=== PATIENT | female | born 1940 | race Caucasian/White ===

== ENCOUNTER 2021-11-27 16:33 | Inpatient (IN) | payer MEDICAID, MEDICARE, OTHER ==
[~2021-11-27] VITALS: Ht 154.9 cm; Wt 84.1 kg
[2021-11-27 16:54] LABS: BASOPHILS # (AUTO) 0.1 10^3/uL (0.0-0.1); BASOPHILS % (AUTO) 1 % (0-10); EOSINOPHILS # (AUTO) 0.1 10^3/uL (0.0-0.3); EOSINOPHILS % (AUTO) 1 % (0-10); HEMATOCRIT 41 % (35-52); HEMOGLOBIN 14.2 g/dL (11.5-16.0); LYMPHOCYTES # (AUTO) 1.5 10^3/uL (1.0-4.0); LYMPHOCYTES % (AUTO) 12 % (12-44); MEAN CORPUSCULAR HEMOGLOBIN 30 pg (25-34); MEAN CORPUSCULAR HGB CONC 34 g/dL (32-36); MEAN CORPUSCULAR VOLUME 88 fL (80-99); MEAN PLATELET VOLUME 9.8 fL (9.0-12.2); MONOCYTES # (AUTO) 0.8 10^3/uL (0.0-1.0); MONOCYTES % (AUTO) 7 % (0-12); NEUTROPHILS % (AUTO) 80 % (42-75); PLATELET COUNT 316 10^3/uL (130-400); WHITE BLOOD COUNT 12.5 10^3/uL (4.3-11.0)
[2021-11-27 17:16] LABS: POTASSIUM 3.6 MMOL/L (3.6-5.0)
[2021-11-27 17:17] LABS: ALBUMIN 4.4 GM/DL (3.2-4.5); BILIRUBIN,TOTAL 0.7 MG/DL (0.1-1.0); CALCIUM 9.4 MG/DL (8.5-10.1); CREATININE SERUM 0.58 MG/DL (0.60-1.30); MAGNESIUM 1.8 MG/DL (1.6-2.4); TOTAL PROTEIN 7.3 GM/DL (6.4-8.2)
[2021-11-27] MEDS ORDERED: IOHEXOL 350 MG/ML 100 ML (OMNIPAQUE 350) VIAL IV ONE (19:00)
[2021-11-27] MEDS ORDERED: NS 100 ML (IVPB) BAG IV ONE (19:00)
[2021-11-27] MEDS ORDERED: HOLD METFORMIN - RECEIVED CONTRAST 20 ML VIAL IV SCH (19:00)
--- NOTE | 2021-11-27 19:23 | ED Neurological Problem ---
General Chief Complaint: General Problems/Pain Stated Complaint: FALL Nursing Triage Note: Patient has been brought to ER by the family after having a fall today. Patient was found the bedroom floor by family and she was unable to get up. She arrived to ER by wheel chair and patient denies complaint. Patient reports 2 falls the last 2 days. She reports that her left arm has been more weak the last 10 to 14 days. She denies any pain in her left arm. Source: patient, family Exam Limitations: no limitations History of Present Illness Date Seen by Provider: November 27, 2021 Time Seen by Provider: 16:49 Initial Comments This 82-year-old woman presents to the emergency room accompanied by her family with concerns about weakness in her left upper extremity and left lower extremity for at least 4 days and possibly several more. She has also had 2 falls in the past 2 days. She denies any significant injury with those falls. She has a mild bruise on her left jawline. She states she feels like her left leg gives out on her causing the falls. She is countering this by using a walker and/or cane. She has not noted any cognitive deficits, dysarthria, dysphagia, or other acute neurologic syndromes. She was found on the floor by her family today and states she had been there for maybe an hour. No significant injury to the head or neck was described. She is treated for hypertension and hyperlipidemia but otherwise has no significant health history. Allergies and Home Medications Allergies Coded Allergies: No Known Drug Allergies (Unverified , 11/27/21) Patient Home Medication List Home Medication List Reviewed: Yes Lisinopril (Lisinopril) 10 Mg Tablet, 10 MG PO DAILY, (Reported) Entered as Reported by: Maddy Perales on 11/27/212314 Last Action: New Order Metoprolol Succinate (Metoprolol Succinate) 100 Mg Tab.er.24h, 100 MG PO DAILY, (Reported) Entered as Reported by: Maddy Perales on 11/27/212314 Last Action: New Order Simvastatin (Simvastatin) 40 Mg Tablet, 40 MG PO DAILY, (Reported) Entered as Reported by: Maddy Perales on 11/27/212314 Last Action: New Order Review of Systems Review of Systems Constitutional: no symptoms reported Eyes: No Symptoms Reported Ears, Nose, Mouth, Throat: no symptoms reported Respiratory: no symptoms reported Cardiovascular: no symptoms reported Gastrointestinal: no symptoms reported Genitourinary: no symptoms reported : No Musculoskeletal: no symptoms reported Skin: no symptoms reported Psychiatric/Neurological: See HPI Endocrine: No Symptoms Reported Hematologic/Lymphatic: No Symptoms Reported Past Pxvpleo-Oefssx-Yzrrnz Hx Patient Social History Tobacco Use?: No Use of E-Cig and/or Vaping dev: No Substance use?: No Alcohol Use?: No Past Medical History Surgeries: No Respiratory: No Cardiac: Yes High Cholesterol, Hypertension Neurological: No Reproductive Disorders: No Genitourinary: No Gastrointestinal: No Musculoskeletal: No Endocrine: No HEENT: No Cancer: No Psychosocial: No Integumentary: No Physical Exam Vital Signs Vital Signs - First Documented 11/27/21 16:55 Temp 36.9 Pulse 95 Resp 16 B/P (MAP) 154/ Pulse Ox 97 O2 Delivery Room Air Capillary Refill : Height, Weight, BMI Height: '" Weight: lbs. oz. kg; 32.00 BMI Method: General Appearance: WD/WN, no apparent distress HEENT: PERRL/EOMI, normal ENT inspection, other (minor bruising at the left jaw line) Neck: normal inspection, other (No JVD) Respiratory: lungs clear, normal breath sounds, no respiratory distress, no accessory muscle use Cardiovascular: regular rate, rhythm, no edema, no murmur Gastrointestinal: non tender, soft Extremities: normal inspection, no pedal edema Neurologic/Psychiatric: button bradder II-XII nml as tested, alert, normal mood/affect, oriented x 3, motor weakness (Mild to moderate weakness of the left upper extremity and left lower extremity. Ataxia with [id number]-ym-[id number] on the left), other Crainal Nerves: normal hearing, normal speech, PERRL Coordination/Gait: ABN nose to finger (L) Motor/Sensory: no sensory deficit Skin: normal color, warm/dry Stroke NIH Stroke Scale Assessment Select: Initial Level of Consciousness: 0=Alert (0), Level of Consciousness- Questions: 0=Answers both month/age (0), LOC Commands: 0=Performs both tasks (0), Gaze: Normal (0), Visual Stephens: 0=No visual loss (0), Facial Movement (Facial Paresis): 0=Normal symmetrical mnt (0), Motor Function-Arms Right: 0=No drift (0), Motor Function-Arms Left: 1=Drift (1), Motor Function-Legs Right: 0=No drift (0), Motor Function-Legs Left: 1=Drift (1), Limb Ataxia: 1=Present in one limb (1), Sensory: 0=Normal:no loss (0), Best Language: 0=No aphasia (0), Dysarthria: 0=Normal (0), Extinction & Inattention: 0=No a bnormality (0), Total: 3 Progress/Results/Core Measures Results/Orders Lab Results Laboratory Tests Test 11/27/21 16:50 Range/Units White Blood Count 12.5 H 4.3-11.0 10^3/uL Red Blood Count 4.73 3.80-5.11 10^6/uL Hemoglobin 14.2 11.5-16.0 g/dL Hematocrit 41 35-52 % Mean Corpuscular Volume 88 80-99 fL Mean Corpuscular Hemoglobin 30 25-34 pg Mean Corpuscular Hemoglobin Concent 34 32-36 g/dL Red Cell Distribution Width 14.1 10.0-14.5 % Platelet Count 316 130-400 10^3/uL Mean Platelet Volume 9.8 9.0-12.2 fL Immature Granulocyte % (Auto) 0 % Neutrophils (%) (Auto) 80 H 42-75 % Lymphocytes (%) (Auto) 12 12-44 % Monocytes (%) (Auto) 7 0-12 % Eosinophils (%) (Auto) 1 0-10 % Basophils (%) (Auto) 1 0-10 % Neutrophils # (Auto) 10.0 H 1.8-7.8 10^3/uL Lymphocytes # (Auto) 1.5 1.0-4.0 10^3/uL Monocytes # (Auto) 0.8 0.0-1.0 10^3/uL Eosinophils # (Auto) 0.1 0.0-0.3 10^3/uL Basophils # (Auto) 0.1 0.0-0.1 10^3/uL Immature Granulocyte # (Auto) 0.0 0.0-0.1 10^3/uL Prothrombin Time 13.5 12.2-14.7 SEC INR Comment 1.0 0.8-1.4 Activated Partial Thromboplast Time 37 H 24-35 SEC Sodium Level 134 L 135-145 MMOL/L Potassium Level 3.6 3.6-5.0 MMOL/L Chloride Level 96 L 98-107 MMOL/L Carbon Dioxide Level 21 21-32 MMOL/L Anion Gap 17 H 5-14 MMOL/L Blood Urea Nitrogen 9 7-18 MG/DL Creatinine 0.58 L 0.60-1.30 MG/DL Estimat Glomerular Filtration Rate 90 BUN/Creatinine Ratio 16 Glucose Level 161 H 70-105 MG/DL Calcium Level 9.4 8.5-10.1 MG/DL Corrected Calcium 9.1 8.5-10.1 MG/DL Magnesium Level 1.8 1.6-2.4 MG/DL Total Bilirubin 0.7 0.1-1.0 MG/DL Aspartate Amino Transf (AST/SGOT) 20 5-34 U/L Alanine Aminotransferase (ALT/SGPT) 14 0-55 U/L Alkaline Phosphatase 85 40-136 U/L C-Reactive Protein 1.48 H <0.50 MG/DL Total Protein 7.3 6.4-8.2 GM/DL Albumin 4.4 3.2-4.5 GM/DL My Orders Orders - GIOVANY CHAIREZ MD Cbc With Automated Diff (11/27/21 16:49) Comprehensive Metabolic Panel (11/27/21 16:49) Magnesium (11/27/21 16:49) Thyroid Analyzer (11/27/21 16:49) Ua Culture If Indicated (11/27/21 16:49) Crp Fs (11/27/21 16:49) Ed Iv/Invasive Line Start (11/27/21 16:49) Ct Angio Head/Neck (11/27/21 18:47) Ct Head Wo-R/O Stroke (11/27/21 18:47) Iohexol Injection (Omnipaque 350 Mg/Ml 1 (11/27/21 19:00) Received Contrast (Hold Metformin- Contr (11/27/21 19:00) Ns (Ivpb) (Sodium Chloride 0.9% Ivpb Bag (11/27/21 19:00) Lactated Ringers (Lr 1000 Ml Iv Solution (11/27/21 19:30) Ekg Tracing (11/27/21 19:41) Monitor-Rhythm Ecg Trace Only (11/27/21 19:41) Protime With Inr (11/27/21 20:12) Partial Thromboplastin Time (11/27/21 20:12) Heparin Drip 87458 Unit/500ml (Heparin (11/27/21 20:15) Medications Given in ED Current Medications Medications Dose Ordered Sig/Sangita Route Start Time Stop Time Status Last Admin Dose Admin Heparin Sodium/ Dextrose 500 ml @ 0 mls/hr Q0M ONCE IV 11/27/21 20:15 11/27/21 20:16 DC 11/27/21 20:35 24 MLS/HR Lactated Ringer's 1,000 ml @ 0 mls/hr Q0M ONCE IV 11/27/21 19:30 11/27/21 19:31 DC 11/27/21 19:33 999 MLS/HR Vital Signs/I&O 11/27/21 11/27/21 11/27/21 11/27/21 16:55 19:15 19:30 19:45 Temp 36.9 Pulse 95 86 86 90 Resp 16 24 20 22 B/P (MAP) 154/ 175/102 187/74 189/86 Pulse Ox 97 97 97 97 O2 Delivery Room Air Room Air Room Air Room Air 11/27/21 11/27/21 11/27/21 11/27/21 20:00 20:30 21:10 22:00 Pulse 89 87 93 Resp 20 24 23 B/P (MAP) 187/78 172/78 188/79 Pulse Ox 96 96 97 O2 Delivery Room Air Room Air Room Air Progress Progress Note : Time: 20:39 Progress Note Patient was seen and evaluated. CT scan was obtained due to evidence of possible CVA symptoms. NIH was obtained and she scored 3 points, one point for left arm drift, one point for left leg drift, and one point for left upper extremity ataxia. Noncontrast CT demonstrated some lucency bilaterally, right greater than left that could represent subacute CVA. This was followed by CT angiogram demonstrated an 80 to 90% stenosis of the right ICA thought to be caused by thrombus. This was discussed with Dr. De Paz, stroke neurologist at [facility], at 1948. No immediate interventions were recommended. She was not a good candidate for IR therapy. She was well past the window for thrombolytics. Dr. De Paz recommended admission with 24 hours on heparin drip (no bolus) and transition to oral anticoagulants if she tolerates the heparin drip well. I discussed risks and benefits of heparin drip with the patient including risk of potentially life-threatening bleeding versus risk of potential progression of thrombus without the heparin drip. Patient was agreeable to treatment with the heparin drip. MRI in the morning was also recommended and will be obtained in the morning. Patient is unfamiliar with medical environments as she has had very little health care requirements in the past. 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 Family did express concern that this may cause problems with compliance. We did have a fairly long conversation about CODE STATUS including risks and benefits of CPR and intubation. Patient did state twice that she would like to remain a full code. Heparin drip was initiated in the ER. Liter of IV fluid was administered after IV contrast administration was delivered during CT angiogram. Admission location was discussed with the patient and family. They prefer [place] [address] in [place]. Initial ECG Impression Date: November 27, 2021 Initial ECG Impression Time: 19:51 Initial ECG Rate: 103 Initial ECG Rhythm: S.Tach Comment Sinus tachycardia with no ST elevation or depression. No abnormal intervals or axis deviation. Diagnostic Imaging Diagonstic Imaging: CT Plain Films/CT/US/NM/MRI: head Comments CT head viewed by me and report reviewed. Discussed with the radiologist. See report below: NAME: PAWEL HASKINS [facility] REC#: [id number] PT STATUS: REG ER : 1940 PHYSICIAN: GIOVANY CHAIREZ MD ADMIT DATE: 11/27/21/ER FS Signed Date of Exam:11/27/21 CT HEAD WO-R/O STROKE EXAMINATION: CT head without contrast. TECHNIQUE: Multiple contiguous axial images were obtained through the brain without the use of intravenous contrast. All CT scans use one or more of the following dose optimizing techniques: automated exposure control, MA and/or KvP adjustment based on patient size and exam type or iterative reconstruction. HISTORY: Left-sided weakness. COMPARISON: None available. FINDINGS: The ventricles and sulci are normal. Mild hypodensities throughout the supratentorial white matter of both cerebral hemispheres. These are slightly right asymmetric. No acute intracranial hemorrhage or abnormal extra-axial fluid collections are present. Calcification of the intracranial ICAs. No hyperdense vessel. The calvarium is intact. The mastoid air cells are clear. The visualized paranasal sinuses are clear. The orbits are normal. IMPRESSION: 1. No acute intracranial abnormality. 2. Mild chronic microangiopathy and volume loss. These are slightly right asymmetric and may be secondary to underlying acute or subacute lacunar infarcts in the right frontal lobe white matter given the findings on CTA. Critical finding. Results communicated about this exam and the subsequent CTA to Dr. Artis by Dr. Flavio Huffman at 7:30 PM on 11/27/2021. Dictated by: Dictated on workstation # [id number] Dict: 11/27/211921 Trans: 11/27/211939 [facility] [id number] Interpreted by: PENG HUFFMAN DO Electronically signed by: PENG HUFFMAN DO 11/27/211939 Diagonstic Imaging: CT Plain Films/CT/US/NM/MRI: other (Angiogram head and neck) Comments CT angiogram head and neck viewed by me and report reviewed. Discussed with the radiologist. See report below: NAME: PAWEL HASKINS [facility] REC#: [id number] PT STATUS: REG ER : 1940 PHYSICIAN: GIOVANY CHAIREZ MD ADMIT DATE: 11/27/21/ER FS Signed Date of Exam:11/27/21 CT ANGIO HEAD/NECK PROCEDURE: CT angiography of the head and CT angiography of the neck with and without contrast. TECHNIQUE: Contiguous noncontrast images were obtained from the skull base through the vertex. After intravenous contrast administration, helical CT angiography of the neck was performed. Source data was reformatted into 3D MIP projections. Delayed post contrast acquisition was also obtained. Auto Exposure Controls were utilized during the CT exam to meet ALARA standards for radiation dose reduction. INDICATION: Left-sided weakness. Evaluate for acute ischemia. COMPARISON: CT head performed earlier the same date. FINDINGS: CTA neck: The visualized portions of the aortic arch demonstrate no evidence of aneurysm or dissection. There is conventional branching pattern of the great vessels of the aorta. The brachiocephalic artery is normal in course and caliber. The right and left common carotid origins are unremarkable. The origin of the left subclavian artery is patent. The common carotid arteries and internal carotid arteries demonstrate a tortuous course. There is calcified atherosclerotic plaque in the bilateral carotid bulbs and proximal internal carotid arteries without flow-limiting stenosis. No evidence of dissection in the carotid systems. The external carotid arteries are patent and unremarkable. The vertebral arteries are codominant. The origin of the right vertebral artery is seen and is unremarkable. The origin of the left vertebral artery is seen and is unremarkable. There is no focal stenosis seen within the neck. There is no dissection. The vertebral arteries are well visualized to up to the level of the basilar artery. The osseous structures of the cervical spine are unremarkable. Included views through the lung apices demonstrate no focal consolidation. CTA brain: Atherosclerotic plaque is seen in the intracranial portion of bilateral ICAs. Acute appearing thrombus is visualized within the cavernous segment of the right ICA resulting in high-grade stenosis of 80-90%. No stenosis is seen in the bilateral anterior, middle and posterior cerebral arteries. No evidence of aneurysm the [place]. In the posterior circulation, both of the vertebral arteries demonstrate normal opacification. Both the right and left PICA arteries are identified. The basilar artery is normal in course and caliber. The terminal branch vessels including the superior cerebellar arteries unremarkable. IMPRESSION: 1. 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 2. No evidence of large vessel occlusion in the [place]. No aneurysm. 3. No stenosis or dissection in the cervical portions of the bilateral carotid and vertebral arteries. Findings were called to the emergency department at 7:25 PM on 11/27/2021. Dictated by: Dictated on workstation # [id number] Dict: 11/27/211921 Trans: 11/27/211945 [facility] [id number] Interpreted by: SILVA GUTIERREZ DO Electronically signed by: SILVA GUTIERREZ DO 11/27/211945 Departure Communication (Admissions) Time/Spoke to Admitting Phy: 20:15 Dr. Barboza Impression Primary Impression: CVA (cerebral vascular accident) Qualified Codes: I63.9 - Cerebral infarction, unspecified Additional Impression: Left-sided weakness Disposition: 30 STILL A PATIENT Condition: Stable Admissions Decision to Admit Reason: Admit from ER (General) Decision to Admit/Date: November 27, 2021 Time/Decision to Admit Time: 20:15 Transfer Transfer Reason: Exceeds level of care Time Spoke to Accepting Phy: 20:15 Transfer Time: 21:10 Transfer Facility: [facility] Method of Transfer: EMS Departure-Patient Inst. Referrals: MIRYAM DAWSON MD (PCP/Family) Primary Care Physician Copy Copies To 1: MIRYAM DAWSON MD, JOSHUA T MD November 27, 2021 19:23
[2021-11-27] MEDS ORDERED: LACTATED RINGERS 1,000 ML IV ONE (19:30)
--- NOTE | 2021-11-27 19:32 | Diagnostic Imaging Report ---
PROCEDURE: CT angiography of the head and CT angiography of the neck with and without contrast. TECHNIQUE: Contiguous noncontrast images were obtained from the skull base through the vertex. After intravenous contrast administration, helical CT angiography of the neck was performed. Source data was reformatted into 3D MIP projections. Delayed post contrast acquisition was also obtained. Auto Exposure Controls were utilized during the CT exam to meet ALARA standards for radiation dose reduction. INDICATION: Left-sided weakness. Evaluate for acute ischemia. COMPARISON: CT head performed earlier the same date. FINDINGS: CTA neck: The visualized portions of the aortic arch demonstrate no evidence of aneurysm or dissection. There is conventional branching pattern of the great vessels of the aorta. The brachiocephalic artery is normal in course and caliber. The right and left common carotid origins are unremarkable. The origin of the left subclavian artery is patent. The common carotid arteries and internal carotid arteries demonstrate a tortuous course. There is calcified atherosclerotic plaque in the bilateral carotid bulbs and proximal internal carotid arteries without flow-limiting stenosis. No evidence of dissection in the carotid systems. The external carotid arteries are patent and unremarkable. The vertebral arteries are codominant. The origin of the right vertebral artery is seen and is unremarkable. The origin of the left vertebral artery is seen and is unremarkable. There is no focal stenosis seen within the neck. There is no dissection. The vertebral arteries are well visualized to up to the level of the basilar artery. The osseous structures of the cervical spine are unremarkable. Included views through the lung apices demonstrate no focal consolidation. CTA brain: Atherosclerotic plaque is seen in the intracranial portion of bilateral ICAs. Acute appearing thrombus is visualized within the cavernous segment of the right ICA resulting in high-grade stenosis of 80-90%. No stenosis is seen in the bilateral anterior, middle and posterior cerebral arteries. No evidence of aneurysm the [place]. In the posterior circulation, both of the vertebral arteries demonstrate normal opacification. Both the right and left PICA arteries are identified. The basilar artery is normal in course and caliber. The terminal branch vessels including the superior cerebellar arteries unremarkable. IMPRESSION: 1. 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 2. No evidence of large vessel occlusion in the [place]. No aneurysm. 3. No stenosis or dissection in the cervical portions of the bilateral carotid and vertebral arteries. Findings were called to the emergency department at 7:25 PM on 11/27/2021. Dictated by: Dictated on workstation # [id number]
--- NOTE | 2021-11-27 19:33 | Diagnostic Imaging Report ---
EXAMINATION: CT head without contrast. TECHNIQUE: Multiple contiguous axial images were obtained through the brain without the use of intravenous contrast. All CT scans use one or more of the following dose optimizing techniques: automated exposure control, MA and/or KvP adjustment based on patient size and exam type or iterative reconstruction. HISTORY: Left-sided weakness. COMPARISON: None available. FINDINGS: The ventricles and sulci are normal. Mild hypodensities throughout the supratentorial white matter of both cerebral hemispheres. These are slightly right asymmetric. No acute intracranial hemorrhage or abnormal extra-axial fluid collections are present. Calcification of the intracranial ICAs. No hyperdense vessel. The calvarium is intact. The mastoid air cells are clear. The visualized paranasal sinuses are clear. The orbits are normal. IMPRESSION: 1. No acute intracranial abnormality. 2. Mild chronic microangiopathy and volume loss. These are slightly right asymmetric and may be secondary to underlying acute or subacute lacunar infarcts in the right frontal lobe white matter given the findings on CTA. Critical finding. Results communicated about this exam and the subsequent CTA to Dr. Artis by Dr. Flavio Álvarez at 7:30 PM on 11/27/2021. Dictated by: Dictated on workstation # [id number]
[2021-11-27] MEDS ORDERED: HEParin DRIP 25000 UNIT/500ML 500 ML IV ONE (20:15)
[2021-11-27 20:35] LABS: PROTHROMBIN TIME PATIENT 13.5 SEC (12.2-14.7)
[2021-11-27 22:56] VITALS: BP 116/76
[2021-11-27] MEDS ORDERED: MTP100TCR PO (23:15)
[2021-11-27] MEDS ORDERED: LISI10TA25 PO (23:15)
[2021-11-27] MEDS ORDERED: SIMV40TA25 PO (23:15)
[2021-11-27] MEDS ORDERED: HEParin DRIP 25000 UNIT/500ML 500 ML IV SCH (23:30)
[2021-11-27] MEDS ORDERED: ONDANSETRON 4 MG/2 ML (SDV) Z0FRAN IV PRN (23:30)
[2021-11-27] MEDS ORDERED: HEParin 1000 UNIT/ML (10ML VIAL) FOR BOLUS IV SCH (23:30)
[2021-11-27 23:48] LABS: BACTERIA,URINE TRACE /HPF; BILIRUBIN,URINE NEGATIVE (NEGATIVE); CLARITY,URINE CLEAR; COLOR,URINE YELLOW; GLUCOSE, URINE (UA) NEGATIVE (NEGATIVE); KETONES,URINE 3+ (NEGATIVE); LEUKOCYTE ESTERASE ,URINE TRACE (NEGATIVE); NITRITE,URINE NEGATIVE (NEGATIVE); PROTEIN,URINE NEGATIVE (NEGATIVE); RBC,URINE RARE /HPF
[2021-11-28] VITALS (8 sets, daily range): BP systolic 121–154; BP diastolic 55–92
[2021-11-28 05:39] LABS: BASOPHILS # (AUTO) 0.1 10^3/uL (0.0-0.1); BASOPHILS % (AUTO) 1 % (0-10); EOSINOPHILS # (AUTO) 0.1 10^3/uL (0.0-0.3); EOSINOPHILS % (AUTO) 0 % (0-10); HEMATOCRIT 39 % (35-52); LYMPHOCYTES % (AUTO) 17 % (12-44); MEAN CORPUSCULAR HEMOGLOBIN 30 pg (25-34); MEAN CORPUSCULAR HGB CONC 33 g/dL (32-36); MEAN CORPUSCULAR VOLUME 89 fL (80-99); MEAN PLATELET VOLUME 10.2 fL (9.0-12.2); MONOCYTES # (AUTO) 0.9 10^3/uL (0.0-1.0); MONOCYTES % (AUTO) 8 % (0-12); NEUTROPHILS # (AUTO) 8.6 10^3/uL (1.8-7.8); NEUTROPHILS % (AUTO) 74 % (42-75); PLATELET COUNT 312 10^3/uL (130-400); WHITE BLOOD COUNT 11.7 10^3/uL (4.3-11.0)
[2021-11-28 06:02] LABS: CALCIUM 9.1 MG/DL (8.5-10.1)
[2021-11-28 06:06] LABS: CREATININE SERUM 0.64 MG/DL (0.60-1.30)
[2021-11-28] MEDS: CATHETER FLUSH 10 ML SYR IVP SCH ×3 (06:41→23:11)
[2021-11-28 07:53] LABS: PHOSPHORUS 2.9 MG/DL (2.3-4.7)
[2021-11-28 07:56] LABS: MAGNESIUM 1.8 MG/DL (1.6-2.4)
--- NOTE | 2021-11-28 08:39 | History & Physical-Hospitalist ---
History of Present Illness HPI/Chief Complaint Patient is an 81-year-old female with a past medical history of HTN,HLD who presented to the ER after being found down. She reports left sided weakness starting a few days ago. Yesterday apparently she suffered a fall and was found by her family which prompted evaluation in the emergency department. Due to left-sided weakness CT head was done to evaluate for stroke which revealed evidence of a possible subacute stroke. CTA showed 80 to 90% stenosis of the right ICA with possible acute thrombus. Dr. Carter discussed the case with [facility] stroke neurology who recommended admission for heparin drip and MRI in the morning. She reports feeling well today and has no complaints. Date Seen 11/28/21 Time Seen by a Provider: 07:45 Attending Physician Nahid Marshall MD PCP Admitting Physician: Garrett Barboza MD Attending Physician: Garrett Barboza MD Referring Physician Date of Admission November 27, 2021 at 22:00 Home Medications & Allergies Home Medications Reviewed patient Home Medication Reconciliation performed by pharmacy medication reconciliations library cataloging technician and/or nursing. Patients Allergies have been reviewed. Allergies Allergies Coded Allergies No Known Drug Allergies (Unverified11/27/21) Past Uyoicrq-Qptifu-Yrcxml Hx Patient Social History Employed/Student: retired Tobacco Use?: Yes Smoking Status: Former Smoker Use of E-Cig and/or Vaping dev: No Substance use?: No Alcohol Use?: No Pt feels they are or have been: No Current Status status: No status: No Advance Directives: No Communicates: Verbally Primary Language: Macanese Preferred Spoken Language: Macanese Is interpretation needed?: No Implanted or Applied Medical D: None Past Medical History High Cholesterol, Hypertension Family Medical History Reviewed Nursing Family Hx No Pertinent Family Hx Review of Systems Constitutional: No chills, No fever EENTM: no symptoms reported Respiratory: No cough, No hemoptysis, No short of breath Cardiovascular: No chest pain, No edema, No palpitations Gastrointestinal: No abdominal pain, No constipation, No nausea, No vomiting Genitourinary: No dysuria; frequency (just overnight); No incontinence Musculoskeletal: no symptoms reported Skin: no symptoms reported Psychiatric/Neurological: No Symptoms Reported Physical Exam Physical Exam Vital Signs Vital Signs - First Documented 11/27/21 16:55 Temp 36.9 Pulse 95 Resp 16 B/P (MAP) 154/ Pulse Ox 97 O2 Delivery Room Air Capillary Refill : Less Than 3 Seconds Height, Weight, BMI Height: '" Weight: lbs. oz. kg; 35.05 BMI Method: General Appearance: No Apparent Distress, WD/WN HEENT: PERRL/EOMI, Moist Mucous Membranes; No Scleral Icterus (L), No Scleral Icterus (R) Neck: Normal Inspection, Supple Respiratory: Lungs Clear, No Accessory Muscle Use, No Respiratory Distress Cardiovascular: Regular Rate, Rhythm, No JVD, No Murmur Gastrointestinal: Normal Bowel Sounds, Non Tender, Soft Extremity: No Calf Tenderness, No Pedal Edema, Other Neurologic/Psychiatric: Alert, Oriented x3, Normal Mood/Affect, Other (LEFT UE with significant weaknes 2/5, RUE 5/5, LLE 4-/5 and RLE 5/5) Skin: Normal Color, Warm/Dry Results Results/Procedures Labs Laboratory Tests 11/27/21 16:50 11/28/21 05:13 Patient resulted labs reviewed. Assessment/Plan Admission Diagnosis CVA Admission Status: Inpatient Order (span 2 midnights) Reason for Inpatient Admission: see below Assessment and Plan CVA Subacute CVA seen on CT head CTA with right ICA thrombus- continue on anticoagulation with Heparin PT/OT IRF eval MRI this AM Echo ordered Dr Wesley consulted, appreciate recs Called [facility] and spoke with triage nurse to clarify anticoagulation recs from Stroke Neurologist at then spoke with Dr Estes at 1026 and reviewed CTA results with her. She recommends short course of anticoagulation (2-4 weeks on Eliquis) and 81mg Aspirin HTN HLD BP well controlled, trend Resume home meds when med rec done DVT ppx: Currently on heparin gtt Diagnosis/Problems Diagnosis/Problems (1) HTN (hypertension) Status: Chronic Qualifiers: Hypertension type: primary hypertension Qualified Codes: I10 - Essential (primary) hypertension (2) HLD (hyperlipidemia) Status: Chronic Qualifiers: Hyperlipidemia type: mixed hyperlipidemia Qualified Codes: E78.2 - Mixed hyperlipidemia (3) CVA (cerebral vascular accident) Status: Acute Qualifiers: CVA mechanism: nonpyogenic cerebral venous thrombosis Qualified Codes: I63.6 - Cerebral infarction due to cerebral venous thrombosis, nonpyogenic (4) Left-sided weakness Status: Acute EDDIE JOYCE MD November 28, 2021 08:39
[2021-11-28] MEDS: ASPIRIN E.C. 81 MG (ECOTRIN) TAB PO SCH (09:12)
[2021-11-28] MEDS: KCL 20 MEQ TAB (K-DUR) PO SCH ×3 (09:13→14:11)
[2021-11-28] MEDS: DOCUSATE SODIUM 100 MG (COLACE) CAP PO SCH (09:13)
--- NOTE | 2021-11-28 10:51 | Occupational Therapy Eval ---
OT Evaluation-General/PLF Medical Diagnosis Admission Date November 27, 2021 at 22:00 Medical Diagnosis: CVA Onset Date: November 27, 2021 Therapy Diagnosis Therapy Diagnosis: reduced adl status Precautions Precautions/Isolations: Fall Prevention, Standard Precautions Referral Physician: Tamra Referral Reason: Evaluation/Treatment Medical History Pertinent Medical History: HTN Current History Pt arrived to ER with L sided weakness and post fall. CT head was done to evaluate for stroke which revealed evidence of a possible subacute stroke. Per patient, she lives alone in senior housing. She owns a 4WW, but uses a cane. She reports being indep in adls and iadls except her daughter assists with grocery shopping. Reviewed History: Yes Social History Home: Apartment Current Living Status: Alone Entry Into Home: Level Entry ADL-Prior Level of Function SCALE: Activities may be completed with or without assistive devices. 6-Cekjhypneg-niilaam completes the activity by him/herself with no assistance from a helper. 5-Set-up or Clean-up Assistance-helper sets up or cleans up; patient completes activity. [place] assists only prior to or following the activity. 4-Supervision or Touching Assistance-helper provides verbal cues and/or touching/steadying and/or contact guard assistance as patient completes activity. Assistance may be provided throughout the activity or intermittently. 3-Partial/Moderate Assistance-helper does LESS THAN HALF the effort. [place] lifts, holds or supports trunk or limbs, but provides less than half the effort. 2-Substantial/Maximal Assistance-helper does MORE THAN HALF the effort. [place] lifts or holds trunk or limbs and provides more than half the effort. 8-Tfmqsmvor-jlfrye does ALL the effort. Patient does none of the effort to complete the activity. Or, the assistance of 2 or more helpers is required for the patient to complete the activity. If activity was not attempted, code reason: 7-Patient Refused. 9-Not Applicable-not attempted and the patient did not perform the activity before the current illness, exacerbation or injury. 10-Not Attempted due to Environmental Limitations-(lack of equipment, weather restraints, etc.). 88-Not Attempted due to Medical Conditions or Safety Concerns. Self Care: Independent Functional Cognition: Independent DME/Equipment: Bath Bench, Grab Bars, Shower Drive Self: No OT Current Status Subjective Pt denies pain, agreeable to evaluation. Appearance Pt returned to supine in bed, all needs within reach. Mental Status/Objective Patient Orientation: Person, Place, Time Attachments: IV, Telemetry Current Glasses/Contacts: Yes Hand Dominance: Right Upper Extremity ROM RUE WNL LUE: Hypertonia; flexor synergy Upper Extremity Strength 3+/5 RUE ADL-Treatment Eating (QC): 5 (able to feed self with R hand) Lower Body Dressing (QC): 1 On/Off Footwear (QC): 1 Toileting Hygiene (QC): 2 Supine<>sit: min-mod a. Initially pt lists left, improves post cues for torso and once feet are supported on floor. Pt able to sit EOB ~4 minutes with close supervision. Throughout session pt exhibits some impulsive behavior, cues for safety needed. Sit<>stand: min a, cues for R hand placement and assist to position L foot. Stand pivot to/from commode with Min-mod a, cues for safety. Continent of bowels and urine in commode. Pt able to reach posteriorly for atul care with use of RUE. Mod a needed for thoroughness. Clothing management not pe rformed as pt only wearing a hospital gown. Anticipate assist would be needed for balance and management over L hip. Dependent to don bilateral socks after effortful attempt. Pt often states that her weakness is related to her fall, does not appear to comprehend that she had a stroke. Education OT Patient Education: Correct positioning, Disease process, Modified ADL techniques, Purpose of tx/functional activities, Reviewed precautions, Rehab process, Safety issues, Transfer techniques Teaching Recipient: Patient, Family Teaching Methods: Demonstration, Discussion Response to Teaching: Verbalize Understanding, Return Demonstration, Reinforcement Needed OT Retail Sales Representative Goals Retail Sales Representative Goals Time Frame: Dec 13, 2021 Eating (QC): 5 Oral Hygiene (QC): 5 Toileting Hygiene (QC): 4 Shower/Bathe Self (QC): 3 Upper Body Dressing (QC): 4 Lower Body Dressing (QC): 4 On/Off Footwear (QC): 3 1=Demonstrate adherence to instructed precautions during ADL tasks. 2=Patient will verbalize/demonstrate understanding of assistive devices/modifications for ADL. 3=Patient will improve strength/tolerance for activity to enable patient to perform ADL's. OT Education/Plan Problem List/Assessment Assessment: Decreased Activ Tolerance, Decreased Safety Aware, Decreased UE Strength, Impaired Bed Mobility, Impaired Cognition, Impaired Coordination, Impaired Funct Balance, Impaired I ADL's, Impaired Self-Care Skills, Restricted Funct UE ROM Discharge Recommendations Plan/Recommendations: Continue POC Therapy Discharge Recommendati: Post Acute OT Treatment Plan/Plan of Care Treatment,Training & Education: Yes Patient would benefit from OT for education, treatment and training to promote independence in ADL's, mobility, safety and/or upper extremity function for ADL's. Plan of Care: ADL Retraining, Cognitive Retraining, Functional Mobility, Group Exercise/Act as Ind, UE Funct Exercise/Act, UE Neuromus Re-Ed/Coord Treatment Duration: Dec 13, 2021 Frequency: 3 times per week (3-5x/week) Estimated Hrs Per Day: .25 hour per day Agreement: Yes Rehab Potential: Fair Time/GCodes Start Time: 09:54 Stop Time: 10:20 Total Time Billed (hr/min): 26 Billed Treatment Time 1 visit EVM (10 min) ADL (16 min) Kim Shannon OT November 28, 2021 10:50
--- NOTE | 2021-11-28 11:48 | Diagnostic Imaging Report ---
PROCEDURE: MR imaging of the brain without contrast. TECHNIQUE: Multiplanar, multisequence MR imaging of the brain was performed without contrast. INDICATION: Left-sided weakness. COMPARISON: CTA head and neck from 11/27/2021. FINDINGS: Patchy regions of restricted water diffusion in the right parietal and posterior right frontal lobe, involving both cortex and deep white matter. There are a couple of punctate regions of restricted water diffusion in the deep white matter of the occipital lobe on the right. No evidence of intracranial hemorrhage. No significant mass effect. Moderate additional nonspecific T2 hyperintensities in the supratentorial white matter. Normal morphology of the major midline structures, sella, posterior fossa and cerebellopontine angle. Normal intracranial flow voids. No hydrocephalus or extra-axial fluid collections. Postoperative changes in the globes. Paranasal sinuses and mastoids are unremarkable. Normal bone marrow signal. IMPRESSION: Patchy regions of aglyv-xl-ydsaanop infarction in the right parietal lobe extending into the posterior right frontal and occipital lobe. 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 No evidence of intracranial hemorrhage or mass effect. Dictated by: Dictated on workstation # [id number]
--- NOTE | 2021-11-28 11:57 | Physical Therapy Evaluation ---
PT Evaluation-General Medical Diagnosis Admission Date November 27, 2021 at 22:00 Medical Diagnosis: CVA Onset Date: November 27, 2021 Therapy Diagnosis Therapy Diagnosis: impaired mobility/weakness Precautions Precautions/Isolations: Fall Prevention, Standard Precautions Referral Physician: Glenn Reason for Referral: Evaluation/Treatment Medical History Pertinent Medical History: HTN Current History ER secondary found on floor with progressive weakness x 4 days Reviewed History: Yes Social History Home: Apartment Current Living Status: Alone Entry Into Home: Level Entry Prior Prior Level of Function SCALE: Activities may be completed with or without assistive devices. 7-Lydpmrvxis-dayftbk completes the activity by him/herself with no assistance from a helper. 5-Set-up or Clean-up Assistance-helper sets up or cleans up; patient completes activity. [place] assists only prior to or following the activity. 4-Supervision or Touching Assistance-helper provides verbal cues and/or touc bita/steadying and/or contact guard assistance as patient completes activity. Assistance may be provided throughout the activity or intermittently. 3-Partial/Moderate Assistance-helper does LESS THAN HALF the effort. [place] lifts, holds or supports trunk or limbs, but provides less than half the effort. 2-Substantial/Maximal Assistance-helper does MORE THAN HALF the effort. [place] lifts or holds trunk or limbs and provides more than half the effort. 8-Whtevqybq-wktvli does ALL the effort. Patient does none of the effort to complete the activity. Or, the assistance of 2 or more helpers is required for the patient to complete the activity. If activity was not attempted, code reason: 7-Patient Refused. 9-Not Applicable-not attempted and the patient did not perform the activity before the current illness, exacerbation or injury. 10-Not Attempted due to Environmental Limitations-(lack of equipment, weather restraints, etc.). 88-Not Attempted due to Medical Conditions or Safety Concerns. Bed Mobility: 6 Transfers (B,C,W/C): 6 Gait: 6 Indoor Mobility (Ambulation): Independent Prior Devices Use: Walker, Other-see list below (cane) PT Evaluation-Current Subjective Patient agrees to PT. Family present. Objective Patient Orientation: Person, Time, Situation Attachments: IV ROM/Strength ROM Lower Extremities bilateral LE WFL Strength Lower Extremities right knee flexion/extension 3+/5;hip flexion 3/5; DF/PF 3/5 left knee flexion/extension 3-/5; hip flexion 3-/5; DF/PF 3-/5 Integumentary/Posture Posture trunk flexed posture Neuromuscular (Tone, Coordination, Reflexes) noted increased tone left LE Sensory Hand Dominance: Right Transfers Sit to Lying (QC): 1 Lying to Sitting/Side of Bed(Q: 1 Sit to Stand (QC): 1 Gait Does the Patient Walk?: No and Walking Goal IS indicated Gait Assistive Device: Cane Small Base Quad Comments/Gait Description unable to take a step during assessment Balance Sitting Static: Fair Sitting Dynamic: Fair Standing Static: Poor Standing Dynamic: Poor Picking up an Object (QC): 88 Assessment/Needs Patient will benefit from skilled PT to address functional strength and mobility to improve current LOF. Patient is currently dependent with all mobility. Rehab Potential: Guarded PT Short Term Goals Short Term Goals Time Frame: Dec 14, 2021 Roll Left & Right: 3 Sit to lyin Lying to sitting on side of be: 3 Sit to stand: 3 Chair/zwr-fv-hspgu transfer: 3 Toilet transfer: 3 Walk 10 feet: 3 PT Detention Goals Sister Superior Goals PT Detention Goals Time Frame: Jan 04, 2022 Roll Left & Right (QC): 4 Sit to Lying (QC): 4 Lying-Sitting on Side/Bed(QC): 4 Sit to Stand (QC): 4 Chair/Gqn-hy-Nnvso Xfer(QC): 4 Toilet Transfer (QC): 4 Car Transfer (QC): 4 Walk 10 feet (QC): 4 Walk 50ft with 2 Turns (QC): 4 Walk 150 ft (QC): 4 PT Plan Problem List Problem List: Activity Tolerance, Functional Strength, Safety, Balance, Gait, Transfer, Bed Mobility Treatment/Plan Treatment Plan: Continue Plan of Care Treatment Plan: Bed Mobility, Education, Functional Activity Seema, Functional Strength, Gait, Safety, Therapeutic Exercise, Transfers Treatment Duration: Jan 04, 2022 Frequency: 6 times per week Estimated Hrs Per Day: .5 hour per day Patient and/or Family Agrees t: Yes Time/GCodes Time In: 1135 Time Out: 1147 Total Billed Treatment Time: 12 Total Billed Treatment 1 visit EVMod 12 min CHELSEA MORGAN PT November 28, 2021 11:57
--- NOTE | 2021-11-28 12:28 | Consultation-Cardiology ---
HPI-Cardiology Cardiology Consultation Date of Consultation 11/28/21 Date of Admission Time Seen by Provider: 07:45 Indication: Acute CVA HPI 81-year-old lady with history of hypertension, hyperlipidemia. Started to have left upper extremity weakness for the past few days. Became significantly worse and she suffered a fall followed by her family on the floor. She was brought to the emergency room and noted to have subacute CVA. CT of the head and neck showed 80 to 90% stenosis in the right ICA with possible acute thrombus, lab work was discussed with the [facility] stroke neurology, recommendation is conservative management with aspirin and possible Eliquis. No source of embolization was identified yet. She denied any palpitation, no chest pain. No previous cardiac history. Home Medications & Allergies Allergies: Coded Allergies: No Known Drug Allergies (Unverified , 11/27/21) Home Medication List Reviewed: Yes LFW-Nujxeb-Vragoc Hx Patient Social History Marital Status: Employed/Student: retired Smoking Status: Former Smoker Have you traveled recently?: No Alcohol Use?: No Past Medical History Discussed below Family Medical History Significant Family History: No Pertinent Family Hx Family Medical Hx Son has a history of atrial fibrillation Review of Systems-General Review of Systems Constitutional: No chills, No fever EENTM: no symptoms reported Respiratory: No cough, No hemoptysis, No short of breath Cardiovascular: No chest pain, No edema, No palpitations Gastrointestinal: No abdominal pain, No constipation, No nausea, No vomiting Genitourinary: No dysuria; frequency (just overnight); No incontinence : No Musculoskeletal: no symptoms reported Skin: no symptoms reported Psychiatric/Neurological: No Symptoms Reported Reviewed Test Results Reviewed Test Results Lab Laboratory Tests Test 11/27/21 16:50 11/27/21 23:15 11/27/21 23:24 11/28/21 05:13 Range/Units White Blood Count 12.5 H 11.7 H 4.3-11.0 10^3/uL Red Blood Count 4.73 4.38 3.80-5.11 10^6/uL Hemoglobin 14.2 13.0 11.5-16.0 g/dL Hematocrit 41 39 35-52 % Mean Corpuscular Volume 88 89 80-99 fL Mean Corpuscular Hemoglobin 30 30 25-34 pg Mean Corpuscular Hemoglobin Concent 34 33 32-36 g/dL Red Cell Distribution Width 14.1 14.0 10.0-14.5 % Platelet Count 316 312 130-400 10^3/uL Mean Platelet Volume 9.8 10.2 9.0-12.2 fL Immature Granulocyte % (Auto) 0 0 % Neutrophils (%) (Auto) 80 H 74 42-75 % Lymphocytes (%) (Auto) 12 17 12-44 % Monocytes (%) (Auto) 7 8 0-12 % Eosinophils (%) (Auto) 1 0 0-10 % Basophils (%) (Auto) 1 1 0-10 % Neutrophils # (Auto) 10.0 H 8.6 H 1.8-7.8 10^3/uL Lymphocytes # (Auto) 1.5 2.0 1.0-4.0 10^3/uL Monocytes # (Auto) 0.8 0.9 0.0-1.0 10^3/uL Eosinophils # (Auto) 0.1 0.1 0.0-0.3 10^3/uL Basophils # (Auto) 0.1 0.1 0.0-0.1 10^3/uL Immature Granulocyte # (Auto) 0.0 0.0 0.0-0.1 10^3/uL Prothrombin Time 13.5 12.2-14.7 SEC INR Comment 1.0 0.8-1.4 Activated Partial Thromboplast Time 37 H 70 H 84 H 24-35 SEC Sodium Level 134 L 139 135-145 MMOL/L Potassium Level 3.6 3.0 L 3.6-5.0 MMOL/L Chloride Level 96 L 103 98-107 MMOL/L Carbon Dioxide Level 21 22 21-32 MMOL/L Anion Gap 17 H 14 5-14 MMOL/L Blood Urea Nitrogen 9 6 L 7-18 MG/DL Creatinine 0.58 L 0.64 0.60-1.30 MG/DL Estimat Glomerular Filtration Rate 90 88 BUN/Creatinine Ratio 16 9 Glucose Level 161 H 177 H 70-105 MG/DL Calcium Level 9.4 9.1 8.5-10.1 MG/DL Corrected Calcium 9.1 8.5-10.1 MG/DL Magnesium Level 1.8 1.8 1.6-2.4 MG/DL Total Bilirubin 0.7 0.1-1.0 MG/DL Aspartate Amino Transf (AST/SGOT) 20 5-34 U/L Alanine Aminotransferase (ALT/SGPT) 14 0-55 U/L Alkaline Phosphatase 85 40-136 U/L C-Reactive Protein 1.48 H <0.50 MG/DL Total Protein 7.3 6.4-8.2 GM/DL Albumin 4.4 3.2-4.5 GM/DL Urine Color YELLOW Urine Clarity CLEAR Urine pH 5.0 5-9 Urine Specific [place] <=1.005 1.016-1.022 Urine Protein NEGATIVE NEGATIVE Urine Glucose (UA) NEGATIVE NEGATIVE Urine Ketones 3+ H NEGATIVE Urine Nitrite NEGATIVE NEGATIVE Urine Bilirubin NEGATIVE NEGATIVE Urine Urobilinogen 0.2 < = 1.0 MG/DL Urine Leukocyte Esterase TRACE H NEGATIVE Urine RBC (Auto) TRACE-I H NEGATIVE Urine RBC RARE /HPF Urine WBC 2-5 /HPF Urine Squamous Epithelial Cells 2-5 /HPF Urine Crystals NONE /LPF Urine Bacteria TRACE /HPF Urine Casts NONE /LPF Urine Mucus NEGATIVE /LPF Urine Culture Indicated NO Phosphorus Level 2.9 2.3-4.7 MG/DL Triglycerides Level 129 <150 MG/DL Cholesterol Level 125 < 200 MG/DL LDL Cholesterol Direct 59 1-129 MG/DL VLDL Cholesterol 26 5-40 MG/DL HDL Cholesterol 41 40-60 MG/DL Physical Exam Physical Exam Vital Signs Vital Signs - First Documented 11/27/21 16:55 Temp 36.9 Pulse 95 Resp 16 B/P (MAP) 154/ Pulse Ox 97 O2 Delivery Room Air Capillary Refill : Less Than 3 Seconds Height, Weight, BMI Height: '" Weight: lbs. oz. kg; 35.05 BMI Method: General Appearance: No Apparent Distress, WD/WN HEENT: PERRL/EOMI, Moist Mucous Membranes; No Scleral Icterus (L), No Scleral Icterus (R) Neck: Normal Inspection, Supple Respiratory: Lungs Clear, No Accessory Muscle Use, No Respiratory Distress Cardiovascular: Regular Rate, Rhythm, No JVD, No Murmur Gastrointestinal: Normal Bowel Sounds, Non Tender, Soft Extremity: No Calf Tenderness, No Pedal Edema, Other Neurologic/Psychiatric: Alert, Oriented x3, Normal Mood/Affect, Other (LEFT UE with significant weaknes 2/5, RUE 5/5, LLE 4-/5 and RLE 5/5) Skin: Normal Color, Warm/Dry A/P-Cardiology Admission Diagnosis She subacute CVA Right carotid artery stenosis Hypertension Hyperlipidemia Assessment/Plan Subacute CVA, hemorrhoids source of embolization CTA of the head showed 80 to 90% right ICA stenosis with possible thrombus with no identifiable source of thrombus. Recommendation was by [facility] stroke neurology to treat with aspirin and heparin and then progressed to aspirin and Eliquis. I will evaluate SUKHI to rule out any cardiac source of embolization, continue to monitor telemetry Hypertension, monitor blood pressure. Hyperlipidemia, monitor lipids NICOLE DEJESUS MD November 28, 2021 12:28
[2021-11-28] MEDS ORDERED: KCL 20 MEQ TAB (K-DUR) PO SCH (14:00)
[2021-11-28] MEDS ORDERED: TURM500C4 PO (14:19)
[2021-11-28] MEDS ORDERED: PYRI50TA PO (14:19)
[2021-11-28] MEDS ORDERED: CYAN-41 PO (14:19)
[2021-11-28] MEDS ORDERED: MULT-1112 PO (14:19)
[2021-11-28 15:29] LABS: TSH (THYROID ANALYZER) 1.54 UIU/ML (0.35-4.94)
[2021-11-28] MEDS: APIXABAN 5 MG (ELIQUIS) TABLET PO SCH (18:45)
[2021-11-28] MEDS ORDERED: APIXABAN 5 MG (ELIQUIS) TABLET PO SCH (21:00)
[2021-11-29] VITALS (11 sets, daily range): BP systolic 104–184; BP diastolic 61–99
[2021-11-29 05:09] LABS: POTASSIUM 3.7 MMOL/L (3.6-5.0)
[2021-11-29 05:11] LABS: CALCIUM 8.8 MG/DL (8.5-10.1)
[2021-11-29 05:15] LABS: CREATININE SERUM 0.63 MG/DL (0.60-1.30); PHOSPHORUS 3.3 MG/DL (2.3-4.7)
[2021-11-29 05:17] LABS: MAGNESIUM 1.8 MG/DL (1.6-2.4)
[2021-11-29] MEDS ORDERED: KCL 20 MEQ TAB (K-DUR) PO SCH (06:00)
[2021-11-29] MEDS ORDERED: MAGNESIUM 1 GM/100 ML IVPB 100 ML IV SCH (06:00)
[2021-11-29] MEDS ORDERED: POTASSIUM CL 10MEQ/50ML IVPB 50 ML IV SCH (06:00)
[2021-11-29] MEDS ORDERED: NORMAL SALINE 500 ML IV SCH (08:30)
[2021-11-29] MEDS ORDERED: LIDOCAINE 2% VISCOUS 15 ML UDC PO ONE ×2 (08:30→08:45)
[2021-11-29] MEDS: CATHETER FLUSH 10 ML SYR IVP SCH (08:35)
--- NOTE | 2021-11-29 08:48 | Conscious Sedation/ASA ---
Conscious Sedation Pre-Proced Time 08:48 ASA Score 3 For ASA 3 and 4: Consider anesthesia and medical clearance. Also, for patients with a history of failed moderate sedation consider anesthesia. Airway Lungs Heart ASA score ASA 1: a normal healthy patient ASA 2: a patient with a mild systemic disease (mid diabetes, controlled hypertension, obesity x ASA 3: a patient with a severe systemic disease that limits activity (angina, COPD, prior Myocardial infarction) ASA 4: a patient with an incapacitating disease that is a constant threat to life (CHF, renal failure) ASA 5: a moribund patient not expected to survive 24 hrs. (ruptured aneurysm) ASA 6: a declared brain- patient whose organs are being harvested. For emergent operations, add the letter E after the classification Mallampati Classification Grade 3 Sedation Plan Analgesia, Amnesia, Plan communicated to team members, Discussed options with patient/fam, Discussed risks with patient/fam The patient is an appropriate candidate to undergo the planned procedure, sedation, and anesthesia. The patient immediately re-assessed prior to indication. NICOLE DEJESUS MD November 29, 2021 08:48
--- NOTE | 2021-11-29 08:48 | Cardiology Progress Note ---
Subjective Date Seen by Provider: November 29, 2021 Time Seen by Provider: 08:46 Subjective/Events-last exam Patient was seen at bedside, feeling better, laying down. Still having weakness on the left upper extremity Review of Systems General: No Chills, No Night Sweats, No Fatigue, No Malaise, No Appetite, No Other HEENT: No Head Aches, No Visual Changes, No Eye Pain, No Ear Pain, No Dysphasia, No Sinus Congestion, No Post Nasal Drip, No Sore Throat, No Other Pulmonary: No Dyspnea, No Cough, No Pleuritic Chest Pain, No Other Cardiovascular: No: Chest Pain, Palpitations, Orthopnea, Paroxysmal Noc. Dyspnea, Edema, Lt Headedness, Other Objective-Cardiology Exam Last Set of Vital Signs Vital Signs 11/29/21 11/29/21 07:37 08:00 Temp 36.6 Pulse 65 Resp 11 B/P (MAP) 139/68 (91) Pulse Ox 92 O2 Delivery Room Air I&O Intake and Output 11/29/21 00:00 Intake Total 1210 ml Output Total 350 ml Balance 860 ml Intake Oral 1210 ml Output Urine Total 350 ml # Voids 11 # Bowel Movements 1 General: Alert, Oriented X3, Cooperative HEENT: Atraumatic, PERRLA Neck: Supple, No JVD, No Thyromegaly Lungs: Clear to Auscultation, Normal Air Movement Heart: Regular Rate, Normal S1, Normal S2, No Murmurs Abdomen: Normal Bowel Sounds, Soft, No Tenderness, No Hepatosplenomegaly, No Masses Extremities: No Clubbing, No Cyanosis, No Edema, Normal Pulses, No Tenderness/Swelling Skin: No Rashes, No Breakdown, No Significant Lesion Neuro: Normal Speech, Normal Tone, Sensation Intact, Other (Left upper extremity weakness) Psych/Mental Status: Mental Status NL, Mood NL Results Lab Laboratory Tests 11/29/21 04:37 A/P-Cardiology Admission Diagnosis She subacute CVA Right carotid artery stenosis Hypertension Hyperlipidemia Assessment/Plan Subacute CVA, hemorrhoids source of embolization CTA of the head showed 80 to 90% right ICA stenosis with possible thrombus with no identifiable source of thrombus. MRI of the head showed patchy region of acute to subacute infarction of the right parietal lobe extending to the posterior right frontal and occipital lobe. 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 No signs of mass- effect or hemorrhage. Recommendation was by [facility] stroke neurology to treat with aspirin and heparin and then progressed to aspirin and Eliquis. I will evaluate SUKHI to rule out any cardiac source of embolization, continue to monitor telemetry Hypertension, monitor blood pressure. Hyperlipidemia, monitor lipids NICOLE DEJESUS MD November 29, 2021 08:48
--- NOTE | 2021-11-29 09:55 | Physical Therapy Daily Note ---
PT Daily Note-Current Subjective Patient agrees to PT. Family present. Mental Status Patient Orientation: Normal For Age Transfers SCALE: Activities may be completed with or without assistive devices. 3-Iisxjccpxx-jtiavia completes the activity by him/herself with no assistance from a helper. 5-Set-up or Clean-up Assistance-helper sets up or cleans up; patient completes activity. [place] assists only prior to or following the activity. 4-Supervision or Touching Assistance-helper provides verbal cues and/or touching/steadying and/or contact guard assistance as patient completes activity. Assistance may be provided throughout the activity or intermittently. 3-Partial/Moderate Assistance-helper does LESS THAN HALF the effort. [place] lifts, holds or supports trunk or limbs, but provides less than half the effort. 2-Substantial/Maximal Assistance-helper does MORE THAN HALF the effort. [place] lifts or holds trunk or limbs and provides more than half the effort. 7-Qwoilhifg-dwqjkw does ALL the effort. Patient does none of the effort to complete the activity. Or, the assistance of 2 or more helpers is required for the patient to complete the activity. If activity was not attempted, code reason: 7-Patient Refused. 9-Not Applicable-not attempted and the patient did not perform the activity before the current illness, exacerbation or injury. 10-Not Attempted due to Environmental Limitations-(lack of equipment, weather restraints, etc.). 88-Not Attempted due to Medical Conditions or Safety Concerns. Lying to Sitting/Side of Bed(Q: 2 Sit to Stand (QC): 2 Toilet Transfer (QC): 2 Gait Training Distance: 30' Walk 10 feet (QC): 2 Gait Assistive Device: FWW very slow, step to gait sequence with VC's for left hand placement on FWW and advancing left LE Exercises Supine Ex: Ankle pumps, Quad Set, Heel Slides, Straight leg raise Supine Reps: 10 Seated Therapy Exercises: Long arc quads Seated Reps: 12 Assessment Patient improved on this date. Family and patient very encouraged with progress. Continue to address functional strength and mobility. PT Short Term Goals Short Term Goals Time Frame: Dec 14, 2021 Roll Left & Right: 3 Sit to lyin Lying to sitting on side of be: 3 Sit to stand: 3 Chair/maz-dy-bhsor transfer: 3 Toilet transfer: 3 Walk 10 feet: 3 PT Mcfp Goals Structural Engineer Goals PT Mcfp Goals Time Frame: Jan 04, 2022 Roll Left & Right (QC): 4 Sit to Lying (QC): 4 Lying-Sitting on Side/Bed(QC): 4 Sit to Stand (QC): 4 Chair/Oxl-vj-Bbrig Xfer(QC): 4 Toilet Transfer (QC): 4 Car Transfer (QC): 4 Walk 10 feet (QC): 4 Walk 50ft with 2 Turns (QC): 4 Walk 150 ft (QC): 4 PT Plan Treatment/Plan Treatment Plan: Continue Plan of Care Treatment Plan: Bed Mobility, Education, Functional Activity Seema, Functional Strength, Gait, Safety, Therapeutic Exercise, Transfers Treatment Duration: Jan 04, 2022 Frequency: 6 times per week Estimated Hrs Per Day: .5 hour per day Patient and/or Family Agrees t: Yes Time/GCodes Time In: 815 Time Out: 839 Total Billed Treatment Time: 24 Total Billed Treatment 1 visit EX 8 min FA 16 min CHELSEA MORGAN PT November 29, 2021 09:55
--- NOTE | 2021-11-29 10:28 | Occupational Ther Daily Note ---
OT Current Status-Daily Note Subjective Pt in bed, agreeable to OT tx. 4 visitors/family members present. ADL-Treatment Therapy Code Descriptions/Definitions Functional Daniels Measure: 0=Not Assessed/NA 4=Minimal Assistance 1=Total Assistance 5=Supervision or Setup 2=Maximal Assistance 6=Modified Daniels 3=Moderate Assistance 7=Complete IndependenceSCALE: Activities may be completed with or without assistive devices. 6-Bmqzkjjdtp-rnbubcr completes the activity by him/herself with no assistance from a helper. 5-Set-up or Clean-up Assistance-helper sets up or cleans up; patient completes activity. [place] assists only prior to or following the activity. 4-Supervision or Touching Assistance-helper provides verbal cues and/or timi nicole/steadying and/or contact guard assistance as patient completes activity. Assistance may be provided throughout the activity or intermittently. 3-Partial/Moderate Assistance-helper does LESS THAN HALF the effort. [place] lifts, holds or supports trunk or limbs, but provides less than half the effort. 2-Substantial/Maximal Assistance-helper does MORE THAN HALF the effort. [place] lifts or holds trunk or limbs and provides more than half the effort. 6-Ljxdyjaly-fuulka does ALL the effort. Patient does none of the effort to complete the activity. Or, the assistance of 2 or more helpers is required for the patient to complete the activity. If activity was not attempted, code reason: 7-Patient Refused. 9-Not Applicable-not attempted and the patient did not perform the activity before the current illness, exacerbation or injury. 10-Not Attempted due to Environmental Limitations-(lack of equipment, weather restraints, etc.). 88-Not Attempted due to Medical Conditions or Safety Concerns. Oral Hygiene (QC): 7 Shower/Bathe Self (QC): 7 Toileting Hygiene (QC): 7 Other Treatment Pt in bed, agreeable to OT tx. She declines ADLs at this time. OT tx with focus on increasing LUE ROM and functional use of LUE. Pt completed x10 reps LUE AAROM shoulder flexion and elbow flexion/extension. Increased tone noted during elbow extension. Pt unable to make fist with hand, PROM performed at wrist and fingers. Post tx, pt in bed, call light in reach and all needs met. Education OT Patient Education: Correct positioning, Energy conservation, Exercise program, Modified ADL techniques, Progress toward Goal/Update tx plan, Purpose of tx/functional activities, Rehab process Teaching Recipient: Patient Teaching Methods: Discussion Response to Teaching: Verbalize Understanding OT Shelter Goals Shelter Goals Time Frame: Dec 13, 2021 Eating (QC): 5 Oral Hygiene (QC): 5 Toileting Hygiene (QC): 4 Shower/Bathe Self (QC): 3 Upper Body Dressing (QC): 4 Lower Body Dressing (QC): 4 On/Off Footwear (QC): 3 1=Demonstrate adherence to instructed precautions during ADL tasks. 2=Patient will verbalize/demonstrate understanding of assistive devices/modifications for ADL. 3=Patient will improve strength/tolerance for activity to enable patient to perform ADL's. OT Education/Plan Problem List/Assessment Assessment: Decreased Activ Tolerance, Decreased UE Strength, Impaired Funct Balance, Impaired I ADL's, Impaired Self-Care Skills, Restricted Funct UE ROM Discharge Recommendations Plan/Recommendations: Continue POC Treatment Plan/Plan of Care Patient would benefit from OT for education, treatment and training to promote independence in ADL's, mobility, safety and/or upper extremity function for ADL's. Plan of Care: ADL Retraining, Cognitive Retraining, Functional Mobility, Group Exercise/Act as Ind, UE Funct Exercise/Act, UE Neuromus Re-Ed/Coord Treatment Duration: Dec 13, 2021 Frequency: 3 times per week (3-5x/week) Estimated Hrs Per Day: .25 hour per day Agreement: Yes Rehab Potential: Guarded Time/GCodes Start Time: 08:50 Stop Time: 09:00 Total Time Billed (hr/min): 10 Billed Treatment Time 1, EX DENI LOVE OT November 29, 2021 10:28
--- NOTE | 2021-11-29 10:51 | Discharge Summary ---
Diagnosis/Chief Complaint Date of Admission November 27, 2021 at 22:00 Date of Discharge Discharge Date: November 29, 2021 Admission Diagnosis CVA Primary Care Nahid Marshall MD Discharge Diagnosis (1) HTN (hypertension) Status: Chronic (2) HLD (hyperlipidemia) Status: Chronic (3) CVA (cerebral vascular accident) Status: Acute (4) Left-sided weakness Status: Acute Discharge Summary Discharge Physical Exam Allergies: Coded Allergies: No Known Drug Allergies (Unverified , 11/27/21) Vitals & I&Os Vital Signs Date Time Temp Pulse Resp B/P (MAP) Pulse Ox O2 Delivery O2 Flow Rate FiO2 11/29/21 11:45 76 27 119/61 (80) 93 Room Air 11/29/21 11:35 6.00 11/29/21 07:37 36.6 General Appearance: No Apparent Distress, WD/WN Cardiovascular: Regular Rate, Rhythm, No Murmur Neurologic/Psychiatric: Alert, Oriented x3, Motor Weakness (LUE) Hospital Course Pt was admitted due acute to subacute CVA. MRI confirmed stroke and CTA revealed and acute thrombus. Discussed were has twice with [facility] regarding possible intervention. They states no intervention was warranted but that they would treat with a heparin gtt for the first 24 hours and then transition to oral anticoagulation with 81mg aspirin. This was done and she underwent SUKHI to evaluate with Dr Wesley and did well. She was discharged to ARU in stable and improved condition to continue with intensive physical therapy. Labs (last 24 hrs) Laboratory Tests 11/29/21 04:37: Sodium Level 140, Potassium Level 3.7, Chloride Level 108H, Carbon Dioxide Level 20L, Anion Gap 12, Blood Urea Nitrogen 6L, Creatinine 0.63, Estimat Glomerular Filtration Rate 88, BUN/Creatinine Ratio 10, Glucose Level 166H, Calcium Level 8.8, Phosphorus Level 3.3, Magnesium Level 1.8 Patient resulted labs reviewed. Pending Labs Laboratory Tests 11/29/21 04:37: Sodium Level 140, Potassium Level 3.7, Chloride Level 108, Carbon Dioxide Level 20, Anion Gap 12, Blood Urea Nitrogen 6, Creatinine 0.63, Estimat Glomerular Filtration Rate 88, BUN/Creatinine Ratio 10, Glucose Level 166, Calcium Level 8.8, Phosphorus Level 3.3, Magnesium Level 1.8 Discussion & Recommendations Discharge Planning: >30 minutes discharge planning Discharge Home Medications: Active Scripts Active Reported Turmeric 500 mg Capsule (Turmeric/Turmeric Root Extract) 450 Mg-50 Mg Capsule 1 Each PO DAILY Centrum Chewables Adults Tab (Multivit-Min/Iron/Folic/Vit K1) 8 Mg Iron-400 Mcg- 10 Mcg Tab.chew 1 Each PO DAILY Vitamin B-12 (Cyanocobalamin (Vitamin B-12)) 1,000 Mcg Tablet 1,000 Mcg PO DAILY Vitamin B-6 (Pyridoxine HCl) 50 Mg Tablet 50 Mg PO DAILY Lisinopril 10 Mg Tablet 10 Mg PO HS Metoprolol Succinate 100 Mg Tab.er.24h 100 Mg PO HS Simvastatin 40 Mg Tablet 40 Mg PO HS Instructions to patient/family Please see electronic discharge instructions given to patient. 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
[2021-11-29] MEDS ORDERED: fentaNYL INJ 100 MCG/2 ML AMP ONE (10:53)
[2021-11-29] MEDS ORDERED: LIDOCAINE 2% VISCOUS 15 ML UDC ONE (10:53)
[2021-11-29] MEDS ORDERED: MIDAZOLAM 5 MG/5 ML (VERSED) VIAL ONE (10:54)
[2021-11-29] MEDS ORDERED: LIDOCAINE 2% VISCOUS 15 ML UDC PO NR (11:00)
[2021-11-29] MEDS ORDERED: fentaNYL INJ 100 MCG/2 ML AMP IV ONE (11:45)
[2021-11-29] MEDS ORDERED: MIDAZOLAM 5 MG/5 ML (VERSED) VIAL IV ONE (11:45)
[2021-11-29] MEDS: DOCUSATE SODIUM 100 MG (COLACE) CAP PO SCH (12:30)
[2021-11-29] MEDS: APIXABAN 5 MG (ELIQUIS) TABLET PO SCH (13:07)
[2021-11-29] MEDS: ASPIRIN E.C. 81 MG (ECOTRIN) TAB PO SCH (13:08)
--- NOTE | 2021-11-29 15:32 | Physician Query Clarification ---
Physician Query-General Query to Physician: The medical record reflects the following clinical scenario: The patient, in the setting of History/Risk factors, Subacute CVA Clinical Findings "left sided weakness:" started a few days ago per physician "Severe weakness of left hand and Mild weakness of left Leg" per nursing, Per MRI this admission: "Patchy regions of fhluf-ht-vfzbbxjx infarction in the right parietal lobe extending into the posterior right frontal and occipital lobe." Treatment Heparin gtt, Cardiology consult with SUKHI, PT/OT Question: Can you further specify Left sided weakness in the setting of subacute CVA per the clinical indicators above? Please document your response in the Progress Notes or Discharge Summary. 1. Left sided hemiparesis in the setting of/due to subacute CVA, present on admission 2. Other, with explanation of clinical findings 3. Clinically undetermined, no explanation for clinical findings Please clarify and document your clinical opinion in the Progress Notes and Discharge Summary including the definitive and/or presumptive diagnosis, (suspected or probable), related to the above clinical findings. Please include clinical findings supporting your diagnosis. In responding to this query, please exercise your independent professional judgment. The purpose of this communication is to more accurately reflect the complexity of your patients condition. The fact that a question is asked does not imply that any particular answer is desired or expected. Thank you for timely response to this clarification. Guillermina Arnold MSN, RN [employer] Insurance Claim Adjuster [phone] [email or web address] PHYSICIAN RESPONSE: Based on the clinical findings in the record, please respond to the query above on this document as an addendum. Physician Response: Physician Response 1 If you have questions please contact: Engine Manager: Ext: Thank you for your time and cooperation. [employer] Insurance Claim Adjuster/Engine Manager This is a permanent part of the medical record GUILLERMINA ARNOLD November 29, 2021 15:32 EDDIE JOYCE MD November 30, 2021 09:48
== END 2021-11-29 13:15 | DRG 65 ==
LOC: ER FS 16:34 → CSD 22:00
PROVIDERS: ADMIT Internal Medicine; ATTEND Internal Medicine
PROC: 4A03X5D Measurement of Arterial Flow, Intracranial, External Approach (ICD-10-PCS; principal; 2021-11-27)
DX: I63.231 Cerebral infarction due to unspecified occlusion or stenosis of right carotid arteries (principal); G81.94 Hemiplegia, unspecified affecting left nondominant side; R29.703 NIHSS score 3; E78.00 Pure hypercholesterolemia, unspecified; I10 Essential (primary) hypertension; E78.5 Hyperlipidemia, unspecified; Z87.891 Personal history of nicotine dependence
CPT/HCPCS: 36415; 70450; 70496; 70498; 70551; 80048; 80053; 80061; 81000; 83735; 84100; 84443; 85025; 85610; 85730; 86141; 93005; 93041; 93306; Q9967

== ENCOUNTER 2021-11-29 10:39 | Inpatient (IN) | payer MEDICARE ==
[~2021-11-29] VITALS: Ht 154.9 cm; Wt 79.6 kg
[~2021-11-29 10:39] MED LIST: CYAN-41 PO; LISI10TA25 PO; MTP100TCR PO; MULT-1112 PO; PYRI50TA PO; SIMV40TA25 PO; TURM500C4 PO
--- NOTE | 2021-11-29 10:51 | PM&R Post Admission Assessment ---
PM&R HP Date of Visit: November 29, 2021 Time of Visit: 13:30 History of Present Illness CC: CVA HPI: This is an 81yoWF clinic patient of Dr Marshall who presented to the ER 3-4 days after left sided weakness was noted. She fell on Thursday and another fall on Thursday then family brought her in and was found to have a thrombus in the ICA with subacute CVA. Family at bedside. NO pain reported. SUKHI completed. CC: Left sided weakness and debility secondary to CVA HPI: The patient is a 81 YO female, who will be admitted to inpatient rehab due to L sided weakness, and debility secondary to a CVA. She has a PMH of hypertension and hyperlipidemia. The patient reports experiencing L sided weakness 3-4 days ago. She has never had similar symptoms before. She had a fall around Thursday or Thursday, with no LOC and no head trauma. She had another fall on Thursday11/27/21 without LOC, but she did hit her jaw she reports. She reports that the fall on Thursday resulted from her L leg giving out. She was subsequently brought to the ER on 11/27/21 and then admitted to the 5th floor. The patient denies episodes of passing out, chest pain, muscle cramps, heart palpitations or shortness of breath. She was laying in bed this afternoon status post SUKHI and was not in acute distress. ROS: Constitutional: no fevers, no chills. EENTM: no vision changes Respiratory: no SOB, no cough Cardiovascular: no chest pains, no palpitations Gastrointestinal: no constipation, no vomiting Musculoskeletal: no calf cramping, L sided weakness Skin: no change in color, no concerning lesions Psychiatric/Neurological: no anxiety, no depression PMH: Hypertension Hyperlipidemia No surgeries No prior hospitalizations Social history: Employed/Student: retired Tobacco Use?: Yes Smoking Status: Former Smoker Use of E-Cig and/or Vaping dev: No Substance use?: No Alcohol Use?: No Family history: Unspecified heart disease on maternal and paternal sides Objective: Vitals: HR: 87, RR: 27, BP 145/85, 96% room air PE: General Appearance: No Apparent Distress Eyes: Bilateral Eye Normal Inspection, Bilateral Eye PERRL, HEENT: PERRL/EOMI, mocuous membranes moist, Mandibular Strength Intact Neck: normal inspection, normal ROM Respiratory: Chest Non Tender, Lungs Clear, Normal Breath Sounds, No Accessory Muscle Use, No Respiratory Distress Cardiovascular: Regular Rate, Rhythm, No Edema, No Gallop, No JVD, Normal Peripheral Pulses Gastrointestinal: Normal Bowel Sounds, No Organomegaly, No Pulsatile Mass, Non Tender, Soft Extremity: Normal Capillary Refill, Normal Inspection, Non Tender, No Calf Tenderness, No Pedal Edema Neurologic/Psychiatric: Alert, Oriented x3, Normal Mood/Affect, LUE strength 2/5, RUE strength 5/5, LLE strength 4/5, RLE strength 5/5, CN II-X and XII intact, CN XI palsy presenting as 2/5 strength on L shoulder shrug Skin: Normal Color, Warm/Dry Assessment: 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 Debility Fall risk Hypertension Hyperlipidemia Plan: 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 Debility Fall risk CTA on 11/27/21 showed high-grade stenosis involving the cavernous segment of the right ICA of 80-90% secondary to acute appearing thrombus. Brain MRI on 11/28/21 showed Patchy regions of tjeox-ut-xikcehpg infarction in the right parietal lobe extending into the posterior right frontal and occipital lobe. She will continue on anticoagulation therapy. She will be admitted to inpatient rehab today (11/29/21) to help improve her L sided strength, stamina, ambulation ability and endurance. The patient was comfortable with this plan. Hypertension Hyperlipidemia Continue home meds. Cardiology following, we appreciate their recommendations. ROLO PALMA November 29, 2021 12:37 Past Vvbanka-Eloslh-Miyulq Hx Past Med/Social Hx: Reviewed Nursing Past Med/Soc Hx, Reviewed and Corrections made Patient Social History Marrital Status: single Employed/Student: retired Alcohol Use: Denies Use Smoking Status: Never a Smoker Past Medical History Cardiac: High Cholesterol, Hypertension Neurological: Stroke Reproductive: No Family History No Pertinent Family Hx PM&R Allergy/Meds/Data Review Allergies Coded Allergies: No Known Drug Allergies (Unverified , 11/27/21) Home Medications Scheduled Cyanocobalamin (Vitamin B-12) (Vitamin B-12), 1,000 MCG PO DAILY, (Reported) Lisinopril (Lisinopril), 10 MG PO HS, (Reported) Metoprolol Succinate (Metoprolol Succinate), 100 MG PO HS, (Reported) Multivit-Min/Iron/Folic/Vit K1 (Centrum Chewables Adults Tab), 1 EACH PO DAILY, (Reported) Pyridoxine HCl (Vitamin B-6), 50 MG PO DAILY, (Reported) Simvastatin (Simvastatin), 40 MG PO HS, (Reported) Turmeric/Turmeric Root Extract (Turmeric 500 mg Capsule), 1 EACH PO DAILY, ( Reported) Current Medications Current Medications Reviewed Review of Systems Constitutional: see HPI, malaise, weakness EENTM: no symptoms reported Respiratory: no symptoms reported Cardiovascular: no symptoms reported Gastrointestinal: no symptoms reported Genitourinary: no symptoms reported Musculoskeletal: back pain, joint pain Skin: no symptoms reported Psychiatric/Neurological: Weakness All Other Systems Reviewed Negative Unless Noted: Yes Physical Exam Physical Exam Vital Signs Capillary Refill : Height, Weight, BMI Height: '" Weight: lbs. oz. kg; 35.05 BMI Method: General Appearance: No Apparent Distress, WD/WN, Chronically ill Eyes: Bilateral Eye Normal Inspection, Bilateral Eye PERRL HEENT: PERRL/EOMI, Normal ENT Inspection, Pharynx Normal Neck: Full Range of Motion, Normal Inspection, Non Tender, Supple, Carotid Bruit Respiratory: Chest Non Tender, Lungs Clear, Normal Breath Sounds, No Accessory Muscle Use, No Respiratory Distress Cardiovascular: Regular Rate, Rhythm, No Edema, No Gallop, No JVD, No Murmur, Normal Peripheral Pulses Gastrointestinal: Normal Bowel Sounds, No Organomegaly, No Pulsatile Mass, Non Tender, Soft Back: Normal Inspection, No CVA Tenderness, No Vertebral Tenderness Extremity: Normal Capillary Refill, Normal Inspection, Normal Range of Motion (except left side), Non Tender, No Calf Tenderness, No Pedal Edema Neurologic/Psychiatric: Alert, Oriented x3, Normal Mood/Affect, assistant 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 locomotive 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 II-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 Norm as Tested, Motor Weakness (left sided 2/5) Skin: Normal Color, Warm/Dry Lymphatic: No Adenopathy PM&R Medical Assessment & Plan REHAB/MEDICAL ASSESSMENT AND PLAN: REHAB IMPAIRMENT GROUP: CVA ETIOLOGIC DIAGNOSIS: CVA The comorbidities that impact the patients function and/or functional outcome by: advanced age, left sided weakness, acute thrombus REHAB PLAN: The patient is being admitted to our comprehensive inpatient rehabilitation facility and can tolerate the intensity of service consisting of at least: 180 minutes of therapy a day, 5 out of 7 days a week Rehab treatment will consist of: PT OT will focus on regaining function and use assistive devices in order to regain enough function to return to independent living The patient/family has a good understanding of our discharge process and will benefit from an interdisciplinary inpatient rehabilitation program. The patient has potential to make improvement and is in need of at least two of the following multidisciplinary therapies including but not limited to physical, occupational, speech, and prosthetics and orthotics. Additionally the patient will need services from respiratory, nutritional services, wound care, psychology, etc. (Customize this to each patient). Given the patients complex condition and risk of further medical complications, rehabilitation services cannot be safely or effectively provided at a lower level of care such as a senior care facility. BARRIERS TO DISCHARGE: Left sided weakness ESTIMATED LOS: 14 days DISPOSITION: Home RELEVANT CHANGES SINCE PREADMISSION SCREENING: I have compared the patients medical and functional status at the time of the preadmission screening and there are: no changes PROGNOSIS: Fair REHABILITATION GOALS: 1. PT OT will focus on regaining function and use assistive devices in order to regain enough function to return to independent living All the above goals were reviewed with the patient and he/she is in agreement. By signing this document, I acknowledge that I have personally performed a full physical examination on this patient within 24 hours of admission to this inpatient rehabilitation facility and have determined the patient to be able to tolerate the above course of treatment at an intensive level for a reasonable period of time. I will be completing a detailed individualized Plan of Care for this patient by day #4 of the patients stay based upon the Preadmission Screen, the Post-Admission Evaluation, and the therapy evaluations. Admission Dx/Comorbidities: (1) CVA, LEFT SIDED WEAKENSS (2) HLD (hyperlipidemia) Status: Chronic ICD Codes: E78.5 - Hyperlipidemia, unspecified (3) HTN (hypertension) Status: Chronic ICD Codes: I10 - Essential (primary) hypertension Assessment/Plan Assessment and Plan Assess & Plan/Chief Complaint Assessment: 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 Debility Fall risk Hypertension Hyperlipidemia Advanced age Plan: Monitor closely Fall risk Monitor BP OAC ZURDO MARINO DO November 29, 2021 10:51
[2021-11-29] MEDS ORDERED: ONDANSETRON 4 MG (ZOFRAN) ORAL DISSOLVE TAB PO PRN (11:00)
[2021-11-29] MEDS ORDERED: FLEET ENEMA ADULT 1 EA BTL PR PRN (11:00)
[2021-11-29] MEDS ORDERED: ALPRAZolam 0.25 MG (XANAX) TAB PO PRN (11:00)
[2021-11-29] MEDS ORDERED: diphenhydrAMINE 25 MG TAB (BENADRYL) PO PRN (11:00)
[2021-11-29] MEDS ORDERED: CALCIUM CARBONATE 500 MG (TUMS) TAB.CHEW PO PRN (11:00)
[2021-11-29] MEDS ORDERED: guaiFENesin/CODEINE (ROBITUSSIN AC) 10ML UDC PO PRN (11:00)
[2021-11-29] MEDS ORDERED: DOCUSATE SODIUM 100 MG (COLACE) CAP PO PRN (11:00)
[2021-11-29] MEDS ORDERED: BISACODYL 10 MG SUPP (DULCOLAX) PR PRN (11:00)
[2021-11-29] MEDS ORDERED: LACTULOSE SYRUP 10GM/15ML (ENULOSE) 30ML UDC PO PRN (11:00)
[2021-11-29] MEDS ORDERED: LOPERAMIDE 2 MG (IMODIUM) TABLET PO PRN (11:00)
--- NOTE | 2021-11-29 12:37 | Progress Note ---
ROLO PALMA 11/29/21 1237: Progress Note Subjective CC: Left sided weakness and debility secondary to CVA HPI: The patient is a 81 YO female, who will be admitted to inpatient rehab due to L sided weakness, and debility secondary to a CVA. She has a PMH of hypertension and hyperlipidemia. The patient reports experiencing L sided weakness 3-4 days ago. She has never had similar symptoms before. She had a fall around Thursday or Thursday, with no LOC and no head trauma. She had another fall on Thursday11/27/21 without LOC, but she did hit her jaw she reports. She reports that the fall on Thursday resulted from her L leg giving out. She was subsequently brought to the ER on 11/27/21 and then admitted to the 5th floor. The patient denies episodes of passing out, chest pain, muscle cramps, heart palpitations or shortness of breath. She was laying in bed this afternoon status post SUKHI and was not in acute distress. ROS: Constitutional: no fevers, no chills. EENTM: no vision changes Respiratory: no SOB, no cough Cardiovascular: no chest pains, no palpitations Gastrointestinal: no constipation, no vomiting Musculoskeletal: no calf cramping, L sided weakness Skin: no change in color, no concerning lesions Psychiatric/Neurological: no anxiety, no depression PMH: Hypertension Hyperlipidemia No surgeries No prior hospitalizations Social history: Employed/Student: retired Tobacco Use?: Yes Smoking Status: Former Smoker Use of E-Cig and/or Vaping dev: No Substance use?: No Alcohol Use?: No Family history: Unspecified heart disease on maternal and paternal sides Objective: Vitals: HR: 87, RR: 27, BP 145/85, 96% room air PE: General Appearance: No Apparent Distress Eyes: Bilateral Eye Normal Inspection, Bilateral Eye PERRL, HEENT: PERRL/EOMI, mocuous membranes moist, Mandibular Strength Intact Neck: normal inspection, normal ROM Respiratory: Chest Non Tender, Lungs Clear, Normal Breath Sounds, No Accessory Muscle Use, No Respiratory Distress Cardiovascular: Regular Rate, Rhythm, No Edema, No Gallop, No JVD, Normal Perip heral Pulses Gastrointestinal: Normal Bowel Sounds, No Organomegaly, No Pulsatile Mass, Non Tender, Soft Extremity: Normal Capillary Refill, Normal Inspection, Non Tender, No Calf Tenderness, No Pedal Edema Neurologic/Psychiatric: Alert, Oriented x3, Normal Mood/Affect, LUE strength 2/5, RUE strength 5/5, LLE strength 4/5, RLE strength 5/5, CN II-X and XII intact, CN XI palsy presenting as 2/5 strength on L shoulder shrug Skin: Normal Color, Warm/Dry Assessment: 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 Debility Fall risk Hypertension Hyperlipidemia Plan: 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 Debility Fall risk CTA on 11/27/21 showed high-grade stenosis involving the cavernous segment of the right ICA of 80-90% secondary to acute appearing thrombus. Brain MRI on 11/28/21 showed Patchy regions of mkenq-to-qvgbozcg infarction in the right parietal lobe extending into the posterior right frontal and occipital lobe. She will continue on anticoagulation therapy. She will be admitted to inpatient rehab today (11/29/21) to help improve her L sided strength, stamina, ambulation ability and endurance. The patient was comfortable with this plan. Hypertension Hyperlipidemia Continue home meds. Cardiology following, we appreciate their recommendations. DORYS MARINO DO 11/29/212106: Supervisory-Addendum Brief Verification & Attestation Participated in pt care: history, MDM, physical Personally performed: exam, history, MDM, supervision of care Care discussed with: Medical Student Procedures: n/a Results interpretation: Verified all documentation Verification and Attestation of Medical Student E/M Service A medical student performed and documented this service in my presence. I reviewed and verified all information documented by the medical student and made modifications to such information, when appropriate. I personally performed the physical exam and medical decision making. Dorys Marino, November 29, 2021,21:07 ROLO PALMA November 29, 2021 12:37 DORYS MARINO DO November 29, 2021 21:07
[2021-11-29 13:52] VITALS: BP 133/70
--- NOTE | 2021-11-29 14:16 | Occupational Therapy Eval ---
OT Evaluation-General/PLF Medical Diagnosis Admission Date November 29, 2021 at 13:15 Medical Diagnosis: CVA Onset Date: November 27, 2021 Therapy Diagnosis Therapy Diagnosis: reduced adl status Precautions Precautions/Isolations: Fall Prevention, Standard Precautions Referral Physician: Romulo Dos Santos Reason: Evaluation/Treatment Medical History Pertinent Medical History: HTN Current History Pt arrived to ER with L sided weakness and post fall. CT head was done to evaluate for stroke which revealed evidence of a possible subacute stroke. Per patient, she lives alone in senior housing. She owns a 4WW, but uses a cane. She reports being indep in adls and iadls except her daughter assists with grocery shopping. Reviewed History: Yes Social History Home: Single Level Current Living Status: Alone Entry Into Home: Level Entry ADL-Prior Level of Function SCALE: Activities may be completed with or without assistive devices. 2-Bvsnrkmwmd-czqwbvj completes the activity by him/herself with no assistance from a helper. 5-Set-up or Clean-up Assistance-helper sets up or cleans up; patient completes activity. [place] assists only prior to or following the activity. 4-Supervision or Touching Assistance-helper provides verbal cues and/or touching/steadying and/or contact guard assistance as patient completes activity. Assistance may be provided throughout the activity or intermittently. 3-Partial/Moderate Assistance-helper does LESS THAN HALF the effort. [place] lifts, holds or supports trunk or limbs, but provides less than half the effort. 2-Substantial/Maximal Assistance-helper does MORE THAN HALF the effort. [place] lifts or holds trunk or limbs and provides more than half the effort. 1-Akpzrnwfq-zzzxth does ALL the effort. Patient does none of the effort to complete the activity. Or, the assistance of 2 or more helpers is required for the patient to complete the activity. If activity was not attempted, code reason: 7-Patient Refused. 9-Not Applicable-not attempted and the patient did not perform the activity before the current illness, exacerbation or injury. 10-Not Attempted due to Environmental Limitations-(lack of equipment, weather restraints, etc.). 88-Not Attempted due to Medical Conditions or Safety Concerns. Self Care: Independent Functional Cognition: Independent DME/Equipment: Bath Chair, Grab Bars, Shower Drive Self: No OT Current Status Subjective Pt denies pain, slower processing speed identified. Co-treat with PT for part of treatment secondary to impaired balance, high fall risk, poor endurance, L sided neglect, impaired cognition/safety and need of 2 skilled clinicians to progress indep and safety with adls and mobility. Mental Status/Objective Patient Orientation: Person, Confused, Time Attachments: IV Current Hand Dominance: Right Upper Extremity ROM RUE WNL LUE: increased flexor tone with elbow extension, minimal voluntary movement, PROM shoulder: ~160 degrees, PROM wrist to full range, weak/poor grasp. Upper Extremity Strength RUE: 3+/5 throughout LUE not formally tested secondary to high tone ADL-Treatment Eating (QC): 4 Oral Hygiene (QC): 4 Shower/Bathe Self (QC): 1 Upper Body Dressing (QC): 10 Lower Body Dressing (QC): 1 On/Off Footwear (QC): 1 Toileting Hygiene (QC): 1 Sponge bath performed seated at sink. Cues/assist for problem solving through one handed techniques. Assist required to abduct LUE in order to wash axilla and to wash R axilla after good attempt given. Flaky brown skin notable under bilateral breast. RN notified. Pt able to bend at waist to wash down to mid calf with intermittent min a for balance. Dependent to wash below calf. Mod a to stand and maintain balance as second person assisted with atul care and washing buttocks. Dependent to don brief over bilateral feet due to impaired FM coordination, flexibility, sitting balance, and L sided neglect. Again, mod a to stand as second person pulled brief over hips. Pt able to assist minimally with pulling up on R side. No appropriate size UB clothing available at time of eval, thus [facility] gown donned. Step by step sequencing cues needed for all transfers. Pt has tendency to sit prior to reaching surface. Poor awareness/proprioception to L side during gait/transfers. Pt can be impulsive at times, needs several cues for safety. Other Treatments Pt propelled w/c throughout unit, obstacles strategically placed on left side. Several cues for attention to L sided during gait and w/c mobility. Min A to correct/maneuver w/c. Pt fatigues quickly, needs several seated rest breaks. Dependent x2 to transfer in/out of car. With unsupported sitting, pt listing left, able to self correct with cues but unable to sustain for long periods of time. Education OT Patient Education: Correct positioning, Energy conservation, Modified ADL techniques, Purpose of tx/functional activities, Reviewed precautions, Rehab process, Safety issues, Transfer techniques Teaching Recipient: Patient, Family Teaching Methods: Demonstration, Discussion Response to Teaching: Verbalize Understanding, Reinforcement Needed OT Short Term Goals Short Term Goals Time Frame: Dec 13, 2021 Eatin Oral hygiene: 5 Toileting hygiene: 2 Shower/bathe self: 3 Upper body dressin Lower body dressin Putting on/taking off footwear: 2 OT Nursing Home Goals Nursing Home Goals Time Frame: Dec 27, 2021 Eating (QC): 5 Oral Hygiene (QC): 6 Toileting Hygiene (QC): 6 Shower/Bathe Self (QC): 4 Upper Body Dressing (QC): 5 Lower Body Dressing (QC): 4 On/Off Footwear (QC): 4 1=Demonstrate adherence to instructed precautions during ADL tasks. 2=Patient will verbalize/demonstrate understanding of assistive devices/modifications for ADL. 3=Patient will improve strength/tolerance for activity to enable patient to perform ADL's. OT Education/Plan Problem List/Assessment Assessment: Decreased Activ Tolerance, Decreased Safety Aware, Decreased UE Strength, Dependent Transfers, Impaired Bed Mobility, Impaired Cognition, Impaired Coordination, Impaired Funct Balance, Impaired I ADL's, Impaired Self- Care Skills, Restricted Funct UE ROM Discharge Recommendations Plan/Recommendations: Continue POC Therapy Discharge Recommendati: Intermittent Supervision, Homemaker Support, Post Acute OT Treatment Plan/Plan of Care Treatment,Training & Education: Yes Patient would benefit from OT for education, treatment and training to promote independence in ADL's, mobility, safety and/or upper extremity function for ADL's. Plan of Care: ADL Retraining, Cognitive Retraining, Functional Mobility, Group Exercise/Act as Ind, UE Funct Exercise/Act, UE Neuromus Re-Ed/Coord, Visual/Perceptual Retrain, W/C Management Training Treatment Duration: Dec 27, 2021 Frequency: At least 5 of 7 days/Wk (IRF) Estimated Hrs Per Day: .25 hour per day Agreement: Yes Rehab Potential: Fair Time/GCodes Start Time: 13:20 Stop Time: 14:50 Total Time Billed (hr/min): 90 Billed Treatment Time 1 visit EVM (10 min) ADL x3 (45 min) FA x2 (35 min) Rourk,Kim OT November 29, 2021 14:16
--- NOTE | 2021-11-29 14:19 | Physical Therapy Evaluation ---
PT Evaluation-General Medical Diagnosis Admission Date November 29, 2021 at 13:15 Medical Diagnosis: CVA Onset Date: November 27, 2021 Therapy Diagnosis Therapy Diagnosis: generalized weakness/debility Precautions Precautions/Isolations: Fall Prevention, Standard Precautions Referral Physician: Romulo Reason for Referral: Evaluation/Treatment Medical History Pertinent Medical History: HTN Current History Progressive weakness x 4 days and found on floor Reviewed History: Yes Social History Home: Apartment Current Living Status: Alone Entry Into Home: Level Entry Prior Prior Level of Function SCALE: Activities may be completed with or without assistive devices. 8-Gmuwpkxaqv-lvwxckf completes the activity by him/herself with no assistance from a helper. 5-Set-up or Clean-up Assistance-helper sets up or cleans up; patient completes activity. [place] assists only prior to or following the activity. 4-Supervision or Touching Assistance-helper provides verbal cues and/or touching/steadying and/or contact guard assistance as patient completes activity. Assistance may be provided throughout the activity or intermittently. 3-Partial/Moderate Assistance-helper does LESS THAN HALF the effort. [place] lifts, holds or supports trunk or limbs, but provides less than half the effort. 2-Substantial/Maximal Assistance-helper does MORE THAN HALF the effort. [place] lifts or holds trunk or limbs and provides more than half the effort. 2-Tiplcmtpi-fiykph does ALL the effort. Patient does none of the effort to complete the activity. Or, the assistance of 2 or more helpers is required for the patient to complete the activity. If activity was not attempted, code reason: 7-Patient Refused. 9-Not Applicable-not attempted and the patient did not perform the activity before the current illness, exacerbation or injury. 10-Not Attempted due to Environmental Limitations-(lack of equipment, weather restraints, etc.). 88-Not Attempted due to Medical Conditions or Safety Concerns. Bed Mobility: 6 Transfers (B,C,W/C): 6 Gait: 6 Stairs: 9 Indoor Mobility (Ambulation): Independent Stairs: Not Applicalbe Prior Devices Use: Walker, Other-see list below Prior Device Use: cane or FWW PT Evaluation-Current Subjective Patient agrees to PT. Objective Patient Orientation: Person, Time, Situation ROM/Strength ROM Lower Extremities bilateral LE WFL Strength Lower Extremities left knee flexion/extension 3-/5; hip flexion 3-/5; DF/PF 3-/5 (noted hip adductor and IR of foot tone) right knee flexion/extension 3+/5; hip flexion 3+/5; DF/PF 3+/5 Integumentary/Posture Bowel Incontinence: No Bladder Incontinence: No Posture trunk flexed posture in stand Neuromuscular (Tone, Coordination, Reflexes) diminished coordination left LE with increase hip adductor tone and IR foot tone Sensory Vision: Neglect Left Hearing: Functional Sensation Right Lower Extremit: Intact Sensation Left Lower Extremity: Impaired Transfers Roll Left & Right (QC): 3 Sit to Lying (QC): 3 Lying to Sitting/Side of Bed(Q: 3 Sit to Stand (QC): 3 Chair/Qrt-ge-Vltoe Xfer(QC): 3 Toilet Transfer (QC): 3 Car Transfer (QC): 1 Gait Does the Patient Walk?: Yes Mode of Locomotion: Both Anticipated Mode of Locomotion: Both Walk 10 feet (QC): 2 Walk 50 ft with 2 Turns(QC): 88 Walk 150 ft (QC): 88 Walking 10ft/uneven surface-QC: 1 Distance: 10' x 3 Comments/Gait Description left LE lag with noted diminished proprioception left LE (left lean with PT correct) Wheelchair Training Does the Pt Use a Wheelchair?: Yes Distance: 100' x 1/250' x 1 Wheel 50 ft with 2 turns (QC): 3 Wheel 150 ft (QC): 3 Type of Wheelchair: Manual Stairs #of Steps: 1 1 Step (curb) (QC): 1 (placed right foot up on step and attempted to follow with left with PT assist) 4 Steps (QC): 9 12 Steps (QC): 9 Balance Sitting Static: Normal Sitting Dynamic: Fair Standing Static: Poor Standing Dynamic: Poor Picking up an Object (QC): 88 Treatment PT and OT co-treated today due to balance deficits, weakness, risk of falling, and to coordinate UE activities with LE activities.Co-treat with PT for part of treatment secondary to impaired balance, high fall risk, poor endurance, L sided neglect, impaired cognition/safety and need of 2 skilled clinicians to progress indep and safety with adls and mobility. Assessment/Needs Patient demonstrates some weakness and decreased endurance with transfers and ambulation, and can only tolerate walking short distances. She needs mod with sit-stand transfers, and is min to mod assist with getting in and out of bed. Patients balance is Poor without formal balance assessment tool. She needs rest breaks frequently after standing for short periods of time. Patient was left in bed with tray, call light, and all needs met. Family present. Rehab Potential: Guarded PT Short Term Goals Short Term Goals Time Frame: Dec 14, 2021 Roll Left & Right: 4 Sit to lyin Lying to sitting on side of be: 4 Sit to stand: 3 Chair/war-fg-ttyii transfer: 3 Toilet transfer: 3 Car transfer: 3 Walk 10 feet: 3 Walk 50 feet with two turns: 3 Does pt use a wc or scooter: Yes Wheel 50ft w/2 turns: 4 Wheel 150 feet: 4 Type: Manual PT Roastmaster Goals Residential Goals PT Roastmaster Goals Time Frame: Dec 28, 2021 Roll Left & Right (QC): 6 Sit to Lying (QC): 6 Lying-Sitting on Side/Bed(QC): 6 Sit to Stand (QC): 4 Chair/Nho-ul-Yfsrs Xfer(QC): 4 Toilet Transfer (QC): 4 Car Transfer (QC): 4 Does the Patient Walk: Yes Walk 10 feet (QC): 4 Walk 50ft with 2 Turns (QC): 4 Walk 150 ft (QC): 4 Walking 10ft on Uneven Surface: 4 1 Step (curb) (QC): 3 4 Steps (QC): 9 12 Steps (QC): 9 Picking up an Object (QC): 3 Wheel 50 feet with 2 turns (QC: 5 Wheel 150 feet: 5 Type: Manual PT Plan Problem List Problem List: Activity Tolerance, Functional Strength, Safety, Balance, Gait, Transfer, Bed Mobility Treatment/Plan Treatment Plan: Continue Plan of Care Treatment Plan: Bed Mobility, Concurrent Therapy, Education, Functional Activity Seema, Functional Strength, Group Therapy, Gait, Safety, Therapeutic Exercise, Transfers Treatment Duration: Dec 28, 2021 Frequency: At least 5 of 7 days/Wk (IRF) Estimated Hrs Per Day: 1.5 hours per day Patient and/or Family Agrees t: Yes Safety Risks/Education Patient Education: Gait Training, Transfer Techniques, W/C Management, Safety Issues Teaching Recipient: Patient, Family Teaching Methods: Demonstration, Discussion Response to Teaching: Verbalize Understanding, Return Demonstration Time/GCodes Time In: 1310 Time Out: 1450 Total Billed Treatment Time: 90 Total Billed Treatment 1 visit EVModC 10 min (5508-4756) OT eval 10 min (2500-5373) [place] 80 min (1250-6489) [facility] 15 min GT 15 min FA x 3 50 min CHELSEA MORGAN PT November 29, 2021 14:19
[2021-11-29] MEDS ORDERED: ONDANSETRON 4 MG/2 ML (SDV) Z0FRAN IV PRN (14:45)
[2021-11-29] MEDS: MICONAZOLE NITRATE 2% CRM 30 GM TP SCH ×2 (15:14→20:39)
[2021-11-29] MEDS: polyethylene glycoL POWDER 17 GM (MIRALAX) PACK PO SCH (19:43)
[2021-11-29] MEDS: SENNA W/DOCUSATE (SENOKOT S) TABLET PO SCH (19:43)
[2021-11-29] MEDS: DOCUSATE SODIUM 100 MG (COLACE) CAP PO SCH (19:43)
[2021-11-29] MEDS ORDERED: meTOprolol 5 MG/5 ML (LOPRESSOR) VIAL IV ONE (19:45)
[2021-11-29 19:58] LABS: HEMOGLOBIN 12.9 g/dL (11.5-16.0)
[2021-11-29 20:07] VITALS: BP 145/75
[2021-11-29] MEDS ORDERED: meTOprolol 5 MG/5 ML (LOPRESSOR) VIAL ONE (20:22)
[2021-11-29] MEDS: SIMvastatin 40 MG (ZOCOR) TAB PO SCH (20:38)
[2021-11-29] MEDS: APIXABAN 5 MG (ELIQUIS) TABLET PO SCH (20:39)
[2021-11-29] MEDS ORDERED: MICONAZOLE 2% POWDER (DESENEX AF) 90 GM TOP SCH (21:00)
[2021-11-29] MEDS: meTOprolol SUCCINATE 100 MG (TOPROL XL) TAB PO SCH (21:50)
[2021-11-29] MEDS: lisINopril 10 MG (PRINIVIL) TABLET PO SCH (21:50)
[2021-11-30 05:48] LABS: BASOPHILS # (AUTO) 0.1 10^3/uL (0.0-0.1); BASOPHILS % (AUTO) 1 % (0-10); EOSINOPHILS # (AUTO) 0.2 10^3/uL (0.0-0.3); EOSINOPHILS % (AUTO) 3 % (0-10); HEMATOCRIT 44 % (35-52); HEMOGLOBIN 14.5 g/dL (11.5-16.0); LYMPHOCYTES # (AUTO) 1.6 10^3/uL (1.0-4.0); LYMPHOCYTES % (AUTO) 21 % (12-44); MEAN CORPUSCULAR HEMOGLOBIN 30 pg (25-34); MEAN CORPUSCULAR HGB CONC 33 g/dL (32-36); MEAN CORPUSCULAR VOLUME 91 fL (80-99); MEAN PLATELET VOLUME 10.3 fL (9.0-12.2); MONOCYTES # (AUTO) 0.6 10^3/uL (0.0-1.0); MONOCYTES % (AUTO) 8 % (0-12); NEUTROPHILS # (AUTO) 5.3 10^3/uL (1.8-7.8); NEUTROPHILS % (AUTO) 67 % (42-75); PLATELET COUNT 285 10^3/uL (130-400); WHITE BLOOD COUNT 7.8 10^3/uL (4.3-11.0)
[2021-11-30 06:02] LABS: ALBUMIN 3.8 GM/DL (3.2-4.5); POTASSIUM 3.7 MMOL/L (3.6-5.0)
[2021-11-30 06:03] LABS: CALCIUM 9.4 MG/DL (8.5-10.1)
[2021-11-30 06:05] LABS: TOTAL PROTEIN 6.7 GM/DL (6.4-8.2)
[2021-11-30 06:06] LABS: BILIRUBIN,TOTAL 0.7 MG/DL (0.1-1.0)
[2021-11-30 06:08] LABS: CREATININE SERUM 0.62 MG/DL (0.60-1.30)
[2021-11-30] MEDS: MULTIVIT W/MINERALS TAB (THERAGRAN M) PO SCH (06:20)
[2021-11-30 07:30] VITALS: BP 152/81
[2021-11-30] MEDS ORDERED: NON-FORMULARY MEDICATION 1 EA EA (Turmeric/Turmeric Root Extract (Turmeric 500 mg Capsule) PO SCH (09:00)
--- NOTE | 2021-11-30 09:05 | Physical Therapy Daily Note ---
PT Daily Note-Current Subjective Pt. agrees to Rx and states she slept well . "Is it ok if I lift my left hand and arm with my right hand and arm and massage the left one a little"? Pain Location: No Pain Reported Mental Status Patient Orientation: Normal For Age Transfers SCALE: Activities may be completed with or without assistive devices. 4-Snofdfphlr-hpomvwl completes the activity by him/herself with no assistance from a helper. 5-Set-up or Clean-up Assistance-helper sets up or cleans up; patient completes activity. [place] assists only prior to or following the activity. 4-Supervision or Touching Assistance-helper provides verbal cues and/or touching/steadying and/or contact guard assistance as patient completes activity. Assistance may be provided throughout the activity or intermittently. 3-Partial/Moderate Assistance-helper does LESS THAN HALF the effort. [place] lifts, holds or supports trunk or limbs, but provides less than half the effort. 2-Substantial/Maximal Assistance-helper does MORE THAN HALF the effort. [place] lifts or holds trunk or limbs and provides more than half the effort. 1-Ppzquuvqd-fgrwzi does ALL the effort. Patient does none of the effort to complete the activity. Or, the assistance of 2 or more helpers is required for the patient to complete the activity. If activity was not attempted, code reason: 7-Patient Refused. 9-Not Applicable-not attempted and the patient did not perform the activity before the current illness, exacerbation or injury. 10-Not Attempted due to Environmental Limitations-(lack of equipment, weather restraints, etc.). 88-Not Attempted due to Medical Conditions or Safety Concerns. Roll Left & Right (QC): 4 Sit to Lying (QC): 4 Lying to Sitting/Side of Bed(Q: 3 Sit to Stand (QC): 3 Chair/Adr-ra-Gsdly Xfer(QC): 3 Gait Training Does the Patient Walk?: Yes Walk 10 feet (QC): 3 Gait Persons Needed: 1 Gait Assistive Device: Walker Elan pt. required assist to stabilize right knee into extension for steps and wt bearing . side steps mod A left and right at side of bed 6 ft x 2, then ambulated mod assist 7 ft bed to recliner elan walker Exercises Supine Ex: Bridging, Ankle pumps, Quad Set, Rolling, Heel Slides, Scooting, Straight leg raise, Hip abd/add Supine Reps: 20 Treatments bed ex, bed mob training, rolling , scooting up in bed, side to sit left and right approach, pre gait activities, short gait bouts, up in recliner after Rx Assessment Current Status: Good Progress PT Short Term Goals Short Term Goals Time Frame: Dec 14, 2021 Roll Left & Right: 4 Sit to lyin Lying to sitting on side of be: 4 Sit to stand: 3 Chair/gpk-ic-exfgw transfer: 3 Toilet transfer: 3 Car transfer: 3 Walk 10 feet: 3 Walk 50 feet with two turns: 3 Does pt use a wc or scooter: Yes Wheel 50ft w/2 turns: 4 Wheel 150 feet: 4 Type: Manual PT [facility] [place] Goals [facility] Goals PT [place] Goals Time Frame: Dec 28, 2021 Roll Left & Right (QC): 6 Sit to Lying (QC): 6 Lying-Sitting on Side/Bed(QC): 6 Sit to Stand (QC): 4 Chair/Dtx-rp-Oirsc Xfer(QC): 4 Toilet Transfer (QC): 4 Car Transfer (QC): 4 Does the Patient Walk: Yes Walk 10 feet (QC): 4 Walk 50ft with 2 Turns (QC): 4 Walk 150 ft (QC): 4 Walking 10ft on Uneven Surface: 4 1 Step (curb) (QC): 3 4 Steps (QC): 9 12 Steps (QC): 9 Picking up an Object (QC): 3 Wheel 50 feet with 2 turns (QC: 5 Wheel 150 feet: 5 Type: Manual PT Plan Treatment/Plan Treatment Plan: Continue Plan of Care Treatment Plan: Bed Mobility, Concurrent Therapy, Education, Functional Activity Seema, Functional Strength, Group Therapy, Gait, Safety, Therapeutic Exercise, Transfers Treatment Duration: Dec 28, 2021 Frequency: At least 5 of 7 days/Wk (IRF) Estimated Hrs Per Day: 1.5 hours per day Patient and/or Family Agrees t: Yes Safety Risks/Education Patient Education: Gait Training, Transfer Techniques, Correct Positioning, Disease Process, Safety Issues Teaching Recipient: Patient Teaching Methods: Demonstration, Discussion Response to Teaching: Verbalize Understanding, Return Demonstration, Reinforcement Needed Time/GCodes Time In: 825 Time Out: 900 Total Billed Treatment Time: 35 Total Billed Treatment 1,EX15m,FA20m ADRIANNA GRANT ENGLISH PROFESSOR November 30, 2021 09:05
[2021-11-30] MEDS: CYANOCOBALAMIN 1,000 MCG (VITAMIN B-12) TABLET PO SCH (09:14)
[2021-11-30] MEDS: PYRIDOXINE (VITAMIN B-6) 50 MG TABLET PO SCH (09:14)
[2021-11-30] MEDS: ASPIRIN E.C. 81 MG (ECOTRIN) TAB PO SCH (09:14)
[2021-11-30] MEDS: MICONAZOLE NITRATE 2% CRM 30 GM TP SCH ×2 (09:15→20:26)
[2021-11-30] MEDS: APIXABAN 5 MG (ELIQUIS) TABLET PO SCH ×2 (09:15→20:21)
--- NOTE | 2021-11-30 09:33 | PM&R Progress Note ---
Subjective HPI/CC On Admission Date Seen by Provider: November 30, 2021 Time Seen by Provider: 09:45 Subjective/Events-last exam 11/30/2021: Patient doing well Confusion noted Left sided weakness but can move her arm now Working with PT OT Reviewed labs Reviewed meds Review of Systems General: Fatigue, Malaise Neurological: Weakness, Numbness Objective Exam Vital Signs Vital Signs Date Time Temp Pulse Resp B/P (MAP) Pulse Ox O2 Delivery O2 Flow Rate FiO2 11/30/21 09:54 Room Air 11/30/21 07:30 36.5 75 18 152/81 (104) 94 Capillary Refill : General Appearance: No Apparent Distress, WD/WN, Chronically ill HEENT: PERRL/EOMI, Normal ENT Inspection, Pharynx Normal Neck: Full Range of Motion, Normal Inspection, Non Tender, Supple, Carotid Bruit Respiratory: Chest Non Tender, Lungs Clear, Normal Breath Sounds, No Accessory Muscle Use, No Respiratory Distress Cardiovascular: Regular Rate, Rhythm, No Edema, No Gallop, No JVD, No Murmur, Normal Peripheral Pulses Gastrointestinal: Normal Bowel Sounds, No Organomegaly, No Pulsatile Mass, Non Tender, Soft Back: Normal Inspection, No CVA Tenderness, No Vertebral Tenderness Extremity: Normal Capillary Refill, Normal Inspection, Normal Range of Motion (except left side), Non Tender, No Calf Tenderness, No Pedal Edema Neurologic/Psychiatric: Alert, Oriented x3, Normal Mood/Affect, feather sawyer II-XII Norm as Tested, Motor Weakness (left sided 2/5) Skin: Normal Color, Warm/Dry Lymphatic: No Adenopathy Results/Procedures Lab Laboratory Tests 11/29/21 17:50 11/30/21 05:22 Patient resulted labs reviewed. FIM Transfers Therapy Code Descriptions/Definitions Functional [place] Measure: 0=Not Assessed/NA 4=Minimal Assistance 1=Total Assistance 5=Supervision or Setup 2=Maximal Assistance 6=Modified [place] 3=Moderate Assistance 7=Complete IndependenceSCALE: Activities may be completed with or without assistive devices. 6-Lqssupgwvk-pnwyuwt completes the activity by him/herself with no assistance from a helper. 5-Set-up or Clean-up Assistance-helper sets up or cleans up; patient completes activity. [place] assists only prior to or following the activity. 4-Supervision or Touching Assistance-helper provides verbal cues and/or touching/steadying and/or contact guard assistance as patient completes activity. Assistance may be provided throughout the activity or intermittently. 3-Partial/Moderate Assistance-helper does LESS THAN HALF the effort. [place] lifts, holds or supports trunk or limbs, but provides less than half the effort. 2-Substantial/Maximal Assistance-helper does MORE THAN HALF the effort. [place] lifts or holds trunk or limbs and provides more than half the effort. 3-Lctnydstb-xeaaso does ALL the effort. Patient does none of the effort to complete the activity. Or, the assistance of 2 or more helpers is required for the patient to complete the activity. If activity was not attempted, code reason: 7-Patient Refused. 9-Not Applicable-not attempted and the patient did not perform the activity before the current illness, exacerbation or injury. 10-Not Attempted due to Environmental Limitations-(lack of equipment, weather restraints, etc.). 88-Not Attempted due to Medical Conditions or Safety Concerns. Roll Left to Right (QC): 4 Sit to Lying (QC): 4 Sit to Stand (QC): 3 Chair/Zdm-gi-Keisk Xfer(QC): 3 Car Transfer (QC): 1 Gait Training Does the Patient Walk?: Yes Walk 10 feet (QC): 3 Walk 50 ft with 2 Turns(QC): 88 Walk 150 ft (QC): 88 Walking 10ft/uneven surface-QC: 1 Gait Persons Needed: 1 Gait Assistive Device: Walker Elan Wheelchair Training Does the Pt Use a Wheelchair?: Yes Distance: 100' x 1/250' x 1 Wheel 50 ft with 2 turns (QC): 3 Wheel 150 ft (QC): 3 Type of Wheelchair: Manual Stair Training #of Steps: 1 1 Step (curb) (QC): 1 (placed right foot up on step and attempted to follow with left with PT assist) 4 Steps (QC): 9 12 Steps (QC): 9 Balance Picking up an Object (QC): 88 ADL-Treatment Eating (QC): 4 Oral Hygiene (QC): 4 Shower/Bathe Self (QC): 1 Upper Body Dressing (QC): 10 Lower Body Dressing (QC): 1 On/Off Footwear (QC): 1 Toileting Hygiene (QC): 1 Assessment/Plan Assessment and Plan Assess & Plan/Chief Complaint Assessment: 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
--- NOTE | 2021-11-30 09:33 | Individualized Plan of Care ---
Individualized Plan of Care Rehab Nursing IPOC Order Admission Date November 29, 2021 at 13:15 Current Orders Orders Admission Order(Inpt,Obs,Sdc) (11/29/21 10:49) Tone Fuentes (11/29/21 10:49) Sequential Compression Device (11/29/21 10:49) Distance Learning Unit Leader-Inpt Rehab Con (11/29/21 10:49) Rehab Nursing Orders-Ipoc (11/29/21 10:49) Physical Therapy Rehab Orders (11/29/21 10:49) Occupational Therapy Rehab Ord (11/29/21 10:49) Speech Therapy Rehab Orders (11/29/21 10:49) Cbc With Automated Diff (11/30/21 06:00) Comprehensive Metabolic Panel (11/30/21 06:00) Precautions (Aru) (11/29/21 10:49) Weekly Weight WEEK (11/29/21 10:49) Rehab-Intensity Of Therapy (11/29/21 10:49) Alprazolam Tablet (Xanax Tablet) (11/29/21 11:00) Calcium Carbonate Chew Tablet (Antacid C (11/29/21 11:00) Diphenhydramine Tablet (Benadryl Tablet) (11/29/21 11:00) Docusate Sodium Capsule (Colace Capsule) (11/29/21 21:00) Docusate Sodium Capsule (Colace Capsule) (11/29/21 11:00) Bisacodyl Suppository (Dulcolax Supposit (11/29/21 11:00) Lactulose Oral Solution (Enulose Oral So (11/29/21 11:00) Na Phos/Na Biphos Enema (Fleet Enema Davide (11/29/21 11:00) Guaifenesin/Codeine Syrup (Robitussin Ac (11/29/21 11:00) Loperamide Tablet (Imodium Tablet) (11/29/21 11:00) Melatonin Tablet (Melatonin Tablet) (11/29/21 11:00) Polyethylene Glycol Powder Pkt (Miralax (11/29/21 21:00) Ondansetron Oral Dissolve Tab (Zofran (11/29/21 11:00) Senna S Tablet (Senokot S Tablet) (11/29/21 21:00) Acetaminophen Tablet/Caplet (Tylenol T (11/29/21 11:00) Code/Resuscitation (11/29/21 10:49) Initiate Admission Nursing Pro .admission (11/29/21 10:49) Admission Arrival Bed Request (11/29/21 13:15) Miconazole 2% Powder (Phytoplex Af 2% Po (11/29/21 21:00) Miconazole Nitrate 2% Crm (Micaderm 2% C (11/29/21 21:00) Code/Resuscitation (11/29/21 14:45) Heart Healthy (11/29/21 Lunch) Apixaban Tablet (Eliquis Tablet) (11/29/21 20:00) Aspirin Enteric Coated Tablet (Ecotrin T (11/30/21 09:00) Atorvastatin Tablet (Lipitor Tablet) (11/30/21 09:00) Docusate Sodium Capsule (Colace Capsule) (11/30/21 09:00) Ondansetron Injection (Zofran Injectio (11/29/21 14:45) Consult Cardiology (11/29/21 14:45) Incentive Spirometry Initial (11/29/21 14:45) Incentive Spirometry (Nursing) Q2H (11/29/21 14:45) Cyanocobalamin Tablet (Vitamin B-12 Tabl (11/30/21 09:00) Lisinopril Tablet (Zestril Tablet) (11/29/21 21:00) Metoprolol Succinate (Xl) Tab (Toprol Xl (11/29/21 21:00) Pyridoxine Tablet (Vitamin B-6 Tablet) (11/30/21 09:00) Simvastatin Tablet (Zocor Tablet) (11/29/21 21:00) Therapeutic Multivitamin Tab (Vitamins, (11/30/21 07:00) (Nf) Turmeric/Turmeric Root Extract (Tur (11/30/21 09:00) Apixaban Tablet (Eliquis Tablet) (12/07/21 08:00) Patient Visit (11/29/21 ) Pt Eval Moderate Complexity (11/29/21 ) Wheelchair Mgmt/Propulsn 15min (11/29/21 ) Gait Training, Ea 15 Min (11/29/21 ) Functional Activities, Ea 15 (11/29/21 ) Patient Visit (11/29/21 ) Functional Activities, Ea 15 (11/29/21 ) Rt Request For Service (11/29/21 15:20) Metoprolol Tartrate Injection (Lopressor (11/29/21 19:45) Hemoglobin And Hematocrit (11/29/21 19:43) Telemetry (11/29/21 19:58) Telemetry Nursing Assessment ( (11/29/21 19:58) Metoprolol Tartrate Injection (Lopressor (11/29/21 20:22) Patient Visit (11/30/21 ) Exercise Therap, Ea 15 Min (11/30/21 ) Functional Activities, Ea 15 (11/30/21 ) Rehab Nursing Orders: Ongoing Assess. of Cognitive Status, Ongoing Assess. of Function Status, Bladder Management, Bladder Scan, Bladder Training, Bowel Management, Bowel Training, Disease Management & Educaiton, DVT Prophylaxis, Fall Prevention, Fluid/Electrolyte/Nutrition Mgmt, Infection Prevention, Medication Management & Education, Management of Risks & Complications, Nutrition Management, Pain Management, Patient/Family Support, Safety Management, Swallow Precautions Intensity of Therapy to be met Patient to be seen: Min.3h per day/5 of 7d PT IPOC Problem List: Activity Tolerance, Functional Strength, Safety, Balance, Gait, Transfer, Bed Mobility Treatment Plan: Continue Plan of Care Bed Mobility, Concurrent Therapy, Education, Functional Activity Seema, Functional Strength, Group Therapy, Gait, Safety, Therapeutic Exercise, Transfers Treatment Duration: Dec 28, 2021 Frequency: At least 5 of 7 days/Wk (IRF) Estimated Hrs Per Day: 1.5 hours per day OT IPOC Problems: Decreased Activ Tolerance, Decreased Safety Aware, Decreased UE Strength, Dependent Transfers, Impaired Bed Mobility, Impaired Cognition, Impaired Coordination, Impaired Funct Balance, Impaired I ADL's, Impaired Self- Care Skills, Restricted Funct UE ROM OT Treatment, Training and Edu: Yes Plan of Care: ADL Retraining, Cognitive Retraining, Functional Mobility, Group Exercise/Act as Ind, UE Funct Exercise/Act, UE Neuromus Re-Ed/Coord, Visual/Perceptual Retrain, W/C Management Training Treatment Duration: Dec 27, 2021 Frequency: At least 5 of 7 days/Wk (IRF) Estimated Hrs Per Day: .[address] IPOC Speech Therapy Treatment Plan: Continue Plan of Care Treatment Duration: November 29, 2021 Frequency: Modified Program (IRF) Estimated Hrs Per Day: Other Distance Learning Unit Leader/Case Mgmt Distance Learning Unit Leader/Case Managemen: Discharge Planning Dietitian/Tree Topper Dietitian/Tree Topper to monitor nutritional status and make changes and/or recommendations as needed and work with speech pathology on dietary upgrades as the occur. Physician IPOC Medical Issues being managed closely and that require the 24 hour availability of a physician: Recent CVA with acute thrombosis on DOAC will require close monitoring from Cardiology and physicians supervision Medical Issues: Bowel/Bladder Function, DVT Prophylaxis, Falls Precautions, Fluid/Electrolyte/Nutrition Balance, Infection Protection, Pain Management, Swallowing Precautions Brief Synthesis of Preadmission Screen, Post-Admission Evaluation, and Therapy Evaluations: PT OT will focus on regaining left sided weakness with assistive devices in order to return back to independent living Medical Prognosis: Fair Anticipated Length of Stay: 14 days ZURDO MARINO DO November 30, 2021 09:33
[2021-11-30] MEDS: polyethylene glycoL POWDER 17 GM (MIRALAX) PACK PO SCH ×2 (09:38→19:40)
[2021-11-30] MEDS: DOCUSATE SODIUM 100 MG (COLACE) CAP PO SCH ×3 (09:38→19:40)
[2021-11-30] MEDS: SENNA W/DOCUSATE (SENOKOT S) TABLET PO SCH ×2 (09:38→19:40)
[2021-11-30] MEDS: lisINopril 10 MG (PRINIVIL) TABLET PO SCH (20:20)
[2021-11-30] MEDS: SIMvastatin 40 MG (ZOCOR) TAB PO SCH (20:20)
[2021-11-30] MEDS: meTOprolol SUCCINATE 100 MG (TOPROL XL) TAB PO SCH (20:20)
[2021-11-30 20:28] VITALS: BP 139/73
[2021-12-01] MEDS: MULTIVIT W/MINERALS TAB (THERAGRAN M) PO SCH (06:35)
[2021-12-01 07:30] VITALS: BP 133/82
[2021-12-01] MEDS: PYRIDOXINE (VITAMIN B-6) 50 MG TABLET PO SCH (07:49)
[2021-12-01] MEDS: ASPIRIN E.C. 81 MG (ECOTRIN) TAB PO SCH (07:49)
[2021-12-01] MEDS: APIXABAN 5 MG (ELIQUIS) TABLET PO SCH ×2 (07:49→21:08)
[2021-12-01] MEDS: CYANOCOBALAMIN 1,000 MCG (VITAMIN B-12) TABLET PO SCH (07:49)
[2021-12-01] MEDS: DOCUSATE SODIUM 100 MG (COLACE) CAP PO SCH ×3 (07:49→19:35)
--- NOTE | 2021-12-01 08:30 | PM&R Progress Note ---
Subjective HPI/CC On Admission Date Seen by Provider: December 01, 2021 Time Seen by Provider: 16:00 Subjective/Events-last exam 12/01/2021: Patient doing very well today Moving left arm and hand really well Family at bedside No pain 11/30/2021: Patient doing well Confusion noted Left sided weakness but can move her arm now Working with PT OT Reviewed labs Reviewed meds Review of Systems General: Fatigue, Malaise Neurological: Weakness Objective Exam Vital Signs Vital Signs Date Time Temp Pulse Resp B/P (MAP) Pulse Ox O2 Delivery O2 Flow Rate FiO2 12/02/21 01:00 84 12/01/21 20:00 Room Air 12/01/21 19:22 36.6 18 153/67 (95) 93 Capillary Refill : General Appearance: No Apparent Distress, WD/WN, Chronically ill HEENT: PERRL/EOMI, Normal ENT Inspection, Pharynx Normal Neck: Full Range of Motion, Normal Inspection, Non Tender, Supple, Carotid Bruit Respiratory: Chest Non Tender, Lungs Clear, Normal Breath Sounds, No Accessory Muscle Use, No Respiratory Distress Cardiovascular: Regular Rate, Rhythm, No Edema, No Gallop, No JVD, No Murmur, Normal Peripheral Pulses Gastrointestinal: Normal Bowel Sounds, No Organomegaly, No Pulsatile Mass, Non Tender, Soft Back: Normal Inspection, No CVA Tenderness, No Vertebral Tenderness Extremity: Normal Capillary Refill, Normal Inspection, Normal Range of Motion (except left side), Non Tender, No Calf Tenderness, No Pedal Edema Neurologic/Psychiatric: Alert, Oriented x3, Normal Mood/Affect, soa architect II-XII Norm as Tested, Motor Weakness (left sided 2/5) Skin: Normal Color, Warm/Dry Lymphatic: No Adenopathy Results/Procedures Lab Patient resulted labs reviewed. FIM Transfers Therapy Code Descriptions/Definitions Functional [place] Measure: 0=Not Assessed/NA 4=Minimal Assistance 1=Total Assistance 5=Supervision or Setup 2=Maximal Assistance 6=Modified [place] 3=Moderate Assistance 7=Complete IndependenceSCALE: Activities may be completed with or without assistive devices. 9-Kzfmxfzoeh-xlzcogw completes the activity by him/herself with no assistance from a helper. 5-Set-up or Clean-up Assistance-helper sets up or cleans up; patient completes activity. [place] assists only prior to or following the activity. 4-Supervision or Touching Assistance-helper provides verbal cues and/or touching/steadying and/or contact guard assistance as patient completes activity. Assistance may be provided throughout the activity or intermittently. 3-Partial/Moderate Assistance-helper does LESS THAN HALF the effort. [place] lifts, holds or supports trunk or limbs, but provides less than half the effort. 2-Substantial/Maximal Assistance-helper does MORE THAN HALF the effort. [place] lifts or holds trunk or limbs and provides more than half the effort. 8-Wjpttwiux-qzmjye does ALL the effort. Patient does none of the effort to complete the activity. Or, the assistance of 2 or more helpers is required for the patient to complete the activity. If activity was not attempted, code reason: 7-Patient Refused. 9-Not Applicable-not attempted and the patient did not perform the activity before the current illness, exacerbation or injury. 10-Not Attempted due to Environmental Limitations-(lack of equipment, weather restraints, etc.). 88-Not Attempted due to Medical Conditions or Safety Concerns. Roll Left to Right (QC): 4 Sit to Lying (QC): 4 Sit to Stand (QC): 3 Chair/Amj-dj-Bghlw Xfer(QC): 3 Car Transfer (QC): 1 Gait Training Does the Patient Walk?: Yes Walk 10 feet (QC): 3 Walk 50 ft with 2 Turns(QC): 88 Walk 150 ft (QC): 88 Walking 10ft/uneven surface-QC: 1 Gait Persons Needed: 1 Gait Assistive Device: Walker Elan Wheelchair Training Does the Pt Use a Wheelchair?: Yes Distance: 100' x 1/250' x 1 Wheel 50 ft with 2 turns (QC): 3 Wheel 150 ft (QC): 3 Type of Wheelchair: Manual Stair Training #of Steps: 1 1 Step (curb) (QC): 1 (placed right foot up on step and attempted to follow with left with PT assist) 4 Steps (QC): 9 12 Steps (QC): 9 Balance Picking up an Object (QC): 88 ADL-Treatment Eating (QC): 4 Oral Hygiene (QC): 4 Shower/Bathe Self (QC): 1 Upper Body Dressing (QC): 10 Lower Body Dressing (QC): 1 On/Off Footwear (QC): 1 Toileting Hygiene (QC): 1 Assessment/Plan Assessment and Plan Assess & Plan/Chief Complaint Assessment: 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
[2021-12-01] MEDS: polyethylene glycoL POWDER 17 GM (MIRALAX) PACK PO SCH ×2 (09:00→19:35)
[2021-12-01] MEDS: SENNA W/DOCUSATE (SENOKOT S) TABLET PO SCH ×2 (09:00→19:35)
[2021-12-01] MEDS: MICONAZOLE NITRATE 2% CRM 30 GM TP SCH ×2 (09:00→21:05)
[2021-12-01 19:22] VITALS: BP 153/67
[2021-12-01] MEDS: meTOprolol SUCCINATE 100 MG (TOPROL XL) TAB PO SCH (21:07)
[2021-12-01] MEDS: SIMvastatin 40 MG (ZOCOR) TAB PO SCH (21:07)
[2021-12-01] MEDS: lisINopril 10 MG (PRINIVIL) TABLET PO SCH (21:07)
--- NOTE | 2021-12-02 05:50 | PM&R Progress Note ---
Subjective HPI/CC On Admission Date Seen by Provider: December 02, 2021 Time Seen by Provider: 09:00 Subjective/Events-last exam 12/02/2021: Patient doing well Left hand and arm moving well No pain reported Upbeat attitude 12/01/2021: Patient doing very well today Moving left arm and hand really well Family at bedside No pain 11/30/2021: Patient doing well Confusion noted Left sided weakness but can move her arm now Working with PT OT Reviewed labs Reviewed meds Review of Systems General: Fatigue, Malaise Objective Exam Vital Signs Vital Signs Date Time Temp Pulse Resp B/P (MAP) Pulse Ox O2 Delivery O2 Flow Rate FiO2 12/02/21 07:11 36.4 74 16 143/69 (93) 94 Room Air Capillary Refill : General Appearance: No Apparent Distress, WD/WN, Chronically ill HEENT: PERRL/EOMI, Normal ENT Inspection, Pharynx Normal Neck: Full Range of Motion, Normal Inspection, Non Tender, Supple, Carotid Bruit Respiratory: Chest Non Tender, Lungs Clear, Normal Breath Sounds, No Accessory Muscle Use, No Respiratory Distress Cardiovascular: Regular Rate, Rhythm, No Edema, No Gallop, No JVD, No Murmur, Normal Peripheral Pulses Gastrointestinal: Normal Bowel Sounds, No Organomegaly, No Pulsatile Mass, Non Tender, Soft Back: Normal Inspection, No CVA Tenderness, No Vertebral Tenderness Extremity: Normal Capillary Refill, Normal Inspection, Normal Range of Motion (except left side), Non Tender, No Calf Tenderness, No Pedal Edema Neurologic/Psychiatric: Alert, Oriented x3, Normal 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 FIM Transfers Therapy Code Descriptions/Definitions Functional [place] Measure: 0=Not Assessed/NA 4=Minimal Assistance 1=Total Assistance 5=Supervision or Setup 2=Maximal Assistance 6=Modified [place] 3=Moderate Assistance 7=Complete IndependenceSCALE: Activities may be completed with or without assistive devices. 0-Mutdwmixiz-pefkska completes the activity by him/herself with no assistance from a helper. 5-Set-up or Clean-up Assistance-helper sets up or cleans up; patient completes activity. [place] assists only prior to or following the activity. 4-Supervision or Touching Assistance-helper provides verbal cues and/or touching/steadying and/or contact guard assistance as patient completes activity. Assistance may be provided throughout the activity or intermittently. 3-Partial/Moderate Assistance-helper does LESS THAN HALF the effort. [place] lifts, holds or supports trunk or limbs, but provides less than half the effort. 2-Substantial/Maximal Assistance-helper does MORE THAN HALF the effort. [place] lifts or holds trunk or limbs and provides more than half the effort. 5-Yyaxrxcab-ezdgur does ALL the effort. Patient does none of the effort to complete the activity. Or, the assistance of 2 or more helpers is required for the patient to complete the activity. If activity was not attempted, code reason: 7-Patient Refused. 9-Not Applicable-not attempted and the patient did not perform the activity before the current illness, exacerbation or injury. 10-Not Attempted due to Environmental Limitations-(lack of equipment, weather restraints, etc.). 88-Not Attempted due to Medical Conditions or Safety Concerns. Roll Left to Right (QC): 4 Sit to Lying (QC): 4 Sit to Stand (QC): 3 Chair/Swk-wg-Bkfjl Xfer(QC): 3 Car Transfer (QC): 1 Gait Training Does the Patient Walk?: Yes Walk 10 feet (QC): 3 Walk 50 ft with 2 Turns(QC): 88 Walk 150 ft (QC): 88 Walking 10ft/uneven surface-QC: 1 Gait Persons Needed: 1 Gait Assistive Device: Walker [place]an Wheelchair Training Does the Pt Use a Wheelchair?: Yes Distance: 100' x 1/250' x 1 Wheel 50 ft with 2 turns (QC): 3 Wheel 150 ft (QC): 3 Type of Wheelchair: Manual Stair Training #of Steps: 1 1 Step (curb) (QC): 1 (placed right foot up on step and attempted to follow with left with PT assist) 4 Steps (QC): 9 12 Steps (QC): 9 Balance Picking up an Object (QC): 88 ADL-Treatment Eating (QC): 4 Oral Hygiene (QC): 4 Shower/Bathe Self (QC): 1 Upper Body Dressing (QC): 10 Lower Body Dressing (QC): 1 On/Off Footwear (QC): 1 Toileting Hygiene (QC): 1 Assessment/Plan Assessment and Plan Assess & Plan/Chief Complaint Assessment: 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
[2021-12-02] MEDS: MULTIVIT W/MINERALS TAB (THERAGRAN M) PO SCH (06:14)
[2021-12-02 07:11] VITALS: BP 143/69
[2021-12-02] MEDS: CYANOCOBALAMIN 1,000 MCG (VITAMIN B-12) TABLET PO SCH (08:28)
[2021-12-02] MEDS: ASPIRIN E.C. 81 MG (ECOTRIN) TAB PO SCH (08:28)
[2021-12-02] MEDS: DOCUSATE SODIUM 100 MG (COLACE) CAP PO SCH ×3 (08:28→20:46)
[2021-12-02] MEDS: PYRIDOXINE (VITAMIN B-6) 50 MG TABLET PO SCH (08:28)
[2021-12-02] MEDS: SENNA W/DOCUSATE (SENOKOT S) TABLET PO SCH ×2 (08:28→20:13)
[2021-12-02] MEDS: APIXABAN 5 MG (ELIQUIS) TABLET PO SCH ×2 (08:29→20:13)
[2021-12-02] MEDS: polyethylene glycoL POWDER 17 GM (MIRALAX) PACK PO SCH ×2 (08:41→20:46)
[2021-12-02] MEDS: MICONAZOLE NITRATE 2% CRM 30 GM TP SCH ×2 (09:00→20:46)
--- NOTE | 2021-12-02 09:31 | Cardiology Progress Note ---
Subjective Date Seen by Provider: December 02, 2021 Time Seen by Provider: 08:00 Subjective/Events-last exam Patient is sitting up in bed, reports left hand strength improving. Objective-Cardiology Exam Last Set of Vital Signs Vital Signs 12/02/21 07:11 Temp 36.4 Pulse 74 Resp 16 B/P (MAP) 143/69 (93) Pulse Ox 94 O2 Delivery Room Air General: Alert, Oriented X3 HEENT: Atraumatic Lungs: Clear to Auscultation, Normal Air Movement Heart: Regular Rate Abdomen: Normal Bowel Sounds, Soft Extremities: No Clubbing, No Cyanosis, No Edema Skin: No Rashes, No Significant Lesion Neuro: Normal Gait, Normal Speech, Cranial Nerves 3-12 NL, Other (Left upper extremity strength is improving.) Psych/Mental Status: Mental Status NL, Mood NL A/P-Cardiology Admission Diagnosis Subacute CVA HTN Assessment/Plan Subacute CVA, hemorrhoids source of embolization CTA of the head showed 80 to 90% right ICA stenosis with possible thrombus with no identifiable source of thrombus. MRI of the head showed patchy region of acute to subacute infarction of the right parietal lobe extending to the posterior right frontal and occipital lobe. 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 No signs of mass- effect or hemorrhage. Recommendation was by [facility] stroke neurology to treat with aspirin and heparin and then progressed to aspirin and Eliquis. Telemetry showing SR with PACs SUKHI done 11/29/21 showing trace mitral regurgitation with no shunt noted. Hypertension, monitor blood pressure. 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 Sebastian and will change Eliquis to 5 mg twice daily Continue with physical therapy and monitor blood pressure and lipids MARY SLAUGHTER December 02, 2021 09:31 NICOLE DEJESUS MD December 02, 2021 09:50
--- NOTE | 2021-12-02 09:57 | Physical Therapy Daily Note ---
PT Daily Note-Current Subjective Patient in bed pre tx, agrees to PT, has no complaints of pain. Will be co- treating with OT for tx due to poor patient mobility, strength, endurance, left hemiparesis, coordinate UE and LE during activity, safety and reduce risk of falls. Appearance Patient in WC post tx to continue to work with OT. Mental Status Patient Orientation: Person, Place, Situation Transfers SCALE: Activities may be completed with or without assistive devices. 4-Uuxdbuhnux-rdqpgoz completes the activity by him/herself with no assistance from a helper. 5-Set-up or Clean-up Assistance-helper sets up or cleans up; patient completes activity. [place] assists only prior to or following the activity. 4-Supervision or Touching Assistance-helper provides verbal cues and/or touching/steadying and/or contact guard assistance as patient completes activity. Assistance may be provided throughout the activity or intermittently. 3-Partial/Moderate Assistance-helper does LESS THAN HALF the effort. [place] lif ts, holds or supports trunk or limbs, but provides less than half the effort. 2-Substantial/Maximal Assistance-helper does MORE THAN HALF the effort. [place] lifts or holds trunk or limbs and provides more than half the effort. 7-Mmozydtie-lazlmr does ALL the effort. Patient does none of the effort to complete the activity. Or, the assistance of 2 or more helpers is required for the patient to complete the activity. If activity was not attempted, code reason: 7-Patient Refused. 9-Not Applicable-not attempted and the patient did not perform the activity before the current illness, exacerbation or injury. 10-Not Attempted due to Environmental Limitations-(lack of equipment, weather restraints, etc.). 88-Not Attempted due to Medical Conditions or Safety Concerns. Roll Left & Right (QC): 4 Lying to Sitting/Side of Bed(Q: 3 Sit to Stand (QC): 3 Chair/Zjf-kl-Yoczl Xfer(QC): 3 Toilet Transfer (QC): 3 Patient sits to the side of the bed with min assist, states she needs to use the commode, min assist stand pivot transfer to commode (OT lowers brief on the way), when done OT dons new brief partway, patient stands with min assist and OT pulls up brief the rest of the way. WC is placed behind patient and she sits. Then patient dresses from seated position as much as she can and then stands again with min assist and OT completes dressing. Gait Training Distance: 40', 30', 30' Walk 10 feet (QC): 3 Gait Assistive Device: FWW very slow, poor heel strike and foot clearance on the left side, patient seems to have a little extensor tone in left foot and some left neglect Wheelchair Training Does the Pt Use a Wheelchair?: Yes Wheel 50 ft with 2 turns (QC): 3 Type of Wheelchair: Manual 120', 100' Exercises standing activity encouraging patient to look and move on her left side (reaching, grabbing, placing) Treatments PT performed bed mobility and transfers, ambulation, WC mobility, standing during reaching activity, standing and positioning during dressing and toileting, OT performed dressing, toileting, reaching activity, UE positioning and safety during activity. Assessment Current Status: Fair Progress slightly improved ambulation, patient able to use a rolling walker today. PT Short Term Goals Short Term Goals Time Frame: Dec 14, 2021 Roll Left & Right: 4 Sit to lyin Lying to sitting on side of be: 4 Sit to stand: 3 Chair/peb-vo-kwujy transfer: 3 Toilet transfer: 3 Car transfer: 3 Walk 10 feet: 3 Walk 50 feet with two turns: 3 Does pt use a wc or scooter: Yes Wheel 50ft w/2 turns: 4 Wheel 150 feet: 4 Type: Manual PT Bingo Caller Goals Bingo Caller Goals PT Retirement Goals Time Frame: Dec 28, 2021 Roll Left & Right (QC): 6 Sit to Lying (QC): 6 Lying-Sitting on Side/Bed(QC): 6 Sit to Stand (QC): 4 Chair/Mto-yq-Kgyyp Xfer(QC): 4 Toilet Transfer (QC): 4 Car Transfer (QC): 4 Does the Patient Walk: Yes Walk 10 feet (QC): 4 Walk 50ft with 2 Turns (QC): 4 Walk 150 ft (QC): 4 Walking 10ft on Uneven Surface: 4 1 Step (curb) (QC): 3 4 Steps (QC): 9 12 Steps (QC): 9 Picking up an Object (QC): 3 Wheel 50 feet with 2 turns (QC: 5 Wheel 150 feet: 5 Type: Manual PT Plan Problem List Problem List: Activity Tolerance, Functional Strength, Safety, Balance, Gait, Transfer, Bed Mobility, ROM Treatment/Plan Treatment Plan: Continue Plan of Care Treatment Plan: Bed Mobility, Concurrent Therapy, Education, Functional Activity Seema, Functional Strength, Group Therapy, Gait, Safety, Therapeutic Exercise, Transfers Treatment Duration: Dec 28, 2021 Frequency: At least 5 of 7 days/Wk (IRF) Estimated Hrs Per Day: 1.5 hours per day Patient and/or Family Agrees t: Yes Safety Risks/Education Patient Education: Gait Training, Transfer Techniques, Correct Positioning, W/C Management, Safety Issues Teaching Recipient: Patient Teaching Methods: Demonstration, Discussion Response to Teaching: Reinforcement Needed Time/GCodes Time In: 0900 Time Out: 1000 Total Billed Treatment Time: 60 Total Billed Treatment 1 visit FA Andrey' RYAN NELSON PT December 02, 2021 09:57
--- NOTE | 2021-12-02 10:43 | Occupational Ther Daily Note ---
OT Current Status-Daily Note Subjective Pt alert, lying in bed. Pt agrees to therapy. No c/o pain. Mental Status/Objective Patient Orientation: Person, Place, Time, Situation ADL-Treatment Co-treat with PT [id number], skills of 2 clinicians required to decrease fall risk, increase mobility for independence and increase visual/cognitive for safety during functional tasks. PT focusing on transfers, mobility, ambulation while OT focusing on ADLs, visual motor/scanning and functional mobility with L UE placement. Min A supine to EOB then SBA for EOB to supine. See PT notes for transfers and ambulation. Toilet(BSC) transfer from EOB to BSC, assist x1 for transfer. Toileting, assist x2(one to transfer and one to complete hygiene/clothing manipulation). Pt able to use L hand to complete upper body bathing then assist x2 to cleanse buttocks and lower legs/feet. Max A to don shirt. Assist x2 to complete lower body dressing. Max A for footwear. Pt sits at sink to complete oral care independently. After therapy, pt lying in bed with call light/phone in reach. Therapy Code Descriptions/Definitions Functional [place] Measure: 0=Not Assessed/NA 4=Minimal Assistance 1=Total Assistance 5=Supervision or Setup 2=Maximal Assistance 6=Modified [place] 3=Moderate Assistance 7=Complete IndependenceSCALE: Activities may be completed with or without assistive devices. 8-Iepizcwbun-wjbkvbk completes the activity by him/herself with no assistance from a helper. 5-Set-up or Clean-up Assistance-helper sets up or cleans up; patient completes activity. [place] assists only prior to or following the activity. 4-Supervision or Touching Assistance-helper provides verbal cues and/or touching/steadying and/or contact guard assistance as patient completes activity. Assistance may be provided throughout the activity or intermittently. 3-Partial/Moderate Assistance-helper does LESS THAN HALF the effort. [place] lifts, holds or supports trunk or limbs, but provides less than half the effort. 2-Substantial/Maximal Assistance-helper does MORE THAN HALF the effort. [place] lifts or holds trunk or limbs and provides more than half the effort. 8-Cyptrrfyj-gwzzjb does ALL the effort. Patient does none of the effort to complete the activity. Or, the assistance of 2 or more helpers is required for the patient to complete the activity. If activity was not attempted, code reason: 7-Patient Refused. 9-Not Applicable-not attempted and the patient did not perform the activity before the current illness, exacerbation or injury. 10-Not Attempted due to Environmental Limitations-(lack of equipment, weather restraints, etc.). 88-Not Attempted due to Medical Conditions or Safety Concerns. Oral Hygiene (QC): 6 Shower/Bathe Self (QC): 1 Upper Body Dressing (QC): 2 Lower Body Dressing (QC): 1 On/Off Footwear: 2 Toileting Hygiene (QC): 1 Toilet Transfer (QC): 3 Other Treatment Pt working on propelling w/c by self, verbal cues to visually scan toward L side and use B feet to steer w/c. Pt then working on ambulating using FWW with min A and verbal cues for foot/hand position. Pt then working on visual scanning in standing. L visual neglect with some upper/lower quadrant visual cut. Pt is demonstrating good AROM with L UE though fatigues quickly and decreased coordination. Pt given exercises for self ROM and isolation of movements. OT Short Term Goals Short Term Goals Time Frame: Dec 13, 2021 Eatin Oral hygiene: 5 Toileting hygiene: 2 Shower/bathe self: 3 Upper body dressin Lower body dressin Putting on/taking off footwear: 2 OT Desk Lieutenant Goals Desk Lieutenant Goals Time Frame: Dec 27, 2021 Eating (QC): 5 Oral Hygiene (QC): 6 Toileting Hygiene (QC): 6 Shower/Bathe Self (QC): 4 Upper Body Dressing (QC): 5 Lower Body Dressing (QC): 4 On/Off Footwear (QC): 4 1=Demonstrate adherence to instructed precautions during ADL tasks. 2=Patient will verbalize/demonstrate understanding of assistive devices/modifications for ADL. 3=Patient will improve strength/tolerance for activity to enable patient to perform ADL's. OT Education/Plan Problem List/Assessment Assessment: Decreased Activ Tolerance, Decreased UE Strength, Impaired Self- Care Skills Discharge Recommendations Plan/Recommendations: Continue POC Treatment Plan/Plan of Care Patient would benefit from OT for education, treatment and training to promote independence in ADL's, mobility, safety and/or upper extremity function for ADL's. Plan of Care: ADL Retraining, Cognitive Retraining, Functional Mobility, Group Exercise/Act as Ind, UE Funct Exercise/Act, UE Neuromus Re-Ed/Coord, Visual/Perceptual Retrain, W/C Management Training Treatment Duration: Dec 27, 2021 Frequency: At least 5 of 7 days/Wk (IRF) Estimated Hrs Per Day: .25 hour per day Agreement: Yes Rehab Potential: Guarded Time/GCodes Start Time: 09:00 Stop Time: 10:30 Total Time Billed (hr/min): 90 Billed Treatment Time 1 visit-ADL 3 (45 min) NM 3 (45 min) co-treat with PT [id number], individual [id number] FLORINDA THOMAS December 02, 2021 10:43
--- NOTE | 2021-12-02 10:53 | IRF PAI BIMS ---
BIMS BIMS IRF KATIUSKA BIMS: IRF KATIUSKA BIMS Response (Comments) Value Expression of Ideas and Wants (Verbal/Non Verbal) Without Difficulty 3 Understanding Verbal Content Sometimes Understands 1 Should Brief Interview for Mental Status be Conducted Yes Repitition of Three Words Two 2 What year is it right now? Correct 0 What month is it right now? Accurate within 5 days 0 What week is it now? Correct 0 Recalls Socks Yes, After Cueing (Wear) 1 Recalls Blue Yes, No Cue Required 2 Recalls Bed Yes, No Cue Required 2 Total 11 Brief Interview/Mental Status: No Notes: BIMS Score 13/15 FLORINDA THOMAS December 02, 2021 10:53
--- NOTE | 2021-12-02 10:56 | Progress Note ---
ROLO PALMA 12/02/21 1056: Progress Note Subjective: HPI: The patient was sitting in a chair this morning, while participating in physical therapy. She denies any changes over night. She is content with her progress thus far with inpatient rehabilitation. She reports some improved L sided strength. She reports that it has been a couple of days since her last bowel movement, and that she normally has bowel movements once per day. ROS: Constitutional: no fevers, no chills EENTM: no vision changes Respiratory: no cough, no dyspnea Cardiovascular: no chest pain, no palpitations Gastrointestinal: no vomiting, no diarrhea Genitourinary: no symptoms reported Musculoskeletal: no symptoms reported Skin: no change in color, no concerning lesions Psychiatric/Neurological: no anxiety, no depression Objective: Vitals: T: 36.4, HR: 74, RR: 16, BP: 143/69, 94% room air PE: General Appearance: No Apparent Distress, WD/WN Eyes: Bilateral Eye Normal Inspection, Bilateral Eye PERRL HEENT: PERRL/EOMI, mucous membranes moist Neck: Full Range of Motion, Normal Inspection Respiratory: Chest Non Tender, Lungs Clear, Normal Breath Sounds, No Accessory Muscle Use, No Respiratory Distress Cardiovascular: Regular Rate, Rhythm, No Edema, No Gallop, No JVD, No Murmur, Normal Peripheral Pulses Gastrointestinal: Normal Bowel Sounds, No Organomegaly, No Pulsatile Mass, Non Tender, Soft Extremity: Normal Inspection, Normal Range of Motion, Non Tender, No Calf Tenderness, No Pedal Edema Neurologic/Psychiatric: Alert, Oriented x3, No Motor/Sensory Deficits, 3/5 left upper extremity strength, 5/5 right upper extremity strength, 4/5 left lower extremity strength, 5/5 right lower extremity strength, CN XI: minor weakness of L shoulder shrug, Remainder of CN normal as tested Skin: Normal Color, Warm/Dry Assessment: 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 She is making good progress with regaining her L sided strength compared to her L sided strength when she was admitted on 11/29/21. She is ambulating with a walker well. We will continue to monitor her neurological status and strength levels. Continue with anticoagulation of Eliquis. Continue bowel regiment. Monitor BMs. Hypertension Hyperlipidemia Monitor blood pressure. Continue home medications. Cardiology following, we appreciate their recommendations. DORYS MARINO DO 12/02/212050: Supervisory-Addendum Brief Verification & Attestation Participated in pt care: history, MDM, physical Personally performed: exam, history, MDM, supervision of care Care discussed with: Medical Student Procedures: n/a Results interpretation: Verified all documentation Verification and Attestation of Medical Student E/M Service A medical student performed and documented this service in my presence. I reviewed and verified all information documented by the medical student and made modifications to such information, when appropriate. I personally performed the physical exam and medical decision making. Dorys Marino December 02, 2021,20:51 ROLO PALMA December 02, 2021 10:56 DORYS MARINO DO December 02, 2021 20:51
--- NOTE | 2021-12-02 11:52 | Physical Therapy Daily Note ---
PT Daily Note-Current Subjective Patient in bed pre tx, agrees to PT, has no complaints of pain. Appearance Patient in bed post tx with nurse call, phone, tray, laying on right side with pillow support for pressure relief. Mental Status Patient Orientation: Person, Place, Situation Transfers SCALE: Activities may be completed with or without assistive devices. 7-Svewesdhdu-mcmgcpm completes the activity by him/herself with no assistance from a helper. 5-Set-up or Clean-up Assistance-helper sets up or cleans up; patient completes activity. [place] assists only prior to or following the activity. 4-Supervision or Touching Assistance-helper provides verbal cues and/or touching/steadying and/or contact guard assistance as patient completes activity. Assistance may be provided throughout the activity or intermittently. 3-Partial/Moderate Assistance-helper does LESS THAN HALF the effort. [place] lifts, holds or supports trunk or limbs, but provides less than half the effort. 2-Substantial/Maximal Assistance-helper does MORE THAN HALF the effort. [place] lifts or holds trunk or limbs and provides more than half the effort. 3-Shpppdctz-cymjqi does ALL the effort. Patient does none of the effort to complete the activity. Or, the assistance of 2 or more helpers is required for the patient to complete the activity. If activity was not attempted, code reason: 7-Patient Refused. 9-Not Applicable-not attempted and the patient did not perform the activity before the current illness, exacerbation or injury. 10-Not Attempted due to Environmental Limitations-(lack of equipment, weather restraints, etc.). 88-Not Attempted due to Medical Conditions or Safety Concerns. Roll Left & Right (QC): 6 Exercises Supine Ex: Ankle pumps, Quad Set, Glut sets, Heel Slides, Short Arc Quads, Straight leg raise, Hip abd/add Supine Reps: 20 LLE stretching in all planes Treatments LE stretching and strengthening Assessment Current Status: Fair Progress Patient has decreased coordination in LLE and some slightly increased muscle tone. Patient has trouble internally rotating her left hip to keep her leg straight during exercise. PT Short Term Goals Short Term Goals Time Frame: Dec 14, 2021 Roll Left & Right: 4 Sit to lyin Lying to sitting on side of be: 4 Sit to stand: 3 Chair/jun-qh-btvvm transfer: 3 Toilet transfer: 3 Car transfer: 3 Walk 10 feet: 3 Walk 50 feet with two turns: 3 Does pt use a wc or scooter: Yes Wheel 50ft w/2 turns: 4 Wheel 150 feet: 4 Type: Manual PT Research Advisor Goals Senior Living Goals PT Research Advisor Goals Time Frame: Dec 28, 2021 Roll Left & Right (QC): 6 Sit to Lying (QC): 6 Lying-Sitting on Side/Bed(QC): 6 Sit to Stand (QC): 4 Chair/Zgo-ys-Klsfc Xfer(QC): 4 Toilet Transfer (QC): 4 Car Transfer (QC): 4 Does the Patient Walk: Yes Walk 10 feet (QC): 4 Walk 50ft with 2 Turns (QC): 4 Walk 150 ft (QC): 4 Walking 10ft on Uneven Surface: 4 1 Step (curb) (QC): 3 4 Steps (QC): 9 12 Steps (QC): 9 Picking up an Object (QC): 3 Wheel 50 feet with 2 turns (QC: 5 Wheel 150 feet: 5 Type: Manual PT Plan Problem List Problem List: Activity Tolerance, Functional Strength, Safety, Balance, Gait, Transfer, Bed Mobility, ROM Treatment/Plan Treatment Plan: Continue Plan of Care Treatment Plan: Bed Mobility, Concurrent Therapy, Education, Functional Activity Seema, Functional Strength, Group Therapy, Gait, Safety, Therapeutic Exercise, Transfers Treatment Duration: Dec 28, 2021 Frequency: At least 5 of 7 days/Wk (IRF) Estimated Hrs Per Day: 1.5 hours per day Patient and/or Family Agrees t: Yes Safety Risks/Education Patient Education: Correct Positioning, Safety Issues Teaching Recipient: Patient Teaching Methods: Demonstration, Discussion Response to Teaching: Reinforcement Needed Time/GCodes Time In: 1130 Time Out: 1200 Total Billed Treatment Time: 30 Total Billed Treatment 1 visit EX 30 RYAN NELSON PT December 02, 2021 11:52
[2021-12-02] MEDS ORDERED: CATHETER FLUSH 10 ML SYR IVP PRN (14:00)
[2021-12-02] MEDS: CATHETER FLUSH 10 ML SYR IVP SCH ×2 (14:34→22:10)
[2021-12-02] MEDS: lisINopril 10 MG (PRINIVIL) TABLET PO SCH (20:12)
[2021-12-02] MEDS: SIMvastatin 40 MG (ZOCOR) TAB PO SCH (20:13)
[2021-12-02] MEDS: meTOprolol SUCCINATE 100 MG (TOPROL XL) TAB PO SCH (20:13)
[2021-12-02] MEDS: MELATONIN 3 MG TABLET PO PRN (20:13)
[2021-12-02 20:30] VITALS: BP 134/74
[2021-12-03] MEDS: CATHETER FLUSH 10 ML SYR IVP SCH ×3 (06:47→21:03)
[2021-12-03] MEDS: DOCUSATE SODIUM 100 MG (COLACE) CAP PO SCH ×2 (07:23→21:03)
[2021-12-03] MEDS: ASPIRIN E.C. 81 MG (ECOTRIN) TAB PO SCH (07:23)
[2021-12-03] MEDS: PYRIDOXINE (VITAMIN B-6) 50 MG TABLET PO SCH (07:23)
[2021-12-03] MEDS: SENNA W/DOCUSATE (SENOKOT S) TABLET PO SCH ×2 (07:23→21:03)
[2021-12-03] MEDS: CYANOCOBALAMIN 1,000 MCG (VITAMIN B-12) TABLET PO SCH (07:23)
[2021-12-03] MEDS: APIXABAN 5 MG (ELIQUIS) TABLET PO SCH ×2 (07:23→21:03)
[2021-12-03 07:43] VITALS: BP 136/63
[2021-12-03] MEDS: polyethylene glycoL POWDER 17 GM (MIRALAX) PACK PO SCH ×2 (08:29→21:03)
[2021-12-03] MEDS: MICONAZOLE NITRATE 2% CRM 30 GM TP SCH ×2 (08:30→21:03)
--- NOTE | 2021-12-03 08:57 | Cardiology Progress Note ---
Subjective Date Seen by Provider: December 03, 2021 Time Seen by Provider: 08:05 Subjective/Events-last exam Patient with PT, no new complaints. Reports left hand strength continues to improve. Objective-Cardiology Exam Last Set of Vital Signs Vital Signs 12/03/21 12/03/21 07:43 09:00 Temp 36.4 Pulse 74 Resp 18 B/P (MAP) 136/63 (87) Pulse Ox 93 O2 Delivery Room Air General: Alert, Oriented X3 HEENT: Atraumatic Lungs: Clear to Auscultation, Normal Air Movement Heart: Regular Rate Abdomen: Normal Bowel Sounds, Soft Extremities: No Clubbing, No Cyanosis, No Edema Skin: No Rashes, No Significant Lesion Neuro: Normal Gait, Normal Speech, Cranial Nerves 3-12 NL, Other (Left upper extremity strength is improving.) Psych/Mental Status: Mental Status NL, Mood NL A/P-Cardiology Admission Diagnosis Subacute CVA HTN Assessment/Plan Subacute CVA, hemorrhoids source of embolization CTA of the head showed 80 to 90% right ICA stenosis with possible thrombus with no identifiable source of thrombus. MRI of the head showed patchy region of acute to subacute infarction of the right parietal lobe extending to the posterior right frontal and occipital lobe. 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 No signs of mass- effect or hemorrhage. Recommendation was by [facility] stroke neurology to treat with aspirin and heparin and then progressed to aspirin and Eliquis.Currently maintained on ASA 81 mg and Eliquis 5mg BID. Telemetry showing SR with PACs SUKHI done 11/29/21 showing trace mitral regurgitation with no shunt noted. Hypertension, controlled, continue to monitor blood pressure. Hyperlipidemia, monitor lipids Supervisory-Addendum Brief Supervisory Addendum Participated in pt care: history, MDM, physical Personally performed: exam, history, MDM Care discussed with: BROWN Results interpretation: Verified all documentation Notes: Patient was seen and evaluated with Mary, no new complaint, on examination lungs were clear to auscultation bilaterally, heart is regular rate and rhythm. I will continue on current medication, monitor blood pressure and lipids MARY SLAUGHTER December 03, 2021 08:57 NICOLE DEJESUS MD December 03, 2021 13:19
--- NOTE | 2021-12-03 09:05 | PM&R Progress Note ---
Subjective HPI/CC On Admission Date Seen by Provider: December 03, 2021 Time Seen by Provider: 09:00 Subjective/Events-last exam 12/03/21: Patient improved Left hand improved No pain reported BM+ Eating well 12/02/2021: Patient doing well Left hand and arm moving well No pain reported Upbeat attitude 12/01/2021: Patient doing very well today Moving left arm and hand really well Family at bedside No pain 11/30/2021: Patient doing well Confusion noted Left sided weakness but can move her arm now Working with PT OT Reviewed labs Reviewed meds Review of Systems General: Fatigue, Malaise Neurological: Weakness, Numbness Objective Exam Vital Signs Vital Signs Date Time Temp Pulse Resp B/P (MAP) Pulse Ox O2 Delivery O2 Flow Rate FiO2 12/03/21 19:53 36.8 93 20 159/69 (99) 92 Room Air Capillary Refill : General Appearance: No Apparent Distress, WD/WN, Chronically ill HEENT: PERRL/EOMI, Normal ENT Inspection, Pharynx Normal Neck: Full Range of Motion, Normal Inspection, Non Tender, Supple, Carotid B ruit Respiratory: Chest Non Tender, Lungs Clear, Normal Breath Sounds, No Accessory Muscle Use, No Respiratory Distress Cardiovascular: Regular Rate, Rhythm, No Edema, No Gallop, No JVD, No Murmur, Normal Peripheral Pulses Gastrointestinal: Normal Bowel Sounds, No Organomegaly, No Pulsatile Mass, Non Tender, Soft Back: Normal Inspection, No CVA Tenderness, No Vertebral Tenderness Extremity: Normal Capillary Refill, Normal Inspection, Normal Range of Motion (except left side), Non Tender, No Calf Tenderness, No Pedal Edema Neurologic/Psychiatric: Alert, Oriented x3, Normal Mood/Affect, customer sales distributor II-XII Norm as Tested, Motor Weakness (left sided 2/5) Skin: Normal Color, Warm/Dry Lymphatic: No Adenopathy Results/Procedures Lab Patient resulted labs reviewed. FIM Transfers Therapy Code Descriptions/Definitions Functional [place] Measure: 0=Not Assessed/NA 4=Minimal Assistance 1=Total Assistance 5=Supervision or Setup 2=Maximal Assistance 6=Modified [place] 3=Moderate Assistance 7=Complete IndependenceSCALE: Activities may be completed with or without assistive devices. 2-Lyehylttjn-jbqhtmd completes the activity by him/herself with no assistance from a helper. 5-Set-up or Clean-up Assistance-helper sets up or cleans up; patient completes activity. [place] assists only prior to or following the activity. 4-Supervision or Touching Assistance-helper provides verbal cues and/or touching/steadying and/or contact guard assistance as patient completes activity. Assistance may be provided throughout the activity or intermittently. 3-Partial/Moderate Assistance-helper does LESS THAN HALF the effort. [place] lifts, holds or supports trunk or limbs, but provides less than half the effort. 2-Substantial/Maximal Assistance-helper does MORE THAN HALF the effort. [place] lifts or holds trunk or limbs and provides more than half the effort. 2-Zbpzvdhmz-qxetxo does ALL the effort. Patient does none of the effort to complete the activity. Or, the assistance of 2 or more helpers is required for the patient to complete the activity. If activity was not attempted, code reason: 7-Patient Refused. 9-Not Applicable-not attempted and the patient did not perform the activity before the current illness, exacerbation or injury. 10-Not Attempted due to Environmental Limitations-(lack of equipment, weather restraints, etc.). 88-Not Attempted due to Medical Conditions or Safety Concerns. Roll Left to Right (QC): 6 Sit to Lying (QC): 4 Sit to Stand (QC): 3 Chair/Ptk-zp-Fbuwc Xfer(QC): 3 Car Transfer (QC): 1 Gait Training Does the Patient Walk?: Yes Distance: 40', 30', 30' Walk 10 feet (QC): 3 Walk 50 ft with 2 Turns(QC): 88 Walk 150 ft (QC): 88 Walking 10ft/uneven surface-QC: 1 Gait Persons Needed: 1 Gait Assistive Device: FWW Wheelchair Training Does the Pt Use a Wheelchair?: Yes Distance: 100' x 1/250' x 1 Wheel 50 ft with 2 turns (QC): 3 Wheel 150 ft (QC): 3 Type of Wheelchair: Manual Stair Training #of Steps: 1 1 Step (curb) (QC): 1 (placed right foot up on step and attempted to follow with left with PT assist) 4 Steps (QC): 9 12 Steps (QC): 9 Balance Picking up an Object (QC): 88 ADL-Treatment Eating (QC): 4 Oral Hygiene (QC): 6 Shower/Bathe Self (QC): 1 Upper Body Dressing (QC): 2 Lower Body Dressing (QC): 1 On/Off Footwear (QC): 2 Toileting Hygiene (QC): 1 Toilet Transfer (QC): 3 Assessment/Plan Assessment and Plan Assess & Plan/Chief Complaint Assessment: 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 Debility Fall risk Hypertension Hyperlipidemia Advanced age Plan: Monitor closely Fall risk Monitor BP OAC 11/30/21: Monitor closely Checked meds labs 12/01/2021: Monitor closely DOAC 12/02/21: Monitor closely 12/03/21: Monitor closely Fall risk Decrease Eliquis to 5mg PO BID (1) CVA, LEFT SIDED WEAKENSS (2) HLD (hyperlipidemia) Status: Chronic (3) HTN (hypertension) Status: Chronic ZURDO MARINO DO December 03, 2021 09:05
--- NOTE | 2021-12-03 10:18 | Occupational Ther Daily Note ---
OT Current Status-Daily Note Subjective Pt alert, working with PT. Pt agrees to therapy. No c/o pain. OT/PT co-treat ([id number]), skills of 2 clinicians required to decrease fall risk, increase functional transfer progress and decreased activity tolerance. PT focusing on transfers while OT focusing on ADLs. Mental Status/Objective Patient Orientation: Person, Place Attachments: IV ADL-Treatment Initially pt declined shower. After encouragement, pt did agree to shower. Max A x2 for shower transfers. Pt requested to use BSC for bowel movement after transferring into shower. Max A x2 to transfer shower bench <--> BSC. Assist x2 to hike pants over hips then to cleanse buttocks. Transferred back to shower bench (max A x2) to complete shower. Mod A for upper body dressing, max A x2 lower body dressing, dependent footwear. Pt able to bathe upper body, atul area, upper/lower legs all in sitting, assist for feet and to dry R side of body. Pt declines to complete oral care due to fatigue. Max A to transfer from w/c to EOB. Min A to go from EOB to supine. Therapy Code Descriptions/Definitions Functional [place] Measure: 0=Not Assessed/NA 4=Minimal Assistance 1=Total Assistance 5=Supervision or Setup 2=Maximal Assistance 6=Modified [place] 3=Moderate Assistance 7=Complete IndependenceSCALE: Activities may be completed with or without assistive devices. 6-Mvkbwtxihk-glndkml completes the activity by him/herself with no assistance from a helper. 5-Set-up or Clean-up Assistance-helper sets up or cleans up; patient completes activity. [place] assists only prior to or following the activity. 4-Supervision or Touching Assistance-helper provides verbal cues and/or touchi ng/steadying and/or contact guard assistance as patient completes activity. Assistance may be provided throughout the activity or intermittently. 3-Partial/Moderate Assistance-helper does LESS THAN HALF the effort. [place] lifts, holds or supports trunk or limbs, but provides less than half the effort. 2-Substantial/Maximal Assistance-helper does MORE THAN HALF the effort. [place] lifts or holds trunk or limbs and provides more than half the effort. 7-Pzzmgesde-afbufp does ALL the effort. Patient does none of the effort to complete the activity. Or, the assistance of 2 or more helpers is required for the patient to complete the activity. If activity was not attempted, code reason: 7-Patient Refused. 9-Not Applicable-not attempted and the patient did not perform the activity before the current illness, exacerbation or injury. 10-Not Attempted due to Environmental Limitations-(lack of equipment, weather restraints, etc.). 88-Not Attempted due to Medical Conditions or Safety Concerns. Oral Hygiene (QC): 7 Shower/Bathe Self (QC): 1 (assist x2 to cleanse buttocks) Upper Body Dressing (QC): 3 (mod A) Lower Body Dressing (QC): 1 On/Off Footwear: 1 Toileting Hygiene (QC): 1 Toilet Transfer (QC): 1 Other Treatment Increased tightness in L UE though with gradual stretch L UE WFL during PROM. Pt's L shldr has tendency to pop when completing shldr flexion at 90*. Pt is demonstrating AROM distal to proximal with trace movement through shldr girdle on L UE. Pt will need to strengthen L shldr girdle and scapula to stabilize during further movement of shldr flexion. After session, pt lying in bed with call light/phone in reach. All needs met in room. OT Short Term Goals Short Term Goals Time Frame: Dec 13, 2021 Eatin Oral hygiene: 5 Toileting hygiene: 2 Shower/bathe self: 3 Upper body dressin Lower body dressin Putting on/taking off footwear: 2 OT [facility] Goals [facility] Goals Time Frame: Dec 27, 2021 Eating (QC): 5 Oral Hygiene (QC): 6 Toileting Hygiene (QC): 6 Shower/Bathe Self (QC): 4 Upper Body Dressing (QC): 5 Lower Body Dressing (QC): 4 On/Off Footwear (QC): 4 1=Demonstrate adherence to instructed precautions during ADL tasks. 2=Patient will verbalize/demonstrate understanding of assistive devices/modifications for ADL. 3=Patient will improve strength/tolerance for activity to enable patient to perform ADL's. OT Education/Plan Problem List/Assessment Assessment: Decreased Activ Tolerance, Decreased UE Strength, Impaired Funct Balance, Impaired Self-Care Skills, Restricted Funct UE ROM, Visual-Perceptual Deficit Discharge Recommendations Plan/Recommendations: Continue POC Treatment Plan/Plan of Care Patient would benefit from OT for education, treatment and training to promote independence in ADL's, mobility, safety and/or upper extremity function for ADL's. Plan of Care: ADL Retraining, Cognitive Retraining, Functional Mobility, Group Exercise/Act as Ind, UE Funct Exercise/Act, UE Neuromus Re-Ed/Coord, Visual/Perceptual Retrain, W/C Management Training Treatment Duration: Dec 27, 2021 Frequency: At least 5 of 7 days/Wk (IRF) Estimated Hrs Per Day: .25 hour per day Agreement: Yes Rehab Potential: Guarded Time/GCodes Start Time: 09:00 Stop Time: 10:15 Total Time Billed (hr/min): 75 Billed Treatment Time 1 visit-ADL 4 (60 min) NM 1 (15 min) co-treat with PT [id number], individual [id number] FLORINDA THOMAS December 03, 2021 10:18
--- NOTE | 2021-12-03 10:42 | Physical Therapy Daily Note ---
PT Daily Note-Current Subjective Pt laying Supine in bed upon arrival. Pt agrees to PT despite reporting not sleeping well last night. Pain Location: No Pain Reported Mental Status Patient Orientation: Person, Place, Time, Situation Transfers SCALE: Activities may be completed with or without assistive devices. 5-Kqyyuuqfsy-mseymcs completes the activity by him/herself with no assistance from a helper. 5-Set-up or Clean-up Assistance-helper sets up or cleans up; patient completes activity. [place] assists only prior to or following the activity. 4-Supervision or Touching Assistance-helper provides verbal cues and/or touching/steadying and/or contact guard assistance as patient completes activity. Assistance may be provided throughout the activity or intermittently. 3-Partial/Moderate Assistance-helper does LESS THAN HALF the effort. [place] lifts, holds or supports trunk or limbs, but provides less than half the effort. 2-Substantial/Maximal Assistance-helper does MORE THAN HALF the effort. [place] lifts or holds trunk or limbs and provides more than half the effort. 7-Tueaxazlg-hnxhas does ALL the effort. Patient does none of the effort to complete the activity. Or, the assistance of 2 or more helpers is required for the patient to complete the activity. If activity was not attempted, code reason: 7-Patient Refused. 9-Not Applicable-not attempted and the patient did not perform the activity before the current illness, exacerbation or injury. 10-Not Attempted due to Environmental Limitations-(lack of equipment, weather restraints, etc.). 88-Not Attempted due to Medical Conditions or Safety Concerns. Lying to Sitting/Side of Bed(Q: 4 Sit to Stand (QC): 4 Weight Bearing Full Weight Bearing Full Weight Bearing Gait Training Does the Patient Walk?: Yes Distance: 12' Walk 10 feet (QC): 3 CGA until fatigued then assistance to sit in [facility] Wheelchair Training Does the Pt Use a Wheelchair?: Yes Wheel 50 ft with 2 turns (QC): 4 Type of Wheelchair: Manual Exercises Seated Therapy Exercises: Ankle pumps, Long arc quads, Hip flexion, Glut set Seated Reps: 15 Treatments TF to EOB then completes Seated Ex. Pt takes RB then stands and amb. in room before fatiguing and needing to sit in [facility]. Pt propels [facility] in Therapy [facility] w/RB as needed. Pt returns to room as OT arrives. OT/PT co-treat ([id number]), skills of 2 clinicians required to decrease fall risk, increase functional transfer progress and decreased activity tolerance. PT focusing on transfers while OT focusing on ADLs. JR. SYSTEMS ADMINISTRATOR assists NUÑEZ with TF from [facility] to shower. Assessment Current Status: Fair Progress Pt fatigues easily and at times needs encouragement for redirection. PT Short Term Goals Short Term Goals Time Frame: Dec 14, 2021 Roll Left & Right: 4 Sit to lyin Lying to sitting on side of be: 4 Sit to stand: 3 Chair/ywj-va-cyjoi transfer: 3 Toilet transfer: 3 Car transfer: 3 Walk 10 feet: 3 Walk 50 feet with two turns: 3 Does pt use a wc or scooter: Yes Wheel 50ft w/2 turns: 4 Wheel 150 feet: 4 Type: Manual PT Behavioral Sciences Department Chair Goals Half-Way Goals PT Half-Way Goals Time Frame: Dec 28, 2021 Roll Left & Right (QC): 6 Sit to Lying (QC): 6 Lying-Sitting on Side/Bed(QC): 6 Sit to Stand (QC): 4 Chair/Anx-vp-Eymgv Xfer(QC): 4 Toilet Transfer (QC): 4 Car Transfer (QC): 4 Does the Patient Walk: Yes Walk 10 feet (QC): 4 Walk 50ft with 2 Turns (QC): 4 Walk 150 ft (QC): 4 Walking 10ft on Uneven Surface: 4 1 Step (curb) (QC): 3 4 Steps (QC): 9 12 Steps (QC): 9 Picking up an Object (QC): 3 Wheel 50 feet with 2 turns (QC: 5 Wheel 150 feet: 5 Type: Manual PT Plan Problem List Problem List: Activity Tolerance, Functional Strength, Gait Treatment/Plan Treatment Plan: Continue Plan of Care Treatment Plan: Bed Mobility, Concurrent Therapy, Education, Functional Activity Seema, Functional Strength, Group Therapy, Gait, Safety, Therapeutic Exercise, Transfers Treatment Duration: Dec 28, 2021 Frequency: At least 5 of 7 days/Wk (IRF) Estimated Hrs Per Day: 1.5 hours per day Patient and/or Family Agrees t: Yes Safety Risks/Education Patient Education: Gait Training, Transfer Techniques, Correct Positioning, W/C Management, Safety Issues Teaching Recipient: Patient Teaching Methods: Discussion Response to Teaching: Verbalize Understanding Time/GCodes Time In: 800 Time Out: 915 Total Billed Treatment Time: 75 Total Billed Treatment 1, EX (15m), GT (15m), [facility] (20m), FA (10m) [id number]: 1, FA (15m) GHAZALA BARRAGAN JR. SYSTEMS ADMINISTRATOR December 03, 2021 10:41
--- NOTE | 2021-12-03 11:29 | ST Cognitive Linguistic Eval ---
Speech Evaluation-General Medical Diagnosis CVA Onset Date: November 27, 2021 Therapy Diagnosis Therapy Diagnosis: Moderate Cognitive Impairment Referral Referring Physician: Dorys Sebastian Reason for Referral: Evaluation/Treatment Medical History Pertinent Medical History: HTN HTN Current History CVA Reviewed History: Yes Social History Home: Single Level Current Living Status: Alone Speech PLF-Current Status Prior Level of Function Pt reportededly independent with ADLs. The patient denied recent concerns or challenges with her speech, language, or cognition. Subjective The patient was seated upright in her bed. Pt awake and alert upon entrance to her room. Pt agreed to participate in the cognitive linguistic assessment. Language Eval: Auditory Comprehends Simple Yes/No Ques: Functional Indent/Objects [place]: Functional Ident/Pics in [place]: Functional Follows 1-Step Commands: Functional Follows Complex Directions: Functional Follows General Conversations: Functional Language Eval: Verbal Language Completes Spontaneous Greeting: Functional Produces Auto, Serial Info: Functional Imitates Simple Words/Phrases: Functional Word Finding: Functional Requests Basic Needs: Functional States Basic Personal Info: Functional Expresses Complex Ideas: Functional Cognitive Patient Orientation The patient was independently oriented to self, location, month, day of week, date, and year with use of external memory aid (i.e. bulletin board) Objective Cognitive Domain Attention: WNL Memory: Moderate Problem Solving: Moderate Executive Functions: Mild Visuospatial Skills: Moderate Composite Severity Rating: Moderate Clock Drawing Severity Rating: Moderate Objective Formal/Standardized Tests [facility] Mental Status ([facility]) Examination Results The patient demonstrated a result of +19/30 correlating to a dementia range Oral Motor/Speech Production Pt was 100% intelligible in known and unknown contexts. Dysarthria and apraxia of speech were not present. Impression The patient demonstrated moderate cognitive linguistic deficits in the areas of problem solving, visuospatial, and memory; skilled speech pathology to focus on the identified areas of difficulties would be beneficial for improved safety with increased independence upon discharge from the acute rehabilitation unit. Speech Patient Assess Expression of Ideas/Wants: Expression (4) Understanding Verbal Content: Understands (4) Brief Interview-Mental Status: Yes Repetition of Three Words: Three (3) Temporal Orientation: Year: Correct (3) Temporal Orientation: Month: Accurate within 5 days(2) Temporal Orientation: Day: Correct (1) Recall : Wear to say "Sock": Yes, no cue required (2) Recall : Color: Yes, no cue required (2) Recall : Bed: Yes, no cue required (2) Memory/Recall Ability: That he or she is in a hsp/hsp unit Speech Short Term Goals Short Term Goals Short Term Goals The patient will demonstrate 90% accuracy with memory and functional problem solving with mild clinician verbal and visual cueing. Speech Nursing Home Goals Pricing Analyst Goals The patient will demonstrate improve cognitive linguistic skills for safe discharge to the least restricted environment. Speech-Plan Patient/Family Goals Patient/Family Goals: Return to home alone. Treatment Plan Speech Therapy Treatment Plan: Continue Plan of Care Pt scored in "dementia" range in SLUMS examination. Skilled ST recommended to target memory and problem solving prior to discharge. Treatment Duration: December 10, 2021 Frequency: Modified Program (IRF) Estimated Hrs Per Day: Other Rehab Potential: Guarded Barriers to Learning: cognition Pt/Family Agrees to Plan: Yes Safety Risks/Education Teaching Recipient: Patient Teaching Methods: Discussion Response to Teaching: Verbalize Understanding Education Topics Provided: SLUMS results and ST goals Time Speech Therapy Time In: 10:30 Speech Therapy Time Out: 10:56 Total Billed Time: 26 Billed Treatment Time 1, SPSNDNIKO Yeung December 03, 2021 11:29
--- NOTE | 2021-12-03 14:12 | Occupational Ther Daily Note ---
OT Current Status-Daily Note Subjective Pt in bed, agreeable to OT Tx. ADL-Treatment Therapy Code Descriptions/Definitions Functional [place] Measure: 0=Not Assessed/NA 4=Minimal Assistance 1=Total Assistance 5=Supervision or Setup 2=Maximal Assistance 6=Modified [place] 3=Moderate Assistance 7=Complete IndependenceSCALE: Activities may be completed with or without assistive devices. 5-Rhoyypatrj-xsoylog completes the activity by him/herself with no assistance from a helper. 5-Set-up or Clean-up Assistance-helper sets up or cleans up; patient completes activity. Isabel assists only prior to or following the activity. 4-Supervision or Touching Assistance-helper provides verbal cues and/or touching/steadying and/or contact guard assistance as patient completes activity. Assistance may be provided throughout the activity or intermittently. 3-Partial/Moderate Assistance-helper does LESS THAN HALF the effort. Isabel lifts, holds or supports trunk or limbs, but provides less than half the effort. 2-Substantial/Maximal Assistance-helper does MORE THAN HALF the effort. Isabel lifts or holds trunk or limbs and provides more than half the effort. 5-Uhnalgbkk-oertfx does ALL the effort. Patient does none of the effort to complete the activity. Or, the assistance of 2 or more helpers is required for the patient to complete the activity. If activity was not attempted, code reason: 7-Patient Refused. 9-Not Applicable-not attempted and the patient did not perform the activity befo re the current illness, exacerbation or injury. 10-Not Attempted due to Environmental Limitations-(lack of equipment, weather re straints, etc.). 88-Not Attempted due to Medical Conditions or Safety Concerns. Other Treatment OT tx with focus on increasing LUE strength, activity tolerance, neuromuscular reeducation, and attention to task. Pt completed x10 reps of the following with LUE: shoulder flexion, elbow flexion/extension and finger flexion/extension. Pt often distracted throughout task, requiring verbal/tactile cues for redirection to task. Post tx, pt in bed, call light in reach and all needs met. Education OT Patient Education: Correct positioning, Energy conservation, Exercise program, Modified ADL techniques, Progress toward Goal/Update tx plan, Purpose of tx/functional activities, Rehab process Teaching Recipient: Patient Teaching Methods: Discussion Response to Teaching: Verbalize Understanding OT Short Term Goals Short Term Goals Time Frame: Dec 13, 2021 Eatin Oral hygiene: 5 Toileting hygiene: 2 Shower/bathe self: 3 Upper body dressin Lower body dressin Putting on/taking off footwear: 2 OT Alf Goals Alf Goals Time Frame: Dec 27, 2021 Eating (QC): 5 Oral Hygiene (QC): 6 Toileting Hygiene (QC): 6 Shower/Bathe Self (QC): 4 Upper Body Dressing (QC): 5 Lower Body Dressing (QC): 4 On/Off Footwear (QC): 4 1=Demonstrate adherence to instructed precautions during ADL tasks. 2=Patient will verbalize/demonstrate understanding of assistive devices/modifications for ADL. 3=Patient will improve strength/tolerance for activity to enable patient to perform ADL's. OT Education/Plan Problem List/Assessment Assessment: Decreased Activ Tolerance, Decreased UE Strength, Impaired Cognition, Impaired Funct Balance, Impaired I ADL's, Impaired Self-Care Skills, Restricted Funct UE ROM Discharge Recommendations Plan/Recommendations: Continue POC Treatment Plan/Plan of Care Patient would benefit from OT for education, treatment and training to promote independence in ADL's, mobility, safety and/or upper extremity function for ADL's. Plan of Care: ADL Retraining, Cognitive Retraining, Functional Mobility, Group Exercise/Act as Ind, UE Funct Exercise/Act, UE Neuromus Re-Ed/Coord, Visual/Perceptual Retrain, W/C Management Training Treatment Duration: Dec 27, 2021 Frequency: At least 5 of 7 days/Wk (IRF) Estimated Hrs Per Day: .25 hour per day Agreement: Yes Rehab Potential: Guarded Time/GCodes Start Time: 14:00 Stop Time: 14:10 Total Time Billed (hr/min): 10 Billed Treatment Time 1, EX DENI LOVE OT December 03, 2021 14:12
--- NOTE | 2021-12-03 17:24 | Podiatry Progress Note ---
Standard Progress Note Progress Notes/Assess & Plan Date Seen by a Provider: December 03, 2021 Time Seen by a Provider: 17:23 Progress/Assessment & Plan Consultation dictated. Foot care given. Final Diagnosis Onychomycosis Peripheral Neuropathy Hyperkeratosis SHARI VALENTIN DPClive December 03, 2021 17:24
[2021-12-03 19:53] VITALS: BP 159/69
[2021-12-03] MEDS: MELATONIN 3 MG TABLET PO PRN (21:03)
[2021-12-03] MEDS: lisINopril 10 MG (PRINIVIL) TABLET PO SCH (21:03)
[2021-12-03] MEDS: SIMvastatin 40 MG (ZOCOR) TAB PO SCH (21:03)
[2021-12-03] MEDS: meTOprolol SUCCINATE 100 MG (TOPROL XL) TAB PO SCH (21:03)
--- NOTE | 2021-12-04 00:25 | CONSULTATION REPORT ---
DATE OF SERVICE: 12/03/2021 REASON FOR CONSULTATION: Foot care. HISTORY OF PRESENT ILLNESS: This 81-year-old was admitted through the ER secondary to left-sided weakness. She also had a fall here recently. She complains of the inability to reach for and care for her feet. She was subsequently admitted to [facility] for rehabilitation for left-sided weakness. PAST MEDICAL HISTORY: Includes CVA, hypertension, hyperlipidemia. SOCIAL HISTORY: The patient is a former smoker. Denies any tobacco or alcohol use at this time. ALLERGIES: She has no known drug allergies. CURRENT MEDICATIONS: Listed on the patient's chart. PHYSICAL EXAMINATION: LOWER EXTREMITY: The patient has diminished pedal pulses bilaterally. Cap refill time is less than 3 seconds to the hallux bilaterally. She has thin skin, minimal digital hair, and telangiectasias noted bilaterally. NEUROLOGIC: The patient has diminished protective sensation with 10 gram monofilament wire examination bilaterally. Diminished deep tendon reflexes noted to the Achilles tendon bilaterally. The patient has diminished vibratory sensation to the forefoot on both lower extremities. INTEGUMENTARY: The patient has a thick hypertrophic skin lesion to the plantar lateral aspect of the right fifth metatarsal head area. Once debrided, there was no underlying wound identified. The patient has a dry eschar to the lateral aspect of the right lateral malleolus, it measures 7 x 6 mm. No active exudate, no proximal streaking. No gross signs of bacterial infection. Thick yellow dystrophic toenails with subungual debris R 1, 2, 3, 4 and 5 and L 1, 2, 3, 4 and 5 digits. MUSCULOSKELETAL FINDINGS: The patient has 5/5 muscle strength to the four major quadrants of the foot, which surprised me included the left lower extremity. ASSESSMENT: 1. Atherosclerosis. 2. Neuropathy. 3. Onychomycosis, corns and calluses. PLAN: Various treatment options were discussed with the patient today. Her toenails were debrided manually mechanically R 1, 2, 3, 4 and 5; and L 1, 2, 3, 4 and 5 digits. The patient noted good reduction of discomfort with debridement, there are extremely long. Her hyperkeratotic lesion was also debrided today, right fifth metatarsal head area. Betadine was then applied. I recommend appropriate shoes due to her neuropathy, she needs to be in good protective shoe gear. We will see her in the office upon discharge as necessary. Job ID: [id number] DocumentID: [id number] Dictated Date: 12/03/2021 17:23:10 Taxi Servicer Date: 12/04/2021 00:25:09 Dictated By: REZA PERERA
--- NOTE | 2021-12-04 05:44 | PM&R Progress Note ---
Subjective HPI/CC On Admission Date Seen by Provider: December 04, 2021 Time Seen by Provider: 10:00 Subjective/Events-last exam 12/04/2021: Pt is doing really well Sleeping currently Left hand and left arm moving a lot better Overall much improved status 12/03/21: Patient improved Left hand improved No pain reported BM+ Eating well 12/02/2021: Patient doing well Left hand and arm moving well No pain reported Upbeat attitude 12/01/2021: Patient doing very well today Moving left arm and hand really well Family at bedside No pain 11/30/2021: Patient doing well Confusion noted Left sided weakness but can move her arm now Working with PT OT Reviewed labs Reviewed meds Review of Systems General: Fatigue, Malaise Objective Exam Vital Signs Vital Signs Date Time Temp Pulse Resp B/P (MAP) Pulse Ox O2 Delivery O2 Flow Rate FiO2 12/05/21 01:00 63 12/04/21 20:15 Room Air 12/04/21 20:09 36.9 16 134/61 (85) 94 Capillary Refill : General Appearance: No Apparent Distress, WD/WN, Chronically ill HEENT: PERRL/EOMI, Normal ENT Inspection, Pharynx Normal Neck: Full Range of Motion, Normal Inspection, Non Tender, Supple, Carotid Bruit Respiratory: Chest Non Tender, Lungs Clear, Normal Breath Sounds, No Accessory Muscle Use, No Respiratory Distress Cardiovascular: Regular Rate, Rhythm, No Edema, No Gallop, No JVD, No Murmur, Normal Peripheral Pulses Gastrointestinal: Normal Bowel Sounds, No Organomegaly, No Pulsatile Mass, Non Tender, Soft Back: Normal Inspection, No CVA Tenderness, No Vertebral Tenderness Extremity: Normal Capillary Refill, Normal Inspection, Normal Range of Motion (except left side), Non Tender, No Calf Tenderness, No Pedal Edema Neurologic/Psychiatric: Alert, Oriented x3, Normal Mood/Affect, cylinder inspector and tester II-XII Norm as Tested, Motor Weakness (left sided 2/5) Skin: Normal Color, Warm/Dry Lymphatic: No Adenopathy Results/Procedures Lab Patient resulted labs reviewed. FIM Transfers Therapy Code Descriptions/Definitions Functional [place] Measure: 0=Not Assessed/NA 4=Minimal Assistance 1=Total Assistance 5=Supervision or Setup 2=Maximal Assistance 6=Modified [place] 3=Moderate Assistance 7=Complete IndependenceSCALE: Activities may be completed with or without assistive devices. 3-Rkmwunlzwe-sryxzul completes the activity by him/herself with no assistance from a helper. 5-Set-up or Clean-up Assistance-helper sets up or cleans up; patient completes activity. Babcock assists only prior to or following the activity. 4-Supervision or Touching Assistance-helper provides verbal cues and/or touching/steadying and/or contact guard assistance as patient completes activity. Assistance may be provided throughout the activity or intermittently. 3-Partial/Moderate Assistance-helper does LESS THAN HALF the effort. Babcock lifts, holds or supports trunk or limbs, but provides less than half the effort. 2-Substantial/Maximal Assistance-helper does MORE THAN HALF the effort. Babcock lifts or holds trunk or limbs and provides more than half the effort. 5-Nqsvfehkc-ompkfi does ALL the effort. Patient does none of the effort to complete the activity. Or, the assistance of 2 or more helpers is required for the patient to complete the activity. If activity was not attempted, code reason: 7-Patient Refused. 9-Not Applicable-not attempted and the patient did not perform the activity before the current illness, exacerbation or injury. 10-Not Attempted due to Environmental Limitations-(lack of equipment, weather restraints, etc.). 88-Not Attempted due to Medical Conditions or Safety Concerns. Roll Left to Right (QC): 6 Sit to Lying (QC): 4 Sit to Stand (QC): 4 Chair/Sif-bq-Zwfrt Xfer(QC): 3 Car Transfer (QC): 1 Gait Training Does the Patient Walk?: Yes Distance: 12' Walk 10 feet (QC): 3 Walk 50 ft with 2 Turns(QC): 88 Walk 150 ft (QC): 88 Walking 10ft/uneven surface-QC: 1 Gait Persons Needed: 1 Gait Assistive Device: FWW Wheelchair Training Does the Pt Use a Wheelchair?: Yes Distance: 100' x 1/250' x 1 Wheel 50 ft with 2 turns (QC): 4 Wheel 150 ft (QC): 3 Type of Wheelchair: Manual Stair Training #of Steps: 1 1 Step (curb) (QC): 1 (placed right foot up on step and attempted to follow with left with PT assist) 4 Steps (QC): 9 12 Steps (QC): 9 Balance Picking up an Object (QC): 88 ADL-Treatment Eating (QC): 4 Oral Hygiene (QC): 7 Shower/Bathe Self (QC): 1 (assist x2 to cleanse buttocks) Upper Body Dressing (QC): 3 (mod A) Lower Body Dressing (QC): 1 On/Off Footwear (QC): 1 Toileting Hygiene (QC): 1 Toilet Transfer (QC): 1 Assessment/Plan Assessment and Plan Assess & Plan/Chief Complaint Assessment: 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
[2021-12-04] MEDS: CATHETER FLUSH 10 ML SYR IVP SCH (06:25)
[2021-12-04 07:46] VITALS: BP 142/79
--- NOTE | 2021-12-04 08:20 | Cardiology Progress Note ---
Subjective Date Seen by Provider: December 04, 2021 Time Seen by Provider: 08:19 Subjective/Events-last exam Patient with PT, no new complaints. Denies any chest pain or palpitations. Review of Systems General: No Chills, No Night Sweats, No Fatigue, No Malaise, No Appetite, No Other HEENT: No Head Aches, No Visual Changes, No Eye Pain, No Ear Pain, No Dysphasia, No Sinus Congestion, No Post Nasal Drip, No Sore Throat, No Other Pulmonary: Dyspnea; No Cough, No Pleuritic Chest Pain, No Other Cardiovascular: No: Chest Pain, Palpitations, Orthopnea, Paroxysmal Noc. Dyspnea, Edema, Lt Headedness, Other Objective-Cardiology Exam Last Set of Vital Signs Vital Signs 12/04/21 12/04/21 12/04/21 07:46 09:00 13:00 Temp 36.3 Pulse 77 Resp 14 B/P (MAP) 142/79 (100) Pulse Ox 95 O2 Delivery Room Air General: Alert, Oriented X3 HEENT: Atraumatic Neck: Supple Lungs: Clear to Auscultation, Normal Air Movement Heart: Regular Rate Abdomen: Normal Bowel Sounds, Soft Extremities: No Clubbing, No Cyanosis, No Edema Skin: No Rashes, No Significant Lesion Neuro: Normal Gait, Normal Speech, Cranial Nerves 3-12 NL, Other (Left upper extremity strength is improving.) Psych/Mental Status: Mental Status NL, Mood NL A/P-Cardiology Admission Diagnosis Subacute CVA HTN Assessment/Plan Subacute CVA, hemorrhoids source of embolization CTA of the head showed 80 to 90% right ICA stenosis with possible thrombus with no identifiable source of thrombus. MRI of the head showed patchy region of acute to subacute infarction of the right parietal lobe extending to the posterior right frontal and occipital lobe. 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 No signs of mass- effect or hemorrhage. Recommendation was by [facility] stroke neurology to treat with aspirin and heparin and then progressed to aspirin and Eliquis.Currently maintained on ASA 81 mg and Eliquis 5mg BID. Telemetry showing SR with PACs SUKHI done 11/29/21 showing trace mitral regurgitation with no shunt noted. Hypertension, controlled, continue to monitor blood pressure. Hyperlipidemia, monitor lipids Supervisory-Addendum Brief Supervisory Addendum Participated in pt care: history, MDM, physical Personally performed: exam, history, MDM Care discussed with: BROWN Results interpretation: Verified all documentation Notes: Patient was seen and evaluated with Mary, examination performed, management plan was discussed, agree with the current scribed note, I made few changes to the note using Italic font Patient was seen at bedside laying down comfortably, no new complaint Reporting improvement in her symptoms Continue with physical therapy, continue to monitor MARY SLAUGHTER December 04, 2021 08:20 NICOLE DEJESUS MD December 04, 2021 13:53
[2021-12-04] MEDS: ASPIRIN E.C. 81 MG (ECOTRIN) TAB PO SCH (09:13)
[2021-12-04] MEDS: CYANOCOBALAMIN 1,000 MCG (VITAMIN B-12) TABLET PO SCH (09:14)
[2021-12-04] MEDS: PYRIDOXINE (VITAMIN B-6) 50 MG TABLET PO SCH (09:14)
[2021-12-04] MEDS: APIXABAN 5 MG (ELIQUIS) TABLET PO SCH ×2 (09:15→20:11)
--- NOTE | 2021-12-04 09:15 | Physical Therapy Daily Note ---
PT Daily Note-Current Subjective Pt sitting on [facility] with Nurse present upon arrival. Pt agrees to PT. Pain Location: No Pain Reported Mental Status Patient Orientation: Person, Place Attachments: Other-See Comments (Telemetry) Transfers SCALE: Activities may be completed with or without assistive devices. 5-Xuvtggwoei-tcmqpga completes the activity by him/herself with no assistance from a helper. 5-Set-up or Clean-up Assistance-helper sets up or cleans up; patient completes activity. [place] assists only prior to or following the activity. 4-Supervision or Touching Assistance-helper provides verbal cues and/or touching/steadying and/or contact guard assistance as patient completes activity. Assistance may be provided throughout the activity or intermittently. 3-Partial/Moderate Assistance-helper does LESS THAN HALF the effort. [place] lifts, holds or supports trunk or limbs, but provides less than half the effort. 2-Substantial/Maximal Assistance-helper does MORE THAN HALF the effort. [place] lifts or holds trunk or limbs and provides more than half the effort. 7-Owyoyiqva-oxprmz does ALL the effort. Patient does none of the effort to complete the activity. Or, the assistance of 2 or more helpers is required for the patient to complete the activity. If activity was not attempted, code reason: 7-Patient Refused. 9-Not Applicable-not attempted and the patient did not perform the activity before the current illness, exacerbation or injury. 10-Not Attempted due to Environmental Limitations-(lack of equipment, weather restraints, etc.). 88-Not Attempted due to Medical Conditions or Safety Concerns. Sit to Stand (QC): 3 Toilet Transfer (QC): 3 Min A when not fatigued but Mod A for fatigue at end of tx. L side weakness and knee will buckle after short duration of upright activity. Weight Bearing Full Weight Bearing Full Weight Bearing Gait Training Does the Patient Walk?: Yes Distance: 10' Walk 10 feet (QC): 4 Gait Persons Needed: 1 Gait Assistive Device: FWW L side neglect, VC to scan & not run into items on L side. Wheelchair Training Does the Pt Use a Wheelchair?: Yes Type of Wheelchair: Manual Exercises Seated Therapy Exercises: Ankle pumps, Long arc quads, Hip flexion, Hip abd/add, Glut set Seated Reps: 15 NuStep Minutes: 5 NuStep Workload: 1 Treatments After pt finishes on [facility], pt is able to complete pericare while MANAGER PRIVACY assists with standing. Pt amb. short distance but reports feeling fatigued and as pt sits in WCH, L knee jack & pt flops into WCH. Pt propels WCH in hallway. Pt completes Seated EX before TF via SPT to NuStep. Pt uses NuStep for 5 min. w/o resistance then pt is fatigued. TF back to [facility] and propelled with assistance. Pt needs to use BSC again before TF back to bed. All needs met, call light next to pt. Assessment Current Status: Fair Progress Pt demonstrated some pusher type behavior when getting off BSC first time but not seen again. Pt fatigues easily and needs frequent RB. L knee jack when upright too long. Pt also has near fall when TF from BSC to bed at end of tx. Nursing assists MANAGER PRIVACY with getting pt to bed when L knee jack. PT Short Term Goals Short Term Goals Time Frame: Dec 14, 2021 Roll Left & Right: 4 Sit to lyin Lying to sitting on side of be: 4 Sit to stand: 3 Chair/kwc-zc-hicpu transfer: 3 Toilet transfer: 3 Car transfer: 3 Walk 10 feet: 3 Walk 50 feet with two turns: 3 Does pt use a wc or scooter: Yes Wheel 50ft w/2 turns: 4 Wheel 150 feet: 4 Type: Manual PT Custodial Goals Transformation Lead Goals PT Custodial Goals Time Frame: Dec 28, 2021 Roll Left & Right (QC): 6 Sit to Lying (QC): 6 Lying-Sitting on Side/Bed(QC): 6 Sit to Stand (QC): 4 Chair/Avp-fu-Hgfdp Xfer(QC): 4 Toilet Transfer (QC): 4 Car Transfer (QC): 4 Does the Patient Walk: Yes Walk 10 feet (QC): 4 Walk 50ft with 2 Turns (QC): 4 Walk 150 ft (QC): 4 Walking 10ft on Uneven Surface: 4 1 Step (curb) (QC): 3 4 Steps (QC): 9 12 Steps (QC): 9 Picking up an Object (QC): 3 Wheel 50 feet with 2 turns (QC: 5 Wheel 150 feet: 5 Type: Manual PT Plan Problem List Problem List: Activity Tolerance, Functional Strength, Safety, Gait, Transfer Treatment/Plan Treatment Plan: Continue Plan of Care Treatment Plan: Bed Mobility, Concurrent Therapy, Education, Functional Activity Seema, Functional Strength, Group Therapy, Gait, Safety, Therapeutic Exercise, Transfers Treatment Duration: Dec 28, 2021 Frequency: At least 5 of 7 days/Wk (IRF) Estimated Hrs Per Day: 1.5 hours per day Patient and/or Family Agrees t: Yes Safety Risks/Education Patient Education: Gait Training, Transfer Techniques, Correct Positioning, Safety Issues Teaching Recipient: Patient Teaching Methods: Discussion Response to Teaching: Verbalize Understanding Time/GCodes Time In: 800 Time Out: 915 Total Billed Treatment Time: 75 Total Billed Treatment 1, FA x2 (30m), GT (15m), & EX x2 (30m) GHAZALA BARRAGAN MANAGER PRIVACY December 04, 2021 09:15
[2021-12-04] MEDS: polyethylene glycoL POWDER 17 GM (MIRALAX) PACK PO SCH ×2 (09:16→21:05)
[2021-12-04] MEDS: DOCUSATE SODIUM 100 MG (COLACE) CAP PO SCH ×2 (09:16→21:05)
[2021-12-04] MEDS: SENNA W/DOCUSATE (SENOKOT S) TABLET PO SCH ×2 (09:16→21:06)
[2021-12-04] MEDS: MICONAZOLE NITRATE 2% CRM 30 GM TP SCH ×2 (09:17→20:11)
[2021-12-04] MEDS ORDERED: PATIENT MAY USE OWN MED,SINGLE MED PO SCH (11:00)
--- NOTE | 2021-12-04 11:35 | Occupational Ther Daily Note ---
OT Current Status-Daily Note Subjective Pt alert, sitting on BSC. Pt agrees to therapy. Nrsg in room. Mental Status/Objective Patient Orientation: Person, Place, Time, Situation Attachments: IV (swelling at IV site, reported to nrsg) ADL-Treatment Pt requires assist x2 to complete toileting. Assist x1 for transfer from BSC to toilet. Pt able to doff L sock with figure 4 tech, assist needed to doff R sock and don B socks/shoes. Pt then completed oral care and grooming sitting at sink in w/c, independently. Pt propelled w/c using B feet to therapy gym. Therapy Code Descriptions/Definitions Functional [place] Measure: 0=Not Assessed/NA 4=Minimal Assistance 1=Total Assistance 5=Supervision or Setup 2=Maximal Assistance 6=Modified [place] 3=Moderate Assistance 7=Complete IndependenceSCALE: Activities may be completed with or without assistive devices. 6-Nnzctxcvrc-xqxirtp completes the activity by him/herself with no assistance from a helper. 5-Set-up or Clean-up Assistance-helper sets up or cleans up; patient completes activity. [place] assists only prior to or following the activity. 4-Supervision or Touching Assistance-helper provides verbal cues and/or touchi ng/steadying and/or contact guard assistance as patient completes activity. Assistance may be provided throughout the activity or intermittently. 3-Partial/Moderate Assistance-helper does LESS THAN HALF the effort. [place] lifts, holds or supports trunk or limbs, but provides less than half the effort. 2-Substantial/Maximal Assistance-helper does MORE THAN HALF the effort. [place] lifts or holds trunk or limbs and provides more than half the effort. 5-Bqngjhhwo-bsliuw does ALL the effort. Patient does none of the effort to complete the activity. Or, the assistance of 2 or more helpers is required for the patient to complete the activity. If activity was not attempted, code reason: 7-Patient Refused. 9-Not Applicable-not attempted and the patient did not perform the activity before the current illness, exacerbation or injury. 10-Not Attempted due to Environmental Limitations-(lack of equipment, weather restraints, etc.). 88-Not Attempted due to Medical Conditions or Safety Concerns. Oral Hygiene (QC): 6 On/Off Footwear: 2 Toileting Hygiene (QC): 1 Other Treatment Pt working on strengthening L shldr for stability and AROM for daily functional tasks. Completed B UE AROM exercises in horizontal plane with gravity eliminated by pushing/pulling dowel leda to incorporate scapular gliding with pr otraction/retraction. Lifting dowel leda to place in designated areas from 90* shldr flex starting point using B UE's. Pt then worked on lifting elbow to 90* shldr abd, 5x's. Shldr elevation 10x's in front of mirror for pt to see if L shldr was elevating. Pt then completed 20 sec on arm bike with L hand gripping handle without support. Pt then required hand to be wrapped and assistance to eliminate gravity for L UE, 5 min no resistance. Pt then propelled w/c 1/2 distance to room. After session, pt lying in bed with call light/phone in reach. All needs met in room. OT Short Term Goals Short Term Goals Time Frame: Dec 13, 2021 Eatin Oral hygiene: 5 Toileting hygiene: 2 Shower/bathe self: 3 Upper body dressin Lower body dressin Putting on/taking off footwear: 2 OT Fpc Goals Fpc Goals Time Frame: Dec 27, 2021 Eating (QC): 5 Oral Hygiene (QC): 6 Toileting Hygiene (QC): 6 Shower/Bathe Self (QC): 4 Upper Body Dressing (QC): 5 Lower Body Dressing (QC): 4 On/Off Footwear (QC): 4 1=Demonstrate adherence to instructed precautions during ADL tasks. 2=Patient will verbalize/demonstrate understanding of assistive devices/modifications for ADL. 3=Patient will improve strength/tolerance for activity to enable patient to perform ADL's. OT Education/Plan Problem List/Assessment Assessment: Decreased Activ Tolerance, Decreased UE Strength, Impaired Coordination, Impaired Funct Balance, Impaired Self-Care Skills, Restricted Funct UE ROM, Visual-Perceptual Deficit Discharge Recommendations Plan/Recommendations: Continue POC Treatment Plan/Plan of Care Patient would benefit from OT for education, treatment and training to promote independence in ADL's, mobility, safety and/or upper extremity function for ADL's. Plan of Care: ADL Retraining, Cognitive Retraining, Functional Mobility, Group Exercise/Act as Ind, UE Funct Exercise/Act, UE Neuromus Re-Ed/Coord, Visual/Perc eptual Retrain, W/C Management Training Treatment Duration: Dec 27, 2021 Frequency: At least 5 of 7 days/Wk (IRF) Estimated Hrs Per Day: .25 hour per day Agreement: Yes Rehab Potential: Guarded Time/GCodes Start Time: 10:30 Stop Time: 11:45 Total Time Billed (hr/min): 75 Billed Treatment Time 1 visit-ADL 2 (30 min), FA 1 (15 min) NM 2 (30 min) FLORINDA THOMAS December 04, 2021 11:35
--- NOTE | 2021-12-04 12:16 | Speech Therapy Daily Note ---
Speech Daily Progress Note Subjective Date Seen by Provider: December 04, 2021 Time Seen by Provider: 00:30 Pt lying down in bed in room. Pt was cooperative and willing to participate in ST treatment session. Pt demonstrated variable alertness throughout session requiring verbal input to stay alert Objective Session targeted novel recall. Pt was 60% accurate with minimal verbal cues requiring mod-max verbal cues in remaining opportunities. Assessment Assessment Current Status: Good Progress Treatment Plan Continue Plan of Care Speech Short Term Goals Short Term Goals Short Term Goals The patient will demonstrate 90% accuracy with memory and functional problem solving with mild clinician verbal and visual cueing. Speech Halfway Goals Malariologist Goals The patient will demonstrate improve cognitive linguistic skills for safe discharge to the least restricted environment. Speech-Plan Patient/Family Goals Patient/Family Goals: D/c planned for 12/20. Pt plans to return home. Treatment Plan Speech Therapy Treatment Plan: Continue Plan of Care Pt presented with a moderate neurocognitive impairment. Pt benefits from moderate verbal cues for memory and problem solving tasks. Treatment Duration: Dec 20, 2021 Frequency: Modified Program (IRF) Estimated Hrs Per Day: Other Rehab Potential: Guarded Barriers to Learning: cognition, alertness Pt/Family Agrees to Plan: Yes Safety Risks/Education Teaching Recipient: Patient Teaching Methods: Discussion Response to Teaching: Verbalize Understanding Education Topics Provided: memory strategies, ST goals, and room safety Time Speech Therapy Time In: 10:00 Speech Therapy Time Out: 10:30 Total Billed Time: 30 Billed Treatment Time 1RADHA SEAN ST December 04, 2021 12:16
--- NOTE | 2021-12-04 12:18 | Progress Note ---
ROLO PALMA 12/04/21 1218: Progress Note Subjective: CC: L sided weakness and Debility secondary to a Subacute CVA with Right ICA Thrombus HPI: The patient was laying in bed comfortably this morning. She denies any changes over night. She reports that she feels that she is making good progress with regaining her L sided strength. Her bowels are moving well. Her appetite is good. ROS: Constitutional: no fevers, no chills EENTM: no vision changes Respiratory: no cough, no dyspnea Cardiovascular: no chest pain, no palpitations Gastrointestinal: no vomiting, no diarrhea Genitourinary: no symptoms reported Musculoskeletal: no symptoms reported Skin: no change in color, no concerning lesions Psychiatric/Neurological: no anxiety, no depression Objective: Vitals: T: 36.3, HR: 73, RR: 14, BP: 142/79, 95% room air PE: General Appearance: No Apparent Distress, WD/WN Eyes: Bilateral Eye Normal Inspection, Bilateral Eye PERRL HEENT: PERRL/EOMI, mucous membranes moist Neck: Full Range of Motion, Normal Inspection Respiratory: Chest Non Tender, Lungs Clear, Normal Breath Sounds, No Accessory Muscle Use, No Respiratory Distress Cardiovascular: Regular Rate, Rhythm, No Edema, No Gallop, No JVD, No Murmur, Normal Peripheral Pulses Gastrointestinal: Normal Bowel Sounds, No Organomegaly, No Pulsatile Mass, Non Tender, Soft Extremity: Normal Inspection, Normal Range of Motion, Non Tender, No Calf Tenderness, No Pedal Edema Neurologic/Psychiatric: Alert, Oriented x3, No Motor/Sensory Deficits, 4/5 left upper extremity strength, 5/5 right upper extremity strength, 5/5 RLE and LLE Strength, CN II-X and XII normal as tested, CN XI: slight weakness of L shoulder shrug Skin: Normal Color, Warm/Dry Assessment: 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 She is making good progress with regaining her L sided strength. She will continue to participate in exercises and therapies that focus on improving her L sided strength, ambulation ability and ADLs. Her planned discharge is 12/20/21. The patient was comfortable with this plan. Hypertension Hyperlipidemia Continue home medications. Continue to monitor blood pressure and lipids. DORYS MARINO DO 12/04/212102: Supervisory-Addendum Brief Verification & Attestation Participated in pt care: history, MDM, physical Personally performed: exam, history, MDM, supervision of care Care discussed with: Medical Student Procedures: n/a Results interpretation: Verified all documentation Verification and Attestation of Medical Student E/M Service A medical student performed and documented this service in my presence. I reviewed and verified all information documented by the medical student and made modifications to such information, when appropriate. I personally performed the physical exam and medical decision making. Dorys Marino, December 04, 2021,21:03 ROLO PALMA December 04, 2021 12:18 DORYS MARINO DO December 04, 2021 21:03
[2021-12-04 20:09] VITALS: BP 134/61
[2021-12-04] MEDS: meTOprolol SUCCINATE 100 MG (TOPROL XL) TAB PO SCH (20:11)
[2021-12-04] MEDS: SIMvastatin 40 MG (ZOCOR) TAB PO SCH (20:11)
[2021-12-04] MEDS: lisINopril 10 MG (PRINIVIL) TABLET PO SCH (20:12)
--- NOTE | 2021-12-05 06:36 | PM&R Progress Note ---
Subjective HPI/CC On Admission Date Seen by Provider: December 05, 2021 Time Seen by Provider: 12:00 Subjective/Events-last exam 12/05/2021: Pt doing really well Bowels moved today Tired Discontinuing telemetry Overall dramatic improvement 12/04/2021: Pt is doing really well Sleeping currently Left hand and left arm moving a lot better Overall much improved status 12/03/21: Patient improved Left hand improved No pain reported BM+ Eating well 12/02/2021: Patient doing well Left hand and arm moving well No pain reported Upbeat attitude 12/01/2021: Patient doing very well today Moving left arm and hand really well Family at bedside No pain 11/30/2021: Patient doing well Confusion noted Left sided weakness but can move her arm now Working with PT OT Reviewed labs Reviewed meds Review of Systems General: Fatigue, Malaise Objective Exam Vital Signs Vital Signs Date Time Temp Pulse Resp B/P (MAP) Pulse Ox O2 Delivery O2 Flow Rate FiO2 12/05/21 21:00 Room Air 12/05/21 20:00 36.4 75 18 147/64 (91) 95 Capillary Refill : General Appearance: No Apparent Distress, WD/WN, Chronically ill HEENT: PERRL/EOMI, Normal ENT Inspection, Pharynx Normal Neck: Full Range of Motion, Normal Inspection, Non Tender, Supple, Carotid Bruit Respiratory: Chest Non Tender, Lungs Clear, Normal Breath Sounds, No Accessory Muscle Use, No Respiratory Distress Cardiovascular: Regular Rate, Rhythm, No Edema, No Gallop, No JVD, No Murmur, Normal Peripheral Pulses Gastrointestinal: Normal Bowel Sounds, No Organomegaly, No Pulsatile Mass, Non Tender, Soft Back: Normal Inspection, No CVA Tenderness, No Vertebral Tenderness Extremity: Normal Capillary Refill, Normal Inspection, Normal Range of Motion (except left side), Non Tender, No Calf Tenderness, No Pedal Edema Neurologic/Psychiatric: Alert, Oriented x3, Normal Mood/Affect, range conservationist II-XII Norm as Tested, Motor Weakness (left sided 2/5) Skin: Normal Color, Warm/Dry Lymphatic: No Adenopathy Results/Procedures Lab Patient resulted labs reviewed. FIM Transfers Therapy Code Descriptions/Definitions Functional [place] Measure: 0=Not Assessed/NA 4=Minimal Assistance 1=Total Assistance 5=Supervision or Setup 2=Maximal Assistance 6=Modified [place] 3=Moderate Assistance 7=Complete IndependenceSCALE: Activities may be completed with or without assistive devices. 6-Xmexvdlmgp-lujcdqp completes the activity by him/herself with no assistance from a helper. 5-Set-up or Clean-up Assistance-helper sets up or cleans up; patient completes activity. [place] assists only prior to or following the activity. 4-Supervision or Touching Assistance-helper provides verbal cues and/or touching/steadying and/or contact guard assistance as patient completes activity. Assistance may be provided throughout the activity or intermittently. 3-Partial/Moderate Assistance-helper does LESS THAN HALF the effort. [place] lifts, holds or supports trunk or limbs, but provides less than half the effort. 2-Substantial/Maximal Assistance-helper does MORE THAN HALF the effort. [place] lifts or holds trunk or limbs and provides more than half the effort. 4-Sfbxuuqwy-hounio does ALL the effort. Patient does none of the effort to complete the activity. Or, the assistance of 2 or more helpers is required for the patient to complete the activity. If activity was not attempted, code reason: 7-Patient Refused. 9-Not Applicable-not attempted and the patient did not perform the activity before the current illness, exacerbation or injury. 10-Not Attempted due to Environmental Limitations-(lack of equipment, weather restraints, etc.). 88-Not Attempted due to Medical Conditions or Safety Concerns. Roll Left to Right (QC): 6 Sit to Lying (QC): 4 Sit to Stand (QC): 3 Chair/Det-yn-Dzgey Xfer(QC): 3 Car Transfer (QC): 1 Gait Training Does the Patient Walk?: Yes Distance: 10' Walk 10 feet (QC): 4 Walk 50 ft with 2 Turns(QC): 88 Walk 150 ft (QC): 88 Walking 10ft/uneven surface-QC: 1 Gait Persons Needed: 1 Gait Assistive Device: FWW Wheelchair Training Does the Pt Use a Wheelchair?: Yes Distance: 100' x 1/250' x 1 Wheel 50 ft with 2 turns (QC): 4 Wheel 150 ft (QC): 3 Type of Wheelchair: Manual Stair Training #of Steps: 1 1 Step (curb) (QC): 1 (placed right foot up on step and attempted to follow with left with PT assist) 4 Steps (QC): 9 12 Steps (QC): 9 Balance Picking up an Object (QC): 88 ADL-Treatment Eating (QC): 4 Oral Hygiene (QC): 6 Shower/Bathe Self (QC): 1 (assist x2 to cleanse buttocks) Upper Body Dressing (QC): 3 (mod A) Lower Body Dressing (QC): 1 On/Off Footwear (QC): 2 Toileting Hygiene (QC): 1 Toilet Transfer (QC): 1 Assessment/Plan Assessment and Plan Assess & Plan/Chief Complaint Assessment: 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
--- NOTE | 2021-12-05 07:30 | Cardiology Progress Note ---
Subjective Date Seen by Provider: December 05, 2021 Time Seen by Provider: 07:28 Subjective/Events-last exam Patient was seen at bedside, laying down in bed, feeling better, reporting improvement. No new complaint. Review of Systems General: No Chills, No Night Sweats, No Fatigue, No Malaise, No Appetite, No Other HEENT: No Head Aches, No Visual Changes, No Eye Pain, No Ear Pain, No Dysphasia, No Sinus Congestion, No Post Nasal Drip, No Sore Throat, No Other Pulmonary: No Dyspnea, No Cough, No Pleuritic Chest Pain, No Other Cardiovascular: No: Chest Pain, Palpitations, Orthopnea, Paroxysmal Noc. Dyspnea, Edema, Lt Headedness, Other Objective-Cardiology Exam Last Set of Vital Signs Vital Signs 12/04/21 12/04/21 12/05/21 20:09 20:15 01:00 Temp 36.9 Pulse 63 Resp 16 B/P (MAP) 134/61 (85) Pulse Ox 94 O2 Delivery Room Air General: Alert, Oriented X3 HEENT: Atraumatic Neck: Supple Lungs: Clear to Auscultation, Normal Air Movement Heart: Regular Rate, Normal S1, Normal S2 Abdomen: Normal Bowel Sounds, Soft Extremities: No Clubbing, No Cyanosis, No Edema Skin: No Rashes, No Significant Lesion Neuro: Normal Gait, Normal Speech, Cranial Nerves 3-12 NL, Other (Left upper extremity strength is improving.) Psych/Mental Status: Mental Status NL, Mood NL A/P-Cardiology Admission Diagnosis Subacute CVA HTN Assessment/Plan Subacute CVA, CTA of the head showed 80 to 90% right ICA stenosis with possible thrombus with no identifiable source of thrombus. MRI of the head showed patchy region of acute to subacute infarction of the right parietal lobe extending to the posterior right frontal and occipital lobe. 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 No signs of mass- effect or hemorrhage. Recommendation was by [facility] stroke neurology to treat with aspirin and heparin and then progressed to aspirin and Eliquis.Currently maintained on ASA 81 mg and Eliquis 5mg BID. Okay to DC telemetry. EKG showed sinus rhythm with premature atrial contractions. Asymptomatic. DC telemetry. SUKHI done 11/29/21 showing trace mitral regurgitation with no shunt noted. Hypertension, controlled, continue to monitor blood pressure. Hyperlipidemia, started on Lipitor 80 mg daily. Continue to monitor OLEG,BASHAR J MD December 05, 2021 07:30
[2021-12-05 07:38] VITALS: BP 119/59
[2021-12-05] MEDS: PYRIDOXINE (VITAMIN B-6) 50 MG TABLET PO SCH (07:40)
[2021-12-05] MEDS: APIXABAN 5 MG (ELIQUIS) TABLET PO SCH ×2 (07:40→20:15)
[2021-12-05] MEDS: CYANOCOBALAMIN 1,000 MCG (VITAMIN B-12) TABLET PO SCH (07:40)
[2021-12-05] MEDS: ASPIRIN E.C. 81 MG (ECOTRIN) TAB PO SCH (07:40)
[2021-12-05] MEDS: polyethylene glycoL POWDER 17 GM (MIRALAX) PACK PO SCH ×2 (07:52→20:34)
[2021-12-05] MEDS: DOCUSATE SODIUM 100 MG (COLACE) CAP PO SCH ×2 (07:52→20:33)
[2021-12-05] MEDS: SENNA W/DOCUSATE (SENOKOT S) TABLET PO SCH ×2 (07:53→20:34)
[2021-12-05] MEDS: MICONAZOLE NITRATE 2% CRM 30 GM TP SCH ×2 (07:53→20:20)
--- NOTE | 2021-12-05 09:22 | Physical Therapy Daily Note ---
PT Daily Note-Current Subjective Patient in bed pre tx, agrees to PT, has no complaints of pain. Appearance Patient in bed post tx with nurse call, phone, tray, all needs met, bed alarm on. Mental Status Patient Orientation: Person, Place, Situation Transfers SCALE: Activities may be completed with or without assistive devices. 4-Acryfsskgx-ixybvte completes the activity by him/herself with no assistance from a helper. 5-Set-up or Clean-up Assistance-helper sets up or cleans up; patient completes activity. [place] assists only prior to or following the activity. 4-Supervision or Touching Assistance-helper provides verbal cues and/or touching/steadying and/or contact guard assistance as patient completes activity. Assistance may be provided throughout the activity or intermittently. 3-Partial/Moderate Assistance-helper does LESS THAN HALF the effort. [place] lifts, holds or supports trunk or limbs, but provides less than half the effort. 2-Substantial/Maximal Assistance-helper does MORE THAN HALF the effort. [place] lifts or holds trunk or limbs and provides more than half the effort. 5-Jmwmlcxda-qpxgjj does ALL the effort. Patient does none of the effort to complete the activity. Or, the assistance of 2 or more helpers is required for the patient to complete the activity. If activity was not attempted, code reason: 7-Patient Refused. 9-Not Applicable-not attempted and the patient did not perform the activity before the current illness, exacerbation or injury. 10-Not Attempted due to Environmental Limitations-(lack of equipment, weather restraints, etc.). 88-Not Attempted due to Medical Conditions or Safety Concerns. Roll Left & Right (QC): 6 Sit to Lying (QC): 3 Lying to Sitting/Side of Bed(Q: 4 Sit to Stand (QC): 3 Chair/Gux-ur-Fhcvc Xfer(QC): 3 Toilet Transfer (QC): 3 Patient needed to use the restroom after getting out of bed, needed assist with pants and wiping (nurse wiped). Needs help guiding walker when turning during transfers and cues for hand placement and safety. Weight Bearing Full Weight Bearing Full Weight Bearing Gait Training Does the Patient Walk?: Yes Distance: 15', 40'x6 Walk 10 feet (QC): 3 Gait Persons Needed: 1 Gait Assistive Device: FWW Patient ambulates slowly, needs assist guiding walker, has decreased foot clearance and step through on the left side, needs cues for positioning and direction, needs occasional assist to maintain balance Exercises NuStep Minutes: 15 NuStep Workload: 5 Treatments bed mobility and transfers, ambulation, toileting, functional strengthening Assessment Current Status: Fair Progress has left neglect, has difficulty pushing walker on the left side PT Short Term Goals Short Term Goals Time Frame: Dec 14, 2021 Roll Left & Right: 4 Sit to lyin Lying to sitting on side of be: 4 Sit to stand: 3 Chair/vku-da-kwqwq transfer: 3 Toilet transfer: 3 Car transfer: 3 Walk 10 feet: 3 Walk 50 feet with two turns: 3 Does pt use a wc or scooter: Yes Wheel 50ft w/2 turns: 4 Wheel 150 feet: 4 Type: Manual PT Circus Hand Goals Long-Term Goals PT Circus Hand Goals Time Frame: Dec 28, 2021 Roll Left & Right (QC): 6 Sit to Lying (QC): 6 Lying-Sitting on Side/Bed(QC): 6 Sit to Stand (QC): 4 Chair/Hpz-kp-Oliik Xfer(QC): 4 Toilet Transfer (QC): 4 Car Transfer (QC): 4 Does the Patient Walk: Yes Walk 10 feet (QC): 4 Walk 50ft with 2 Turns (QC): 4 Walk 150 ft (QC): 4 Walking 10ft on Uneven Surface: 4 1 Step (curb) (QC): 3 4 Steps (QC): 9 12 Steps (QC): 9 Picking up an Object (QC): 3 Wheel 50 feet with 2 turns (QC: 5 Wheel 150 feet: 5 Type: Manual PT Plan Problem List Problem List: Activity Tolerance, Functional Strength, Safety, Balance, Gait, Transfer, Bed Mobility, ROM Treatment/Plan Treatment Plan: Continue Plan of Care Treatment Plan: Bed Mobility, Concurrent Therapy, Education, Functional Activity Seema, Functional Strength, Group Therapy, Gait, Safety, Therapeutic Exercise, Transfers Treatment Duration: Dec 28, 2021 Frequency: At least 5 of 7 days/Wk (IRF) Estimated Hrs Per Day: 1.5 hours per day Patient and/or Family Agrees t: Yes Safety Risks/Education Patient Education: Gait Training, Transfer Techniques, Correct Positioning, Safety Issues Teaching Recipient: Patient Teaching Methods: Demonstration, Discussion Response to Teaching: Reinforcement Needed Time/GCodes Time In: 0800 Time Out: 929 Total Billed Treatment Time: 90 Total Billed Treatment 1 visit EX 15' FA 75' RYAN NELSON PT December 05, 2021 09:22
--- NOTE | 2021-12-05 12:02 | Occupational Ther Daily Note ---
OT Current Status-Daily Note Subjective Pt alert, lying in bed. Pt agrees to therapy. No c/o pain. Mental Status/Objective Patient Orientation: Person, Place, Time, Situation ADL-Treatment Pt declines shower, stating that she wants to wait until tomorrow since her daughter is bringing her more char puller shirts. After encouragement, pt agrees to sponge bath. Supine<-->EOB with SBA. CGA for transfer from EOB to w/c. Stand to sit, uncontrolled even with reaching for chair arms. Min A for toilet transfer. Min A to manipulate clothing and CGA for pt to cleanse self for toileting. Sitting at sink, pt is able to to complete upper body bathing with verbal cues to initiate then CGA in standing to cleanse buttocks/atul area with assist to bathe feet. Pt requires verbal and physical cues to don shirt, difficulty following directions and sequencing donning shirt. Pt able to sequence donning pants with less difficulty though still required assist to thread feet into pant legs and hike over hips. Max A for footwear. Therapy Code Descriptions/Definitions Functional [place] Measure: 0=Not Assessed/NA 4=Minimal Assistance 1=Total Assistance 5=Supervision or Setup 2=Maximal Assistance 6=Modified [place] 3=Moderate Assistance 7=Complete IndependenceSCALE: Activities may be completed with or without assistive devices. 1-Cxjilywoee-ikdztgt completes the activity by him/herself with no assistance from a helper. 5-Set-up or Clean-up Assistance-helper sets up or cleans up; patient completes activity. [place] assists only prior to or following the activity. 4-Supervision or Touching Assistance-helper provides verbal cues and/or touching/steadying and/or contact guard assistance as patient completes a ctivity. Assistance may be provided throughout the activity or intermittently. 3-Partial/Moderate Assistance-helper does LESS THAN HALF the effort. [place] lifts, holds or supports trunk or limbs, but provides less than half the effort. 2-Substantial/Maximal Assistance-helper does MORE THAN HALF the effort. [place] lifts or holds trunk or limbs and provides more than half the effort. 6-Pdykeohlx-psalch does ALL the effort. Patient does none of the effort to complete the activity. Or, the assistance of 2 or more helpers is required for the patient to complete the activity. If activity was not attempted, code reason: 7-Patient Refused. 9-Not Applicable-not attempted and the patient did not perform the activity before the current illness, exacerbation or injury. 10-Not Attempted due to Environmental Limitations-(lack of equipment, weather restraints, etc.). 88-Not Attempted due to Medical Conditions or Safety Concerns. Oral Hygiene (QC): 6 Shower/Bathe Self (QC): 4 Upper Body Dressing (QC): 3 Lower Body Dressing (QC): 2 (Mod A) On/Off Footwear: 2 Toileting Hygiene (QC): 3 Toilet Transfer (QC): 4 Other Treatment In supine, working with pt on L UE AROM and strengthening for daily functional tasks. Pt is demonstrating good shldr flexion without popping in joint. Scapula is rotating WFL during shldr flex, add/abd. Pt is able to spontaneously complete shldr elevation though is difficult to complete movement on request. Active movement for L UE with elbow flexion/extension, supination/pronation, wrist flex/ext, finger flex/ext and finger opposition. Pt has decreased L UE coordination and L neglect which hinders L UE to assist with functional tasks. Pt does have difficulty with motor planning during dressing and requires physical and verbal cues to complete. After therapy, pt lying in bed with call light/phone in reach. All needs met in room. OT Short Term Goals Short Term Goals Time Frame: Dec 13, 2021 Eatin Oral hygiene: 5 Toileting hygiene: 2 Shower/bathe self: 3 Upper body dressin Lower body dressin Putting on/taking off footwear: 2 OT Chocolate Refining Roller Goals Chocolate Refining Roller Goals Time Frame: Dec 27, 2021 Eating (QC): 5 Oral Hygiene (QC): 6 Toileting Hygiene (QC): 6 Shower/Bathe Self (QC): 4 Upper Body Dressing (QC): 5 Lower Body Dressing (QC): 4 On/Off Footwear (QC): 4 1=Demonstrate adherence to instructed precautions during ADL tasks. 2=Patient will verbalize/demonstrate understanding of assistive devices/modifications for ADL. 3=Patient will improve strength/tolerance for activity to enable patient to perform ADL's. OT Education/Plan Problem List/Assessment Assessment: Decreased Activ Tolerance, Decreased UE Strength, Impaired Cognition, Impaired Coordination, Impaired Funct Balance, Impaired Self-Care Skills, Restricted Funct UE ROM, Visual-Perceptual Deficit (L visual field cut) Discharge Recommendations Plan/Recommendations: Continue POC Treatment Plan/Plan of Care Patient would benefit from OT for education, treatment and training to promote independence in ADL's, mobility, safety and/or upper extremity function for ADL's. Plan of Care: ADL Retraining, Cognitive Retraining, Functional Mobility, Group Exercise/Act as Ind, UE Funct Exercise/Act, UE Neuromus Re-Ed/Coord, Visual/Perceptual Retrain, W/C Management Training Treatment Duration: Dec 27, 2021 Frequency: At least 5 of 7 days/Wk (IRF) Estimated Hrs Per Day: .25 hour per day Agreement: Yes Rehab Potential: Guarded Time/GCodes Start Time: 10:35 Stop Time: 11:50 Total Time Billed (hr/min): 75 Billed Treatment Time 1 visit-ADL 4 (60 min) NM 1 (15 min) FLORINDA THOMAS December 05, 2021 12:02
--- NOTE | 2021-12-05 12:22 | Speech Therapy Daily Note ---
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 Awakened easily and was pleasant and cooperative. Objective The pt was oriented x4. Pt completed memory task with 80% accy. Pt reports she lives at home alone and was taking care of money management and all ADLs independently. Treatment Plan Continue Plan of Care Speech Short Term Goals Short Term Goals Short Term Goals The patient will demonstrate 90% accuracy with memory and functional problem solving with mild clinician verbal and visual cueing. Speech Senior Living Goals Stick Roller Goals The patient will demonstrate improve cognitive linguistic skills for safe discharge to the least restricted environment. Speech-Plan Treatment Plan Speech Therapy Treatment Plan: Continue Plan of Care Treatment Duration: Dec 20, 2021 Frequency: Modified Program (IRF) Estimated Hrs Per Day: Other Rehab Potential: Guarded Time Speech Therapy Time In: 10:05 Speech Therapy Time Out: 10:35 Billed Treatment Time 1, SLTS 30 MINS WINIFRED WHITT December 05, 2021 12:22
[2021-12-05 20:00] VITALS: BP 147/64
[2021-12-05] MEDS: SIMvastatin 40 MG (ZOCOR) TAB PO SCH (20:15)
[2021-12-05] MEDS: lisINopril 10 MG (PRINIVIL) TABLET PO SCH (20:15)
[2021-12-05] MEDS: meTOprolol SUCCINATE 100 MG (TOPROL XL) TAB PO SCH (20:15)
--- NOTE | 2021-12-06 06:10 | PM&R Progress Note ---
Subjective HPI/CC On Admission Date Seen by Provider: December 06, 2021 Time Seen by Provider: 11:00 Subjective/Events-last exam 12/06/21: Pt having a lot of knee pain so will initiate Diclofenac gel Overall moving around well Dramatic improvement since admission 12/05/2021: Pt doing really well Bowels moved today Tired Discontinuing telemetry Overall dramatic improvement 12/04/2021: Pt is doing really well Sleeping currently Left hand and left arm moving a lot better Overall much improved status 12/03/21: Patient improved Left hand improved No pain reported BM+ Eating well 12/02/2021: Patient doing well Left hand and arm moving well No pain reported Upbeat attitude 12/01/2021: Patient doing very well today Moving left arm and hand really well Family at bedside No pain 11/30/2021: Patient doing well Confusion noted Left sided weakness but can move her arm now Working with PT OT Reviewed labs Reviewed meds Review of Systems General: Fatigue, Malaise Musculoskeletal: leg pain Objective Exam Vital Signs Vital Signs Date Time Temp Pulse Resp B/P (MAP) Pulse Ox O2 Delivery O2 Flow Rate FiO2 12/06/21 21:29 94 Room Air 12/06/21 19:55 37.0 82 16 131/72 (91) Capillary Refill : General Appearance: No Apparent Distress, WD/WN, Chronically ill HEENT: PERRL/EOMI, Normal ENT Inspection, Pharynx Normal Neck: Full Range of Motion, Normal Inspection, Non Tender, Supple, Carotid Bruit Respiratory: Chest Non Tender, Lungs Clear, Normal Breath Sounds, No Accessory Muscle Use, No Respiratory Distress Cardiovascular: Regular Rate, Rhythm, No Edema, No Gallop, No JVD, No Murmur, Normal Peripheral Pulses Gastrointestinal: Normal Bowel Sounds, No Organomegaly, No Pulsatile Mass, Non Tender, Soft Back: Normal Inspection, No CVA Tenderness, No Vertebral Tenderness Extremity: Normal Capillary Refill, Normal Inspection, Normal Range of Motion (except left side), Non Tender, No Calf Tenderness, No Pedal Edema Neurologic/Psychiatric: Alert, Oriented x3, Normal Mood/Affect, ab initio etl developer II-XII Norm as Tested, Motor Weakness (left sided 2/5) Skin: Normal Color, Warm/Dry Lymphatic: No Adenopathy Results/Procedures Lab Patient resulted labs reviewed. FIM Transfers Therapy Code Descriptions/Definitions Functional [place] Measure: 0=Not Assessed/NA 4=Minimal Assistance 1=Total Assistance 5=Supervision or Setup 2=Maximal Assistance 6=Modified [place] 3=Moderate Assistance 7=Complete IndependenceSCALE: Activities may be completed with or without assistive devices. 8-Xqntbyawtr-ywiasbm completes the activity by him/herself with no assistance from a helper. 5-Set-up or Clean-up Assistance-helper sets up or cleans up; patient completes activity. [place] assists only prior to or following the activity. 4-Supervision or Touching Assistance-helper provides verbal cues and/or touching/steadying and/or contact guard assistance as patient completes activity. Assistance may be provided throughout the activity or intermittently. 3-Partial/Moderate Assistance-helper does LESS THAN HALF the effort. [place] lifts, holds or supports trunk or limbs, but provides less than half the effort. 2-Substantial/Maximal Assistance-helper does MORE THAN HALF the effort. [place] lifts or holds trunk or limbs and provides more than half the effort. 9-Iiidsiakv-rauoyj does ALL the effort. Patient does none of the effort to complete the activity. Or, the assistance of 2 or more helpers is required for the patient to complete the activity. If activity was not attempted, code reason: 7-Patient Refused. 9-Not Applicable-not attempted and the patient did not perform the activity before the current illness, exacerbation or injury. 10-Not Attempted due to Environmental Limitations-(lack of equipment, weather restraints, etc.). 88-Not Attempted due to Medical Conditions or Safety Concerns. Roll Left to Right (QC): 6 Sit to Lying (QC): 3 Sit to Stand (QC): 3 Chair/Bvf-em-Dgbwh Xfer(QC): 3 Car Transfer (QC): 1 Gait Training Does the Patient Walk?: Yes Distance: 15', 40'x6 Walk 10 feet (QC): 3 Walk 50 ft with 2 Turns(QC): 88 Walk 150 ft (QC): 88 Walking 10ft/uneven surface-QC: 1 Gait Persons Needed: 1 Gait Assistive Device: FWW Wheelchair Training Does the Pt Use a Wheelchair?: Yes Distance: 100' x 1/250' x 1 Wheel 50 ft with 2 turns (QC): 4 Wheel 150 ft (QC): 3 Type of Wheelchair: Manual Stair Training #of Steps: 1 1 Step (curb) (QC): 1 (placed right foot up on step and attempted to follow with left with PT assist) 4 Steps (QC): 9 12 Steps (QC): 9 Balance Picking up an Object (QC): 88 ADL-Treatment Eating (QC): 4 Oral Hygiene (QC): 6 Shower/Bathe Self (QC): 4 Upper Body Dressing (QC): 3 Lower Body Dressing (QC): 2 (Mod A) On/Off Footwear (QC): 2 Toileting Hygiene (QC): 3 Toilet Transfer (QC): 4 Assessment/Plan Assessment and Plan Assess & Plan/Chief Complaint Assessment: 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
[2021-12-06 07:10] VITALS: BP 131/61
[2021-12-06] MEDS: CYANOCOBALAMIN 1,000 MCG (VITAMIN B-12) TABLET PO SCH (07:55)
[2021-12-06] MEDS: APIXABAN 5 MG (ELIQUIS) TABLET PO SCH ×2 (07:55→21:19)
[2021-12-06] MEDS: ASPIRIN E.C. 81 MG (ECOTRIN) TAB PO SCH (07:55)
[2021-12-06] MEDS: PYRIDOXINE (VITAMIN B-6) 50 MG TABLET PO SCH (07:55)
[2021-12-06] MEDS: SENNA W/DOCUSATE (SENOKOT S) TABLET PO SCH ×2 (07:57→21:21)
[2021-12-06] MEDS: polyethylene glycoL POWDER 17 GM (MIRALAX) PACK PO SCH ×2 (07:57→21:21)
[2021-12-06] MEDS: DOCUSATE SODIUM 100 MG (COLACE) CAP PO SCH ×2 (07:57→21:21)
[2021-12-06] MEDS: MICONAZOLE NITRATE 2% CRM 30 GM TP SCH ×2 (08:02→21:26)
--- NOTE | 2021-12-06 08:54 | Cardiology Progress Note ---
Subjective Date Seen by Provider: December 06, 2021 Time Seen by Provider: 08:51 Subjective/Events-last exam Patient was seen at bedside, sitting comfortably Reporting improvement in her strength. Review of Systems General: No Chills, No Night Sweats, No Fatigue, No Malaise, No Appetite, No Other HEENT: No Head Aches, No Visual Changes, No Eye Pain, No Ear Pain, No Dysphasia, No Sinus Congestion, No Post Nasal Drip, No Sore Throat, No Other Pulmonary: No Dyspnea, No Cough, No Pleuritic Chest Pain, No Other Cardiovascular: No: Chest Pain, Palpitations, Orthopnea, Paroxysmal Noc. Dyspnea, Edema, Lt Headedness, Other Objective-Cardiology Exam Last Set of Vital Signs Vital Signs 12/06/21 07:10 Temp 36.2 Pulse 54 Resp 16 B/P (MAP) 131/61 (84) Pulse Ox 95 O2 Delivery Room Air General: Alert, Oriented X3 HEENT: Atraumatic Neck: Supple Lungs: Clear to Auscultation, Normal Air Movement Heart: Regular Rate, Normal S1, Normal S2 Abdomen: Normal Bowel Sounds, Soft Extremities: No Clubbing, No Cyanosis, No Edema Skin: No Rashes, No Significant Lesion Neuro: Normal Gait, Normal Speech, Cranial Nerves 3-12 NL, Other (Left upper extremity strength is improving.) Psych/Mental Status: Mental Status NL, Mood NL A/P-Cardiology Admission Diagnosis Subacute CVA HTN Assessment/Plan Subacute CVA, CTA of the head showed 80 to 90% right ICA stenosis with possible thrombus with no identifiable source of thrombus. MRI of the head showed patchy region of acute to subacute infarction of the right parietal lobe extending to the posterior right frontal and occipital lobe. 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 No signs of mass- effect or hemorrhage. Recommendation was by [facility] stroke neurology to treat with aspirin and heparin and then progressed to aspirin and Eliquis.Currently maintained on ASA 81 mg and Eliquis 5mg BID. Okay to DC telemetry. EKG showed sinus rhythm with premature atrial contractions. Asymptomatic. DC telemetry. SUKHI done 11/29/21 showing trace mitral regurgitation with no shunt noted. Hypertension, controlled, continue to monitor blood pressure. Hyperlipidemia, started on Lipitor 80 mg daily. Continue to monitor NICOLE DEJESUS MD December 06, 2021 08:54
--- NOTE | 2021-12-06 09:00 | Occupational Ther Daily Note ---
OT Current Status-Daily Note Subjective Pt denies pain, agreeable to treatment. Appearance Pt left sitting in recliner, all needs within reach. Mental Status/Objective Patient Orientation: Person, Place ADL-Treatment Therapy Code Descriptions/Definitions Functional [place] Measure: 0=Not Assessed/NA 4=Minimal Assistance 1=Total Assistance 5=Supervision or Setup 2=Maximal Assistance 6=Modified [place] 3=Moderate Assistance 7=Complete IndependenceSCALE: Activities may be completed with or without assistive devices. 3-Dbswzyisjo-gbjmeqs completes the activity by him/herself with no assistance from a helper. 5-Set-up or Clean-up Assistance-helper sets up or cleans up; patient completes activity. [place] assists only prior to or following the activity. 4-Supervision or Touching Assistance-helper provides verbal cues and/or touching/steadying and/or contact guard assistance as patient completes activity. Assistance may be provided throughout the activity or intermittently. 3-Partial/Moderate Assistance-helper does LESS THAN HALF the effort. [place] lifts, holds or supports trunk or limbs, but provides less than half the effort. 2-Substantial/Maximal Assistance-helper does MORE THAN HALF the effort. [place] lifts or holds trunk or limbs and provides more than half the effort. 2-Dutmmebaf-sntwhb does ALL the effort. Patient does none of the effort to complete the activity. Or, the assistance of 2 or more helpers is required for the patient to complete the activity. If activity was not attempted, code reason: 7-Patient Refused. 9-Not Applicable-not attempted and the patient did not perform the activity before the current illness, exacerbation or injury. 10-Not Attempted due to Environmental Limitations-(lack of equipment, weather restraints, etc.). 88-Not Attempted due to Medical Conditions or Safety Concerns. Upper Body Dressing (QC): 4 Lower Body Dressing (QC): 2 On/Off Footwear: 2 Toileting Hygiene (QC): 3 Toilet Transfer (QC): 4 Pt refuses shower. Agreeable to change clothes. Supine>sit: SBA, extra time and min verbal cues for squaring hips at EOB. With removal of brief, pt observed to be incontinent of urine and small BM. She requires encouragement and education on proper hygiene as pt initially declining cleaning area prior to donning new brief. Post cues, she was able to reach posteriorly with RUE to clean backside; Steadying assist needed. With cues, she was able to thread LLE into brief/pants with extra time and use of cross over method. Max a to thread RLE secondary to impaired flexibility and inability to reach foot. She stood with CGA, mod a to pull clothing up over L hip due to tight fit and impaired L engine monitor/dexterity. Mod verbal cues for sequencing and awareness/attention to LUE when donning shirt. Poor eccentric control with all lowering from standing to sitting, despite reaching back for surface. Cues for safety needed throughout adls. Other Treatment Pt has decreased L UE coordination and L neglect which hinders L UE to assist with functional tasks. Pt does have difficulty with motor planning during dressing and requires physical and verbal cues to complete.While seated, pt completed isometric exercises with LUE, focus on improving muscle strength and proprioception needed for adls. Isometric holds including: elbow flexion/extension, external/internal rotation, shoulder extension/flexion, horizontal abduction/adduction. Increased tone exhibited with horizontal adduction/abduction. 6x5 sec holds. OT facilitated scapula mobilizations: elevation/depression, retraction/protraction 6x1. Post isometric and scapula exercises, pt demonstrates improved active shoulder flexion to ~150 degrees. Education OT Patient Education: Correct positioning, Energy conservation, Exercise program, Modified ADL techniques, Progress toward Goal/Update tx plan, Purpose of tx/functional activities, Rehab process, Safety issues, Transfer techniques Teaching Recipient: Patient Teaching Methods: Demonstration, Discussion Response to Teaching: Verbalize Understanding, Return Demonstration, Reinforcement Needed OT Short Term Goals Short Term Goals Time Frame: Dec 13, 2021 Eatin Oral hygiene: 5 Toileting hygiene: 2 Shower/bathe self: 3 Upper body dressin Lower body dressin Putting on/taking off footwear: 2 OT Fdc Goals Fdc Goals Time Frame: Dec 27, 2021 Eating (QC): 5 Oral Hygiene (QC): 6 Toileting Hygiene (QC): 6 Shower/Bathe Self (QC): 4 Upper Body Dressing (QC): 5 Lower Body Dressing (QC): 4 On/Off Footwear (QC): 4 1=Demonstrate adherence to instructed precautions during ADL tasks. 2=Patient will verbalize/demonstrate understanding of assistive devices/modifi cations for ADL. 3=Patient will improve strength/tolerance for activity to enable patient to perform ADL's. OT Education/Plan Problem List/Assessment Assessment: Decreased Activ Tolerance, Decreased Safety Aware, Decreased UE Strength, Impaired Cognition, Impaired Coordination, Impaired Funct Balance, Impaired I ADL's, Impaired Self-Care Skills, Restricted Funct UE ROM Discharge Recommendations Plan/Recommendations: Continue POC Treatment Plan/Plan of Care Treatment,Training & Education: Yes Patient would benefit from OT for education, treatment and training to promote independence in ADL's, mobility, safety and/or upper extremity function for AD L's. Plan of Care: ADL Retraining, Cognitive Retraining, Functional Mobility, Group Exercise/Act as Ind, UE Funct Exercise/Act, UE Neuromus Re-Ed/Coord, Visual/Perceptual Retrain, W/C Management Training Treatment Duration: Dec 27, 2021 Frequency: At least 5 of 7 days/Wk (IRF) Estimated Hrs Per Day: .25 hour per day Agreement: Yes Rehab Potential: Guarded Time/GCodes Start Time: 07:45 Stop Time: 09:00 Total Time Billed (hr/min): 75 Billed Treatment Time 1 visit EX x2 (35 min) ADL x3 (40 min) Kim Shannon OT December 06, 2021 09:00
--- NOTE | 2021-12-06 10:05 | Physical Therapy Daily Note ---
PT Daily Note-Current Subjective Patient in recliner pre tx, agrees to PT, has no complaints of pain. Appearance Patient in bed post tx with nurse call, phone, tray, all needs met, bed alarm on. Mental Status Patient Orientation: Person, Place, Situation Transfers SCALE: Activities may be completed with or without assistive devices. 4-Ajhbipjglk-jxutsjg completes the activity by him/herself with no assistance from a helper. 5-Set-up or Clean-up Assistance-helper sets up or cleans up; patient completes activity. [place] assists only prior to or following the activity. 4-Supervision or Touching Assistance-helper provides verbal cues and/or touching/steadying and/or contact guard assistance as patient completes activity. Assistance may be provided throughout the activity or intermittently. 3-Partial/Moderate Assistance-helper does LESS THAN HALF the effort. [place] lifts, holds or supports trunk or limbs, but provides less than half the effort. 2-Substantial/Maximal Assistance-helper does MORE THAN HALF the effort. [place] lifts or holds trunk or limbs and provides more than half the effort. 3-Ffvsybbfu-xhqiad does ALL the effort. Patient does none of the effort to complete the activity. Or, the assistance of 2 or more helpers is required for the patient to complete the activity. If activity was not attempted, code reason: 7-Patient Refused. 9-Not Applicable-not attempted and the patient did not perform the activity before the current illness, exacerbation or injury. 10-Not Attempted due to Environmental Limitations-(lack of equipment, weather restraints, etc.). 88-Not Attempted due to Medical Conditions or Safety Concerns. Roll Left & Right (QC): 6 Sit to Lying (QC): 3 Sit to Stand (QC): 4 Chair/Wsy-qk-Ovtvc Xfer(QC): 3 Weight Bearing Full Weight Bearing Full Weight Bearing Gait Training Distance: 40'x6 Walk 10 feet (QC): 3 Gait Persons Needed: 1 Gait Assistive Device: FWW Patient needs assist guiding walker due to left arm/hand weakness, needs cues for better foot clearance on the left side Exercises Seated Therapy Exercises: Ankle pumps Seated Reps: 20 LAQ alternating for 5 min with 2# ankle weights for 5 min NuStep Minutes: 15 NuStep Workload: 5 Treatments bed mobility and transfers, ambulation, functional strengthening Assessment Current Status: Fair Progress slow progress but still needs assist with ambulation PT Short Term Goals Short Term Goals Time Frame: Dec 14, 2021 Roll Left & Right: 4 Sit to lyin Lying to sitting on side of be: 4 Sit to stand: 3 Chair/yfk-wu-tsejl transfer: 3 Toilet transfer: 3 Car transfer: 3 Walk 10 feet: 3 Walk 50 feet with two turns: 3 Does pt use a wc or scooter: Yes Wheel 50ft w/2 turns: 4 Wheel 150 feet: 4 Type: Manual PT Deputy Sheriff Building Guard Goals Half-Way Goals PT Half-Way Goals Time Frame: Dec 28, 2021 Roll Left & Right (QC): 6 Sit to Lying (QC): 6 Lying-Sitting on Side/Bed(QC): 6 Sit to Stand (QC): 4 Chair/Len-ft-Ryeiq Xfer(QC): 4 Toilet Transfer (QC): 4 Car Transfer (QC): 4 Does the Patient Walk: Yes Walk 10 feet (QC): 4 Walk 50ft with 2 Turns (QC): 4 Walk 150 ft (QC): 4 Walking 10ft on Uneven Surface: 4 1 Step (curb) (QC): 3 4 Steps (QC): 9 12 Steps (QC): 9 Picking up an Object (QC): 3 Wheel 50 feet with 2 turns (QC: 5 Wheel 150 feet: 5 Type: Manual PT Plan Problem List Problem List: Activity Tolerance, Functional Strength, Safety, Balance, Gait, Transfer, Bed Mobility, ROM Treatment/Plan Treatment Plan: Continue Plan of Care Treatment Plan: Bed Mobility, Concurrent Therapy, Education, Functional Activity Seema, Functional Strength, Group Therapy, Gait, Safety, Therapeutic Exercise, Transfers Treatment Duration: Dec 28, 2021 Frequency: At least 5 of 7 days/Wk (IRF) Estimated Hrs Per Day: 1.5 hours per day Patient and/or Family Agrees t: Yes Safety Risks/Education Patient Education: Gait Training, Transfer Techniques, Correct Positioning, Safety Issues Teaching Recipient: Patient Teaching Methods: Demonstration, Discussion Response to Teaching: Reinforcement Needed Time/GCodes Time In: 0900 Time Out: 1015 Total Billed Treatment Time: 75 Total Billed Treatment 1 visit EX 25' FA 50' RYAN NELSON PT December 06, 2021 10:05
--- NOTE | 2021-12-06 12:51 | Speech Therapy Daily Note ---
Speech Daily Progress Note Subjective Date Seen by Provider: December 06, 2021 Time Seen by Provider: 11:30 The patient was seated upright in her bed, awake and alert upon entrance to his room by the clinician. The patient greeted the clinician appropriately and was agreeable to participation in the cognitive linguistic treatment session. The patient remained pleasant and cooperative throughout the skilled therapy. Objective - Orientation: The patient was independently oriented to month, year, date and location. - The patient participated in structured conversation without the need for verbal redirection. The patient displayed appropriate topic maintenance, topic initiation, and turn taking. - External Memory Strategies: External memory strategies were reviewed and discussed, including calendars, alarms, television, and phones. The patient was able to display appropriate functional recall of today's activities and her plan of care. Assessment Assessment Current Status: Good Progress Treatment Plan Continue Plan of Care Speech Short Term Goals Short Term Goals Short Term Goals The patient will demonstrate 90% accuracy with memory and functional problem solving with mild clinician verbal and visual cueing. Speech Scenario Writer Goals Jail Goals The patient will demonstrate improve cognitive linguistic skills for safe discharge to the least restricted environment. Speech-Plan Treatment Plan Speech Therapy Treatment Plan: Continue Plan of Care Treatment Duration: Dec 20, 2021 Frequency: Modified Program (IRF) Estimated Hrs Per Day: Other Rehab Potential: Guarded Safety Risks/Education Teaching Recipient: Patient Teaching Methods: Discussion Response to Teaching: Verbalize Understanding Education Topics Provided: External Memory Strategies Time Speech Therapy Time In: 11:30 Speech Therapy Time Out: 12:00 Total Billed Time: 30 Billed Treatment Time 1RADHA Padmaja SOLA DOUGLAS December 06, 2021 12:51
[2021-12-06] MEDS: DICLOFENAC 1% GEL 100 GM (VOLTAREN) TUBE TOP SCH ×3 (13:18→21:26)
[2021-12-06 19:55] VITALS: BP 131/72
[2021-12-06] MEDS: SIMvastatin 40 MG (ZOCOR) TAB PO SCH (21:19)
[2021-12-06] MEDS: lisINopril 10 MG (PRINIVIL) TABLET PO SCH (21:19)
[2021-12-06] MEDS: meTOprolol SUCCINATE 100 MG (TOPROL XL) TAB PO SCH (21:19)
--- NOTE | 2021-12-07 06:45 | PM&R Progress Note ---
Subjective HPI/CC On Admission Date Seen by Provider: December 07, 2021 Time Seen by Provider: 11:30 Subjective/Events-last exam 12/07/21: Patient doing really well No major concerns Eating and drinking well Regaining of left-sided weakness improved 12/06/21: Pt having a lot of knee pain so will initiate Diclofenac gel Overall moving around well Dramatic improvement since admission 12/05/2021: Pt doing really well Bowels moved today Tired Discontinuing telemetry Overall dramatic improvement 12/04/2021: Pt is doing really well Sleeping currently Left hand and left arm moving a lot better Overall much improved status 12/03/21: Patient improved Left hand improved No pain reported BM+ Eating well 12/02/2021: Patient doing well Left hand and arm moving well No pain reported Upbeat attitude 12/01/2021: Patient doing very well today Moving left arm and hand really well Family at bedside No pain 11/30/2021: Patient doing well Confusion noted Left sided weakness but can move her arm now Working with PT OT Reviewed labs Reviewed meds Review of Systems General: Fatigue, Malaise Neurological: Weakness, Incoordination Objective Exam Vital Signs Vital Signs Date Time Temp Pulse Resp B/P (MAP) Pulse Ox O2 Delivery O2 Flow Rate FiO2 12/07/21 21:03 Room Air 12/07/21 20:00 37.0 81 20 135/60 (85) 94 Capillary Refill : General Appearance: No Apparent Distress, WD/WN, Chronically ill HEENT: PERRL/EOMI, Normal ENT Inspection, Pharynx Normal Neck: Full Range of Motion, Normal Inspection, Non Tender, Supple, Carotid Bruit Respiratory: Chest Non Tender, Lungs Clear, Normal Breath Sounds, No Accessory Muscle Use, No Respiratory Distress Cardiovascular: Regular Rate, Rhythm, No Edema, No Gallop, No JVD, No Murmur, Normal Peripheral Pulses Gastrointestinal: Normal Bowel Sounds, No Organomegaly, No Pulsatile Mass, Non Tender, Soft Back: Normal Inspection, No CVA Tenderness, No Vertebral Tenderness Extremity: Normal Capillary Refill, Normal Inspection, Normal Range of Motion (except left side), Non Tender, No Calf Tenderness, No Pedal Edema Neurologic/Psychiatric: Alert, Oriented x3, Normal Mood/Affect, accounting machine mechanic II-XII Norm as Tested, Motor Weakness (left sided 2/5) Skin: Normal Color, Warm/Dry Lymphatic: No Adenopathy Results/Procedures Lab Patient resulted labs reviewed. FIM Transfers Therapy Code Descriptions/Definitions Functional [place] Measure: 0=Not Assessed/NA 4=Minimal Assistance 1=Total Assistance 5=Supervision or Setup 2=Maximal Assistance 6=Modified [place] 3=Moderate Assistance 7=Complete IndependenceSCALE: Activities may be completed with or without assistive devices. 0-Esxvsxpyel-flegxaf completes the activity by him/herself with no assistance from a helper. 5-Set-up or Clean-up Assistance-helper sets up or cleans up; patient completes activity. [place] assists only prior to or following the activity. 4-Supervision or Touching Assistance-helper provides verbal cues and/or touching/steadying and/or contact guard assistance as patient completes activity. Assistance may be provided throughout the activity or intermittently. 3-Partial/Moderate Assistance-helper does LESS THAN HALF the effort. [place] lifts, holds or supports trunk or limbs, but provides less than half the effort. 2-Substantial/Maximal Assistance-helper does MORE THAN HALF the effort. [place] lifts or holds trunk or limbs and provides more than half the effort. 1-Uovbeqhzg-xifkdc does ALL the effort. Patient does none of the effort to complete the activity. Or, the assistance of 2 or more helpers is required for the patient to complete the activity. If activity was not attempted, code reason: 7-Patient Refused. 9-Not Applicable-not attempted and the patient did not perform the activity before the current illness, exacerbation or injury. 10-Not Attempted due to Environmental Limitations-(lack of equipment, weather restraints, etc.). 88-Not Attempted due to Medical Conditions or Safety Concerns. Roll Left to Right (QC): 6 Sit to Lying (QC): 3 Sit to Stand (QC): 4 Chair/Ioh-mk-Xujzr Xfer(QC): 3 Car Transfer (QC): 1 Gait Training Does the Patient Walk?: Yes Distance: 40'x6 Walk 10 feet (QC): 3 Walk 50 ft with 2 Turns(QC): 88 Walk 150 ft (QC): 88 Walking 10ft/uneven surface-QC: 1 Gait Persons Needed: 1 Gait Assistive Device: FWW Wheelchair Training Does the Pt Use a Wheelchair?: Yes Distance: 100' x 1/250' x 1 Wheel 50 ft with 2 turns (QC): 4 Wheel 150 ft (QC): 3 Type of Wheelchair: Manual Stair Training #of Steps: 1 1 Step (curb) (QC): 1 (placed right foot up on step and attempted to follow with left with PT assist) 4 Steps (QC): 9 12 Steps (QC): 9 Balance Picking up an Object (QC): 88 ADL-Treatment Eating (QC): 4 Oral Hygiene (QC): 6 Shower/Bathe Self (QC): 4 Upper Body Dressing (QC): 4 Lower Body Dressing (QC): 2 On/Off Footwear (QC): 2 Toileting Hygiene (QC): 3 Toilet Transfer (QC): 4 Assessment/Plan Assessment and Plan Assess & Plan/Chief Complaint Assessment: 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 Debility Fall risk Hypertension Hyperlipidemia Advanced age Plan: Monitor closely Fall risk Monitor BP OAC 11/30/21: Monitor closely Checked meds labs 12/01/2021: Monitor closely DOAC 12/02/21: Monitor closely 12/03/21: Monitor closely Fall risk Decrease Eliquis to 5mg PO BID 12/04/2021: Supportive care Improved status 12/05/2021: Supportive care Aggressive therapy 12/06/2021: Supportive care Monitor knee pain 12/07/2021: Supportive care Diclofenac gel on knees (1) CVA, LEFT SIDED WEAKENSS (2) HLD (hyperlipidemia) Status: Chronic (3) HTN (hypertension) Status: Chronic ZURDO MARINO DO December 07, 2021 06:45
[2021-12-07 07:25] VITALS: BP 145/73
[2021-12-07] MEDS ORDERED: APIXABAN 5 MG (ELIQUIS) TABLET PO SCH (08:00)
[2021-12-07] MEDS: ASPIRIN E.C. 81 MG (ECOTRIN) TAB PO SCH (08:20)
[2021-12-07] MEDS: SENNA W/DOCUSATE (SENOKOT S) TABLET PO SCH ×2 (08:20→20:48)
[2021-12-07] MEDS: CYANOCOBALAMIN 1,000 MCG (VITAMIN B-12) TABLET PO SCH (08:20)
[2021-12-07] MEDS: APIXABAN 5 MG (ELIQUIS) TABLET PO SCH ×2 (08:20→20:48)
[2021-12-07] MEDS: PYRIDOXINE (VITAMIN B-6) 50 MG TABLET PO SCH (08:20)
[2021-12-07] MEDS: DOCUSATE SODIUM 100 MG (COLACE) CAP PO SCH ×2 (08:20→20:48)
[2021-12-07] MEDS: MICONAZOLE NITRATE 2% CRM 30 GM TP SCH ×2 (08:21→20:55)
[2021-12-07] MEDS: polyethylene glycoL POWDER 17 GM (MIRALAX) PACK PO SCH ×2 (08:21→20:36)
[2021-12-07] MEDS: DICLOFENAC 1% GEL 100 GM (VOLTAREN) TUBE TOP SCH ×4 (08:21→20:55)
--- NOTE | 2021-12-07 10:42 | Physical Therapy Daily Note ---
PT Daily Note-Current Subjective Pt in bed upon arrival and agrees to PT. Says she is too tired today to amb. Says she is able to perform bed exs and does not report any pain. Mental Status Patient Orientation: Person, Place, Time Transfers SCALE: Activities may be completed with or without assistive devices. 1-Ejrcsoysbg-istmhfx completes the activity by him/herself with no assistance from a helper. 5-Set-up or Clean-up Assistance-helper sets up or cleans up; patient completes activity. [place] assists only prior to or following the activity. 4-Supervision or Touching Assistance-helper provides verbal cues and/or touching/steadying and/or contact guard assistance as patient completes activity. Assistance may be provided throughout the activity or intermittently. 3-Partial/Moderate Assistance-helper does LESS THAN HALF the effort. [place] lifts, holds or supports trunk or limbs, but provides less than half the effort. 2-Substantial/Maximal Assistance-helper does MORE THAN HALF the effort. [place] lifts or holds trunk or limbs and provides more than half the effort. 1-Shtstblfy-yjmdsr does ALL the effort. Patient does none of the effort to complete the activity. Or, the assistance of 2 or more helpers is required for the patient to complete the activity. If activity was not attempted, code reason: 7-Patient Refused. 9-Not Applicable-not attempted and the patient did not perform the activity before the current illness, exacerbation or injury. 10-Not Attempted due to Environmental Limitations-(lack of equipment, weather restraints, etc.). 88-Not Attempted due to Medical Conditions or Safety Concerns. Roll Left & Right (QC): 4 Weight Bearing Full Weight Bearing Full Weight Bearing Exercises Supine Ex: Bridging, Ankle pumps, Quad Set, Rolling (S/L clamshells), Heel Slides, Short Arc Quads, Straight leg raise, Hip abd/add Supine Reps: 25 Treatments Pt able to perform all bed exs. Call light nearby and all needs met as PT departs. Assessment Current Status: Fair Progress Pt required skilled verbal and tactile cues in order to perform all exs correctly and to stay on task. Pt tolerated treatment well. PT Short Term Goals Short Term Goals Time Frame: Dec 14, 2021 Roll Left & Right: 4 Sit to lyin Lying to sitting on side of be: 4 Sit to stand: 3 Chair/pnb-vg-tbcnd transfer: 3 Toilet transfer: 3 Car transfer: 3 Walk 10 feet: 3 Walk 50 feet with two turns: 3 Does pt use a wc or scooter: Yes Wheel 50ft w/2 turns: 4 Wheel 150 feet: 4 Type: Manual PT Traffic Enumerator Goals Traffic Enumerator Goals PT Halfway Goals Time Frame: Dec 28, 2021 Roll Left & Right (QC): 6 Sit to Lying (QC): 6 Lying-Sitting on Side/Bed(QC): 6 Sit to Stand (QC): 4 Chair/Nxw-nh-Borgv Xfer(QC): 4 Toilet Transfer (QC): 4 Car Transfer (QC): 4 Does the Patient Walk: Yes Walk 10 feet (QC): 4 Walk 50ft with 2 Turns (QC): 4 Walk 150 ft (QC): 4 Walking 10ft on Uneven Surface: 4 1 Step (curb) (QC): 3 4 Steps (QC): 9 12 Steps (QC): 9 Picking up an Object (QC): 3 Wheel 50 feet with 2 turns (QC: 5 Wheel 150 feet: 5 Type: Manual PT Plan Problem List Problem List: Activity Tolerance, Functional Strength Treatment/Plan Treatment Plan: Continue Plan of Care Treatment Plan: Bed Mobility, Concurrent Therapy, Education, Functional Activity Seema, Functional Strength, Group Therapy, Gait, Safety, Therapeutic Exercise, Transfers Treatment Duration: Dec 28, 2021 Frequency: At least 5 of 7 days/Wk (IRF) Estimated Hrs Per Day: 1.5 hours per day Patient and/or Family Agrees t: Yes Safety Risks/Education Patient Education: Correct Positioning Teaching Recipient: Patient Teaching Methods: Discussion Response to Teaching: Return Demonstration Time/GCodes Time In: 900 Time Out: 915 Total Billed Treatment Time: 15 Total Billed Treatment 1, Ex VALORIE GARRETT WHITE WASHER PILER December 07, 2021 10:42
[2021-12-07 20:00] VITALS: BP 135/60
[2021-12-07] MEDS: meTOprolol SUCCINATE 100 MG (TOPROL XL) TAB PO SCH (20:48)
[2021-12-07] MEDS: lisINopril 10 MG (PRINIVIL) TABLET PO SCH (20:48)
[2021-12-07] MEDS: MELATONIN 3 MG TABLET PO PRN (20:48)
[2021-12-07] MEDS: SIMvastatin 40 MG (ZOCOR) TAB PO SCH (20:48)
--- NOTE | 2021-12-08 07:08 | PM&R Progress Note ---
Subjective HPI/CC On Admission Date Seen by Provider: December 08, 2021 Time Seen by Provider: 12:00 Subjective/Events-last exam 12/08/21: Patient doing well Sleeps a lot No pain reported 12/07/21: Patient doing really well No major concerns Eating and drinking well Regaining of left-sided weakness improved 12/06/21: Pt having a lot of knee pain so will initiate Diclofenac gel Overall moving around well Dramatic improvement since admission 12/05/2021: Pt doing really well Bowels moved today Tired Discontinuing telemetry Overall dramatic improvement 12/04/2021: Pt is doing really well Sleeping currently Left hand and left arm moving a lot better Overall much improved status 12/03/21: Patient improved Left hand improved No pain reported BM+ Eating well 12/02/2021: Patient doing well Left hand and arm moving well No pain reported Upbeat attitude 12/01/2021: Patient doing very well today Moving left arm and hand really well Family at bedside No pain 11/30/2021: Patient doing well Confusion noted Left sided weakness but can move her arm now Working with PT OT Reviewed labs Reviewed meds Review of Systems General: Fatigue, Malaise Neurological: Weakness Objective Exam Vital Signs Vital Signs Date Time Temp Pulse Resp B/P (MAP) Pulse Ox O2 Delivery O2 Flow Rate FiO2 12/08/21 19:14 36.0 82 18 145/67 (93) 92 Room Air Capillary Refill : General Appearance: No Apparent Distress, WD/WN, Chronically ill HEENT: PERRL/EOMI, Normal ENT Inspection, Pharynx Normal Neck: Full Range of Motion, Normal Inspection, Non Tender, Supple, Carotid Bruit Respiratory: Chest Non Tender, Lungs Clear, Normal Breath Sounds, No Accessory Muscle Use, No Respiratory Distress Cardiovascular: Regular Rate, Rhythm, No Edema, No Gallop, No JVD, No Murmur, Normal Peripheral Pulses Gastrointestinal: Normal Bowel Sounds, No Organomegaly, No Pulsatile Mass, Non Tender, Soft Back: Normal Inspection, No CVA Tenderness, No Vertebral Tenderness Extremity: Normal Capillary Refill, Normal Inspection, Normal Range of Motion (except left side), Non Tender, No Calf Tenderness, No Pedal Edema Neurologic/Psychiatric: Alert, Oriented x3, Normal Mood/Affect, seat installer II-XII Norm as Tested, Motor Weakness (left sided 2/5) Skin: Normal Color, Warm/Dry Lymphatic: No Adenopathy Results/Procedures Lab Patient resulted labs reviewed. FIM Transfers Therapy Code Descriptions/Definitions Functional [place] Measure: 0=Not Assessed/NA 4=Minimal Assistance 1=Total Assistance 5=Supervision or Setup 2=Maximal Assistance 6=Modified [place] 3=Moderate Assistance 7=Complete IndependenceSCALE: Activities may be completed with or without assistive devices. 4-Pmjfabjztb-zwdwutj completes the activity by him/herself with no assistance f rom a helper. 5-Set-up or Clean-up Assistance-helper sets up or cleans up; patient completes activity. [place] assists only prior to or following the activity. 4-Supervision or Touching Assistance-helper provides verbal cues and/or touching/steadying and/or contact guard assistance as patient completes activity. Assistance may be provided throughout the activity or intermittently. 3-Partial/Moderate Assistance-helper does LESS THAN HALF the effort. [place] lifts, holds or supports trunk or limbs, but provides less than half the effort. 2-Substantial/Maximal Assistance-helper does MORE THAN HALF the effort. [place] lifts or holds trunk or limbs and provides more than half the effort. 8-Jjeombfgr-rsaigz does ALL the effort. Patient does none of the effort to complete the activity. Or, the assistance of 2 or more helpers is required for the patient to complete the activity. If activity was not attempted, code reason: 7-Patient Refused. 9-Not Applicable-not attempted and the patient did not perform the activity before the current illness, exacerbation or injury. 10-Not Attempted due to Environmental Limitations-(lack of equipment, weather restraints, etc.). 88-Not Attempted due to Medical Conditions or Safety Concerns. Roll Left to Right (QC): 4 Sit to Lying (QC): 3 Sit to Stand (QC): 4 Chair/Rts-wz-Mpquq Xfer(QC): 3 Car Transfer (QC): 1 Gait Training Does the Patient Walk?: Yes Distance: 40'x6 Walk 10 feet (QC): 3 Walk 50 ft with 2 Turns(QC): 88 Walk 150 ft (QC): 88 Walking 10ft/uneven surface-QC: 1 Gait Persons Needed: 1 Gait Assistive Device: FWW Wheelchair Training Does the Pt Use a Wheelchair?: Yes Distance: 100' x 1/250' x 1 Wheel 50 ft with 2 turns (QC): 4 Wheel 150 ft (QC): 3 Type of Wheelchair: Manual Stair Training #of Steps: 1 1 Step (curb) (QC): 1 (placed right foot up on step and attempted to follow with left with PT assist) 4 Steps (QC): 9 12 Steps (QC): 9 Balance Picking up an Object (QC): 88 ADL-Treatment Eating (QC): 4 Oral Hygiene (QC): 6 Shower/Bathe Self (QC): 4 Upper Body Dressing (QC): 4 Lower Body Dressing (QC): 2 On/Off Footwear (QC): 2 Toileting Hygiene (QC): 3 Toilet Transfer (QC): 4 Assessment/Plan Assessment and Plan Assess & Plan/Chief Complaint Assessment: 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 Debility Fall risk Hypertension Hyperlipidemia Advanced age Plan: Monitor closely Fall risk Monitor BP OAC 11/30/21: Monitor closely Checked meds labs 12/01/2021: Monitor closely DOAC 12/02/21: Monitor closely 12/03/21: Monitor closely Fall risk Decrease Eliquis to 5mg PO BID 12/04/2021: Supportive care Improved status 12/05/2021: Supportive care Aggressive therapy 12/06/2021: Supportive care Monitor knee pain 12/07/2021: Supportive care Diclofenac gel on knees 12/08/21: Monitor closely Knee pain management (1) CVA, LEFT SIDED WEAKENSS (2) HLD (hyperlipidemia) Status: Chronic (3) HTN (hypertension) Status: Chronic ZURDO MARINO DO December 08, 2021 07:08
[2021-12-08 07:15] VITALS: BP 169/99
[2021-12-08] MEDS: PYRIDOXINE (VITAMIN B-6) 50 MG TABLET PO SCH (08:00)
[2021-12-08] MEDS: ASPIRIN E.C. 81 MG (ECOTRIN) TAB PO SCH (08:00)
[2021-12-08] MEDS: APIXABAN 5 MG (ELIQUIS) TABLET PO SCH ×2 (08:00→20:56)
[2021-12-08] MEDS: DOCUSATE SODIUM 100 MG (COLACE) CAP PO SCH ×2 (08:00→21:01)
[2021-12-08] MEDS: CYANOCOBALAMIN 1,000 MCG (VITAMIN B-12) TABLET PO SCH (08:00)
[2021-12-08] MEDS: polyethylene glycoL POWDER 17 GM (MIRALAX) PACK PO SCH ×2 (08:01→21:01)
[2021-12-08] MEDS: SENNA W/DOCUSATE (SENOKOT S) TABLET PO SCH ×2 (08:01→21:01)
[2021-12-08] MEDS: MICONAZOLE NITRATE 2% CRM 30 GM TP SCH ×2 (08:02→21:02)
[2021-12-08] MEDS: DICLOFENAC 1% GEL 100 GM (VOLTAREN) TUBE TOP SCH ×4 (08:03→20:58)
[2021-12-08 19:14] VITALS: BP 145/67
[2021-12-08] MEDS: lisINopril 10 MG (PRINIVIL) TABLET PO SCH (20:56)
[2021-12-08] MEDS: meTOprolol SUCCINATE 100 MG (TOPROL XL) TAB PO SCH (20:56)
[2021-12-08] MEDS: SIMvastatin 40 MG (ZOCOR) TAB PO SCH (20:56)
[2021-12-09 05:26] LABS: BASOPHILS # (AUTO) 0.1 10^3/uL (0.0-0.1); BASOPHILS % (AUTO) 1 % (0-10); EOSINOPHILS # (AUTO) 0.1 10^3/uL (0.0-0.3); EOSINOPHILS % (AUTO) 1 % (0-10); HEMATOCRIT 41 % (35-52); HEMOGLOBIN 13.8 g/dL (11.5-16.0); LYMPHOCYTES # (AUTO) 1.6 10^3/uL (1.0-4.0); LYMPHOCYTES % (AUTO) 18 % (12-44); MEAN CORPUSCULAR HEMOGLOBIN 30 pg (25-34); MEAN CORPUSCULAR HGB CONC 33 g/dL (32-36); MEAN CORPUSCULAR VOLUME 90 fL (80-99); MEAN PLATELET VOLUME 10.6 fL (9.0-12.2); MONOCYTES # (AUTO) 0.6 10^3/uL (0.0-1.0); MONOCYTES % (AUTO) 7 % (0-12); NEUTROPHILS # (AUTO) 6.6 10^3/uL (1.8-7.8); NEUTROPHILS % (AUTO) 73 % (42-75); PLATELET COUNT 311 10^3/uL (130-400); WHITE BLOOD COUNT 9.1 10^3/uL (4.3-11.0)
[2021-12-09 05:39] LABS: ALBUMIN 3.7 GM/DL (3.2-4.5); POTASSIUM 3.4 MMOL/L (3.6-5.0)
[2021-12-09 05:41] LABS: TOTAL PROTEIN 6.1 GM/DL (6.4-8.2)
[2021-12-09 05:43] LABS: BILIRUBIN,TOTAL 0.7 MG/DL (0.1-1.0)
[2021-12-09 05:45] LABS: CREATININE SERUM 0.67 MG/DL (0.60-1.30)
--- NOTE | 2021-12-09 07:22 | PM&R Progress Note ---
Subjective HPI/CC On Admission Date Seen by Provider: December 09, 2021 Time Seen by Provider: 11:00 Subjective/Events-last exam 12/09/21: Patient sleeps most of the time Left hand is 3/4 back to baseline per patient report No pain reported BM+ Sugars are high so added hga1c and SSI/ACHS accuchecks 12/08/21: Patient doing well Sleeps a lot No pain reported 12/07/21: Patient doing really well No major concerns Eating and drinking well Regaining of left-sided weakness improved 12/06/21: Pt having a lot of knee pain so will initiate Diclofenac gel Overall moving around well Dramatic improvement since admission 12/05/2021: Pt doing really well Bowels moved today Tired Discontinuing telemetry Overall dramatic improvement 12/04/2021: Pt is doing really well Sleeping currently Left hand and left arm moving a lot better Overall much improved status 12/03/21: Patient improved Left hand improved No pain reported BM+ Eating well 12/02/2021: Patient doing well Left hand and arm moving well No pain reported Upbeat attitude 12/01/2021: Patient doing very well today Moving left arm and hand really well Family at bedside No pain 11/30/2021: Patient doing well Confusion noted Left sided weakness but can move her arm now Working with PT OT Reviewed labs Reviewed meds Review of Systems General: Fatigue, Malaise Objective Exam Vital Signs Vital Signs Date Time Temp Pulse Resp B/P (MAP) Pulse Ox O2 Delivery O2 Flow Rate FiO2 12/09/21 08:10 Room Air 12/09/21 07:33 36.5 75 18 146/66 (92) 95 Capillary Refill : General Appearance: No Apparent Distress, WD/WN, Chronically ill HEENT: PERRL/EOMI, Normal ENT Inspection, Pharynx Normal Neck: Full Range of Motion, Normal Inspection, Non Tender, Supple, Carotid Bruit Respiratory: Chest Non Tender, Lungs Clear, Normal Breath Sounds, No Accessory Muscle Use, No Respiratory Distress Cardiovascular: Regular Rate, Rhythm, No Edema, No Gallop, No JVD, No Murmur, Normal Peripheral Pulses Gastrointestinal: Normal Bowel Sounds, No Organomegaly, No Pulsatile Mass, Non Tender, Soft Back: Normal Inspection, No CVA Tenderness, No Vertebral Tenderness Extremity: Normal Capillary Refill, Normal Inspection, Normal Range of Motion (except left side), Non Tender, No Calf Tenderness, No Pedal Edema Neurologic/Psychiatric: Alert, Oriented x3, Normal Mood/Affect, 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 FIM Transfers Therapy Code Descriptions/Definitions Functional [place] Measure: 0=Not Assessed/NA 4=Minimal Assistance 1=Total Assistance 5=Supervision or Setup 2=Maximal Assistance 6=Modified [place] 3=Moderate Assistance 7=Complete IndependenceSCALE: Activities may be completed with or without assistive devices. 9-Hsqlxcrwrg-dxggpau completes the activity by him/herself with no assistance from a helper. 5-Set-up or Clean-up Assistance-helper sets up or cleans up; patient completes activity. [place] assists only prior to or following the activity. 4-Supervision or Touching Assistance-helper provides verbal cues and/or touching/steadying and/or contact guard assistance as patient completes activity. Assistance may be provided throughout the activity or intermittently. 3-Partial/Moderate Assistance-helper does LESS THAN HALF the effort. [place] lifts, holds or supports trunk or limbs, but provides less than half the effort. 2-Substantial/Maximal Assistance-helper does MORE THAN HALF the effort. [place] lifts or holds trunk or limbs and provides more than half the effort. 4-Ddzcrcsjc-ytcngd does ALL the effort. Patient does none of the effort to complete the activity. Or, the assistance of 2 or more helpers is required for the patient to complete the activity. If activity was not attempted, code reason: 7-Patient Refused. 9-Not Applicable-not attempted and the patient did not perform the activity before the current illness, exacerbation or injury. 10-Not Attempted due to Environmental Limitations-(lack of equipment, weather restraints, etc.). 88-Not Attempted due to Medical Conditions or Safety Concerns. Roll Left to Right (QC): 4 Sit to Lying (QC): 3 Sit to Stand (QC): 4 Chair/Cvb-ua-Fxhbj Xfer(QC): 3 Car Transfer (QC): 1 Gait Training Does the Patient Walk?: Yes Distance: 40'x6 Walk 10 feet (QC): 3 Walk 50 ft with 2 Turns(QC): 88 Walk 150 ft (QC): 88 Walking 10ft/uneven surface-QC: 1 Gait Persons Needed: 1 Gait Assistive Device: FWW Wheelchair Training Does the Pt Use a Wheelchair?: Yes Distance: 100' x 1/250' x 1 Wheel 50 ft with 2 turns (QC): 4 Wheel 150 ft (QC): 3 Type of Wheelchair: Manual Stair Training #of Steps: 1 1 Step (curb) (QC): 1 (placed right foot up on step and attempted to follow with left with PT assist) 4 Steps (QC): 9 12 Steps (QC): 9 Balance Picking up an Object (QC): 88 ADL-Treatment Eating (QC): 4 Oral Hygiene (QC): 6 Shower/Bathe Self (QC): 4 Upper Body Dressing (QC): 4 Lower Body Dressing (QC): 2 On/Off Footwear (QC): 2 Toileting Hygiene (QC): 3 Toilet Transfer (QC): 4 Assessment/Plan Assessment and Plan Assess & Plan/Chief Complaint Assessment: 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 Plan: Monitor closely Fall risk Monitor BP OAC 11/30/21: Monitor closely Checked meds labs 12/01/2021: Monitor closely DOAC 12/02/21: Monitor closely 12/03/21: Monitor closely Fall risk Decrease Eliquis to 5mg PO BID 12/04/2021: Supportive care Improved status 12/05/2021: Supportive care Aggressive therapy 12/06/2021: Supportive care Monitor knee pain 12/07/2021: Supportive care Diclofenac gel on knees 12/08/21: Monitor closely Knee pain management 12/09/21: Glucose management (1) CVA, LEFT SIDED WEAKENSS (2) HLD (hyperlipidemia) Status: Chronic (3) HTN (hypertension) Status: Chronic ZURDO MARINO DO December 09, 2021 07:22
[2021-12-09 07:33] VITALS: BP 146/66
[2021-12-09] MEDS: KCL 10 MEQ TAB (MICRO K) PO SCH (07:53)
[2021-12-09] MEDS: ASPIRIN E.C. 81 MG (ECOTRIN) TAB PO SCH (08:06)
[2021-12-09] MEDS: APIXABAN 5 MG (ELIQUIS) TABLET PO SCH ×2 (08:06→20:21)
[2021-12-09] MEDS: PYRIDOXINE (VITAMIN B-6) 50 MG TABLET PO SCH (08:06)
[2021-12-09] MEDS: polyethylene glycoL POWDER 17 GM (MIRALAX) PACK PO SCH ×2 (08:07→19:34)
[2021-12-09] MEDS: CYANOCOBALAMIN 1,000 MCG (VITAMIN B-12) TABLET PO SCH (08:07)
[2021-12-09] MEDS: DOCUSATE SODIUM 100 MG (COLACE) CAP PO SCH ×2 (08:07→19:34)
[2021-12-09] MEDS: MICONAZOLE NITRATE 2% CRM 30 GM TP SCH ×2 (08:08→19:36)
[2021-12-09] MEDS: SENNA W/DOCUSATE (SENOKOT S) TABLET PO SCH ×2 (08:08→19:34)
[2021-12-09] MEDS: DICLOFENAC 1% GEL 100 GM (VOLTAREN) TUBE TOP SCH ×4 (08:09→20:23)
--- NOTE | 2021-12-09 09:46 | Occupational Ther Daily Note ---
OT Current Status-Daily Note Subjective Pt. reports that she did not sleep well last night. Appearance Pt. in bed. Awake and alert. Agrees to participate. Mental Status/Objective Patient Orientation: Person, Place ADL-Treatment Therapy Code Descriptions/Definitions Functional [place] Measure: 0=Not Assessed/NA 4=Minimal Assistance 1=Total Assistance 5=Supervision or Setup 2=Maximal Assistance 6=Modified [place] 3=Moderate Assistance 7=Complete IndependenceSCALE: Activities may be completed with or without assistive devices. 4-Osidalvqhv-apkgvfr completes the activity by him/herself with no assistance from a helper. 5-Set-up or Clean-up Assistance-helper sets up or cleans up; patient completes activity. [place] assists only prior to or following the activity. 4-Supervision or Touching Assistance-helper provides verbal cues and/or touching/steadying and/or contact guard assistance as patient completes activity. Assistance may be provided throughout the activity or intermittently. 3-Partial/Moderate Assistance-helper does LESS THAN HALF the effort. [place] lifts, holds or supports trunk or limbs, but provides less than half the effort. 2-Substantial/Maximal Assistance-helper does MORE THAN HALF the effort. [place] lifts or holds trunk or limbs and provides more than half the effort. 9-Zkyhethdi-lasvul does ALL the effort. Patient does none of the effort to complete the activity. Or, the assistance of 2 or more helpers is required for the patient to complete the activity. If activity was not attempted, code reason: 7-Patient Refused. 9-Not Applicable-not attempted and the patient did not perform the activity before the current illness, exacerbation or injury. 10-Not Attempted due to Environmental Limitations-(lack of equipment, weather restraints, etc.). 88-Not Attempted due to Medical Conditions or Safety Concerns. Oral Hygiene (QC): 4 (Steadying assist while standing at sink to brush teeth.) Shower/Bathe Self (QC): 7 (Pt. declines showering this date.) Upper Body Dressing (QC): 3 (Mod assist overall to doff/don shirt.) Lower Body Dressing (QC): 3 (Mod assist to doff/don brief and pants. Pt. has difficulty with with left sided neglect, as well as getting right LE up far enough once left LE is in pants.) On/Off Footwear: 3 (Mod assist overall with use and practice of ADL equipment. OT demonstrates and pt. practices with dressing stick, sock aide, and clinical laboratory technician.) Toileting Hygiene (QC): 3 (Mod assist to cleanse rear atul area thoroughly, as well as to pull down/up pants on left side. Pt. requires assist to fully doff/don brief when needed.) Toilet Transfer (QC): 3 (Min assist/CGA) Other Treatment Pt. seen this date for left UE coordination/strengthening as well as ADL skills. After ADL skills in room (please see above), pt. ambulated with walker at slow pace to therapy gym. Required one brief rest break to sit. Completed arm bike at slow steady pace for UE strength and bilateral coordination approximately 10 minutes. At first, pt. able to hold on with left hand. However, became fatigued and finished with right hand only. Attempted using left hand for therapy pegs to work on coordination and left hand awareness. Pt. had some difficulty but overall was able to appropriately open and close hand, as well as place pegs into foam when taking her time. OT issued ADL equipment and educated pt. on use of. Pt. practiced doffing/donning slipper socks. Co-treated with PT briefly due to pt's fatigue level and need of skilled treatment to ambulate back to room and toilet. PT assessed gait and OT worked on left sided awareness and cues. Pt. will often run into doorways and chairs with walker on left side. Transferred to toilet and required assist to change her shirt. Pt. toileted and then transferred to wheelchair due to fatigue. Up with PT at end of OT session. Education OT Patient Education: Correct positioning, Exercise program, Modified ADL techniques, Progress toward Goal/Update tx plan, Purpose of tx/functional activities, Reviewed precautions, Rehab process, Transfer techniques Teaching Recipient: Patient Teaching Methods: Demonstration, Discussion Response to Teaching: Verbalize Understanding, Return Demonstration OT Short Term Goals Short Term Goals Time Frame: Dec 13, 2021 Eatin Oral hygiene: 5 Toileting hygiene: 2 Shower/bathe self: 3 Upper body dressin Lower body dressin Putting on/taking off footwear: 2 OT Human Resources Administrator Goals Human Resources Administrator Goals Time Frame: Dec 27, 2021 Eating (QC): 5 Oral Hygiene (QC): 6 Toileting Hygiene (QC): 6 Shower/Bathe Self (QC): 4 Upper Body Dressing (QC): 5 Lower Body Dressing (QC): 4 On/Off Footwear (QC): 4 1=Demonstrate adherence to instructed precautions during ADL tasks. 2=Patient will verbalize/demonstrate understanding of assistive devices/modifications for ADL. 3=Patient will improve strength/tolerance for activity to enable patient to perform ADL's. OT Education/Plan Problem List/Assessment Assessment: Decreased Activ Tolerance, Decreased UE Strength, Impaired Coordination, Impaired Funct Balance, Impaired I ADL's, Impaired Self-Care Skills, Restricted Funct UE ROM Discharge Recommendations Plan/Recommendations: Continue POC Therapy Discharge Recommendati: Post Acute OT Treatment Plan/Plan of Care Treatment,Training & Education: Yes Patient would benefit from OT for education, treatment and training to promote independence in ADL's, mobility, safety and/or upper extremity function for ADL's. Plan of Care: ADL Retraining, Cognitive Retraining, Functional Mobility, Group Exercise/Act as Ind, UE Funct Exercise/Act, UE Neuromus Re-Ed/Coord, Visua l/Perceptual Retrain, W/C Management Training Treatment Duration: Dec 27, 2021 Frequency: At least 5 of 7 days/Wk (IRF) Estimated Hrs Per Day: 1.5 hours per day Agreement: Yes Rehab Potential: Good Time/GCodes Start Time: 08:20 Stop Time: 09:35 Total Time Billed (hr/min): 75 Billed Treatment Time 4298-1296 1, ADL x 30minutes, Ex x 15minutes, FA x 15minutes [id number] ADL x 15minutes Co-treatment with PT. Please see above for designated roles. STACEY LAUREN OT December 09, 2021 09:46
--- NOTE | 2021-12-09 10:37 | Physical Therapy Daily Note ---
PT Daily Note-Current Subjective Pt sitting in Therapy Gym in [facility] working w/OT upon arrival. Pt agrees to PT/OT short co-treat then PT tx. Pain Location: No Pain Reported Mental Status Patient Orientation: Person, Place Transfers SCALE: Activities may be completed with or without assistive devices. 8-Yujymswlml-swctmbh completes the activity by him/herself with no assistance from a helper. 5-Set-up or Clean-up Assistance-helper sets up or cleans up; patient completes activity. [place] assists only prior to or following the activity. 4-Supervision or Touching Assistance-helper provides verbal cues and/or to uching/steadying and/or contact guard assistance as patient completes activity. Assistance may be provided throughout the activity or intermittently. 3-Partial/Moderate Assistance-helper does LESS THAN HALF the effort. [place] lifts, holds or supports trunk or limbs, but provides less than half the effort. 2-Substantial/Maximal Assistance-helper does MORE THAN HALF the effort. [place] lifts or holds trunk or limbs and provides more than half the effort. 3-Xhvfymyzn-cibydh does ALL the effort. Patient does none of the effort to complete the activity. Or, the assistance of 2 or more helpers is required for the patient to complete the activity. If activity was not attempted, code reason: 7-Patient Refused. 9-Not Applicable-not attempted and the patient did not perform the activity before the current illness, exacerbation or injury. 10-Not Attempted due to Environmental Limitations-(lack of equipment, weather restraints, etc.). 88-Not Attempted due to Medical Conditions or Safety Concerns. Sit to Lying (QC): 3 Sit to Stand (QC): 3 Chair/Rhd-xx-Vnoqn Xfer(QC): 4 Toilet Transfer (QC): 3 Weight Bearing Full Weight Bearing Full Weight Bearing Gait Training Does the Patient Walk?: Yes Distance: 125' Walk 10 feet (QC): 4 Walk 50 ft with 2 Turns(QC): 4 Gait Persons Needed: 1 Gait Assistive Device: FWW Walking farther and w/more control than previous tx w/this RESIDENTIAL BUILDING INSPECTOR Wheelchair Training Does the Pt Use a Wheelchair?: Yes Wheel 50 ft with 2 turns (QC): 4 Wheel 150 ft (QC): 4 Type of Wheelchair: Manual Exercises Supine Ex: Ankle pumps, Quad Set, Heel Slides, Straight leg raise, Hip abd/add Supine Reps: 15 Seated Therapy Exercises: Ankle pumps, Long arc quads, Hip flexion, Glut set Seated Reps: 15 Treatments Co-treated with OT briefly due to pt's fatigue level and need of skilled treatment to ambulate back to room and toilet. PT assessed gait and OT worked on left sided awareness and cues. Pt. will often run into doorways and chairs with walker on left side. Transferred to toilet and required assist to change her shirt. Pt. toileted and then transferred to wheelchair due to fatigue. After short RB, pt propels WCH in hallway. Takes short RB & completes Seated Ex then propels back to room to use BR again. Pt returns to EOB to rest then TF to Supine. RESIDENTIAL BUILDING INSPECTOR reviews written HEP for Supine & Seated Ex. All needs met, call light in hand. Assessment Current Status: Good Progress Pt is waling farther and with less activity tolerance since the previous tx this RESIDENTIAL BUILDING INSPECTOR worked w/pt. PT Short Term Goals Short Term Goals Time Frame: Dec 14, 2021 Roll Left & Right: 4 Sit to lyin Lying to sitting on side of be: 4 Sit to stand: 3 Chair/dtr-lh-cbweq transfer: 3 Toilet transfer: 3 Car transfer: 3 Walk 10 feet: 3 Walk 50 feet with two turns: 3 Does pt use a wc or scooter: Yes Wheel 50ft w/2 turns: 4 Wheel 150 feet: 4 Type: Manual PT Group Home Goals Tractor Drill Operator Goals PT Group Home Goals Time Frame: Dec 28, 2021 Roll Left & Right (QC): 6 Sit to Lying (QC): 6 Lying-Sitting on Side/Bed(QC): 6 Sit to Stand (QC): 4 Chair/Wha-io-Afpdu Xfer(QC): 4 Toilet Transfer (QC): 4 Car Transfer (QC): 4 Does the Patient Walk: Yes Walk 10 feet (QC): 4 Walk 50ft with 2 Turns (QC): 4 Walk 150 ft (QC): 4 Walking 10ft on Uneven Surface: 4 1 Step (curb) (QC): 3 4 Steps (QC): 9 12 Steps (QC): 9 Picking up an Object (QC): 3 Wheel 50 feet with 2 turns (QC: 5 Wheel 150 feet: 5 Type: Manual PT Plan Problem List Problem List: Activity Tolerance, Functional Strength, Transfer Treatment/Plan Treatment Plan: Continue Plan of Care Treatment Plan: Bed Mobility, Concurrent Therapy, Education, Functional Activity Seema, Functional Strength, Group Therapy, Gait, Safety, Therapeutic Exercise, Transfers Treatment Duration: Dec 28, 2021 Frequency: At least 5 of 7 days/Wk (IRF) Estimated Hrs Per Day: 1.5 hours per day Patient and/or Family Agrees t: Yes Safety Risks/Education Patient Education: Transfer Techniques, Correct Positioning, Safety Issues Teaching Recipient: Patient Teaching Methods: Discussion Response to Teaching: Verbalize Understanding Time/GCodes Time In: 920 Time Out: 1035 Total Billed Treatment Time: 75 Total Billed Treatment Co-treat w/OT for 15m ([id number]) 1, FA x2 (25m), EX x2 (30m) & WCH (20m) GHAZALA BARRAGAN RESIDENTIAL BUILDING INSPECTOR December 09, 2021 10:37
--- NOTE | 2021-12-09 11:16 | Speech Therapy Daily Note ---
Speech Daily Progress Note Subjective Date Seen by Provider: December 09, 2021 Time Seen by Provider: 10:45 The patient was lying in bed, awake and alert upon entrance to her room by the clinician. The patient greeted the clinician appropriately and was agreeable to participation in the cognitive linguistic treatment session. Objective - Orientation: The patient was independently oriented to month, day of week, date, year, location, and city. - Delayed Recall: The clinician introduced internal memory strategies including visualization, association, and repetition. The patient and clinician practiced repetition to recall five single words. Following a five minute delay, the p atient was able to recall four of five single words. Regardless of a category cue, the patient was unable to recall the fifth word. Assessment Assessment Current Status: Fair Progress Treatment Plan Continue Plan of Care Speech Short Term Goals Short Term Goals Short Term Goals The patient will demonstrate 90% accuracy with memory and functional problem solving with mild clinician verbal and visual cueing. 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 Speech-Plan Treatment Plan Speech Therapy Treatment Plan: Continue Plan of Care Treatment Duration: Dec 20, 2021 Frequency: Modified Program (IRF) Estimated Hrs Per Day: Other Rehab Potential: Good Safety Risks/Education Teaching Recipient: Patient Teaching Methods: Demonstration, Discussion Response to Teaching: Return Demonstration, Reinforcement Needed Education Topics Provided: Internal memory strategies Time Speech Therapy Time In: 10:45 Speech Therapy Time Out: 11:15 Total Billed Time: 30 Billed Treatment Time Gregg RADHA Padmaja LYSSA [address] December 09, 2021 11:16
[2021-12-09] MEDS: inSUlin ASPART (NovoLOG) 1 UNIT/0.01 ML (CHARGE PER UNIT) SC SCH ×3 (12:10→20:22)
[2021-12-09] MEDS ORDERED: inSUlin ASPART (NovoLOG) 1 UNIT/0.01 ML (CHARGE PER UNIT) SC SCH (16:00)
[2021-12-09 20:00] VITALS: BP 123/64
[2021-12-09] MEDS: SIMvastatin 40 MG (ZOCOR) TAB PO SCH (20:21)
[2021-12-09] MEDS: lisINopril 10 MG (PRINIVIL) TABLET PO SCH (20:21)
[2021-12-09] MEDS: meTOprolol SUCCINATE 100 MG (TOPROL XL) TAB PO SCH (20:21)
--- NOTE | 2021-12-10 06:20 | PM&R Progress Note ---
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 12/09/21: Patient sleeps most of the time Left hand is 3/4 back to baseline per patient report No pain reported BM+ Sugars are high so added hga1c and SSI/ACHS accuchecks 12/08/21: Patient doing well Sleeps a lot No pain reported 12/07/21: Patient doing really well No major concerns Eating and drinking well Regaining of left-sided weakness improved 12/06/21: Pt having a lot of knee pain so will initiate Diclofenac gel Overall moving around well Dramatic improvement since admission 12/05/2021: Pt doing really well Bowels moved today Tired Discontinuing telemetry Overall dramatic improvement 12/04/2021: Pt is doing really well Sleeping currently Left hand and left arm moving a lot better Overall much improved status 12/03/21: Patient improved Left hand improved No pain reported BM+ Eating well 12/02/2021: Patient doing well Left hand and arm moving well No pain reported Upbeat attitude 12/01/2021: Patient doing very well today Moving left arm and hand really well Family at bedside No pain 11/30/2021: Patient doing well Confusion noted Left sided weakness but can move her arm now Working with PT OT Reviewed labs Reviewed meds Objective Exam Vital Signs Vital Signs Date Time Temp Pulse Resp B/P (MAP) Pulse Ox O2 Delivery O2 Flow Rate FiO2 12/10/21 20:10 Room Air 12/10/21 20:02 36.6 80 20 125/74 (91) 95 Capillary Refill : General Appearance: No Apparent Distress, WD/WN, Chronically ill HEENT: PERRL/EOMI, Normal ENT Inspection, Pharynx Normal Neck: Full Range of Motion, Normal Inspection, Non Tender, Supple, Carotid Bruit Respiratory: Chest Non Tender, Lungs Clear, Normal Breath Sounds, No Accessory Muscle Use, No Respiratory Distress Cardiovascular: Regular Rate, Rhythm, No Edema, No Gallop, No JVD, No Murmur, Normal Peripheral Pulses Gastrointestinal: Normal Bowel Sounds, No Organomegaly, No Pulsatile Mass, Non Tender, Soft Back: Normal Inspection, No CVA Tenderness, No Vertebral Tenderness Extremity: Normal Capillary Refill, Normal Inspection, Normal Range of Motion (except left side), Non Tender, No Calf Tenderness, No Pedal Edema Neurologic/Psychiatric: Alert, Oriented x3, Normal Mood/Affect, 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 FIM Transfers Therapy Code Descriptions/Definitions Functional Kyle Measure: 0=Not Assessed/NA 4=Minimal Assistance 1=Total Assistance 5=Supervision or Setup 2=Maximal Assistance 6=Modified Kyle 3=Moderate Assistance 7=Complete IndependenceSCALE: Activities may be completed with or without assistive devices. 3-Uwpooshejg-mqekpng completes the activity by him/herself with no assistance from a helper. 5-Set-up or Clean-up Assistance-helper sets up or cleans up; patient completes activity. [place] assists only prior to or following the activity. 4-Supervision or Touching Assistance-helper provides verbal cues and/or touching/steadying and/or contact guard assistance as patient completes acti vity. Assistance may be provided throughout the activity or intermittently. 3-Partial/Moderate Assistance-helper does LESS THAN HALF the effort. [place] lifts, holds or supports trunk or limbs, but provides less than half the effort. 2-Substantial/Maximal Assistance-helper does MORE THAN HALF the effort. [place] lifts or holds trunk or limbs and provides more than half the effort. 8-Byjdzgsfk-apbhjx does ALL the effort. Patient does none of the effort to complete the activity. Or, the assistance of 2 or more helpers is required for the patient to complete the activity. If activity was not attempted, code reason: 7-Patient Refused. 9-Not Applicable-not attempted and the patient did not perform the activity before the current illness, exacerbation or injury. 10-Not Attempted due to Environmental Limitations-(lack of equipment, weather restraints, etc.). 88-Not Attempted due to Medical Conditions or Safety Concerns. Roll Left to Right (QC): 4 Sit to Lying (QC): 3 Sit to Stand (QC): 3 Chair/Xmx-bh-Rmlbl Xfer(QC): 4 Car Transfer (QC): 1 Gait Training Does the Patient Walk?: Yes Distance: 125' Walk 10 feet (QC): 4 Walk 50 ft with 2 Turns(QC): 4 Walk 150 ft (QC): 88 Walking 10ft/uneven surface-QC: 1 Gait Persons Needed: 1 Gait Assistive Device: FWW Wheelchair Training Does the Pt Use a Wheelchair?: Yes Distance: 100' x 1/250' x 1 Wheel 50 ft with 2 turns (QC): 4 Wheel 150 ft (QC): 4 Type of Wheelchair: Manual Stair Training #of Steps: 1 1 Step (curb) (QC): 1 (placed right foot up on step and attempted to follow with left with PT assist) 4 Steps (QC): 9 12 Steps (QC): 9 Balance Picking up an Object (QC): 88 ADL-Treatment Eating (QC): 4 Oral Hygiene (QC): 4 (Steadying assist while standing at sink to brush teeth.) Shower/Bathe Self (QC): 7 (Pt. declines showering this date.) Upper Body Dressing (QC): 3 (Mod assist overall to doff/don shirt.) Lower Body Dressing (QC): 3 (Mod assist to doff/don brief and pants. Pt. has difficulty with with left sided neglect, as well as getting right LE up far enough once left LE is in pants.) On/Off Footwear (QC): 3 (Mod assist overall with use and practice of ADL equipment. OT demonstrates and pt. practices with dressing stick, sock aide, and loader technician.) Toileting Hygiene (QC): 3 (Mod assist to cleanse rear atul area thoroughly, as well as to pull down/up pants on left side. Pt. 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 Plan: Monitor closely Fall risk Monitor BP OAC 11/30/21: Monitor closely Checked meds labs 12/01/2021: Monitor closely DOAC 12/02/21: Monitor closely 12/03/21: Monitor closely Fall risk Decrease Eliquis to 5mg PO BID 12/04/2021: Supportive care Improved status 12/05/2021: Supportive care Aggressive therapy 12/06/2021: Supportive care Monitor knee pain 12/07/2021: Supportive care Diclofenac gel on knees 12/08/21: Monitor closely Knee pain management 12/09/21: Glucose management (1) CVA, LEFT SIDED WEAKENSS (2) HLD (hyperlipidemia) Status: Chronic (3) HTN (hypertension) Status: Chronic ZURDO MARINO DO December 10, 2021 06:20
[2021-12-10] MEDS: KCL 10 MEQ TAB (MICRO K) PO SCH (06:32)
[2021-12-10] MEDS: inSUlin ASPART (NovoLOG) 1 UNIT/0.01 ML (CHARGE PER UNIT) SC SCH ×4 (06:32→20:20)
[2021-12-10 07:38] VITALS: BP 124/61
[2021-12-10] MEDS: CYANOCOBALAMIN 1,000 MCG (VITAMIN B-12) TABLET PO SCH (08:24)
[2021-12-10] MEDS: PYRIDOXINE (VITAMIN B-6) 50 MG TABLET PO SCH (08:24)
[2021-12-10] MEDS: APIXABAN 5 MG (ELIQUIS) TABLET PO SCH ×2 (08:24→20:20)
[2021-12-10] MEDS: ASPIRIN E.C. 81 MG (ECOTRIN) TAB PO SCH (08:24)
[2021-12-10] MEDS: polyethylene glycoL POWDER 17 GM (MIRALAX) PACK PO SCH ×2 (08:25→20:00)
[2021-12-10] MEDS: DICLOFENAC 1% GEL 100 GM (VOLTAREN) TUBE TOP SCH ×4 (08:25→20:20)
--- NOTE | 2021-12-10 08:29 | Cardiology Progress Note ---
Subjective Date Seen by Provider: December 10, 2021 Time Seen by Provider: 08:10 Subjective/Events-last exam Patient with PT, no new complaints. Denies any chest pain or palpitations. Objective-Cardiology Exam Last Set of Vital Signs Vital Signs 12/10/21 07:38 Temp 35.7 Pulse 74 Resp 16 B/P (MAP) 124/61 (82) Pulse Ox 93 O2 Delivery Room Air General: Alert, Oriented X3 HEENT: Atraumatic Neck: Supple Lungs: Clear to Auscultation, Normal Air Movement Heart: Regular Rate, Normal S1, Normal S2 Abdomen: Normal Bowel Sounds, Soft Extremities: No Clubbing, No Cyanosis, No Edema Skin: No Rashes, No Significant Lesion Neuro: Normal Gait, Normal Speech, Cranial Nerves 3-12 NL, Other (Left upper extremity strength is improving.) Psych/Mental Status: Mental Status NL, Mood NL A/P-Cardiology Admission Diagnosis Subacute CVA HTN Assessment/Plan Subacute CVA, CTA of the head showed 80 to 90% right ICA stenosis with possible thrombus with no identifiable source of thrombus. MRI of the head showed patchy region of acute to subacute infarction of the right parietal lobe extending to the posterior right frontal and occipital lobe. 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 No signs of mass- effect or hemorrhage. Recommendation was by [facility] stroke neurology to treat with aspirin and heparin and then progressed to aspirin and Eliquis.Currently maintained on ASA 81 mg and Eliquis 5mg BID. EKG showed sinus rhythm with premature atrial contractions. Asymptomatic. SUKHI done 11/29/21 showing trace mitral regurgitation with no shunt noted. Hypertension, controlled, continue to monitor blood pressure. Hyperlipidemia, started on Lipitor 80 mg daily. Continue to monitor Supervisory-Addendum Brief Supervisory Addendum Participated in pt care: history, MDM, physical Personally performed: exam, history, MDM Care discussed with: BROWN Results interpretation: Verified all documentation Notes: Patient was seen and evaluated with Mary, examination performed, management plan was discussed, agree with the current scribed note, I made few changes to the note using Italic font Patient was seen during physical therapy session, she was doing well Reporting significant improvement in her upper extremity strength. Continue on current medication monitor. No changes MARY SLAUGHTER December 10, 2021 08:29 NICOLE DEJESUS MD December 10, 2021 10:28
--- NOTE | 2021-12-10 08:39 | Occupational Ther Daily Note ---
OT Current Status-Daily Note Subjective Pt reluctant to participate in adls, requires encouragement. Co-treat with PT for part of session ([id number]) secondary to fatigue and need of 2 skilled clinicians to progress indep and safety in adls and mobility. Appearance Pt left sitting in gym with physical therapy present. Mental Status/Objective Patient Orientation: Person, Place ADL-Treatment Therapy Code Descriptions/Definitions Functional Dolores Measure: 0=Not Assessed/NA 4=Minimal Assistance 1=Total Assistance 5=Supervision or Setup 2=Maximal Assistance 6=Modified Dolores 3=Moderate Assistance 7=Complete IndependenceSCALE: Activities may be completed with or without assistive devices. 5-Zxgboevmxh-iivccfe completes the activity by him/herself with no assistance from a helper. 5-Set-up or Clean-up Assistance-helper sets up or cleans up; patient completes activity. [place] assists only prior to or following the activity. 4-Supervision or Touching Assistance-helper provides verbal cues and/or touching/steadying and/or contact guard assistance as patient completes activity. Assistance may be provided throughout the activity or intermittently. 3-Partial/Moderate Assistance-helper does LESS THAN HALF the effort. [place] lifts, holds or supports trunk or limbs, but provides less than half the effort. 2-Substantial/Maximal Assistance-helper does MORE THAN HALF the effort. [place] lifts or holds trunk or limbs and provides more than half the effort. 1-Sjrkqivoz-yueyym does ALL the effort. Patient does none of the effort to complete the activity. Or, the assistance of 2 or more helpers is required for the patient to complete the activity. If activity was not attempted, code reason: 7-Patient Refused. 9-Not Applicable-not attempted and the patient did not perform the activity before the current illness, exacerbation or injury. 10-Not Attempted due to Environmental Limitations-(lack of equipment, weather restraints, etc.). 88-Not Attempted due to Medical Conditions or Safety Concerns. Oral Hygiene (QC): 4 (Steadying assist while standing at sink) Shower/Bathe Self (QC): 3 Upper Body Dressing (QC): 3 Lower Body Dressing (QC): 3 On/Off Footwear: 3 (assist to initiate over toes, pt able to extract puller heel) Toileting Hygiene (QC): 3 (Mod assist to cleanse rear atul area thoroughly, as well as to pull up pants on left side.) Toilet Transfer (QC): 4 Supine>sit: SBA, extra time. Pt refuses shower, but agreeable to sponge bath with encouragement. Attempt at understanding why pt continues to refuse shower (as she reports she takes one at home), but pt unable to give valid reason. During adls, pt often will hold LUE in guarded flexed position despite having voluntary movement. Several Cues given to incorporate LUE into all functional tasks as much as possible. She ambulated to/from bathroom to complete sponge bath seated at sink. Cues to initiate washing LB. Min a needed for dynamic balance when reaching to wash below mid calf. She stood with steadying assist to wash atul area, min a to thoroughly wash buttocks. Mod cues/assist to thread sh irt sleeve over LUE and to extract puller head due to L side neglect. When donning pants, pt is able to thread LLE but requires assist to thread R secondary to reduced flexibility and balance when threading R foot. Verbal cues and min a to manage clothing, specifically to use L hand to extract puller L hip. Other Treatment Pt. seen this date for left UE coordination/strengthening as well as ADL skills. After ADL skills completed in room (please see above), pt. ambulated with walker at slow pace to therapy gym. 2 sitting rest breaks needed. Cues to advance and garbage pick up worker left foot throughout gait as well as cues for attenti on/awareness to L side for object avoidance. Co-treat with PT due to pt's fatigue level and need of skilled treatment to ambulate back to room and toilet. PT assessed gait and OT worked on left sided awareness, safety and cues. Pt. will often run into doorways and chairs with walker on left side. While in gym, pt stood to complete several task with focus on improving LUE ROM, awareness, coordination/dexterity, balance, safety, cognition and functional reaching in multiple planes. OT strategically placed clothespins on back of pt's pants/shirt to simulate task such as clothing management and atul care. Mod a needed for shoulder extension and intermittent HOHA for initial pinch. Pt often will report that she can feel the clothespin but will then pass right by it with her hand. Pt also flipped cards over with L hand and placed into pile with matching suit. Cues to garbage pick up worker L hand as she often would slide it across the table, thus spreading cards throughout. Cues to widen LALA for improved balance. No LOB during task but intermittent min a needed for safety. Min a needed under L elbow when reaching overhead or as fatigue increases secondary to weakness and limited AROM. Education OT Patient Education: Correct positioning, Energy conservation, Modified ADL techniques, Progress toward Goal/Update tx plan, Purpose of tx/functional activities, Reviewed precautions, Rehab process, Safety issues, Transfer techniques, W/C management Teaching Recipient: Patient Teaching Methods: Demonstration, Discussion Response to Teaching: Verbalize Understanding, Return Demonstration, Reinforcement Needed OT Short Term Goals Short Term Goals Time Frame: Dec 13, 2021 Eatin Oral hygiene: 5 Toileting hygiene: 2 Shower/bathe self: 3 Upper body dressin Lower body dressin Putting on/taking off footwear: 2 OT Car Sales Representative Goals Car Sales Representative Goals Time Frame: Dec 27, 2021 Eating (QC): 5 Oral Hygiene (QC): 6 Toileting Hygiene (QC): 6 Shower/Bathe Self (QC): 4 Upper Body Dressing (QC): 5 Lower Body Dressing (QC): 4 On/Off Footwear (QC): 4 1=Demonstrate adherence to instructed precautions during ADL tasks. 2=Patient will verbalize/demonstrate understanding of assistive devices/mo difications for ADL. 3=Patient will improve strength/tolerance for activity to enable patient to perform ADL's. OT Education/Plan Problem List/Assessment Assessment: Decreased Activ Tolerance, Decreased Safety Aware, Decreased UE Strength, Impaired Cognition, Impaired Coordination, Impaired Funct Balance, Impaired I ADL's, Impaired Self-Care Skills, Restricted Funct UE ROM Discharge Recommendations Plan/Recommendations: Continue POC Treatment Plan/Plan of Care Treatment,Training & Education: Yes Patient would benefit from OT for education, treatment and training to promote independence in ADL's, mobility, safety and/or upper extremity function for ADL's. Plan of Care: ADL Retraining, Cognitive Retraining, Functional Mobility, Group Exercise/Act as Ind, UE Funct Exercise/Act, UE Neuromus Re-Ed/Coord, Visual/Perceptual Retrain, W/C Management Training Treatment Duration: Dec 27, 2021 Frequency: At least 5 of 7 days/Wk (IRF) Estimated Hrs Per Day: 1.5 hours per day Agreement: Yes Rehab Potential: Good Time/GCodes Start Time: 07:25 Stop Time: 08:40 Total Time Billed (hr/min): 75 Billed Treatment Time 1 visit ADL x3 (40 min) FA x2 (35 min) Kim Shannon OT December 10, 2021 08:39
--- NOTE | 2021-12-10 09:46 | Physical Therapy Daily Note ---
PT Daily Note-Current Subjective Pt working with OT upon arrival. Pt agrees to PT. Pain Location: Right, Left Location Body Site: Knee Pain Description: Ache Comment: Reports arthritis but not rated Mental Status Patient Orientation: Person, Place Transfers SCALE: Activities may be completed with or without assistive devices. 2-Ttjmxqsvtx-htdceko completes the activity by him/herself with no assistance from a helper. 5-Set-up or Clean-up Assistance-helper sets up or cleans up; patient completes activity. [place] assists only prior to or following the activity. 4-Supervision or Touching Assistance-helper provides verbal cues and/or touching/steadying and/or contact guard assistance as patient completes activity. Assistance may be provided throughout the activity or intermittently. 3-Partial/Moderate Assistance-helper does LESS THAN HALF the effort. [place] lifts, holds or supports trunk or limbs, but provides less than half the effort. 2-Substantial/Maximal Assistance-helper does MORE THAN HALF the effort. [place] lifts or holds trunk or limbs and provides more than half the effort. 2-Cgfbaelpa-yczgbp does ALL the effort. Patient does none of the effort to complete the activity. Or, the assistance of 2 or more helpers is required for the patient to complete the activity. If activity was not attempted, code reason: 7-Patient Refused. 9-Not Applicable-not attempted and the patient did not perform the activity before the current illness, exacerbation or injury. 10-Not Attempted due to Environmental Limitations-(lack of equipment, weather restraints, etc.). 88-Not Attempted due to Medical Conditions or Safety Concerns. Sit to Lying (QC): 4 Sit to Stand (QC): 4 Weight Bearing Full Weight Bearing Full Weight Bearing Gait Training Does the Patient Walk?: Yes Distance: 125' x2 Walk 10 feet (QC): 4 Walk 50 ft with 2 Turns(QC): 4 Gait Persons Needed: 1 Gait Assistive Device: FWW Demonstrates L side neglect, VC for scanning and prevention of running into item s Exercises Seated Therapy Exercises: Sit to stand NuStep Minutes: 10 NuStep Workload: 3 Treatments Co-treat with PT for part of session ([id number]) secondary to fatigue and need of 2 skilled clinicians to progress indep and safety in adls and mobility. Pt. ambulated with walker at slow pace to therapy gym. 2 sitting rest breaks needed. Cues to advance and peanut picker left foot throughout gait as well as cues for attention/awareness to L side for object avoidance. Co-treat with PT due to pt's fatigue level and need of skilled treatment to ambulate back to room and toilet. PT assessed gait and OT worked on left sided awareness, safety and cues. Pt. will often run into doorways and chairs with walker on left side. While in gym, pt stood to complete several task with focus on improving LUE ROM, awareness, coordination/dexterity, balance, safety, cognition and functional reaching in multiple planes. OT strategically placed clothespins on back of pt's pants/shirt to simulate task such as clothing management and atul care. Mod a needed for shoulder extension and intermittent HOHA for initial pinch. Pt often will report that she can feel the clothespin but will then pass right by it with her hand. Pt also flipped cards over with L hand and placed into pile with matching suit. Cues to peanut picker L hand as she often would slide it across the table, thus spreading cards throughout. Cues to widen LALA for improved balance. No LOB during task but intermittent min a needed for safety. Min a needed under L elbow when reaching overhead or as fatigue increases secondary to weakness and limited AROM. OT departs at this time. ([id number]) After extended RB, pt uses NuStep w/several RB. Pt amb. in hallway before returning to room. Pt declines need for BR at this time. Pt asks to rest in bed. TF to Supine in bed and positioned to comfort. All needs met, call light in hand. Assessment Current Status: Fair Progress Fatigues easily and needs frequent RB. Still demonstrates L side neglect, needing VC for sequencing and safety. PT Short Term Goals Short Term Goals Time Frame: Dec 14, 2021 Roll Left & Right: 4 Sit to lyin Lying to sitting on side of be: 4 Sit to stand: 3 Chair/psf-hh-ilmqc transfer: 3 Toilet transfer: 3 Car transfer: 3 Walk 10 feet: 3 Walk 50 feet with two turns: 3 Does pt use a wc or scooter: Yes Wheel 50ft w/2 turns: 4 Wheel 150 feet: 4 Type: Manual PT Field Administrator Goals Prison Goals PT Prison Goals Time Frame: Dec 28, 2021 Roll Left & Right (QC): 6 Sit to Lying (QC): 6 Lying-Sitting on Side/Bed(QC): 6 Sit to Stand (QC): 4 Chair/Yey-rx-Znocu Xfer(QC): 4 Toilet Transfer (QC): 4 Car Transfer (QC): 4 Does the Patient Walk: Yes Walk 10 feet (QC): 4 Walk 50ft with 2 Turns (QC): 4 Walk 150 ft (QC): 4 Walking 10ft on Uneven Surface: 4 1 Step (curb) (QC): 3 4 Steps (QC): 9 12 Steps (QC): 9 Picking up an Object (QC): 3 Wheel 50 feet with 2 turns (QC: 5 Wheel 150 feet: 5 Type: Manual PT Plan Problem List Problem List: Activity Tolerance, Functional Strength, Safety Treatment/Plan Treatment Plan: Continue Plan of Care Treatment Plan: Bed Mobility, Concurrent Therapy, Education, Functional Activity Seema, Functional Strength, Group Therapy, Gait, Safety, Therapeutic Exercise, Transfers Treatment Duration: Dec 28, 2021 Frequency: At least 5 of 7 days/Wk (IRF) Estimated Hrs Per Day: 1.5 hours per day Patient and/or Family Agrees t: Yes Safety Risks/Education Patient Education: Gait Training, Transfer Techniques, Correct Positioning, Safety Issues Teaching Recipient: Patient Teaching Methods: Discussion Response to Teaching: Reinforcement Needed Time/GCodes Time In: 810 Time Out: 925 Total Billed Treatment Time: 75 Total Billed Treatment Co-treat w/OT ([id number]) 1, FA x2 (30m), GT (20m) & EX x2 (25m) GHAZALA BARRAGAN FINISHER [employer] DIES December 10, 2021 09:46
[2021-12-10] MEDS: SENNA W/DOCUSATE (SENOKOT S) TABLET PO SCH ×3 (10:06→20:00)
[2021-12-10] MEDS: DOCUSATE SODIUM 100 MG (COLACE) CAP PO SCH ×2 (10:08→20:00)
[2021-12-10] MEDS: MICONAZOLE NITRATE 2% CRM 30 GM TP SCH ×2 (10:13→20:20)
--- NOTE | 2021-12-10 11:59 | Speech Therapy Daily Note ---
Speech Daily Progress Note Subjective Date Seen by Provider: December 10, 2021 Time Seen by Provider: 09:30 The patient was lying in bed, awake and alert upon entrance to her room by the clinician. The patient greeted the clinician appropriately and was agreeable to participation in the cognitive linguistic treatment session. Objective Prior to the session, the clinician discussed the patient's progress with the treating OT and PT. The clinicians shared the patient displays difficulty with left neglect, functional problem solving, and functional sequencing (the process of dressing herself, etc.). - The clinician addressed functional sequencing with the patient. She continues to defer the exercise, stating she is "doing good, it just takes longer." With mild cueing, the patient was able to sequence adequate steps to dress verbally. - The clinician additionally addressed the patient's left neglect. Per patient, "I see the stuff and the girls tell me to watch out but I never really hit any of it." The clinician discussed the importance of safety and why the left neglect could be a safety issue upon discharge. The patient verbalized comprehension, however, continued review and left attention tasks remain necessary. Assessment Assessment Current Status: Fair Progress Treatment Plan Continue Plan of Care Speech Short Term Goals Short Term Goals Short Term Goals The patient will demonstrate 90% accuracy with memory and functional problem solving with mild clinician verbal and visual cueing. Speech Superintendent Transmission Goals [facility] Goals The patient will demonstrate improve cognitive linguistic skills for safe discharge to the least restricted environment. Speech-Plan Treatment Plan Speech Therapy Treatment Plan: Continue Plan of Care Treatment Duration: Dec 20, 2021 Frequency: Modified Program (IRF) Estimated Hrs Per Day: Other Rehab Potential: Good Safety Risks/Education Teaching Recipient: Patient Teaching Methods: Demonstration, Discussion Response to Teaching: Verbalize Understanding, Reinforcement Needed Education Topics Provided: Left Neglect Strategies, Functional Sequencing Time Speech Therapy Time In: 09:30 Speech Therapy Time Out: 10:00 Total Billed Time: 30 Billed Treatment Time 1RADHA ELIZABETH ST December 10, 2021 11:59
[2021-12-10 20:02] VITALS: BP 125/74
[2021-12-10] MEDS: lisINopril 10 MG (PRINIVIL) TABLET PO SCH (20:20)
[2021-12-10] MEDS: SIMvastatin 40 MG (ZOCOR) TAB PO SCH (20:20)
[2021-12-10] MEDS: meTOprolol SUCCINATE 100 MG (TOPROL XL) TAB PO SCH (20:20)
[2021-12-11] MEDS: KCL 10 MEQ TAB (MICRO K) PO SCH (06:31)
[2021-12-11] MEDS: inSUlin ASPART (NovoLOG) 1 UNIT/0.01 ML (CHARGE PER UNIT) SC SCH ×4 (06:31→20:53)
--- NOTE | 2021-12-11 06:42 | PM&R Progress Note ---
Subjective HPI/CC On Admission Date Seen by Provider: Dec 11, 2021 Time Seen by Provider: 11:00 Subjective/Events-last exam 12/11/2021: Pt is about the same Cognitively she doesn't realize how much she can't really do effectively Unsure if she will be able to return back to her apartment and live on her own Overall feels like she is doing okay otherwise 12/10/21: Pt is doing a lot better Denies any pain Diclofenac gel for the knees is helping Increased product manager financial services with the left arm 12/09/21: Patient sleeps most of the time Left hand is 3/4 back to baseline per patient report No pain reported BM+ Sugars are high so added hga1c and SSI/ACHS accuchecks 12/08/21: Patient doing well Sleeps a lot No pain reported 12/07/21: Patient doing really well No major concerns Eating and drinking well Regaining of left-sided weakness improved 12/06/21: Pt having a lot of knee pain so will initiate Diclofenac gel Overall moving around well Dramatic improvement since admission 12/05/2021: Pt doing really well Bowels moved today Tired Discontinuing telemetry Overall dramatic improvement 12/04/2021: Pt is doing really well Sleeping currently Left hand and left arm moving a lot better Overall much improved status 12/03/21: Patient improved Left hand improved No pain reported BM+ Eating well 12/02/2021: Patient doing well Left hand and arm moving well No pain reported Upbeat attitude 12/01/2021: Patient doing very well today Moving left arm and hand really well Family at bedside No pain 11/30/2021: Patient doing well Confusion noted Left sided weakness but can move her arm now Working with PT OT Reviewed labs Reviewed meds Review of Systems Neurological: Weakness, Incoordination Objective Exam Vital Signs Vital Signs Date Time Temp Pulse Resp B/P (MAP) Pulse Ox O2 Delivery O2 Flow Rate FiO2 12/11/21 20:03 Room Air 12/11/21 19:42 36.4 83 18 129/69 (89) 93 Capillary Refill : General Appearance: No Apparent Distress, WD/WN, Chronically ill HEENT: PERRL/EOMI, Normal ENT Inspection, Pharynx Normal Neck: Full Range of Motion, Normal Inspection, Non Tender, Supple, Carotid Bruit Respiratory: Chest Non Tender, Lungs Clear, Normal Breath Sounds, No Accessory Muscle Use, No Respiratory Distress Cardiovascular: Regular Rate, Rhythm, No Edema, No Gallop, No JVD, No Murmur, Normal Peripheral Pulses Gastrointestinal: Normal Bowel Sounds, No Organomegaly, No Pulsatile Mass, Non Tender, Soft Back: Normal Inspection, No CVA Tenderness, No Vertebral Tenderness Extremity: Normal Capillary Refill, Normal Inspection, Normal Range of Motion (except left side), Non Tender, No Calf Tenderness, No Pedal Edema Neurologic/Psychiatric: Alert, Oriented x3, Normal Mood/Affect, criminal justice teacher II-XII Norm as Tested, Motor Weakness (left sided 2/5) Skin: Normal Color, Warm/Dry Lymphatic: No Adenopathy Results/Procedures Lab Patient resulted labs reviewed. FIM Transfers Therapy Code Descriptions/Definitions Functional [place] Measure: 0=Not Assessed/NA 4=Minimal Assistance 1=Total Assistance 5=Supervision or Setup 2=Maximal Assistance 6=Modified [place] 3=Moderate Assistance 7=Complete IndependenceSCALE: Activities may be completed with or without assistive devices. 2-Tyxcvpdrgi-jubyhub completes the activity by him/herself with no assistance from a helper. 5-Set-up or Clean-up Assistance-helper sets up or cleans up; patient completes activity. [place] assists only prior to or following the activity. 4-Supervision or Touching Assistance-helper provides verbal cues and/or touching/steadying and/or contact guard assistance as patient completes activity. Assistance may be provided throughout the activity or intermittently. 3-Partial/Moderate Assistance-helper does LESS THAN HALF the effort. [place] lifts, holds or supports trunk or limbs, but provides less than half the effort. 2-Substantial/Maximal Assistance-helper does MORE THAN HALF the effort. [place] l ifts or holds trunk or limbs and provides more than half the effort. 5-Glksuppdz-gmukqd does ALL the effort. Patient does none of the effort to complete the activity. Or, the assistance of 2 or more helpers is required for the patient to complete the activity. If activity was not attempted, code reason: 7-Patient Refused. 9-Not Applicable-not attempted and the patient did not perform the activity before the current illness, exacerbation or injury. 10-Not Attempted due to Environmental Limitations-(lack of equipment, weather restraints, etc.). 88-Not Attempted due to Medical Conditions or Safety Concerns. Roll Left to Right (QC): 4 Sit to Lying (QC): 4 Sit to Stand (QC): 4 Chair/Izt-qd-[place] Xfer(QC): 4 Car Transfer (QC): 1 Gait Training Does the Patient Walk?: Yes Distance: 125' x2 Walk 10 feet (QC): 4 Walk 50 ft with 2 Turns(QC): 4 Walk 150 ft (QC): 88 Walking 10ft/uneven surface-QC: 1 Gait Persons Needed: 1 Gait Assistive Device: FWW Wheelchair Training Does the Pt Use a Wheelchair?: Yes Distance: 100' x 1/250' x 1 Wheel 50 ft with 2 turns (QC): 4 Wheel 150 ft (QC): 4 Type of Wheelchair: Manual Stair Training #of Steps: 1 1 Step (curb) (QC): 1 (placed right foot up on step and attempted to follow with left with PT assist) 4 Steps (QC): 9 12 Steps (QC): 9 Balance Picking up an Object (QC): 88 ADL-Treatment Eating (QC): 4 Oral Hygiene (QC): 4 (Steadying assist while standing at sink) Shower/Bathe Self (QC): 3 Upper Body Dressing (QC): 3 Lower Body Dressing (QC): 3 On/Off Footwear (QC): 3 (assist to initiate over toes, pt able to pull out operator heel) Toileting Hygiene (QC): 3 (Mod assist to cleanse rear atul area thoroughly, as well as to pull up pants on left side.) Toilet Transfer (QC): 4 Assessment/Plan Assessment and Plan Assess & Plan/Chief Complaint Assessment: 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 Debility Fall risk Hypertension Hyperlipidemia Advanced age DM hemoglobin A1c 6.9 new diagnosis Plan: Monitor closely Fall risk Monitor BP OAC 11/30/21: Monitor closely Checked meds labs 12/01/2021: Monitor closely DOAC 12/02/21: Monitor closely 12/03/21: Monitor closely Fall risk Decrease Eliquis to 5mg PO BID 12/04/2021: Supportive care Improved status 12/05/2021: Supportive care Aggressive therapy 12/06/2021: Supportive care Monitor knee pain 12/07/2021: Supportive care Diclofenac gel on knees 12/08/21: Monitor closely Knee pain management 12/09/21: Glucose management 12/11/2021: Supportive care Continue aggressive rehab (1) CVA, LEFT SIDED WEAKENSS (2) HLD (hyperlipidemia) Status: Chronic (3) HTN (hypertension) Status: Chronic ZURDO MARINO DO Dec 11, 2021 06:42
[2021-12-11 07:35] VITALS: BP 148/67
--- NOTE | 2021-12-11 08:51 | Occupational Ther Daily Note ---
OT Current Status-Daily Note Subjective Pt denies pain, agreeable to treatment. Co-treat with PT for part of session ([id number]) secondary to fatigue, poor safety, high fall risk and need of 2 skilled clinicians to progress indep and safety with adls and functional mobility. Appearance Pt left sitting in therapy gym with physical therapy present. Mental Status/Objective Patient Orientation: Person, Place ADL-Treatment Therapy Code Descriptions/Definitions Functional [place] Measure: 0=Not Assessed/NA 4=Minimal Assistance 1=Total Assistance 5=Supervision or Setup 2=Maximal Assistance 6=Modified [place] 3=Moderate Assistance 7=Complete IndependenceSCALE: Activities may be completed with or without assistive devices. 9-Qkcsibvskl-awxwxec completes the activity by him/herself with no assistance from a helper. 5-Set-up or Clean-up Assistance-helper sets up or cleans up; patient completes activity. [place] assists only prior to or following the activity. 4-Supervision or Touching Assistance-helper provides verbal cues and/or touching/steadying and/or contact guard assistance as patient completes activity. Assistance may be provided throughout the activity or intermittently. 3-Partial/Moderate Assistance-helper does LESS THAN HALF the effort. [place] lifts, holds or supports trunk or limbs, but provides less than half the effort. 2-Substantial/Maximal Assistance-helper does MORE THAN HALF the effort. [place] lifts or holds trunk or limbs and provides more than half the effort. 8-Crdnohzzl-kivria does ALL the effort. Patient does none of the effort to complete the activity. Or, the assistance of 2 or more helpers is required for the patient to complete the activity. If activity was not attempted, code reason: 7-Patient Refused. 9-Not Applicable-not attempted and the patient did not perform the activity before the current illness, exacerbation or injury. 10-Not Attempted due to Environmental Limitations-(lack of equipment, weather restraints, etc.). 88-Not Attempted due to Medical Conditions or Safety Concerns. Oral Hygiene (QC): 4 (Steadying assist while standing at sink) On/Off Footwear: 3 (Assist to initiate over toes, pt able to pulley mortiser operator heel) Toileting Hygiene (QC): 3 (Mod a overall. Assist to manage clothing over L hip and min a for thoroughness post atul care.) Toilet Transfer (QC): 4 (Cues to utilize grab bar) Pt supine in bed at OT arrival. She refuses shower and changing clothes this date. Pt with very poor insight into deficits and believes that she has no difficulty managing adls. Education/discussion on hygiene and practicing for improved independence in task. With encouragement, pt agreeable to shower tomorrow. Supine>sit: SBA, extra time. Sit<>stand: CGA, consistent cues with correct hand placement throughout treatment, poor follow through. At times, pt requires 2-3 attempts to come to full standing but no physical assistance required. She ambulated to/from bathroom with CGA and use of walker. Slow gait, cues to pick L foot up, upright posture, and safety with object avoidance. She stood at sink for grooming tasks, steadying assist only. Other Treatment Pt ambulated to/from therapy gym, 2 seated rest breaks needed due to fatigue.PT assessed gait and OT worked on left sided awareness, safety and cues. No LOB however pt continues to be a fall risk secondary to poor L foot awareness and dragging foot at times. While in gym, pt participated in several activities with focus on promoting increased fine motor coordination, dexterity, balance, L side awareness, problem solving, shoulder ROM, functional reach and supervisor cold rolling/pinch strength. Pt is able to grasp small pegs but requires extra time to position into slots. Due to weak supervisor cold rolling, assist needed at times to fasten/unfasten PVC pipes. Mod cues for problem solving through PVC pipe design, appears to have impaired visual perception skills. No LOB when standing throughout tasks, however pt fatigues quickly and requires several seated rest breaks. Cues/education on energy conservation strategies and improving LALA during functional tasks. While supine, pt participated in A/AROM exercises with dowel leda. Exercises included shoulder press, chest press, front raise, and bicep curl. OT facilitated scapula mobilizations including elevation/depression and protraction/retraction with goal to increase active shoulder ROM. Isometric exercises at elbow/shoulder 8x1, 5 sec holds. Good tolerance throughout exercises. Education OT Patient Education: Correct positioning, Energy conservation, Exercise program, Modified ADL techniques, Progress toward Goal/Update tx plan, Purpose of tx/functional activities, Reviewed precautions, Rehab process, Safety issues, Transfer techniques Teaching Recipient: Patient Teaching Methods: Demonstration, Discussion Response to Teaching: Verbalize Understanding, Return Demonstration, Reinforcement Needed OT Short Term Goals Short Term Goals Time Frame: Dec 13, 2021 Eatin Oral hygiene: 5 Toileting hygiene: 2 Shower/bathe self: 3 Upper body dressin Lower body dressin Putting on/taking off footwear: 2 OT City Dispatch Supervisor Goals Detention Goals Time Frame: Dec 27, 2021 Eating (QC): 5 Oral Hygiene (QC): 6 Toileting Hygiene (QC): 6 Shower/Bathe Self (QC): 4 Upper Body Dressing (QC): 5 Lower Body Dressing (QC): 4 On/Off Footwear (QC): 4 1=Demonstrate adherence to instructed precautions during ADL tasks. 2=Patient will verbalize/demonstrate understanding of assistive devices/m odifications for ADL. 3=Patient will improve strength/tolerance for activity to enable patient to perform ADL's. OT Education/Plan Problem List/Assessment Assessment: Decreased Activ Tolerance, Decreased Safety Aware, Decreased UE Strength, Impaired Cognition, Impaired Coordination, Impaired Funct Balance, Impaired I ADL's, Impaired Self-Care Skills, Restricted Funct UE ROM, Visual- Perceptual Deficit Discharge Recommendations Plan/Recommendations: Continue POC Treatment Plan/Plan of Care Treatment,Training & Education: Yes Patient would benefit from OT for education, treatment and training to promote independence in ADL's, mobility, safety and/or upper extremity function for ADL's. Plan of Care: ADL Retraining, Cognitive Retraining, Functional Mobility, Group Exercise/Act as Ind, UE Funct Exercise/Act, UE Neuromus Re-Ed/Coord, Visual/Perceptual Retrain, W/C Management Training Treatment Duration: Dec 27, 2021 Frequency: At least 5 of 7 days/Wk (IRF) Estimated Hrs Per Day: 1.5 hours per day Agreement: Yes Rehab Potential: Good Time/GCodes Start Time: 07:30 Stop Time: 08:45 Total Time Billed (hr/min): 75 Billed Treatment Time 1 visit ADL (20 min) Ex x2 (25 min) FA x2 (30 min) Kim Shannon OT Dec 11, 2021 08:51
[2021-12-11] MEDS: PYRIDOXINE (VITAMIN B-6) 50 MG TABLET PO SCH (09:22)
[2021-12-11] MEDS: CYANOCOBALAMIN 1,000 MCG (VITAMIN B-12) TABLET PO SCH (09:22)
[2021-12-11] MEDS: ASPIRIN E.C. 81 MG (ECOTRIN) TAB PO SCH (09:22)
[2021-12-11] MEDS: DOCUSATE SODIUM 100 MG (COLACE) CAP PO SCH ×2 (09:22→19:17)
[2021-12-11] MEDS: SENNA W/DOCUSATE (SENOKOT S) TABLET PO SCH ×2 (09:23→19:18)
[2021-12-11] MEDS: APIXABAN 5 MG (ELIQUIS) TABLET PO SCH ×2 (09:23→19:59)
[2021-12-11] MEDS: MICONAZOLE NITRATE 2% CRM 30 GM TP SCH ×2 (09:24→19:53)
[2021-12-11] MEDS: DICLOFENAC 1% GEL 100 GM (VOLTAREN) TUBE TOP SCH ×4 (09:24→20:00)
[2021-12-11] MEDS: polyethylene glycoL POWDER 17 GM (MIRALAX) PACK PO SCH ×2 (09:25→19:17)
--- NOTE | 2021-12-11 09:28 | Cardiology Progress Note ---
Subjective Date Seen by Provider: Dec 11, 2021 Time Seen by Provider: 08:10 Subjective/Events-last exam Patient is with PT, no new complaints. Denies any chest pain or palpitations. Review of Systems General: No Chills, No Night Sweats, No Fatigue, No Malaise, No Appetite, No Other HEENT: No Head Aches, No Visual Changes, No Eye Pain, No Ear Pain, No Dysphasia, No Sinus Congestion, No Post Nasal Drip, No Sore Throat, No Other Pulmonary: No Dyspnea, No Cough, No Pleuritic Chest Pain, No Other Cardiovascular: No: Chest Pain, Palpitations, Orthopnea, Paroxysmal Noc. Dyspnea, Edema, Lt Headedness, Other Objective-Cardiology Exam Last Set of Vital Signs Vital Signs 12/11/21 12/11/21 07:35 09:20 Temp 36.0 Pulse 73 Resp 73 B/P (MAP) 148/67 (94) Pulse Ox 93 O2 Delivery Room Air General: Alert, Oriented X3 HEENT: Atraumatic Neck: Supple Lungs: Clear to Auscultation, Normal Air Movement Heart: Regular Rate, Normal S1, Normal S2 Abdomen: Normal Bowel Sounds, Soft Extremities: No Clubbing, No Cyanosis, No Edema Skin: No Rashes, No Significant Lesion Neuro: Normal Gait, Normal Speech, Cranial Nerves 3-12 NL, Other (Left upper extremity strength is improving.) Psych/Mental Status: Mental Status NL, Mood NL A/P-Cardiology Admission Diagnosis Subacute CVA HTN Assessment/Plan Subacute CVA, CTA of the head showed 80 to 90% right ICA stenosis with possible thrombus with no identifiable source of thrombus. MRI of the head showed patchy region of acute to subacute infarction of the right parietal lobe extending to the posterior right frontal and occipital lobe. 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 No signs of mass- effect or hemorrhage. Recommendation was by [facility] stroke neurology to treat with aspirin and heparin and then progressed to aspirin and Eliquis.Currently maintained on ASA 81 mg and Eliquis 5mg BID. EKG showed sinus rhythm with premature atrial contractions. Asymptomatic. SUKHI done 11/29/21 showing trace mitral regurgitation with no shunt noted. Hypertension, controlled, continue to monitor blood pressure. Hyperlipidemia, started on Lipitor 80 mg daily. Continue to monitor Supervisory-Addendum Brief Supervisory Addendum Participated in pt care: history, MDM, physical Personally performed: exam, history, MDM Care discussed with: BROWN Results interpretation: Verified all documentation Notes: Patient was seen and evaluated with Mary, examination performed, management plan was discussed, agree with the current scribed note, I made few changes to the note using Italic font Patient was seen at bedside, laying down comfortably, feeling better Reporting improvement in her muscle strength Will continue with physical therapy and continue to monitor MARY SLAUGHTER Dec 11, 2021 09:28 NICOLE DEJESUS MD Dec 11, 2021 11:10
--- NOTE | 2021-12-11 09:31 | Physical Therapy Daily Note ---
PT Daily Note-Current Subjective Pt sitting in Therapy Gym working w/OT upon arrival. Pt agrees to PT/OT co- treat. Pain Location: Left Location Body Site: Knee Pain Description: Ache Comment: Reports arthritis pain in L knee but doesn't rate Mental Status Patient Orientation: Person, Place Transfers SCALE: Activities may be completed with or without assistive devices. 7-Tfcrcdnbtn-fkdsios completes the activity by him/herself with no assistance from a helper. 5-Set-up or Clean-up Assistance-helper sets up or cleans up; patient completes activity. [place] assists only prior to or following the activity. 4-Supervision or Touching Assistance-helper provides verbal cues and/or touching/steadying and/or contact guard assistance as patient completes activity. Assistance may be provided throughout the activity or intermittently. 3-Partial/Moderate Assistance-helper does LESS THAN HALF the effort. [place] lifts, holds or supports trunk or limbs, but provides less than half the effort. 2-Substantial/Maximal Assistance-helper does MORE THAN HALF the effort. [place] lifts or holds trunk or limbs and provides more than half the effort. 7-Qknhwoaiy-wrghlk does ALL the effort. Patient does none of the effort to complete the activity. Or, the assistance of 2 or more helpers is required for the patient to complete the activity. If activity was not attempted, code reason: 7-Patient Refused. 9-Not Applicable-not attempted and the patient did not perform the activity before the current illness, exacerbation or injury. 10-Not Attempted due to Environmental Limitations-(lack of equipment, weather restraints, etc.). 88-Not Attempted due to Medical Conditions or Safety Concerns. Sit to Stand (QC): 4 Weight Bearing Full Weight Bearing Full Weight Bearing Gait Training Does the Patient Walk?: Yes Distance: 125' Walk 10 feet (QC): 5 Walk 50 ft with 2 Turns(QC): 4 Walk 150 ft (QC): 4 Gait Persons Needed: 1 Gait Assistive Device: FWW Exercises Seated Therapy Exercises: Ankle pumps, Long arc quads, Hip flexion, Hip abd/add, Glut set Seated Reps: 15 NuStep Minutes: 10 NuStep Workload: 3 Treatments Co-treat with PT for part of session ([id number]) secondary to fatigue, poor safety, high fall risk and need of 2 skilled clinicians to progress indep and safety with adls and functional mobility. PT assessed gait and OT worked on left sided awareness, safety and cues. No LOB however pt continues to be a fall risk secondary to poor L foot awareness and dragging foot at times. While in gym, pt participated in several activities with focus on promoting increased fine motor coordination, dexterity, balance, L side awareness, problem solving, shoulder ROM, functional reach and cab supervisor/pinch strength. Pt is able to grasp small pegs but requires extra time to position into slots. Due to weak cab supervisor, assist needed at times to fasten/unfasten PVC pipes. OT departs as PT continues to work w/pt. ([id number]) Pt uses NuStep then takes short RB before Seated EX in chair. Pt amb. in hallway before returning to room to rest Supine in bed. All needs met, call light in hand. Assessment Current Status: Fair Progress Mod cues for problem solving through PVC pipe design, appears to have impaired visual perception skills. No LOB when standing throughout tasks, however pt fatigues quickly and requires several seated rest breaks. Cues/education on energy conservation strategies and improving LALA during functional tasks. PT Short Term Goals Short Term Goals Time Frame: Dec 14, 2021 Roll Left & Right: 4 Sit to lyin Lying to sitting on side of be: 4 Sit to stand: 3 Chair/utw-qe-mnvth transfer: 3 Toilet transfer: 3 Car transfer: 3 Walk 10 feet: 3 Walk 50 feet with two turns: 3 Does pt use a wc or scooter: Yes Wheel 50ft w/2 turns: 4 Wheel 150 feet: 4 Type: Manual PT Fdc Goals Fdc Goals PT Fdc Goals Time Frame: Dec 28, 2021 Roll Left & Right (QC): 6 Sit to Lying (QC): 6 Lying-Sitting on Side/Bed(QC): 6 Sit to Stand (QC): 4 Chair/Ypw-ch-Xrpdl Xfer(QC): 4 Toilet Transfer (QC): 4 Car Transfer (QC): 4 Does the Patient Walk: Yes Walk 10 feet (QC): 4 Walk 50ft with 2 Turns (QC): 4 Walk 150 ft (QC): 4 Walking 10ft on Uneven Surface: 4 1 Step (curb) (QC): 3 4 Steps (QC): 9 12 Steps (QC): 9 Picking up an Object (QC): 3 Wheel 50 feet with 2 turns (QC: 5 Wheel 150 feet: 5 Type: Manual PT Plan Problem List Problem List: Activity Tolerance, Safety, Transfer VC for proper TF technique. Treatment/Plan Treatment Plan: Continue Plan of Care Treatment Plan: Bed Mobility, Concurrent Therapy, Education, Functional Activity Seema, Functional Strength, Group Therapy, Gait, Safety, Therapeutic Exercise, Transfers Treatment Duration: Dec 28, 2021 Frequency: At least 5 of 7 days/Wk (IRF) Estimated Hrs Per Day: 1.5 hours per day Patient and/or Family Agrees t: Yes Safety Risks/Education Patient Education: Transfer Techniques, Correct Positioning, Safety Issues Teaching Recipient: Patient Teaching Methods: Discussion Response to Teaching: Verbalize Understanding Time/GCodes Time In: 815 Time Out: 930 Total Billed Treatment Time: 75 Total Billed Treatment ([id number]) Co-treat w/OT for 30m & 45m PT Indiv. 1, FA x2 (30m) & EX x2 (30m) & GT (15m) GHAZALA BARRAGAN [employer] AND SAL[employer] RECORD SUPERVISOR Dec 11, 2021 09:31
--- NOTE | 2021-12-11 09:59 | Speech Therapy Daily Note ---
Speech Daily Progress Note Subjective Date Seen by Provider: Dec 11, 2021 Time Seen by Provider: 09:30 The patient was lying in bed, awake and alert upon entrance to her room by the clinician. The patient greeted the clinician appropriately and was agreeable to participation in the cognitive linguistic treatment session. Objective - KAIA (Assessment of Language-Related Functional Activities): The patient initi ated the KAIA on this date, completing the sections of "Solving Daily Math Problems" with 70% accuracy and "Understanding Medicine Labels" with 70% accuracy and mild clinician verbal cueing. Assessment Assessment Current Status: Fair Progress Treatment Plan Continue Plan of Care Speech Short Term Goals Short Term Goals Short Term Goals The patient will demonstrate 90% accuracy with memory and functional problem solving with mild clinician verbal and visual cueing. Speech Emergency Detail Driver Goals Emergency Detail Driver Goals The patient will demonstrate improve cognitive linguistic skills for safe discharge to the least restricted environment. Speech-Plan Treatment Plan Speech Therapy Treatment Plan: Continue Plan of Care Treatment Duration: Dec 20, 2021 Frequency: Modified Program (IRF) Estimated Hrs Per Day: Other Rehab Potential: Good Safety Risks/Education Teaching Recipient: Patient Teaching Methods: Demonstration, Discussion Response to Teaching: Verbalize Understanding, Return Demonstration Education Topics Provided: Organizing Daily Medication (Pill Box) Time Speech Therapy Time In: 09:30 Speech Therapy Time Out: 10:00 Total Billed Time: 30 Billed Treatment Time RADHA Escobedo [facility] Dec 11, 2021 09:59
[2021-12-11 19:42] VITALS: BP 129/69
[2021-12-11] MEDS: lisINopril 10 MG (PRINIVIL) TABLET PO SCH (19:58)
[2021-12-11] MEDS: SIMvastatin 40 MG (ZOCOR) TAB PO SCH (19:59)
[2021-12-11] MEDS: meTOprolol SUCCINATE 100 MG (TOPROL XL) TAB PO SCH (19:59)
[2021-12-12] MEDS: KCL 10 MEQ TAB (MICRO K) PO SCH (05:28)
[2021-12-12] MEDS: inSUlin ASPART (NovoLOG) 1 UNIT/0.01 ML (CHARGE PER UNIT) SC SCH ×4 (05:28→21:10)
--- NOTE | 2021-12-12 06:35 | PM&R Progress Note ---
Subjective HPI/CC On Admission Date Seen by Provider: Dec 12, 2021 Time Seen by Provider: 12:30 Subjective/Events-last exam 12/12/2021: Pt is doing well No issues Bowels moving No pain 12/11/2021: Pt is about the same Cognitively she doesn't realize how much she can't really do effectively Unsure if she will be able to return back to her apartment and live on her own Overall feels like she is doing okay otherwise 12/10/21: Pt is doing a lot better Denies any pain Diclofenac gel for the knees is helping Increased central office installer with the left arm 12/09/21: Patient sleeps most of the time Left hand is 3/4 back to baseline per patient report No pain reported BM+ Sugars are high so added hga1c and SSI/ACHS accuchecks 12/08/21: Patient doing well Sleeps a lot No pain reported 12/07/21: Patient doing really well No major concerns Eating and drinking well Regaining of left-sided weakness improved 12/06/21: Pt having a lot of knee pain so will initiate Diclofenac gel Overall moving around well Dramatic improvement since admission 12/05/2021: Pt doing really well Bowels moved today Tired Discontinuing telemetry Overall dramatic improvement 12/04/2021: Pt is doing really well Sleeping currently Left hand and left arm moving a lot better Overall much improved status 12/03/21: Patient improved Left hand improved No pain reported BM+ Eating well 12/02/2021: Patient doing well Left hand and arm moving well No pain reported Upbeat attitude 12/01/2021: Patient doing very well today Moving left arm and hand really well Family at bedside No pain 11/30/2021: Patient doing well Confusion noted Left sided weakness but can move her arm now Working with PT OT Reviewed labs Reviewed meds Review of Systems General: Fatigue, Malaise Neurological: Weakness, Incoordination Objective Exam Vital Signs Vital Signs Date Time Temp Pulse Resp B/P (MAP) Pulse Ox O2 Delivery O2 Flow Rate FiO2 12/12/21 21:00 Room Air 12/12/21 19:27 36.1 89 18 126/77 (93) 96 Capillary Refill : General Appearance: No Apparent Distress, WD/WN, Chronically ill HEENT: PERRL/EOMI, Normal ENT Inspection, Pharynx Normal Neck: Full Range of Motion, Normal Inspection, Non Tender, Supple, Carotid Bruit Respiratory: Chest Non Tender, Lungs Clear, Normal Breath Sounds, No Accessory Muscle Use, No Respiratory Distress Cardiovascular: Regular Rate, Rhythm, No Edema, No Gallop, No JVD, No Murmur, Normal Peripheral Pulses Gastrointestinal: Normal Bowel Sounds, No Organomegaly, No Pulsatile Mass, Non Tender, Soft Back: Normal Inspection, No CVA Tenderness, No Vertebral Tenderness Extremity: Normal Capillary Refill, Normal Inspection, Normal Range of Motion (except left side), Non Tender, No Calf Tenderness, No Pedal Edema Neurologic/Psychiatric: Alert, Oriented x3, Normal Mood/Affect, electrolysis investigator II-XII Norm as Tested, Motor Weakness (left sided 2/5) Skin: Normal Color, Warm/Dry Lymphatic: No Adenopathy Results/Procedures Lab Patient resulted labs reviewed. FIM Transfers Therapy Code Descriptions/Definitions Functional [place] Measure: 0=Not Assessed/NA 4=Minimal Assistance 1=Total Assistance 5=Supervision or Setup 2=Maximal Assistance 6=Modified [place] 3=Moderate Assistance 7=Complete IndependenceSCALE: Activities may be completed with or without assistive devices. 8-Vrxwmdjwsx-yioardz completes the activity by him/herself with no assistance from a helper. 5-Set-up or Clean-up Assistance-helper sets up or cleans up; patient completes activity. [place] assists only prior to or following the activity. 4-Supervision or Touching Assistance-helper provides verbal cues and/or touching/steadying and/or contact guard assistance as patient completes activity. Assistance may be provided throughout the activity or intermittently. 3-Partial/Moderate Assistance-helper does LESS THAN HALF the effort. [place] lifts, holds or supports trunk or limbs, but provides less than half the effort. 2-Substantial/Maximal Assistance-helper does MORE THAN HALF the effort. [place] lifts or holds trunk or limbs and provides more than half the effort. 6-Fgfsetnfu-vuqnlv does ALL the effort. Patient does none of the effort to com plete the activity. Or, the assistance of 2 or more helpers is required for the patient to complete the activity. If activity was not attempted, code reason: 7-Patient Refused. 9-Not Applicable-not attempted and the patient did not perform the activity before the current illness, exacerbation or injury. 10-Not Attempted due to Environmental Limitations-(lack of equipment, weather restraints, etc.). 88-Not Attempted due to Medical Conditions or Safety Concerns. Roll Left to Right (QC): 4 Sit to Lying (QC): 4 Sit to Stand (QC): 4 Chair/Nis-rx-Pkaos Xfer(QC): 4 Car Transfer (QC): 1 Gait Training Does the Patient Walk?: Yes Distance: 125' Walk 10 feet (QC): 5 Walk 50 ft with 2 Turns(QC): 4 Walk 150 ft (QC): 4 Walking 10ft/uneven surface-QC: 1 Gait Persons Needed: 1 Gait Assistive Device: FWW Wheelchair Training Does the Pt Use a Wheelchair?: Yes Distance: 100' x 1/250' x 1 Wheel 50 ft with 2 turns (QC): 4 Wheel 150 ft (QC): 4 Type of Wheelchair: Manual Stair Training #of Steps: 1 1 Step (curb) (QC): 1 (placed right foot up on step and attempted to follow with left with PT assist) 4 Steps (QC): 9 12 Steps (QC): 9 Balance Picking up an Object (QC): 88 ADL-Treatment Eating (QC): 4 Oral Hygiene (QC): 4 (Steadying assist while standing at sink) Shower/Bathe Self (QC): 3 Upper Body Dressing (QC): 3 Lower Body Dressing (QC): 3 On/Off Footwear (QC): 3 (Assist to initiate over toes, pt able to plant puller heel) Toileting Hygiene (QC): 3 (Mod a overall. Assist to manage clothing over L hip and min a for thoroughness post atul care.) Toilet Transfer (QC): 4 (Cues to utilize grab bar) Assessment/Plan Assessment and Plan Assess & Plan/Chief Complaint Assessment: 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 Debility Fall risk Hypertension Hyperlipidemia Advanced age DM hemoglobin A1c 6.9 new diagnosis Plan: Monitor closely Fall risk Monitor BP OAC 11/30/21: Monitor closely Checked meds labs 12/01/2021: Monitor closely DOAC 12/02/21: Monitor closely 12/03/21: Monitor closely Fall risk Decrease Eliquis to 5mg PO BID 12/04/2021: Supportive care Improved status 12/05/2021: Supportive care Aggressive therapy 12/06/2021: Supportive care Monitor knee pain 12/07/2021: Supportive care Diclofenac gel on knees 12/08/21: Monitor closely Knee pain management 12/09/21: Glucose management 12/11/2021: Supportive care Continue aggressive rehab 12/12/2020: Continue aggressive therapy Monitor sugar (1) CVA, LEFT SIDED WEAKENSS (2) HLD (hyperlipidemia) Status: Chronic (3) HTN (hypertension) Status: Chronic ZURDO MARINO 2, 2022 06:35
[2021-12-12 07:22] VITALS: BP 117/58
[2021-12-12] MEDS: ASPIRIN E.C. 81 MG (ECOTRIN) TAB PO SCH (07:42)
[2021-12-12] MEDS: CYANOCOBALAMIN 1,000 MCG (VITAMIN B-12) TABLET PO SCH (07:42)
[2021-12-12] MEDS: APIXABAN 5 MG (ELIQUIS) TABLET PO SCH ×2 (07:43→21:10)
[2021-12-12] MEDS: PYRIDOXINE (VITAMIN B-6) 50 MG TABLET PO SCH (07:43)
[2021-12-12] MEDS: ACETAMINOPHEN 325 MG TABLET PO PRN ×2 (07:47→09:09)
[2021-12-12] MEDS: DOCUSATE SODIUM 100 MG (COLACE) CAP PO SCH ×2 (07:47→21:10)
[2021-12-12] MEDS: polyethylene glycoL POWDER 17 GM (MIRALAX) PACK PO SCH ×2 (07:48→21:18)
[2021-12-12] MEDS: SENNA W/DOCUSATE (SENOKOT S) TABLET PO SCH ×2 (07:48→21:18)
--- NOTE | 2021-12-12 08:27 | Cardiology Progress Note ---
Subjective Date Seen by Provider: Dec 12, 2021 Time Seen by Provider: 08:26 Subjective/Events-last exam Sitting up in chair, no new complaints. Review of Systems General: No Chills, No Night Sweats; Fatigue, Malaise; No Appetite, No Other HEENT: No Head Aches, No Visual Changes, No Eye Pain, No Ear Pain, No Dysphasia, No Sinus Congestion, No Post Nasal Drip, No Sore Throat, No Other Pulmonary: No Dyspnea, No Cough, No Pleuritic Chest Pain, No Other Cardiovascular: No: Chest Pain, Palpitations, Orthopnea, Paroxysmal Noc. Dyspnea, Edema, Lt Headedness, Other Objective-Cardiology Exam Last Set of Vital Signs Vital Signs 12/12/21 07:22 Temp 36.9 Pulse 72 Resp 18 B/P (MAP) 117/58 (77) Pulse Ox 94 O2 Delivery Room Air General: Alert, Oriented X3 HEENT: Atraumatic Neck: Supple Lungs: Clear to Auscultation, Normal Air Movement Heart: Regular Rate, Normal S1, Normal S2 Abdomen: Normal Bowel Sounds, Soft Extremities: No Clubbing, No Cyanosis, No Edema Skin: No Rashes, No Significant Lesion Neuro: Normal Gait, Normal Speech, Cranial Nerves 3-12 NL, Other (Left upper extremity strength is improving.) Psych/Mental Status: Mental Status NL, Mood NL A/P-Cardiology Admission Diagnosis Subacute CVA HTN Assessment/Plan Subacute CVA, CTA of the head showed 80 to 90% right ICA stenosis with possible thrombus with no identifiable source of thrombus. MRI of the head showed patchy region of acute to subacute infarction of the right parietal lobe extending to the posterior right frontal and occipital lobe. 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 No signs of mass- effect or hemorrhage. Recommendation was by [facility] stroke neurology to treat with aspirin and heparin and then progressed to aspirin and Eliquis.Currently maintained on ASA 81 mg and Eliquis 5mg BID. EKG showed sinus rhythm with premature atrial contractions. Asymptomatic. SUKHI done 11/29/21 showing trace mitral regurgitation with no shunt noted. Hypertension, controlled, continue to monitor blood pressure. Hyperlipidemia, started on Lipitor 80 mg daily. Continue to monitor Supervisory-Addendum Brief Supervisory Addendum Participated in pt care: history, MDM, physical Personally performed: exam, history, MDM Care discussed with: PA Results interpretation: Verified all documentation Notes: Patient was seen and evaluated with Mary, examination performed, management plan was discussed, agree with the current scribed note, I made few changes to the note using Italic font Patient was seen at bedside, laying down comfortably, feeling well. No new complaint Continue on current medication, continue physical therapy. MARY SLAUGHTER Dec 12, 2021 08:27 NICOLE DEJESUS MD Dec 12, 2021 08:57
--- NOTE | 2021-12-12 08:44 | Occupational Ther Daily Note ---
OT Current Status-Daily Note Subjective Pt requesting to push shower off for another day. After lengthy discussion, pt finally agreeable to shower. Post task, pt states "well that actually felt really good, it went better than I thought." Appearance Pt left sitting in recliner, all needs within reach. Mental Status/Objective Patient Orientation: Person, Place, Time ADL-Treatment Therapy Code Descriptions/Definitions Functional [place] Measure: 0=Not Assessed/NA 4=Minimal Assistance 1=Total Assistance 5=Supervision or Setup 2=Maximal Assistance 6=Modified [place] 3=Moderate Assistance 7=Complete IndependenceSCALE: Activities may be completed with or without assistive devices. 3-Lfpgnwjbgs-ffqecfr completes the activity by him/herself with no assistance from a helper. 5-Set-up or Clean-up Assistance-helper sets up or cleans up; patient completes activity. [place] assists only prior to or following the activity. 4-Supervision or Touching Assistance-helper provides verbal cues and/or touching/steadying and/or contact guard assistance as patient completes activity. Assistance may be provided throughout the activity or intermittently. 3-Partial/Moderate Assistance-helper does LESS THAN HALF the effort. [place] lifts, holds or supports trunk or limbs, but provides less than half the effort. 2-Substantial/Maximal Assistance-helper does MORE THAN HALF the effort. [place] lifts or holds trunk or limbs and provides more than half the effort. 5-Lejyxixba-xkizyt does ALL the effort. Patient does none of the effort to complete the activity. Or, the assistance of 2 or more helpers is required for the patient to complete the activity. If activity was not attempted, code reason: 7-Patient Refused. 9-Not Applicable-not attempted and the patient did not perform the activity before the current illness, exacerbation or injury. 10-Not Attempted due to Environmental Limitations-(lack of equipment, weather restraints, etc.). 88-Not Attempted due to Medical Conditions or Safety Concerns. Eating (QC): 5 Oral Hygiene (QC): 6 Shower/Bathe Self (QC): 3 (min) Upper Body Dressing (QC): 4 Lower Body Dressing (QC): 3 (mod) On/Off Footwear: 3 (mod) Toileting Hygiene (QC): 3 (min) Toilet Transfer (QC): 4 (CGA) Pt initially reluctant to complete shower. With encouragement, she was agreeable. Task performed majority in sitting. CGA and unilateral UE support on grab bar needed when standing to wash atul area/buttocks. All other body parts washed in sitting. Pt able to reach down to distal calf, needs assist to reach/wash feet. Pt demonstrates improvement in incorporating LUE when washing R side this date. Clothing donned seated in w/c. With extra time and min verbal cues, pt able to don shirt without any physical assistance this date. She continues to need assist to thread RLE into brief/pants secondary to impaired flexibility and LE strength. Attempt at using dressing stick and hearing consultant, yet pt needs max verbal cues on correct use and mod physical assist. Cues to initiate/incorporate L hand into task when pulling clothing over hips. Min a needed to pull completely over L hip secondary to poor pinch/brass wind instruments tube bender strength and tight fitting pants. Anticipate slight improvement in performance/independence if pt was wearing looser fit clothing. Grooming tasks performed independently while seated in w/c. Other Treatment Pt completed fine motor task with pill bottles, small "medication" and pill box. Focus of task on improving FM coordination/dexterity, pinch/brass wind instruments tube bender strength and bilateral integration, not cognition and executive functioning. Pt was able to grasp/pinch bottles and pills with extra time. She had no difficulty opening/closing different size pill bottles. Several reps of reaching/gasping/pinching performed. Education/cues on using towel or non-slip mat at table to reduce pills from rolling off table if dropped. Education OT Patient Education: Correct positioning, Energy conservation, Modified ADL techniques, Progress toward Goal/Update tx plan, Purpose of tx/functional activities, Reviewed precautions, Rehab process, Safety issues, Transfer techniques, Use of adapted equipment Teaching Recipient: Patient Teaching Methods: Demonstration, Discussion Response to Teaching: Verbalize Understanding, Return Demonstration, Reinforcement Needed OT Short Term Goals Short Term Goals Time Frame: Dec 13, 2021 Eatin Oral hygiene: 5 Toileting hygiene: 2 Shower/bathe self: 3 Upper body dressin Lower body dressin Putting on/taking off footwear: 2 OT Loader Helper Sorting Yard Goals Loader Helper Sorting Yard Goals Time Frame: Dec 27, 2021 Eating (QC): 5 Oral Hygiene (QC): 6 Toileting Hygiene (QC): 6 Shower/Bathe Self (QC): 4 Upper Body Dressing (QC): 5 Lower Body Dressing (QC): 4 On/Off Footwear (QC): 4 1=Demonstrate adherence to instructed precautions during ADL tasks. 2=Patient will verbalize/demonstrate understanding of assistive devices/modifications for ADL. 3=Patient will improve strength/tolerance for activity to enable patient to perform ADL's. OT Education/Plan Problem List/Assessment Assessment: Decreased Activ Tolerance, Decreased Safety Aware, Decreased UE Strength, Impaired Cognition, Impaired Coordination, Impaired Funct Balance, Impaired I ADL's, Impaired Self-Care Skills, Restricted Funct UE ROM Discharge Recommendations Plan/Recommendations: Continue POC Treatment Plan/Plan of Care Treatment,Training & Education: Yes Patient would benefit from OT for education, treatment and training to promote independence in ADL's, mobility, safety and/or upper extremity function for ADL's. Plan of Care: ADL Retraining, Cognitive Retraining, Functional Mobility, Group Exercise/Act as Ind, UE Funct Exercise/Act, UE Neuromus Re-Ed/Coord, Visual/Perceptual Retrain, W/C Management Training Treatment Duration: Dec 27, 2021 Frequency: At least 5 of 7 days/Wk (IRF) Estimated Hrs Per Day: 1.5 hours per day Agreement: Yes Rehab Potential: Good Time/GCodes Start Time: 07:30 Stop Time: 08:45 Total Time Billed (hr/min): 75 Billed Treatment Time 1 visit ADL x4 (60 min) FA (15 min) Kim Shannon OT Dec 12, 2021 08:44
[2021-12-12] MEDS: MICONAZOLE NITRATE 2% CRM 30 GM TP SCH ×2 (09:08→21:12)
[2021-12-12] MEDS: DICLOFENAC 1% GEL 100 GM (VOLTAREN) TUBE TOP SCH ×4 (09:31→21:13)
--- NOTE | 2021-12-12 09:57 | Physical Therapy Daily Note ---
PT Daily Note-Current Subjective Pt. agrees to Rx. Pt. c/o pain in left knee, nursing responding they have already applied the Voltaren cream. Pain Numeric Pain Scale: 5-Moderate Pain Location: Left Location Body Site: Knee Pain Description: Ache Mental Status Patient Orientation: Normal For Age Transfers SCALE: Activities may be completed with or without assistive devices. 4-Qrrweibnqf-gwuaqsm completes the activity by him/herself with no assistance from a helper. 5-Set-up or Clean-up Assistance-helper sets up or cleans up; patient completes activity. [place] assists only prior to or following the activity. 4-Supervision or Touching Assistance-helper provides verbal cues and/or touching/steadying and/or contact guard assistance as patient completes activity. Assistance may be provided throughout the activity or intermittently. 3-Partial/Moderate Assistance-helper does LESS THAN HALF the effort. [place] lifts, holds or supports trunk or limbs, but provides less than half the effort. 2-Substantial/Maximal Assistance-helper does MORE THAN HALF the effort. [place] lifts or holds trunk or limbs and provides more than half the effort. 1-Nuyboksiq-hpsswa does ALL the effort. Patient does none of the effort to complete the activity. Or, the assistance of 2 or more helpers is required for the patient to complete the activity. If activity was not attempted, code reason: 7-Patient Refused. 9-Not Applicable-not attempted and the patient did not perform the activity before the current illness, exacerbation or injury. 10-Not Attempted due to Environmental Limitations-(lack of equipment, weather restraints, etc.). 88-Not Attempted due to Medical Conditions or Safety Concerns. Sit to Stand (QC): 4 Car Transfer (QC): 4 Weight Bearing Full Weight Bearing Full Weight Bearing Gait Training Does the Patient Walk?: Yes Walk 10 feet (QC): 4 Walk 50 ft with 2 Turns(QC): 4 Gait Persons Needed: 1 Gait Assistive Device: FWW pt. fatigues with gait , needs many cues to attempt to equalize step length, to take bigger steps left , pt. ambulated 60 ft x2, 75ft x 2, FWW Exercises Supine Ex: Bridging, Ankle pumps, Quad Set, Glut sets, Heel Slides, Scooting, Straight leg raise, Hip abd/add Supine Reps: 15 Seated Therapy Exercises: Ankle pumps, Sit to stand, Long arc quads, Hip flexion Seated Reps: 12 Assessment Current Status: Good Progress PT Short Term Goals Short Term Goals Time Frame: Dec 14, 2021 Roll Left & Right: 4 Sit to lyin Lying to sitting on side of be: 4 Sit to stand: 3 Chair/day-gx-pqziw transfer: 3 Toilet transfer: 3 Car transfer: 3 Walk 10 feet: 3 Walk 50 feet with two turns: 3 Does pt use a wc or scooter: Yes Wheel 50ft w/2 turns: 4 Wheel 150 feet: 4 Type: Manual PT Apparel Embroidery Digitizer Goals Apparel Embroidery Digitizer Goals PT Apparel Embroidery Digitizer Goals Time Frame: Dec 28, 2021 Roll Left & Right (QC): 6 Sit to Lying (QC): 6 Lying-Sitting on Side/Bed(QC): 6 Sit to Stand (QC): 4 Chair/Qwf-ge-Wayvb Xfer(QC): 4 Toilet Transfer (QC): 4 Car Transfer (QC): 4 Does the Patient Walk: Yes Walk 10 feet (QC): 4 Walk 50ft with 2 Turns (QC): 4 Walk 150 ft (QC): 4 Walking 10ft on Uneven Surface: 4 1 Step (curb) (QC): 3 4 Steps (QC): 9 12 Steps (QC): 9 Picking up an Object (QC): 3 Wheel 50 feet with 2 turns (QC: 5 Wheel 150 feet: 5 Type: Manual PT Plan Treatment/Plan Treatment Plan: Continue Plan of Care Treatment Plan: Bed Mobility, Concurrent Therapy, Education, Functional Activity Seema, Functional Strength, Group Therapy, Gait, Safety, Therapeutic Exercise, Transfers Treatment Duration: Dec 28, 2021 Frequency: At least 5 of 7 days/Wk (IRF) Estimated Hrs Per Day: 1.5 hours per day Patient and/or Family Agrees t: Yes Safety Risks/Education Patient Education: Gait Training, Transfer Techniques, Correct Positioning, Safety Issues Teaching Recipient: Patient Teaching Methods: Demonstration, Discussion Response to Teaching: Verbalize Understanding, Return Demonstration, Reinforcement Needed Time/GCodes Time In: 900 Time Out: 1000 Total Billed Treatment Time: 60 Total Billed Treatment 1,EX25m,GT15m,FA20m ADRIANNA GRANT BALE STACKER Dec 12, 2021 09:57
--- NOTE | 2021-12-12 11:23 | Speech Therapy Daily Note ---
Speech Daily Progress Note Subjective Date Seen by Provider: Dec 12, 2021 Time Seen by Provider: 09:30 The patient was seated upright in her bed, awake and alert upon entrance to her room by the clinician. The patient greeted the clinician appropriately and was agreeable to participation in the cognitive linguistic treatment session. Objective Medication Management: The patient and clinician completed medication management exercises utilizing medication bottles with specific instructions and a pill box. The patient completed simple tasks with high accuracy (medication which listed one or two time per day dosage), however, struggled and required maximum assistance to organize medication with complex instructions (take three times per day, take PRN). The patient stated her daughter would be available to supervise her medication management following discharge as she would still like to discharge home independently. Assessment Assessment Current Status: Fair Progress Treatment Plan Continue Plan of Care Speech Short Term Goals Short Term Goals Short Term Goals The patient will demonstrate 90% accuracy with memory and functional problem solving with mild clinician verbal and visual cueing. Speech Health And Safety Instructor Goals Health And Safety Instructor Goals The patient will demonstrate improve cognitive linguistic skills for safe discharge to the least restricted environment. Speech-Plan Treatment Plan Speech Therapy Treatment Plan: Continue Plan of Care Treatment Duration: Dec 20, 2021 Frequency: Modified Program (IRF) Estimated Hrs Per Day: Other Rehab Potential: Good Safety Risks/Education Teaching Recipient: Patient Teaching Methods: Discussion Response to Teaching: Verbalize Understanding, Reinforcement Needed Education Topics Provided: Speech Pathology Plan of Care, External Memory Strategies Time Speech Therapy Time In: 09:30 Speech Therapy Time Out: 10:00 Total Billed Time: 30 Billed Treatment Time 1RADHA ELIZABETH ST Dec 12, 2021 11:23
--- NOTE | 2021-12-12 11:37 | Physical Therapy Daily Note ---
PT Daily Note-Current Subjective Pt. agrees to Rx. States she wants to stay in bed and eat lunch in bed, Pain Location: No Pain Reported Mental Status Patient Orientation: Normal For Age Transfers SCALE: Activities may be completed with or without assistive devices. 3-Eeygricplc-gmjrngl completes the activity by him/herself with no assistance from a helper. 5-Set-up or Clean-up Assistance-helper sets up or cleans up; patient completes activity. [place] assists only prior to or following the activity. 4-Supervision or Touching Assistance-helper provides verbal cues and/or touching/steadying and/or contact guard assistance as patient completes activity. Assistance may be provided throughout the activity or intermittently. 3-Partial/Moderate Assistance-helper does LESS THAN HALF the effort. [place] lifts, holds or supports trunk or limbs, but provides less than half the effort. 2-Substantial/Maximal Assistance-helper does MORE THAN HALF the effort. [place] lifts or holds trunk or limbs and provides more than half the effort. 6-Rcwcpavcg-ienbyy does ALL the effort. Patient does none of the effort to complete the activity. Or, the assistance of 2 or more helpers is required for the patient to complete the activity. If activity was not attempted, code reason: 7-Patient Refused. 9-Not Applicable-not attempted and the patient did not perform the activity b efore the current illness, exacerbation or injury. 10-Not Attempted due to Environmental Limitations-(lack of equipment, weather restraints, etc.). 88-Not Attempted due to Medical Conditions or Safety Concerns. Roll Left & Right (QC): 6 (uses rails) Weight Bearing Full Weight Bearing Full Weight Bearing Exercises Supine Ex: Bridging, Ankle pumps, Quad Set, Rolling, Glut sets, Lower trunk rotation, Heel Slides, Short Arc Quads, Scooting (up in bed and to side indep), Straight leg raise, Hip abd/add Supine Reps: 15 Treatments bed ex as above with hagan at hand, needs met Assessment Current Status: Good Progress PT Short Term Goals Short Term Goals Time Frame: Dec 14, 2021 Roll Left & Right: 4 Sit to lyin Lying to sitting on side of be: 4 Sit to stand: 3 Chair/sfl-bt-syutv transfer: 3 Toilet transfer: 3 Car transfer: 3 Walk 10 feet: 3 Walk 50 feet with two turns: 3 Does pt use a wc or scooter: Yes Wheel 50ft w/2 turns: 4 Wheel 150 feet: 4 Type: Manual PT Traffic Attendant Goals Traffic Attendant Goals PT Senior Care Goals Time Frame: Dec 28, 2021 Roll Left & Right (QC): 6 Sit to Lying (QC): 6 Lying-Sitting on Side/Bed(QC): 6 Sit to Stand (QC): 4 Chair/Dyg-kp-Pppcw Xfer(QC): 4 Toilet Transfer (QC): 4 Car Transfer (QC): 4 Does the Patient Walk: Yes Walk 10 feet (QC): 4 Walk 50ft with 2 Turns (QC): 4 Walk 150 ft (QC): 4 Walking 10ft on Uneven Surface: 4 1 Step (curb) (QC): 3 4 Steps (QC): 9 12 Steps (QC): 9 Picking up an Object (QC): 3 Wheel 50 feet with 2 turns (QC: 5 Wheel 150 feet: 5 Type: Manual PT Plan Treatment/Plan Treatment Plan: Continue Plan of Care Treatment Plan: Bed Mobility, Concurrent Therapy, Education, Functional Activity Seema, Functional Strength, Group Therapy, Gait, Safety, Therapeutic Exercise, Transfers Treatment Duration: Dec 28, 2021 Frequency: At least 5 of 7 days/Wk (IRF) Estimated Hrs Per Day: 1.5 hours per day Patient and/or Family Agrees t: Yes Safety Risks/Education Patient Education: Correct Positioning Teaching Recipient: Patient Response to Teaching: Reinforcement Needed Time/GCodes Time In: 1115 Time Out: 1130 Total Billed Treatment Time: 15 Total Billed Treatment 1,EX15m ADRIANNA GRANT TRAFFIC CONTROL OFFICER Dec 12, 2021 11:37
[2021-12-12 19:27] VITALS: BP 126/77
[2021-12-12] MEDS: lisINopril 10 MG (PRINIVIL) TABLET PO SCH (21:09)
[2021-12-12] MEDS: meTOprolol SUCCINATE 100 MG (TOPROL XL) TAB PO SCH (21:10)
[2021-12-12] MEDS: SIMvastatin 40 MG (ZOCOR) TAB PO SCH (21:10)
[2021-12-13] MEDS: inSUlin ASPART (NovoLOG) 1 UNIT/0.01 ML (CHARGE PER UNIT) SC SCH ×4 (05:47→20:30)
--- NOTE | 2021-12-13 06:18 | PM&R Progress Note ---
Subjective HPI/CC On Admission Date Seen by Provider: Dec 13, 2021 Time Seen by Provider: 12:00 Subjective/Events-last exam 12/13/21: No major issues Bowels moved on 12/11 so will continue giving laxatives 12/12/2021: Pt is doing well No issues Bowels moving No pain 12/11/2021: Pt is about the same Cognitively she doesn't realize how much she can't really do effectively Unsure if she will be able to return back to her apartment and live on her own Overall feels like she is doing okay otherwise 12/10/21: Pt is doing a lot better Denies any pain Diclofenac gel for the knees is helping Increased drapery seamstress with the left arm 12/09/21: Patient sleeps most of the time Left hand is 3/4 back to baseline per patient report No pain reported BM+ Sugars are high so added hga1c and SSI/ACHS accuchecks 12/08/21: Patient doing well Sleeps a lot No pain reported 12/07/21: Patient doing really well No major concerns Eating and drinking well Regaining of left-sided weakness improved 12/06/21: Pt having a lot of knee pain so will initiate Diclofenac gel Overall moving around well Dramatic improvement since admission 12/05/2021: Pt doing really well Bowels moved today Tired Discontinuing telemetry Overall dramatic improvement 12/04/2021: Pt is doing really well Sleeping currently Left hand and left arm moving a lot better Overall much improved status 12/03/21: Patient improved Left hand improved No pain reported BM+ Eating well 12/02/2021: Patient doing well Left hand and arm moving well No pain reported Upbeat attitude 12/01/2021: Patient doing very well today Moving left arm and hand really well Family at bedside No pain 11/30/2021: Patient doing well Confusion noted Left sided weakness but can move her arm now Working with PT OT Reviewed labs Reviewed meds Review of Systems General: Fatigue Neurological: Weakness Objective Exam Vital Signs Vital Signs Date Time Temp Pulse Resp B/P (MAP) Pulse Ox O2 Delivery O2 Flow Rate FiO2 12/13/21 19:32 36.6 80 18 137/74 (95) 96 Room Air Capillary Refill : General Appearance: No Apparent Distress, WD/WN, Chronically ill HEENT: PERRL/EOMI, Normal ENT Inspection, Pharynx Normal Neck: Full Range of Motion, Normal Inspection, Non Tender, Supple, Carotid Bruit Respiratory: Chest Non Tender, Lungs Clear, Normal Breath Sounds, No Accessory Muscle Use, No Respiratory Distress Cardiovascular: Regular Rate, Rhythm, No Edema, No Gallop, No JVD, No Murmur, Normal Peripheral Pulses Gastrointestinal: Normal Bowel Sounds, No Organomegaly, No Pulsatile Mass, Non Tender, Soft Back: Normal Inspection, No CVA Tenderness, No Vertebral Tenderness Extremity: Normal Capillary Refill, Normal Inspection, Normal Range of Motion (except left side), Non Tender, No Calf Tenderness, No Pedal Edema Neurologic/Psychiatric: Alert, Oriented x3, Normal Mood/Affect, digital marketing strategist II-XII Norm as Tested, Motor Weakness (left sided 2/5) Skin: Normal Color, Warm/Dry Lymphatic: No Adenopathy Results/Procedures Lab Patient resulted labs reviewed. FIM Transfers Therapy Code Descriptions/Definitions Functional [place] Measure: 0=Not Assessed/NA 4=Minimal Assistance 1=Total Assistance 5=Supervision or Setup 2=Maximal Assistance 6=Modified [place] 3=Moderate Assistance 7=Complete IndependenceSCALE: Activities may be completed with or without assistive devices. 2-Cvbutsqvga-mlyzcau completes the activity by him/herself with no assistance from a helper. 5-Set-up or Clean-up Assistance-helper sets up or cleans up; patient completes activity. [place] assists only prior to or following the activity. 4-Supervision or Touching Assistance-helper provides verbal cues and/or touching/steadying and/or contact guard assistance as patient completes activity. Assistance may be provided throughout the activity or intermittently. 3-Partial/Moderate Assistance-helper does LESS THAN HALF the effort. [place] lifts, holds or supports trunk or limbs, but provides less than half the effort. 2-Substantial/Maximal Assistance-helper does MORE THAN HALF the effort. [place] lifts or holds trunk or limbs and provides more than half the effort. 3-Hnmnzbkex-gfjsmf does ALL the effort. Patient does none of the effort to complete the activity. Or, the assistance of 2 or more helpers is required for the patient to complete the activity. If activity was not attempted, code reason: 7-Patient Refused. 9-Not Applicable-not attempted and the patient did not perform the activity before the current illness, exacerbation or injury. 10-Not Attempted due to Environmental Limitations-(lack of equipment, weather restraints, etc.). 88-Not Attempted due to Medical Conditions or Safety Concerns. Roll Left to Right (QC): 6 (uses rails) Sit to Lying (QC): 4 Sit to Stand (QC): 4 Chair/Gaa-hq-Tgyzv Xfer(QC): 4 Car Transfer (QC): 4 Gait Training Does the Patient Walk?: Yes Distance: 125' Walk 10 feet (QC): 4 Walk 50 ft with 2 Turns(QC): 4 Walk 150 ft (QC): 4 Walking 10ft/uneven surface-QC: 1 Gait Persons Needed: 1 Gait Assistive Device: FWW Wheelchair Training Does the Pt Use a Wheelchair?: Yes Distance: 100' x 1/250' x 1 Wheel 50 ft with 2 turns (QC): 4 Wheel 150 ft (QC): 4 Type of Wheelchair: Manual Stair Training #of Steps: 1 1 Step (curb) (QC): 1 (placed right foot up on step and attempted to follow with left with PT assist) 4 Steps (QC): 9 12 Steps (QC): 9 Balance Picking up an Object (QC): 88 ADL-Treatment Eating (QC): 5 Oral Hygiene (QC): 6 Shower/Bathe Self (QC): 3 (min) Upper Body Dressing (QC): 4 Lower Body Dressing (QC): 3 (mod) On/Off Footwear (QC): 3 (mod) Toileting Hygiene (QC): 3 (min) Toilet Transfer (QC): 4 (CGA) Assessment/Plan Assessment and Plan Assess & Plan/Chief Complaint Assessment: 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 Debility Fall risk Hypertension Hyperlipidemia Advanced age DM hemoglobin A1c 6.9 new diagnosis Plan: Monitor closely Fall risk Monitor BP OAC 11/30/21: Monitor closely Checked meds labs 12/01/2021: Monitor closely DOAC 12/02/21: Monitor closely 12/03/21: Monitor closely Fall risk Decrease Eliquis to 5mg PO BID 12/04/2021: Supportive care Improved status 12/05/2021: Supportive care Aggressive therapy 12/06/2021: Supportive care Monitor knee pain 12/07/2021: Supportive care Diclofenac gel on knees 12/08/21: Monitor closely Knee pain management 12/09/21: Glucose management 12/11/2021: Supportive care Continue aggressive rehab 12/12/2020: Continue aggressive therapy Monitor sugar 12/13/21: Monitor closely Sugar numbers reviewed (1) CVA, LEFT SIDED WEAKENSS (2) HLD (hyperlipidemia) Status: Chronic (3) HTN (hypertension) Status: Chronic ZURDO MARINO 3, 2022 06:18
[2021-12-13] MEDS: KCL 10 MEQ TAB (MICRO K) PO SCH (06:36)
[2021-12-13 07:12] VITALS: BP 142/75
[2021-12-13] MEDS: APIXABAN 5 MG (ELIQUIS) TABLET PO SCH ×2 (08:40→20:30)
[2021-12-13] MEDS: DICLOFENAC 1% GEL 100 GM (VOLTAREN) TUBE TOP SCH ×4 (08:40→20:31)
[2021-12-13] MEDS: ASPIRIN E.C. 81 MG (ECOTRIN) TAB PO SCH (08:40)
[2021-12-13] MEDS: PYRIDOXINE (VITAMIN B-6) 50 MG TABLET PO SCH (08:40)
[2021-12-13] MEDS: CYANOCOBALAMIN 1,000 MCG (VITAMIN B-12) TABLET PO SCH (08:40)
--- NOTE | 2021-12-13 08:45 | Occupational Ther Daily Note ---
OT Current Status-Daily Note Subjective Pt denies pain, continues to report poor sleep. Appearance Pt returned to sitting in recliner, all needs within reach at end of session. Mental Status/Objective Patient Orientation: Person, Place, Situation ADL-Treatment Therapy Code Descriptions/Definitions Functional [place] Measure: 0=Not Assessed/NA 4=Minimal Assistance 1=Total Assistance 5=Supervision or Setup 2=Maximal Assistance 6=Modified [place] 3=Moderate Assistance 7=Complete IndependenceSCALE: Activities may be completed with or without assistive devices. 9-Urgyrjcbww-cudbcab completes the activity by him/herself with no assistance from a helper. 5-Set-up or Clean-up Assistance-helper sets up or cleans up; patient completes activity. [place] assists only prior to or following the activity. 4-Supervision or Touching Assistance-helper provides verbal cues and/or touching/steadying and/or contact guard assistance as patient completes activity. Assistance may be provided throughout the activity or intermittently. 3-Partial/Moderate Assistance-helper does LESS THAN HALF the effort. [place] lifts, holds or supports trunk or limbs, but provides less than half the effort. 2-Substantial/Maximal Assistance-helper does MORE THAN HALF the effort. [place] lifts or holds trunk or limbs and provides more than half the effort. 5-Aqixjdkoz-ggbcqp does ALL the effort. Patient does none of the effort to complete the activity. Or, the assistance of 2 or more helpers is required for the patient to complete the activity. If activity was not attempted, code reason: 7-Patient Refused. 9-Not Applicable-not attempted and the patient did not perform the activity before the current illness, exacerbation or injury. 10-Not Attempted due to Environmental Limitations-(lack of equipment, weather restraints, etc.). 88-Not Attempted due to Medical Conditions or Safety Concerns. Oral Hygiene (QC): 6 Upper Body Dressing (QC): 4 Lower Body Dressing (QC): 3 On/Off Footwear: 3 Toileting Hygiene (QC): 3 Toilet Transfer (QC): 4 Supine>sit: SBA. Improved speed and safety with task. Clothing donned seated EOB. With extra time and min verbal cues, pt able to don shirt without any physical assistance this date. She continues to need assist to thread RLE into brief/pants secondary to impaired flexibility and LE strength. Cues to ini tiate/incorporate L hand into task when pulling clothing over hips. Min a needed to pull completely over L hip secondary to poor pinch/chief mechanical officer strength and tight fitting pants. Anticipate slight improvement in performance/independence if pt was wearing looser fit clothing. Grooming tasks performed independently while seated in w/c. Other Treatment Pt ambulated to/from therapy gym with CGA and use of walker. 1 sitting rest break after ~50 feet required. Continues to need cues for safety including picking L foot higher off floor, bigger steps, object avoidance on left and looking forward when walking. Pt able to follow cues but does not maintain throughout, needing constant reminders. As fatigue increases, LLE has tendency to drag, thus increasing fall risk. While in gym, pt participated in multiple activities focusing on promoting increased LE flexibility, strength, FM coordination, chief mechanical officer/pinch strength and trunk rotation in order to improve independence and performance in dressings tasks. While seated, pt reached posteriorly with LUE (shoulder extension) for laboy bags and then bending at waist to place onto short step. 1# wrist weight added for strengthening component. Pt did not have any difficulty grasping for bags, but did need intermittent tactile cues for increased trunk rotation. No LOB during task. To simulate LB dressing, pt threaded BLE's with looped theraband. (Activity only focused on threading feet, not clothing management). Size of loop decreased in size as activity continued. Several cues required to incorporate L hand into task as pt has tendency to hold in guarded flexed position. Due to impaired flexibility, OT placed different size steps under pt's feet to decrease distance from feet. With larger step, pt able to reach feet, but needed extra time to thread theraband over BLE's. Pt may benefit from stool under feet when donning LB clothing. Several reps performed throughout session. Education OT Patient Education: Correct positioning, Energy conservation, Modified ADL techniques, Progress toward Goal/Update tx plan, Purpose of tx/functional activities, Rehab process, Safety issues, Transfer techniques Teaching Recipient: Patient Teaching Methods: Demonstration, Discussion Response to Teaching: Verbalize Understanding, Return Demonstration, Reinforcement Needed OT Short Term Goals Short Term Goals Time Frame: Dec 13, 2021 Eatin Oral hygiene: 5 Toileting hygiene: 2 Shower/bathe self: 3 Upper body dressin Lower body dressin Putting on/taking off footwear: 2 OT Rivet Machine Operator Goals Fdc Goals Time Frame: Dec 27, 2021 Eating (QC): 5 Oral Hygiene (QC): 6 Toileting Hygiene (QC): 6 Shower/Bathe Self (QC): 4 Upper Body Dressing (QC): 5 Lower Body Dressing (QC): 4 On/Off Footwear (QC): 4 1=Demonstrate adherence to instructed precautions during ADL tasks. 2=Patient will verbalize/demonstrate understanding of assistive devices/modifications for ADL. 3=Patient will improve strength/tolerance for activity to enable patient to perform ADL's. OT Education/Plan Problem List/Assessment Assessment: Decreased Activ Tolerance, Decreased Safety Aware, Decreased UE Strength, Impaired Cognition, Impaired Coordination, Impaired Funct Balance, Impaired I ADL's, Impaired Self-Care Skills, Restricted Funct UE ROM Discharge Recommendations Plan/Recommendations: Continue POC Treatment Plan/Plan of Care Treatment,Training & Education: Yes Patient would benefit from OT for education, treatment and training to promote independence in ADL's, mobility, safety and/or upper extremity function for ADL's. Plan of Care: ADL Retraining, Cognitive Retraining, Functional Mobility, Group Exercise/Act as Ind, UE Funct Exercise/Act, UE Neuromus Re-Ed/Coord, Visual/Perceptual Retrain, W/C Management Training Treatment Duration: Dec 27, 2021 Frequency: At least 5 of 7 days/Wk (IRF) Estimated Hrs Per Day: 1.5 hours per day Agreement: Yes Rehab Potential: Good Time/GCodes Start Time: 07:25 Stop Time: 08:40 Total Time Billed (hr/min): 75 Billed Treatment Time 1 visit ADL x2 (25 min) FA x3 (50 min) Kim Shannon OT Dec 13, 2021 08:45
[2021-12-13] MEDS: DOCUSATE SODIUM 100 MG (COLACE) CAP PO SCH ×2 (09:30→20:33)
[2021-12-13] MEDS: polyethylene glycoL POWDER 17 GM (MIRALAX) PACK PO SCH ×2 (09:30→20:33)
[2021-12-13] MEDS: SENNA W/DOCUSATE (SENOKOT S) TABLET PO SCH ×2 (09:30→20:33)
--- NOTE | 2021-12-13 09:58 | Physical Therapy Daily Note ---
PT Daily Note-Current Subjective Pt. agrees to Rx, adamant that she is going home at DC and states her family is looking in to HC services . Pt. states she has a 4WW at home and wants to use it. This FUR DRY CLEANER HAND cautioning that this may not be safest device for her and recommend FWW. Pt. seems open to using FWW after DC when the reasoning is detailed to her. pt. c/o pain at left knee anterior joint line with wbing only Pain Numeric Pain Scale: 5-Moderate Pain Location: Left Location Body Site: Knee Pain Description: Ache Mental Status Patient Orientation: Normal For Age Transfers SCALE: Activities may be completed with or without assistive devices. 8-Omverwznki-bqsqbgc completes the activity by him/herself with no assistance from a helper. 5-Set-up or Clean-up Assistance-helper sets up or cleans up; patient completes activity. [place] assists only prior to or following the activity. 4-Supervision or Touching Assistance-helper provides verbal cues and/or touching/steadying and/or contact guard assistance as patient completes activity. Assistance may be provided throughout the activity or intermittently. 3-Partial/Moderate Assistance-helper does LESS THAN HALF the effort. [place] lifts, holds or supports trunk or limbs, but provides less than half the effort. 2-Substantial/Maximal Assistance-helper does MORE THAN HALF the effort. [place] lifts or holds trunk or limbs and provides more than half the effort. 9-Iljwbrbby-rlwqnx does ALL the effort. Patient does none of the effort to complete the activity. Or, the assistance of 2 or more helpers is required for the patient to complete the activity. If activity was not attempted, code reason: 7-Patient Refused. 9-Not Applicable-not attempted and the patient did not perform the activity before the current illness, exacerbation or injury. 10-Not Attempted due to Environmental Limitations-(lack of equipment, weather restraints, etc.). 88-Not Attempted due to Medical Conditions or Safety Concerns. Roll Left & Right (QC): 6 Sit to Lying (QC): 6 Lying to Sitting/Side of Bed(Q: 6 Sit to Stand (QC): 6 Chair/Dxy-lj-Oivab Xfer(QC): 4 Toilet Transfer (QC): 4 pt. needed instruction for safe sit to stand TRF from toilet to use rail as pt. tries to pull up from walker in front of her. Left hand is able to gras and make use of rail well when she is cued to do so Weight Bearing Full Weight Bearing Full Weight Bearing Gait Training Does the Patient Walk?: Yes Walk 10 feet (QC): 4 Walk 50 ft with 2 Turns(QC): 4 Gait Persons Needed: 1 Gait Assistive Device: FWW 75 ft x 2 FWW, pt. fatigues and also c/o pain in left knee, pt. needs multiple cues to advance L foot and to stay in safe position in FWW, also cuing for turns for safety and awareness Exercises Supine Ex: Bridging, Ankle pumps, Quad Set, Rolling, Glut sets, Heel Slides, Scooting, Straight leg raise, Hip abd/add Supine Reps: 20 NuStep Minutes: 5 NuStep Workload: 1 Treatments TRFs chair, bed and toilet, gait, therex Assessment Current Status: Good Progress gait somewhat improved this date, better left advancement but pts slow small steps dont match the velocity she attempt to push walker at. This FUR DRY CLEANER HAND will be concerned for home alone DC plan . Hope family can come for observation of pts funct mob PT Short Term Goals Short Term Goals Time Frame: Dec 14, 2021 Roll Left & Right: 4 Sit to lyin Lying to sitting on side of be: 4 Sit to stand: 3 Chair/frd-sc-cbsoc transfer: 3 Toilet transfer: 3 Car transfer: 3 Walk 10 feet: 3 Walk 50 feet with two turns: 3 Does pt use a wc or scooter: Yes Wheel 50ft w/2 turns: 4 Wheel 150 feet: 4 Type: Manual PT Long-Term Goals Transit Operations Supervisor Goals PT Long-Term Goals Time Frame: Dec 28, 2021 Roll Left & Right (QC): 6 Sit to Lying (QC): 6 Lying-Sitting on Side/Bed(QC): 6 Sit to Stand (QC): 4 Chair/Khn-lw-Zfzlh Xfer(QC): 4 Toilet Transfer (QC): 4 Car Transfer (QC): 4 Does the Patient Walk: Yes Walk 10 feet (QC): 4 Walk 50ft with 2 Turns (QC): 4 Walk 150 ft (QC): 4 Walking 10ft on Uneven Surface: 4 1 Step (curb) (QC): 3 4 Steps (QC): 9 12 Steps (QC): 9 Picking up an Object (QC): 3 Wheel 50 feet with 2 turns (QC: 5 Wheel 150 feet: 5 Type: Manual PT Plan Treatment/Plan Treatment Plan: Continue Plan of Care Treatment Plan: Bed Mobility, Concurrent Therapy, Education, Functional Activity Seema, Functional Strength, Group Therapy, Gait, Safety, Therapeutic Exercise, Transfers Treatment Duration: Dec 28, 2021 Frequency: At least 5 of 7 days/Wk (IRF) Estimated Hrs Per Day: 1.5 hours per day Patient and/or Family Agrees t: Yes Safety Risks/Education Patient Education: Gait Training, Transfer Techniques, Correct Positioning, Disease Process, Safety Issues Teaching Recipient: Patient Teaching Methods: Demonstration, Discussion Response to Teaching: Verbalize Understanding, Return Demonstration, Reinforcement Needed Time/GCodes Time In: 900 Time Out: 1000 Total Billed Treatment Time: 60 Total Billed Treatment 1,GT20m,FA15m,EX25m ADRIANNA GRANT FUR DRY CLEANER HAND Dec 13, 2021 09:58
--- NOTE | 2021-12-13 11:01 | Cardiology Progress Note ---
Subjective Date Seen by Provider: Dec 13, 2021 Time Seen by Provider: 11:00 Subjective/Events-last exam Patient was seen at bedside, laying down comfortably, no new complaint Reporting improvement in her muscle strength. Review of Systems General: No Chills, No Night Sweats, No Fatigue, No Malaise, No Appetite, No Other HEENT: No Head Aches, No Visual Changes, No Eye Pain, No Ear Pain, No Dysphasia, No Sinus Congestion, No Post Nasal Drip, No Sore Throat, No Other Pulmonary: No Dyspnea, No Cough, No Pleuritic Chest Pain, No Other Cardiovascular: No: Chest Pain, Palpitations, Orthopnea, Paroxysmal Noc. Dyspnea, Edema, Lt Headedness, Other Objective-Cardiology Exam Last Set of Vital Signs Vital Signs 12/13/21 12/13/21 07:12 09:00 Temp 36.7 Pulse 73 Resp 16 B/P (MAP) 142/75 (97) Pulse Ox 91 O2 Delivery Room Air General: Alert, Oriented X3 HEENT: Atraumatic Neck: Supple Lungs: Clear to Auscultation, Normal Air Movement Heart: Regular Rate, Normal S1, Normal S2 Abdomen: Normal Bowel Sounds, Soft Extremities: No Clubbing, No Cyanosis, No Edema Skin: No Rashes, No Significant Lesion Neuro: Normal Gait, Normal Speech, Cranial Nerves 3-12 NL, Other (Left upper extremity strength is improving.) Psych/Mental Status: Mental Status NL, Mood NL A/P-Cardiology Admission Diagnosis Subacute CVA HTN Assessment/Plan Subacute CVA, CTA of the head showed 80 to 90% right ICA stenosis with possible thrombus with no identifiable source of thrombus. MRI of the head showed patchy region of acute to subacute infarction of the right parietal lobe extending to the posterior right frontal and occipital lobe. 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 No signs of mass- effect or hemorrhage. Recommendation was by [facility] stroke neurology to treat with aspirin and heparin and then progressed to aspirin and Eliquis.Currently maintained on ASA 81 mg and Eliquis 5mg BID. EKG showed sinus rhythm with premature atrial contractions. Asymptomatic. SUKHI done 11/29/21 showing trace mitral regurgitation with no shunt noted. Hypertension, controlled, continue to monitor blood pressure. Hyperlipidemia, started on Lipitor 80 mg daily. Continue to monitor NICOLE DEJESUS MD Dec 13, 2021 11:01
--- NOTE | 2021-12-13 11:22 | Speech Therapy Daily Note ---
Speech Daily Progress Note Subjective Date Seen by Provider: Dec 13, 2021 Time Seen by Provider: 10:00 The patient was lying in bed, awake and alert upon entrance to her room by the clinician. The patient greeted the clinician appropriately and was agreeable to participation in the cognitive linguistic treatment session. Objective - Orientation: The patient was independently oriented to self, location, month, day of week, date, and year. - KAIA: The patient continued an additional portion of the KAIA on this date, completing "Telling Time" on an analog clock with 100% accuracy and mild clinician verbal cueing. Assessment Assessment Current Status: Good Progress Treatment Plan Continue Plan of Care Speech Short Term Goals Short Term Goals Short Term Goals The patient will demonstrate 90% accuracy with memory and functional problem solving with mild clinician verbal and visual cueing. Speech Mcc Goals Cash Management Associate Goals The patient will demonstrate improve cognitive linguistic skills for safe discharge to the least restricted environment. Speech-Plan Treatment Plan Speech Therapy Treatment Plan: Continue Plan of Care Treatment Duration: Dec 20, 2021 Frequency: Modified Program (IRF) Estimated Hrs Per Day: Other Rehab Potential: Good Safety Risks/Education Teaching Recipient: Patient Teaching Methods: Discussion Response to Teaching: Verbalize Understanding Education Topics Provided: Speech Pathology Plan of Care Time Speech Therapy Time In: 10:00 Speech Therapy Time Out: 10:30 Total Billed Time: 30 Billed Treatment Time RADHA Escobedo [facility] Dec 13, 2021 11:22
--- NOTE | 2021-12-13 11:31 | Physical Therapy Daily Note ---
PT Daily Note-Current Subjective Pt. agrees to Rx, c/o fatigue and requests to ex in bed. Pain Location: No Pain Reported Transfers SCALE: Activities may be completed with or without assistive devices. 9-Fozvmiqpls-sutttdg completes the activity by him/herself with no assistance from a helper. 5-Set-up or Clean-up Assistance-helper sets up or cleans up; patient completes activity. [place] assists only prior to or following the activity. 4-Supervision or Touching Assistance-helper provides verbal cues and/or touchin g/steadying and/or contact guard assistance as patient completes activity. Assistance may be provided throughout the activity or intermittently. 3-Partial/Moderate Assistance-helper does LESS THAN HALF the effort. [place] lifts, holds or supports trunk or limbs, but provides less than half the effort. 2-Substantial/Maximal Assistance-helper does MORE THAN HALF the effort. [place] lifts or holds trunk or limbs and provides more than half the effort. 9-Zucmucadb-nxqvmt does ALL the effort. Patient does none of the effort to complete the activity. Or, the assistance of 2 or more helpers is required for the patient to complete the activity. If activity was not attempted, code reason: 7-Patient Refused. 9-Not Applicable-not attempted and the patient did not perform the activity before the current illness, exacerbation or injury. 10-Not Attempted due to Environmental Limitations-(lack of equipment, weather restraints, etc.). 88-Not Attempted due to Medical Conditions or Safety Concerns. rolls left and right and pulls/pushes self up in bed with cues only Weight Bearing Full Weight Bearing Full Weight Bearing Exercises Supine Ex: Bridging, Ankle pumps, Quad Set, Rolling, Glut sets, Heel Slides, Short Arc Quads, Scooting, Straight leg raise, Hip abd/add Supine Reps: 20 Assessment Current Status: Good Progress PT Short Term Goals Short Term Goals Time Frame: Dec 14, 2021 Roll Left & Right: 4 Sit to lyin Lying to sitting on side of be: 4 Sit to stand: 3 Chair/ivr-sc-xvxwl transfer: 3 Toilet transfer: 3 Car transfer: 3 Walk 10 feet: 3 Walk 50 feet with two turns: 3 Does pt use a wc or scooter: Yes Wheel 50ft w/2 turns: 4 Wheel 150 feet: 4 Type: Manual PT Passenger Locomotive Engineer Goals Passenger Locomotive Engineer Goals PT Senior Care Goals Time Frame: Dec 28, 2021 Roll Left & Right (QC): 6 Sit to Lying (QC): 6 Lying-Sitting on Side/Bed(QC): 6 Sit to Stand (QC): 4 Chair/Ink-sy-Mmebo Xfer(QC): 4 Toilet Transfer (QC): 4 Car Transfer (QC): 4 Does the Patient Walk: Yes Walk 10 feet (QC): 4 Walk 50ft with 2 Turns (QC): 4 Walk 150 ft (QC): 4 Walking 10ft on Uneven Surface: 4 1 Step (curb) (QC): 3 4 Steps (QC): 9 12 Steps (QC): 9 Picking up an Object (QC): 3 Wheel 50 feet with 2 turns (QC: 5 Wheel 150 feet: 5 Type: Manual PT Plan Treatment/Plan Treatment Plan: Continue Plan of Care Treatment Plan: Bed Mobility, Concurrent Therapy, Education, Functional Activity Seema, Functional Strength, Group Therapy, Gait, Safety, Therapeutic Exercise, Transfers Treatment Duration: Dec 28, 2021 Frequency: At least 5 of 7 days/Wk (IRF) Estimated Hrs Per Day: 1.5 hours per day Patient and/or Family Agrees t: Yes Safety Risks/Education Patient Education: Correct Positioning Time/GCodes Time In: 1120 Time Out: 1135 Total Billed Treatment Time: 15 Total Billed Treatment 1,ex 15m ADRIANNA GRANT B2B MANAGED SERVICE SALES EXEC Dec 13, 2021 11:31
[2021-12-13] MEDS: MICONAZOLE NITRATE 2% CRM 30 GM TP SCH ×2 (12:16→20:31)
[2021-12-13 19:32] VITALS: BP 137/74
[2021-12-13] MEDS: SIMvastatin 40 MG (ZOCOR) TAB PO SCH (20:30)
[2021-12-13] MEDS: lisINopril 10 MG (PRINIVIL) TABLET PO SCH (20:30)
[2021-12-13] MEDS: meTOprolol SUCCINATE 100 MG (TOPROL XL) TAB PO SCH (20:30)
[2021-12-14] MEDS: KCL 10 MEQ TAB (MICRO K) PO SCH (06:31)
[2021-12-14] MEDS: inSUlin ASPART (NovoLOG) 1 UNIT/0.01 ML (CHARGE PER UNIT) SC SCH ×4 (06:31→20:24)
[2021-12-14 07:52] VITALS: BP 112/63
[2021-12-14] MEDS: CYANOCOBALAMIN 1,000 MCG (VITAMIN B-12) TABLET PO SCH (07:58)
[2021-12-14] MEDS: ASPIRIN E.C. 81 MG (ECOTRIN) TAB PO SCH (07:58)
[2021-12-14] MEDS: PYRIDOXINE (VITAMIN B-6) 50 MG TABLET PO SCH (07:58)
[2021-12-14] MEDS: APIXABAN 5 MG (ELIQUIS) TABLET PO SCH ×2 (07:58→20:12)
[2021-12-14] MEDS: SENNA W/DOCUSATE (SENOKOT S) TABLET PO SCH ×2 (07:59→20:24)
[2021-12-14] MEDS: ACETAMINOPHEN 325 MG TABLET PO PRN (07:59)
[2021-12-14] MEDS: DOCUSATE SODIUM 100 MG (COLACE) CAP PO SCH ×2 (07:59→20:23)
[2021-12-14] MEDS: polyethylene glycoL POWDER 17 GM (MIRALAX) PACK PO SCH ×2 (07:59→20:24)
[2021-12-14] MEDS: DICLOFENAC 1% GEL 100 GM (VOLTAREN) TUBE TOP SCH ×4 (08:03→21:52)
[2021-12-14] MEDS: MICONAZOLE NITRATE 2% CRM 30 GM TP SCH ×2 (08:03→21:11)
--- NOTE | 2021-12-14 08:41 | Physical Therapy Daily Note ---
PT Daily Note-Current Subjective Pt reclined in bed upon arrival to room, agreeable to move to chair and complete leg exercises. She denies any further ambulation due to c/o L knee pain. She reports she only has pain in WB. Appearance Following session, pt reclined in chair with call light, tray table and phone within reach. All needs met at this time, Mental Status Patient Orientation: Person, Place Transfers SCALE: Activities may be completed with or without assistive devices. 4-Igcvavvloq-ynjkmgb completes the activity by him/herself with no assistance from a helper. 5-Set-up or Clean-up Assistance-helper sets up or cleans up; patient completes activity. [place] assists only prior to or following the activity. 4-Supervision or Touching Assistance-helper provides verbal cues and/or touching/steadying and/or contact guard assistance as patient completes activity. Assistance may be provided throughout the activity or intermittently. 3-Partial/Moderate Assistance-helper does LESS THAN HALF the effort. [place] lifts, holds or supports trunk or limbs, but provides less than half the effort. 2-Substantial/Maximal Assistance-helper does MORE THAN HALF the effort. [place] lifts or holds trunk or limbs and provides more than half the effort. 6-Qiqttdlyv-xwnzfj does ALL the effort. Patient does none of the effort to complete the activity. Or, the assistance of 2 or more helpers is required for the patient to complete the activity. If activity was not attempted, code reason: 7-Patient Refused. 9-Not Applicable-not attempted and the patient did not perform the activity before the current illness, exacerbation or injury. 10-Not Attempted due to Environmental Limitations-(lack of equipment, weather restraints, etc.). 88-Not Attempted due to Medical Conditions or Safety Concerns. Roll Left & Right (QC): 6 Lying to Sitting/Side of Bed(Q: 6 Sit to Stand (QC): 6 Chair/Pec-kr-Rdopz Xfer(QC): 4 Weight Bearing Full Weight Bearing Full Weight Bearing Gait Training Pt took 3-5 steps to transfer over to recliner chair with use of FWW Exercises Seated Therapy Exercises: Ankle pumps, Long arc quads, Hip flexion, Kicking activity, Hamstring Curls, Hip abd/add, Glut set Seated Reps: 20 Assessment Current Status: Good Progress Pt tolerated treatment well, demonstrates dragging of LLE with transfer to chair, able to correct with cueing PT Short Term Goals Short Term Goals Time Frame: Dec 14, 2021 Roll Left & Right: 4 Sit to lyin Lying to sitting on side of be: 4 Sit to stand: 3 Chair/iql-sm-wmfoq transfer: 3 Toilet transfer: 3 Car transfer: 3 Walk 10 feet: 3 Walk 50 feet with two turns: 3 Does pt use a wc or scooter: Yes Wheel 50ft w/2 turns: 4 Wheel 150 feet: 4 Type: Manual PT Records Management Manager Goals Records Management Manager Goals PT Intermediate Goals Time Frame: Dec 28, 2021 Roll Left & Right (QC): 6 Sit to Lying (QC): 6 Lying-Sitting on Side/Bed(QC): 6 Sit to Stand (QC): 4 Chair/Sty-xl-Epbox Xfer(QC): 4 Toilet Transfer (QC): 4 Car Transfer (QC): 4 Does the Patient Walk: Yes Walk 10 feet (QC): 4 Walk 50ft with 2 Turns (QC): 4 Walk 150 ft (QC): 4 Walking 10ft on Uneven Surface: 4 1 Step (curb) (QC): 3 4 Steps (QC): 9 12 Steps (QC): 9 Picking up an Object (QC): 3 Wheel 50 feet with 2 turns (QC: 5 Wheel 150 feet: 5 Type: Manual PT Plan Problem List Problem List: Activity Tolerance, Functional Strength, Safety, Balance, Gait, Transfer, Bed Mobility, ROM Treatment/Plan Treatment Plan: Continue Plan of Care Treatment Plan: Bed Mobility, Concurrent Therapy, Education, Functional Activity Seema, Functional Strength, Group Therapy, Gait, Safety, Therapeutic Exercise, Transfers Treatment Duration: Dec 28, 2021 Frequency: At least 5 of 7 days/Wk (IRF) Estimated Hrs Per Day: 1.5 hours per day Patient and/or Family Agrees t: Yes Time/GCodes Time In: 800 Time Out: 815 Total Billed Treatment Time: 15 Total Billed Treatment 1 visit FA (15') GISELL GALLAGHER PT Dec 14, 2021 08:41
--- NOTE | 2021-12-14 10:11 | PM&R Progress Note ---
Subjective HPI/CC On Admission Date Seen by Provider: Dec 14, 2021 Time Seen by Provider: 06:00 Subjective/Events-last exam 12/14/2021: Patient doing well Slept well Blood sugars reviewed Options of treatment will be reviewed 12/13/21: No major issues Bowels moved on 12/11 so will continue giving laxatives 12/12/2021: Pt is doing well No issues Bowels moving No pain 12/11/2021: Pt is about the same Cognitively she doesn't realize how much she can't really do effectively Unsure if she will be able to return back to her apartment and live on her own Overall feels like she is doing okay otherwise 12/10/21: Pt is doing a lot better Denies any pain Diclofenac gel for the knees is helping Increased tonal regulator with the left arm 12/09/21: Patient sleeps most of the time Left hand is 3/4 back to baseline per patient report No pain reported BM+ Sugars are high so added hga1c and SSI/ACHS accuchecks 12/08/21: Patient doing well Sleeps a lot No pain reported 12/07/21: Patient doing really well No major concerns Eating and drinking well Regaining of left-sided weakness improved 12/06/21: Pt having a lot of knee pain so will initiate Diclofenac gel Overall moving around well Dramatic improvement since admission 12/05/2021: Pt doing really well Bowels moved today Tired Discontinuing telemetry Overall dramatic improvement 12/04/2021: Pt is doing really well Sleeping currently Left hand and left arm moving a lot better Overall much improved status 12/03/21: Patient improved Left hand improved No pain reported BM+ Eating well 12/02/2021: Patient doing well Left hand and arm moving well No pain reported Upbeat attitude 12/01/2021: Patient doing very well today Moving left arm and hand really well Family at bedside No pain 11/30/2021: Patient doing well Confusion noted Left sided weakness but can move her arm now Working with PT OT Reviewed labs Reviewed meds Review of Systems General: Fatigue, Malaise Neurological: Weakness, Incoordination Objective Exam Vital Signs Vital Signs Date Time Temp Pulse Resp B/P (MAP) Pulse Ox O2 Delivery O2 Flow Rate FiO2 12/14/21 07:52 36.7 72 20 112/63 (79) 98 Room Air Capillary Refill : General Appearance: No Apparent Distress, WD/WN, Chronically ill HEENT: PERRL/EOMI, Normal ENT Inspection, Pharynx Normal Neck: Full Range of Motion, Normal Inspection, Non Tender, Supple, Carotid Bruit Respiratory: Chest Non Tender, Lungs Clear, Normal Breath Sounds, No Accessory Muscle Use, No Respiratory Distress Cardiovascular: Regular Rate, Rhythm, No Edema, No Gallop, No JVD, No Murmur, Normal Peripheral Pulses Gastrointestinal: Normal Bowel Sounds, No Organomegaly, No Pulsatile Mass, Non Tender, Soft Back: Normal Inspection, No CVA Tenderness, No Vertebral Tenderness Extremity: Normal Capillary Refill, Normal Inspection, Normal Range of Motion (except left side), Non Tender, No Calf Tenderness, No Pedal Edema Neurologic/Psychiatric: Alert, Oriented x3, Normal Mood/Affect, leadership intern II-XII Norm as Tested, Motor Weakness (left sided 2/5) Skin: Normal Color, Warm/Dry Lymphatic: No Adenopathy Results/Procedures Lab Patient resulted labs reviewed. FIM Transfers Therapy Code Descriptions/Definitions Functional [place] Measure: 0=Not Assessed/NA 4=Minimal Assistance 1=Total Assistance 5=Supervision or Setup 2=Maximal Assistance 6=Modified [place] 3=Moderate Assistance 7=Complete IndependenceSCALE: Activities may be completed with or without assistive devices. 3-Kasrsmqjpl-xqlirvf completes the activity by him/herself with no assistance from a helper. 5-Set-up or Clean-up Assistance-helper sets up or cleans up; patient completes activity. [place] assists only prior to or following the activity. 4-Supervision or Touching Assistance-helper provides verbal cues and/or touching/steadying and/or contact guard assistance as patient completes activity. Assistance may be provided throughout the activity or intermittently. 3-Partial/Moderate Assistance-helper does LESS THAN HALF the effort. [place] lifts, holds or supports trunk or limbs, but provides less than half the effort. 2-Substantial/Maximal Assistance-helper does MORE THAN HALF the effort. [place] lifts or holds trunk or limbs and provides more than half the effort. 9-Uqemgxics-pjehiy does ALL the effort. Patient does none of the effort to complete the activity. Or, the assistance of 2 or more helpers is required for the patient to complete the activity. If activity was not attempted, code reason: 7-Patient Refused. 9-Not Applicable-not attempted and the patient did not perform the activity before the current illness, exacerbation or injury. 10-Not Attempted due to Environmental Limitations-(lack of equipment, weather restraints, etc.). 88-Not Attempted due to Medical Conditions or Safety Concerns. Roll Left to Right (QC): 6 Sit to Lying (QC): 6 Sit to Stand (QC): 6 Chair/Ucu-in-Kixfv Xfer(QC): 4 Car Transfer (QC): 4 Gait Training Does the Patient Walk?: Yes Distance: 125' Walk 10 feet (QC): 4 Walk 50 ft with 2 Turns(QC): 4 Walk 150 ft (QC): 4 Walking 10ft/uneven surface-QC: 1 Gait Persons Needed: 1 Gait Assistive Device: FWW Wheelchair Training Does the Pt Use a Wheelchair?: Yes Distance: 100' x 1/250' x 1 Wheel 50 ft with 2 turns (QC): 4 Wheel 150 ft (QC): 4 Type of Wheelchair: Manual Stair Training #of Steps: 1 1 Step (curb) (QC): 1 (placed right foot up on step and attempted to follow with left with PT assist) 4 Steps (QC): 9 12 Steps (QC): 9 Balance Picking up an Object (QC): 88 ADL-Treatment Eating (QC): 5 Oral Hygiene (QC): 6 Shower/Bathe Self (QC): 3 (min) Upper Body Dressing (QC): 4 Lower Body Dressing (QC): 3 On/Off Footwear (QC): 3 Toileting Hygiene (QC): 3 Toilet Transfer (QC): 4 Assessment/Plan Assessment and Plan Assess & Plan/Chief Complaint Assessment: 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 Debility Fall risk Hypertension Hyperlipidemia Advanced age DM hemoglobin A1c 6.9 new diagnosis Plan: Monitor closely Fall risk Monitor BP OAC 11/30/21: Monitor closely Checked meds labs 12/01/2021: Monitor closely DOAC 12/02/21: Monitor closely 12/03/21: Monitor closely Fall risk Decrease Eliquis to 5mg PO BID 12/04/2021: Supportive care Improved status 12/05/2021: Supportive care Aggressive therapy 12/06/2021: Supportive care Monitor knee pain 12/07/2021: Supportive care Diclofenac gel on knees 12/08/21: Monitor closely Knee pain management 12/09/21: Glucose management 12/11/2021: Supportive care Continue aggressive rehab 12/12/2020: Continue aggressive therapy Monitor sugar 12/13/21: Monitor closely Sugar numbers reviewed 12/14/2021: Monitor closely (1) CVA, LEFT SIDED WEAKENSS (2) HLD (hyperlipidemia) Status: Chronic (3) HTN (hypertension) Status: Chronic ZURDO MARINO DO Dec 14, 2021 10:11
[2021-12-14 20:06] VITALS: BP 150/76
[2021-12-14] MEDS: meTOprolol SUCCINATE 100 MG (TOPROL XL) TAB PO SCH (20:12)
[2021-12-14] MEDS: lisINopril 10 MG (PRINIVIL) TABLET PO SCH (20:12)
[2021-12-14] MEDS: SIMvastatin 40 MG (ZOCOR) TAB PO SCH (20:12)
[2021-12-15] MEDS: inSUlin ASPART (NovoLOG) 1 UNIT/0.01 ML (CHARGE PER UNIT) SC SCH ×4 (05:54→20:33)
[2021-12-15] MEDS: KCL 10 MEQ TAB (MICRO K) PO SCH (06:01)
[2021-12-15 07:45] VITALS: BP 131/78
[2021-12-15] MEDS: ASPIRIN E.C. 81 MG (ECOTRIN) TAB PO SCH (08:00)
[2021-12-15] MEDS: APIXABAN 5 MG (ELIQUIS) TABLET PO SCH ×2 (08:00→20:34)
[2021-12-15] MEDS: DICLOFENAC 1% GEL 100 GM (VOLTAREN) TUBE TOP SCH ×4 (08:01→20:35)
[2021-12-15] MEDS: MICONAZOLE 2% POWDER (DESENEX AF) 90 GM TOP SCH ×2 (08:01→20:35)
[2021-12-15] MEDS: PYRIDOXINE (VITAMIN B-6) 50 MG TABLET PO SCH (08:01)
[2021-12-15] MEDS: CYANOCOBALAMIN 1,000 MCG (VITAMIN B-12) TABLET PO SCH (08:01)
[2021-12-15] MEDS: MICONAZOLE NITRATE 2% CRM 30 GM TP SCH ×2 (08:02→20:35)
[2021-12-15] MEDS: DOCUSATE SODIUM 100 MG (COLACE) CAP PO SCH ×2 (09:07→20:46)
[2021-12-15] MEDS: polyethylene glycoL POWDER 17 GM (MIRALAX) PACK PO SCH ×2 (09:07→20:46)
[2021-12-15] MEDS: SENNA W/DOCUSATE (SENOKOT S) TABLET PO SCH ×2 (09:08→20:46)
--- NOTE | 2021-12-15 11:19 | PM&R Progress Note ---
Subjective HPI/CC On Admission Date Seen by Provider: Dec 15, 2021 Time Seen by Provider: 06:00 Subjective/Events-last exam 12/15/2021: Patient denies new issues No pain reported Checked meds 12/14/2021: Patient doing well Slept well Blood sugars reviewed Options of treatment will be reviewed 12/13/21: No major issues Bowels moved on 12/11 so will continue giving laxatives 12/12/2021: Pt is doing well No issues Bowels moving No pain 12/11/2021: Pt is about the same Cognitively she doesn't realize how much she can't really do effectively Unsure if she will be able to return back to her apartment and live on her own Overall feels like she is doing okay otherwise 12/10/21: Pt is doing a lot better Denies any pain Diclofenac gel for the knees is helping Increased operational risk analyst with the left arm 12/09/21: Patient sleeps most of the time Left hand is 3/4 back to baseline per patient report No pain reported BM+ Sugars are high so added hga1c and SSI/ACHS accuchecks 12/08/21: Patient doing well Sleeps a lot No pain reported 12/07/21: Patient doing really well No major concerns Eating and drinking well Regaining of left-sided weakness improved 12/06/21: Pt having a lot of knee pain so will initiate Diclofenac gel Overall moving around well Dramatic improvement since admission 12/05/2021: Pt doing really well Bowels moved today Tired Discontinuing telemetry Overall dramatic improvement 12/04/2021: Pt is doing really well Sleeping currently Left hand and left arm moving a lot better Overall much improved status 12/03/21: Patient improved Left hand improved No pain reported BM+ Eating well 12/02/2021: Patient doing well Left hand and arm moving well No pain reported Upbeat attitude 12/01/2021: Patient doing very well today Moving left arm and hand really well Family at bedside No pain 11/30/2021: Patient doing well Confusion noted Left sided weakness but can move her arm now Working with PT OT Reviewed labs Reviewed meds Review of Systems General: Fatigue, Malaise Neurological: Weakness Objective Exam Vital Signs Vital Signs Date Time Temp Pulse Resp B/P (MAP) Pulse Ox O2 Delivery O2 Flow Rate FiO2 12/15/21 09:54 Room Air 12/15/21 07:45 36.0 71 18 131/78 (95 97 Capillary Refill : General Appearance: No Apparent Distress, WD/WN, Chronically ill HEENT: PERRL/EOMI, Normal ENT Inspection, Pharynx Normal Neck: Full Range of Motion, Normal Inspection, Non Tender, Supple, Carotid Bruit Respiratory: Chest Non Tender, Lungs Clear, Normal Breath Sounds, No Accessory Muscle Use, No Respiratory Distress Cardiovascular: Regular Rate, Rhythm, No Edema, No Gallop, No JVD, No Murmur, Normal Peripheral Pulses Gastrointestinal: Normal Bowel Sounds, No Organomegaly, No Pulsatile Mass, Non Tender, Soft Back: Normal Inspection, No CVA Tenderness, No Vertebral Tenderness Extremity: Normal Capillary Refill, Normal Inspection, Normal Range of Motion (except left side), Non Tender, No Calf Tenderness, No Pedal Edema Neurologic/Psychiatric: Alert, Oriented x3, Normal Mood/Affect, indoor landscape architect II-XII Norm as Tested, Motor Weakness (left sided 2/5) Skin: Normal Color, Warm/Dry Lymphatic: No Adenopathy Results/Procedures Lab Patient resulted labs reviewed. FIM Transfers Therapy Code Descriptions/Definitions Functional [place] Measure: 0=Not Assessed/NA 4=Minimal Assistance 1=Total Assistance 5=Supervision or Setup 2=Maximal Assistance 6=Modified [place] 3=Moderate Assistance 7=Complete IndependenceSCALE: Activities may be completed with or without assistive devices. 6-Xkaggvqejz-vkzjccv completes the activity by him/herself with no assistance from a helper. 5-Set-up or Clean-up Assistance-helper sets up or cleans up; patient completes activity. [place] assists only prior to or following the activity. 4-Supervision or Touching Assistance-helper provides verbal cues and/or touching/steadying and/or contact guard assistance as patient completes activity. Assistance may be provided throughout the activity or intermittently. 3-Partial/Moderate Assistance-helper does LESS THAN HALF the effort. [place] lifts, holds or supports trunk or limbs, but provides less than half the effort. 2-Substantial/Maximal Assistance-helper does MORE THAN HALF the effort. [place] lifts or holds trunk or limbs and provides more than half the effort. 8-Dmyndugxq-fdtfvj does ALL the effort. Patient does none of the effort to complete the activity. Or, the assistance of 2 or more helpers is required for the patient to complete the activity. If activity was not attempted, code reason: 7-Patient Refused. 9-Not Applicable-not attempted and the patient did not perform the activity before the current illness, exacerbation or injury. 10-Not Attempted due to Environmental Limitations-(lack of equipment, weather restraints, etc.). 88-Not Attempted due to Medical Conditions or Safety Concerns. Roll Left to Right (QC): 6 Sit to Lying (QC): 6 Sit to Stand (QC): 6 Chair/Ynu-mo-Mifdx Xfer(QC): 4 Car Transfer (QC): 4 Gait Training Does the Patient Walk?: Yes Distance: 125' Walk 10 feet (QC): 4 Walk 50 ft with 2 Turns(QC): 4 Walk 150 ft (QC): 4 Walking 10ft/uneven surface-QC: 1 Gait Persons Needed: 1 Gait Assistive Device: FWW Wheelchair Training Does the Pt Use a Wheelchair?: Yes Distance: 100' x 1/250' x 1 Wheel 50 ft with 2 turns (QC): 4 Wheel 150 ft (QC): 4 Type of Wheelchair: Manual Stair Training #of Steps: 1 1 Step (curb) (QC): 1 (placed right foot up on step and attempted to follow with left with PT assist) 4 Steps (QC): 9 12 Steps (QC): 9 Balance Picking up an Object (QC): 88 ADL-Treatment Eating (QC): 5 Oral Hygiene (QC): 6 Shower/Bathe Self (QC): 3 (min) Upper Body Dressing (QC): 4 Lower Body Dressing (QC): 3 On/Off Footwear (QC): 3 Toileting Hygiene (QC): 3 Toilet Transfer (QC): 4 Assessment/Plan Assessment and Plan Assess & Plan/Chief Complaint Assessment: 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 Debility Fall risk Hypertension Hyperlipidemia Advanced age DM hemoglobin A1c 6.9 new diagnosis Plan: Monitor closely Fall risk Monitor BP OAC 11/30/21: Monitor closely Checked meds labs 12/01/2021: Monitor closely DOAC 12/02/21: Monitor closely 12/03/21: Monitor closely Fall risk Decrease Eliquis to 5mg PO BID 12/04/2021: Supportive care Improved status 12/05/2021: Supportive care Aggressive therapy 12/06/2021: Supportive care Monitor knee pain 12/07/2021: Supportive care Diclofenac gel on knees 12/08/21: Monitor closely Knee pain management 12/09/21: Glucose management 12/11/2021: Supportive care Continue aggressive rehab 12/12/2020: Continue aggressive therapy Monitor sugar 12/13/21: Monitor closely Sugar numbers reviewed 12/14/2021: Monitor closely 12/15/2021: Sugar managed (1) CVA, LEFT SIDED WEAKENSS (2) HLD (hyperlipidemia) Status: Chronic (3) HTN (hypertension) Status: Chronic ZURDO MARINO DO Dec 15, 2021 11:19
--- NOTE | 2021-12-15 11:45 | Cardiology Progress Note ---
Subjective Date Seen by Provider: Dec 15, 2021 Time Seen by Provider: 11:44 Subjective/Events-last exam Patient was seen at bedside, sitting comfortably, feeling better. Review of Systems General: No Chills, No Night Sweats, No Fatigue, No Malaise, No Appetite, No Other HEENT: No Head Aches, No Visual Changes, No Eye Pain, No Ear Pain, No Dysphasia, No Sinus Congestion, No Post Nasal Drip, No Sore Throat, No Other Pulmonary: No Dyspnea, No Cough, No Pleuritic Chest Pain, No Other Cardiovascular: No: Chest Pain, Palpitations, Orthopnea, Paroxysmal Noc. Dyspnea, Edema, Lt Headedness, Other Objective-Cardiology Exam Last Set of Vital Signs Vital Signs 12/15/21 12/15/21 07:45 09:54 Temp 36.0 Pulse 71 Resp 18 B/P (MAP) 131/78 (95) Pulse Ox 97 O2 Delivery Room Air General: Alert, Oriented X3 HEENT: Atraumatic Neck: Supple Lungs: Clear to Auscultation, Normal Air Movement Heart: Regular Rate, Normal S1, Normal S2 Abdomen: Normal Bowel Sounds, Soft Extremities: No Clubbing, No Cyanosis, No Edema Skin: No Rashes, No Significant Lesion Neuro: Normal Gait, Normal Speech, Cranial Nerves 3-12 NL, Other (Left upper extremity strength is improving.) Psych/Mental Status: Mental Status NL, Mood NL A/P-Cardiology Admission Diagnosis Subacute CVA HTN Assessment/Plan Subacute CVA, CTA of the head showed 80 to 90% right ICA stenosis with possible thrombus with no identifiable source of thrombus. MRI of the head showed patchy region of acute to subacute infarction of the right parietal lobe extending to the posterior right frontal and occipital lobe. 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 No signs of mass-effect or hemorrhage. Recommendation was by [facility] stroke neurology to treat with aspirin and heparin and then progressed to aspirin and Eliquis.Currently maintained on ASA 81 mg and Eliquis 5mg BID. EKG showed sinus rhythm with premature atrial contractions. Asymptomatic. SUKHI done 11/29/21 showing trace mitral regurgitation with no shunt noted. Hypertension, controlled, continue to monitor blood pressure. Hyperlipidemia, started on Lipitor 80 mg daily. Continue to monitor NICOLE DEJESUS MD Dec 15, 2021 11:45
[2021-12-15 20:23] VITALS: BP 142/78
[2021-12-15] MEDS: meTOprolol SUCCINATE 100 MG (TOPROL XL) TAB PO SCH (20:34)
[2021-12-15] MEDS: SIMvastatin 40 MG (ZOCOR) TAB PO SCH (20:34)
[2021-12-15] MEDS: lisINopril 10 MG (PRINIVIL) TABLET PO SCH (20:35)
[2021-12-15] MEDS: MELATONIN 3 MG TABLET PO PRN (21:28)
--- NOTE | 2021-12-16 04:29 | PM&R Progress Note ---
Subjective HPI/CC On Admission Date Seen by Provider: Dec 16, 2021 Time Seen by Provider: 12:30 Subjective/Events-last exam 12/16/2021: No major issues Sugars reviewed DM education will be ordered 12/15/2021: Patient denies new issues No pain reported Checked meds 12/14/2021: Patient doing well Slept well Blood sugars reviewed Options of treatment will be reviewed 12/13/21: No major issues Bowels moved on 12/11 so will continue giving laxatives 12/12/2021: Pt is doing well No issues Bowels moving No pain 12/11/2021: Pt is about the same Cognitively she doesn't realize how much she can't really do effectively Unsure if she will be able to return back to her apartment and live on her own Overall feels like she is doing okay otherwise 12/10/21: Pt is doing a lot better Denies any pain Diclofenac gel for the knees is helping Increased health information clerk with the left arm 12/09/21: Patient sleeps most of the time Left hand is 3/4 back to baseline per patient report No pain reported BM+ Sugars are high so added hga1c and SSI/ACHS accuchecks 12/08/21: Patient doing well Sleeps a lot No pain reported 12/07/21: Patient doing really well No major concerns Eating and drinking well Regaining of left-sided weakness improved 12/06/21: Pt having a lot of knee pain so will initiate Diclofenac gel Overall moving around well Dramatic improvement since admission 12/05/2021: Pt doing really well Bowels moved today Tired Discontinuing telemetry Overall dramatic improvement 12/04/2021: Pt is doing really well Sleeping currently Left hand and left arm moving a lot better Overall much improved status 12/03/21: Patient improved Left hand improved No pain reported BM+ Eating well 12/02/2021: Patient doing well Left hand and arm moving well No pain reported Upbeat attitude 12/01/2021: Patient doing very well today Moving left arm and hand really well Family at bedside No pain 11/30/2021: Patient doing well Confusion noted Left sided weakness but can move her arm now Working with PT OT Reviewed labs Reviewed meds Review of Systems General: Fatigue Neurological: Weakness Objective Exam Vital Signs Vital Signs Date Time Temp Pulse Resp B/P (MAP) Pulse Ox O2 Delivery O2 Flow Rate FiO2 12/16/21 20:10 Room Air 12/16/21 19:49 36.7 75 18 146/70 (95) 94 Capillary Refill : General Appearance: No Apparent Distress, WD/WN, Chronically ill HEENT: PERRL/EOMI, Normal ENT Inspection, Pharynx Normal Neck: Full Range of Motion, Normal Inspection, Non Tender, Supple, Carotid Bruit Respiratory: Chest Non Tender, Lungs Clear, Normal Breath Sounds, No Accessory Muscle Use, No Respiratory Distress Cardiovascular: Regular Rate, Rhythm, No Edema, No Gallop, No JVD, No Murmur, Normal Peripheral Pulses Gastrointestinal: Normal Bowel Sounds, No Organomegaly, No Pulsatile Mass, Non Tender, Soft Back: Normal Inspection, No CVA Tenderness, No Vertebral Tenderness Extremity: Normal Capillary Refill, Normal Inspection, Normal Range of Motion (except left side), Non Tender, No Calf Tenderness, No Pedal Edema Neurologic/Psychiatric: Alert, Oriented x3, Normal Mood/Affect, final assembly inspector II-XII Norm as Tested, Motor Weakness (left sided 2/5) Skin: Normal Color, Warm/Dry Lymphatic: No Adenopathy Results/Procedures Lab Laboratory Tests 12/16/21 05:50 Patient resulted labs reviewed. FIM Transfers Therapy Code Descriptions/Definitions Functional [place] Measure: 0=Not Assessed/NA 4=Minimal Assistance 1=Total Assistance 5=Supervision or Setup 2=Maximal Assistance 6=Modified [place] 3=Moderate Assistance 7=Complete IndependenceSCALE: Activities may be completed with or without assistive devices. 0-Nrxmutdfmf-tfqzbqu completes the activity by him/herself with no assistance from a helper. 5-Set-up or Clean-up Assistance-helper sets up or cleans up; patient completes activity. [place] assists only prior to or following the activity. 4-Supervision or Touching Assistance-helper provides verbal cues and/or touching/steadying and/or contact guard assistance as patient completes acti vity. Assistance may be provided throughout the activity or intermittently. 3-Partial/Moderate Assistance-helper does LESS THAN HALF the effort. [place] lifts, holds or supports trunk or limbs, but provides less than half the effort. 2-Substantial/Maximal Assistance-helper does MORE THAN HALF the effort. [place] lifts or holds trunk or limbs and provides more than half the effort. 1-Ycibtnxxu-lthwio does ALL the effort. Patient does none of the effort to complete the activity. Or, the assistance of 2 or more helpers is required for the patient to complete the activity. If activity was not attempted, code reason: 7-Patient Refused. 9-Not Applicable-not attempted and the patient did not perform the activity before the current illness, exacerbation or injury. 10-Not Attempted due to Environmental Limitations-(lack of equipment, weather restraints, etc.). 88-Not Attempted due to Medical Conditions or Safety Concerns. Roll Left to Right (QC): 6 Sit to Lying (QC): 6 Sit to Stand (QC): 6 Chair/Cyj-ww-Mbiej Xfer(QC): 4 Car Transfer (QC): 4 Gait Training Does the Patient Walk?: Yes Distance: 125' Walk 10 feet (QC): 4 Walk 50 ft with 2 Turns(QC): 4 Walk 150 ft (QC): 4 Walking 10ft/uneven surface-QC: 1 Gait Persons Needed: 1 Gait Assistive Device: FWW Wheelchair Training Does the Pt Use a Wheelchair?: Yes Distance: 100' x 1/250' x 1 Wheel 50 ft with 2 turns (QC): 4 Wheel 150 ft (QC): 4 Type of Wheelchair: Manual Stair Training #of Steps: 1 1 Step (curb) (QC): 1 (placed right foot up on step and attempted to follow with left with PT assist) 4 Steps (QC): 9 12 Steps (QC): 9 Balance Picking up an Object (QC): 88 ADL-Treatment Eating (QC): 5 Oral Hygiene (QC): 6 Shower/Bathe Self (QC): 3 (min) Upper Body Dressing (QC): 4 Lower Body Dressing (QC): 3 On/Off Footwear (QC): 3 Toileting Hygiene (QC): 3 Toilet Transfer (QC): 4 Assessment/Plan Assessment and Plan Assess & Plan/Chief Complaint Assessment: 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 Debility Fall risk Hypertension Hyperlipidemia Advanced age DM hemoglobin A1c 6.9 new diagnosis Plan: Monitor closely Fall risk Monitor BP OAC 11/30/21: Monitor closely Checked meds labs 12/01/2021: Monitor closely DOAC 12/02/21: Monitor closely 12/03/21: Monitor closely Fall risk Decrease Eliquis to 5mg PO BID 12/04/2021: Supportive care Improved status 12/05/2021: Supportive care Aggressive therapy 12/06/2021: Supportive care Monitor knee pain 12/07/2021: Supportive care Diclofenac gel on knees 12/08/21: Monitor closely Knee pain management 12/09/21: Glucose management 12/11/2021: Supportive care Continue aggressive rehab 12/12/2020: Continue aggressive therapy Monitor sugar 12/13/21: Monitor closely Sugar numbers reviewed 12/14/2021: Monitor closely 12/15/2021: Sugar managed 12/16/2021: DM education (1) CVA, LEFT SIDED WEAKENSS (2) HLD (hyperlipidemia) Status: Chronic (3) HTN (hypertension) Status: Chronic ZURDO MARINO DO Dec 16, 2021 04:29
[2021-12-16 06:05] LABS: BASOPHILS # (AUTO) 0.1 10^3/uL (0.0-0.1); BASOPHILS % (AUTO) 1 % (0-10); EOSINOPHILS # (AUTO) 0.1 10^3/uL (0.0-0.3); EOSINOPHILS % (AUTO) 1 % (0-10); HEMATOCRIT 41 % (35-52); HEMOGLOBIN 13.6 g/dL (11.5-16.0); LYMPHOCYTES # (AUTO) 1.6 10^3/uL (1.0-4.0); LYMPHOCYTES % (AUTO) 19 % (12-44); MEAN CORPUSCULAR HEMOGLOBIN 30 pg (25-34); MEAN CORPUSCULAR HGB CONC 33 g/dL (32-36); MEAN CORPUSCULAR VOLUME 92 fL (80-99); MEAN PLATELET VOLUME 10.8 fL (9.0-12.2); MONOCYTES # (AUTO) 0.6 10^3/uL (0.0-1.0); MONOCYTES % (AUTO) 7 % (0-12); NEUTROPHILS % (AUTO) 72 % (42-75); PLATELET COUNT 297 10^3/uL (130-400); WHITE BLOOD COUNT 8.4 10^3/uL (4.3-11.0)
[2021-12-16 06:16] LABS: ALBUMIN 3.5 GM/DL (3.2-4.5); POTASSIUM 3.6 MMOL/L (3.6-5.0)
[2021-12-16 06:17] LABS: CALCIUM 8.9 MG/DL (8.5-10.1)
[2021-12-16 06:18] LABS: TOTAL PROTEIN 5.8 GM/DL (6.4-8.2)
[2021-12-16 06:20] LABS: BILIRUBIN,TOTAL 0.7 MG/DL (0.1-1.0)
[2021-12-16 06:22] LABS: CREATININE SERUM 0.65 MG/DL (0.60-1.30)
[2021-12-16] MEDS: inSUlin ASPART (NovoLOG) 1 UNIT/0.01 ML (CHARGE PER UNIT) SC SCH ×4 (06:26→20:33)
[2021-12-16] MEDS: KCL 10 MEQ TAB (MICRO K) PO SCH (06:47)
[2021-12-16 07:26] VITALS: BP 141/78
[2021-12-16] MEDS: CYANOCOBALAMIN 1,000 MCG (VITAMIN B-12) TABLET PO SCH (08:36)
[2021-12-16] MEDS: APIXABAN 5 MG (ELIQUIS) TABLET PO SCH ×2 (08:36→20:33)
[2021-12-16] MEDS: PYRIDOXINE (VITAMIN B-6) 50 MG TABLET PO SCH (08:36)
[2021-12-16] MEDS: ASPIRIN E.C. 81 MG (ECOTRIN) TAB PO SCH (08:36)
[2021-12-16] MEDS: DICLOFENAC 1% GEL 100 GM (VOLTAREN) TUBE TOP SCH ×4 (08:36→20:33)
--- NOTE | 2021-12-16 08:40 | Occupational Ther Daily Note ---
OT Current Status-Daily Note Subjective Pt reports improved sleep last night. She states that nursing gave her Melatonin to help. Appearance Pt returned to sitting in recliner, all needs within reach at OT departure. Mental Status/Objective Patient Orientation: Person, Place, Situation ADL-Treatment Therapy Code Descriptions/Definitions Functional [place] Measure: 0=Not Assessed/NA 4=Minimal Assistance 1=Total Assistance 5=Supervision or Setup 2=Maximal Assistance 6=Modified [place] 3=Moderate Assistance 7=Complete IndependenceSCALE: Activities may be completed with or without assistive devices. 9-Chowjxelgi-hdnhjbv completes the activity by him/herself with no assistance from a helper. 5-Set-up or Clean-up Assistance-helper sets up or cleans up; patient completes activity. [place] assists only prior to or following the activity. 4-Supervision or Touching Assistance-helper provides verbal cues and/or touching/steadying and/or contact guard assistance as patient completes activity. Assistance may be provided throughout the activity or intermittently. 3-Partial/Moderate Assistance-helper does LESS THAN HALF the effort. [place] lifts, holds or supports trunk or limbs, but provides less than half the effort. 2-Substantial/Maximal Assistance-helper does MORE THAN HALF the effort. [place] lifts or holds trunk or limbs and provides more than half the effort. 2-Jenhimxbh-ihxrxp does ALL the effort. Patient does none of the effort to complete the activity. Or, the assistance of 2 or more helpers is required for the patient to complete the activity. If activity was not attempted, code reason: 7-Patient Refused. 9-Not Applicable-not attempted and the patient did not perform the activity before the current illness, exacerbation or injury. 10-Not Attempted due to Environmental Limitations-(lack of equipment, weather restraints, etc.). 88-Not Attempted due to Medical Conditions or Safety Concerns. Oral Hygiene (QC): 6 Upper Body Dressing (QC): 4 Lower Body Dressing (QC): 3 (min a) On/Off Footwear: 3 (min-mod a) Toileting Hygiene (QC): 3 (min a) Toilet Transfer (QC): 4 (sba) Supine>sit: SBA. Pt continues to exhibit improved speed and safety with task. She does require cue to initiate use of L hand during transfer as she continues to have tendency to hold in a guarded position. Partial sponge bath and clothing task completed seated EOB. Pt able to wash upper body without assist. Extra time to manipulate washcloth with L hand, but no dropping or HOHA required this date. Improved sequencing notable during UB dressing. Verbal Cue only to pull down over L side of trunk. While seated, pt was able to thread LLE into pants with use of cross over method. She continues to have difficulty threading RLE secondary to impaired flexibility and LE strength. OT positioned foot stool under pt's R foot to decrease reach. Post modification, pt was able to don pants over R foot without any physical assistance. She stood with Supervision to pull clothing over waist. Extra time and minimal assist to pull completely over L hip due to tight fit and reduced pinch/shaper set up operator strength on L hand. Grooming tasks performed independently at w/c level. Other Treatment Pt ambulated to/from therapy gym with CGA and use of walker. 1 seated rest break required before reaching destination, ~50 feet. Pt continues to need mod-max cues to lift L foot higher off floor, especially as fatigue increases. Cues also for object avoidance and walker management as pt has tendency to push walker too far out in front of her as well as making very wide turns. While in gym, pt participated in several activities focusing on promoting increased LE strength, UE ROM, coordination, dexterity, pinch/shaper set up operator strength, and overall endurance needed for functional tasks such as dressing. While seated, pt performed figure 4 method (with BLE's) in order to place ring onto foot. Pt then kicked ring off into basket. 2# ankle weights added for strengthening component as well as promoting increased proprioception/coordination. Improved reach towards feet exhibited towards end of task. Pt also completed FM tasks with different size nuts/bolts, small beads and 1/2 inch blocks. Improved pinch observed throughout task. Continues to have slight impairment in coordination as pt will under/over shoot. 2# wrist weights added for proprioception/awareness. Min-mod cues to inco rporate index finger when twisting nut onto bolt, good follow through post cues. Education OT Patient Education: Correct positioning, Energy conservation, Modified ADL techniques, Progress toward Goal/Update tx plan, Purpose of tx/functional activities, Reviewed precautions, Rehab process, Safety issues, Transfer techniques Teaching Recipient: Patient Teaching Methods: Demonstration, Discussion Response to Teaching: Verbalize Understanding, Return Demonstration, Reinforcement Needed OT Short Term Goals Short Term Goals Time Frame: Dec 13, 2021 Eatin Oral hygiene: 5 Toileting hygiene: 2 Shower/bathe self: 3 Upper body dressin Lower body dressin Putting on/taking off footwear: 2 OT Dental Scheduling Coordinator Goals Dental Scheduling Coordinator Goals Time Frame: Dec 27, 2021 Eating (QC): 5 Oral Hygiene (QC): 6 Toileting Hygiene (QC): 6 Shower/Bathe Self (QC): 4 Upper Body Dressing (QC): 5 Lower Body Dressing (QC): 4 On/Off Footwear (QC): 4 1=Demonstrate adherence to instructed precautions during ADL tasks. 2=Patient will verbalize/demonstrate understanding of assistive devices/modifications for ADL. 3=Patient will improve strength/tolerance for activity to enable patient to perform ADL's. OT Education/Plan Problem List/Assessment Assessment: Decreased Activ Tolerance, Decreased Safety Aware, Decreased UE Strength, Impaired Cognition, Impaired Coordination, Impaired Funct Balance, Impaired I ADL's, Impaired Self-Care Skills, Restricted Funct UE ROM Discharge Recommendations Plan/Recommendations: Continue POC Treatment Plan/Plan of Care Treatment,Training & Education: Yes Patient would benefit from OT for education, treatment and training to promote independence in ADL's, mobility, safety and/or upper extremity function for ADL's. Plan of Care: ADL Retraining, Cognitive Retraining, Functional Mobility, Group Exercise/Act as Ind, UE Funct Exercise/Act, UE Neuromus Re-Ed/Coord, Visual/Perceptual Retrain, W/C Management Training Treatment Duration: Dec 27, 2021 Frequency: At least 5 of 7 days/Wk (IRF) Estimated Hrs Per Day: 1.5 hours per day Agreement: Yes Rehab Potential: Good Time/GCodes Start Time: 07:30 Stop Time: 08:45 Total Time Billed (hr/min): 75 Billed Treatment Time 1 visit ADL x2 (35 min) FA x3 (40 min) Kim Shannon OT Dec 16, 2021 08:40
[2021-12-16] MEDS: MICONAZOLE 2% POWDER (DESENEX AF) 90 GM TOP SCH ×2 (08:42→20:34)
--- NOTE | 2021-12-16 08:55 | Cardiology Progress Note ---
Subjective Date Seen by Provider: Dec 16, 2021 Time Seen by Provider: 08:25 Subjective/Events-last exam Patient is with PT, no new complaints. Denies any chest pain or dyspnea. Objective-Cardiology Exam Last Set of Vital Signs Vital Signs 12/16/21 12/16/21 07:26 09:32 Temp 36.6 Pulse 75 Resp 16 B/P (MAP) 141/78 (99) Pulse Ox 93 O2 Delivery Room Air General: Alert, Oriented X3 HEENT: Atraumatic Neck: Supple Lungs: Clear to Auscultation, Normal Air Movement Heart: Regular Rate, Normal S1, Normal S2 Abdomen: Normal Bowel Sounds, Soft Extremities: No Clubbing, No Cyanosis, No Edema Skin: No Rashes, No Significant Lesion Neuro: Normal Gait, Normal Speech, Cranial Nerves 3-12 NL, Other (Left upper extremity strength is improving.) Psych/Mental Status: Mental Status NL, Mood NL Results Lab Laboratory Tests 12/16/21 05:50 A/P-Cardiology Admission Diagnosis Subacute CVA HTN Assessment/Plan Subacute CVA, CTA of the head showed 80 to 90% right ICA stenosis with possible thrombus with no identifiable source of thrombus. MRI of the head showed patchy region of acute to subacute infarction of the right parietal lobe extending to the posterior right frontal and occipital lobe. 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 No signs of mass- effect or hemorrhage. Recommendation was by [facility] stroke neurology to treat with aspirin and heparin and then progressed to aspirin and Eliquis.Currently maintained on ASA 81 mg and Eliquis 5mg BID. EKG showed sinus rhythm with premature atrial contractions. Asymptomatic. SUKHI done 11/29/21 showing trace mitral regurgitation with no shunt noted. Hypertension, controlled, continue to monitor blood pressure. Hyperlipidemia, started on Lipitor 80 mg daily. Continue to monitor Supervisory-Addendum Brief Supervisory Addendum Participated in pt care: history, MDM, physical Personally performed: exam, history, MDM Care discussed with: BROWN Results interpretation: Verified all documentation Notes: Patient was seen and evaluated with Mary, examination performed, management plan was discussed, agree with the current scribed note, I made few changes to the note using Italic font Patient was seen at bedside, laying down comfortably Reporting improvement Continue current medication, monitor blood pressure and lipids MARY SLAUGHTER Dec 16, 2021 08:55 NICOLE DEJESUS MD Dec 16, 2021 11:33
[2021-12-16] MEDS: MICONAZOLE NITRATE 2% CRM 30 GM TP SCH ×2 (09:16→20:34)
[2021-12-16] MEDS: DOCUSATE SODIUM 100 MG (COLACE) CAP PO SCH ×2 (09:16→20:15)
[2021-12-16] MEDS: polyethylene glycoL POWDER 17 GM (MIRALAX) PACK PO SCH ×2 (09:16→20:15)
[2021-12-16] MEDS: SENNA W/DOCUSATE (SENOKOT S) TABLET PO SCH ×2 (09:16→20:15)
--- NOTE | 2021-12-16 10:10 | Physical Therapy Daily Note ---
PT Daily Note-Current Subjective Pt laying Supine in bed upon arrival. Pt agrees to PT. Pain Location: Left Location Body Site: Knee Pain Description: Sharp Mental Status Patient Orientation: Person, Place Transfers SCALE: Activities may be completed with or without assistive devices. 7-Thxdetxdli-wpdtyot completes the activity by him/herself with no assistance from a helper. 5-Set-up or Clean-up Assistance-helper sets up or cleans up; patient completes activity. [place] assists only prior to or following the activity. 4-Supervision or Touching Assistance-helper provides verbal cues and/or touching/steadying and/or contact guard assistance as patient completes activity. Assistance may be provided throughout the activity or intermittently. 3-Partial/Moderate Assistance-helper does LESS THAN HALF the effort. Avenue lifts, holds or supports trunk or limbs, but provides less than half the effort. 2-Substantial/Maximal Assistance-helper does MORE THAN HALF the effort. Avenue lifts or holds trunk or limbs and provides more than half the effort. 2-Xorvcsnyh-ieibic does ALL the effort. Patient does none of the effort to complete the activity. Or, the assistance of 2 or more helpers is required for the patient to complete the activity. If activity was not attempted, code reason: 7-Patient Refused. 9-Not Applicable-not attempted and the patient did not perform the activity before the current illness, exacerbation or injury. 10-Not Attempted due to Environmental Limitations-(lack of equipment, weather restraints, etc.). 88-Not Attempted due to Medical Conditions or Safety Concerns. Sit to Lying (QC): 4 Lying to Sitting/Side of Bed(Q: 4 Sit to Stand (QC): 4 Weight Bearing Full Weight Bearing Full Weight Bearing Gait Training Does the Patient Walk?: Yes Distance: 75', 150', 125' Walk 10 feet (QC): 4 Walk 50 ft with 2 Turns(QC): 4 Walk 150 ft (QC): 4 Gait Persons Needed: 1 Gait Assistive Device: FWW Exercises Seated Therapy Exercises: Ankle pumps, Long arc quads, Hip flexion Seated Reps: 15 Standing: Hip Abduction, Hamstring curls, Marching Standing Reps: 15 NuStep Minutes: 11 NuStep Workload: 4 Treatments TF to EOB and standing, declines needs for BR. Amb in hallway, takes RB before completing Seated EX. Pt uses NuStep for 11m at WL 4. Pt takes short RB then completes Standing EX w/short RB after each EX. Pt amb. in hallway and returns to room to rest in bed at end of tx. All needs met, call light next to pt. Assessment Current Status: Good Progress Pt is improving with bed mobility and transfers although still needs reminders for safety w/transfers at times. Pt also demonstrated weakness in L knee and reports sharp discomfort that she calls arthritis. PT Short Term Goals Short Term Goals Time Frame: Dec 14, 2021 Roll Left & Right: 4 Sit to lyin Lying to sitting on side of be: 4 Sit to stand: 3 Chair/bbi-ef-iykbi transfer: 3 Toilet transfer: 3 Car transfer: 3 Walk 10 feet: 3 Walk 50 feet with two turns: 3 Does pt use a wc or scooter: Yes Wheel 50ft w/2 turns: 4 Wheel 150 feet: 4 Type: Manual PT Oceanologist Goals Alf Goals PT Oceanologist Goals Time Frame: Dec 28, 2021 Roll Left & Right (QC): 6 Sit to Lying (QC): 6 Lying-Sitting on Side/Bed(QC): 6 Sit to Stand (QC): 4 Chair/Rdd-wy-Thvmw Xfer(QC): 4 Toilet Transfer (QC): 4 Car Transfer (QC): 4 Does the Patient Walk: Yes Walk 10 feet (QC): 4 Walk 50ft with 2 Turns (QC): 4 Walk 150 ft (QC): 4 Walking 10ft on Uneven Surface: 4 1 Step (curb) (QC): 3 4 Steps (QC): 9 12 Steps (QC): 9 Picking up an Object (QC): 3 Wheel 50 feet with 2 turns (QC: 5 Wheel 150 feet: 5 Type: Manual PT Plan Problem List Problem List: Activity Tolerance, Safety, Gait Treatment/Plan Treatment Plan: Continue Plan of Care Treatment Plan: Bed Mobility, Concurrent Therapy, Education, Functional Activity Seema, Functional Strength, Group Therapy, Gait, Safety, Therapeutic Exercise, Transfers Treatment Duration: Dec 28, 2021 Frequency: At least 5 of 7 days/Wk (IRF) Estimated Hrs Per Day: 1.5 hours per day Patient and/or Family Agrees t: Yes Safety Risks/Education Patient Education: Gait Training, Transfer Techniques, Correct Positioning, Safety Issues Teaching Recipient: Patient Teaching Methods: Discussion Response to Teaching: Verbalize Understanding Time/GCodes Time In: 900 Time Out: 1000 Total Billed Treatment Time: 60 Total Billed Treatment 1, GT x2 (25m) & EX x2 (35m) GHAZALA BARRAGAN JUNIOR ENGINEER Dec 16, 2021 10:10
--- NOTE | 2021-12-16 13:44 | Speech Therapy Daily Note ---
Speech Daily Progress Note Subjective Date Seen by Provider: Dec 16, 2021 Time Seen by Provider: 10:15 The patient was lying in bed, awake and alert upon entrance to her room by the clinician. The patient greeted the clinician appropriately and was agreeable to participation in the cognitive linguistic treatment session. Objective The patient completed the MoCA on this date with a result of +26/30 correlating to cognitive linguistic functions within normal limits. The patient demonstrated an error with trail-making, cube copying, serial seven subtraction, word- finding, and recalled four of five single words. While the patient displayed cognitive linguistic scores within normal limits, the above errors remained in the category the clinician is currently focusing on throughout skilled treatment which include executive functioning, problem solving, and memory. Assessment Assessment Current Status: Good Progress Treatment Plan Continue Plan of Care Speech Short Term Goals Short Term Goals Short Term Goals The patient will demonstrate 90% accuracy with memory and functional problem solving with mild clinician verbal and visual cueing. Speech Adjunct Psychology Faculty Member Goals Assisted Goals The patient will demonstrate improve cognitive linguistic skills for safe discharge to the least restricted environment. Speech-Plan Treatment Plan Speech Therapy Treatment Plan: Continue Plan of Care Treatment Duration: Dec 20, 2021 Frequency: Modified Program (IRF) Estimated Hrs Per Day: Other Rehab Potential: Good Pt/Family Agrees to Plan: Yes Safety Risks/Education Teaching Recipient: Patient Teaching Methods: Discussion Response to Teaching: Verbalize Understanding, Reinforcement Needed Education Topics Provided: MoCA Results, POC Time Speech Therapy Time In: 10:15 Speech Therapy Time Out: 10:45 Total Billed Time: 30 Billed Treatment Time 1RADHA ELIZABETH ST Dec 16, 2021 13:44
--- NOTE | 2021-12-16 14:22 | Physical Therapy Daily Note ---
PT Daily Note-Current Subjective Pt laying Supine in bed upon arrival. Pt agrees to PT. Pain Location: No Pain Reported Mental Status Patient Orientation: Person, Place, Situation Transfers SCALE: Activities may be completed with or without assistive devices. 4-Rfoumjwvvw-myouzuk completes the activity by him/herself with no assistance from a helper. 5-Set-up or Clean-up Assistance-helper sets up or cleans up; patient completes activity. [place] assists only prior to or following the activity. 4-Supervision or Touching Assistance-helper provides verbal cues and/or touching/steadying and/or contact guard assistance as patient completes activity. Assistance may be provided throughout the activity or intermittently. 3-Partial/Moderate Assistance-helper does LESS THAN HALF the effort. [place] lifts, holds or supports trunk or limbs, but provides less than half the effort. 2-Substantial/Maximal Assistance-helper does MORE THAN HALF the effort. [place] lifts or holds trunk or limbs and provides more than half the effort. 4-Xanleoiwu-mcheln does ALL the effort. Patient does none of the effort to complete the activity. Or, the assistance of 2 or more helpers is required for the patient to complete the activity. If activity was not attempted, code reason: 7-Patient Refused. 9-Not Applicable-not attempted and the patient did not perform the activity before the current illness, exacerbation or injury. 10-Not Attempted due to Environmental Limitations-(lack of equipment, weather restraints, etc.). 88-Not Attempted due to Medical Conditions or Safety Concerns. Lying to Sitting/Side of Bed(Q: 4 Sit to Stand (QC): 4 Toilet Transfer (QC): 4 Weight Bearing Full Weight Bearing Full Weight Bearing Gait Training Does the Patient Walk?: Yes Distance: 15' x2 Walk 10 feet (QC): 3 Gait Persons Needed: 1 Gait Assistive Device: FWW Pt is walking on L tiptoe. This leave pt often unbalanced. SOLE BLACKER gives VC for safety although pt continues to needs redirection. Treatments TF to EOB and standing then amb. to BR. Pt is able to complete pericare independently. Pt wants to return to bed to rest at end of tx. All needs met, call light in hand. Assessment Current Status: Fair Progress Pt fatigues quickly and needs VC for safety while pt is amb. PT Short Term Goals Short Term Goals Time Frame: Dec 14, 2021 Roll Left & Right: 4 Sit to lyin Lying to sitting on side of be: 4 Sit to stand: 3 Chair/eiz-qo-jgtmx transfer: 3 Toilet transfer: 3 Car transfer: 3 Walk 10 feet: 3 Walk 50 feet with two turns: 3 Does pt use a wc or scooter: Yes Wheel 50ft w/2 turns: 4 Wheel 150 feet: 4 Type: Manual PT Longterm Goals Longterm Goals PT Longterm Goals Time Frame: Dec 28, 2021 Roll Left & Right (QC): 6 Sit to Lying (QC): 6 Lying-Sitting on Side/Bed(QC): 6 Sit to Stand (QC): 4 Chair/Zka-ps-Oixkx Xfer(QC): 4 Toilet Transfer (QC): 4 Car Transfer (QC): 4 Does the Patient Walk: Yes Walk 10 feet (QC): 4 Walk 50ft with 2 Turns (QC): 4 Walk 150 ft (QC): 4 Walking 10ft on Uneven Surface: 4 1 Step (curb) (QC): 3 4 Steps (QC): 9 12 Steps (QC): 9 Picking up an Object (QC): 3 Wheel 50 feet with 2 turns (QC: 5 Wheel 150 feet: 5 Type: Manual PT Plan Problem List Problem List: Activity Tolerance, Gait Treatment/Plan Treatment Plan: Continue Plan of Care Treatment Plan: Bed Mobility, Concurrent Therapy, Education, Functional Activity Seema, Functional Strength, Group Therapy, Gait, Safety, Therapeutic Exercise, Transfers Treatment Duration: Dec 28, 2021 Frequency: At least 5 of 7 days/Wk (IRF) Estimated Hrs Per Day: 1.5 hours per day Patient and/or Family Agrees t: Yes Safety Risks/Education Patient Education: Gait Training, Correct Positioning, Safety Issues Teaching Recipient: Patient Teaching Methods: Discussion Response to Teaching: Reinforcement Needed Time/GCodes Time In: 1330 Time Out: 1345 Total Billed Treatment Time: 15 Total Billed Treatment 1, FA (15m) GHAZALA BARRAGAN PTA Dec 16, 2021 14:22
[2021-12-16 19:49] VITALS: BP 146/70
[2021-12-16] MEDS: meTOprolol SUCCINATE 100 MG (TOPROL XL) TAB PO SCH (20:33)
[2021-12-16] MEDS: lisINopril 10 MG (PRINIVIL) TABLET PO SCH (20:33)
[2021-12-16] MEDS: SIMvastatin 40 MG (ZOCOR) TAB PO SCH (20:33)
--- NOTE | 2021-12-17 05:57 | PM&R Progress Note ---
Subjective HPI/CC On Admission Date Seen by Provider: Dec 17, 2021 Time Seen by Provider: 10:00 Subjective/Events-last exam 12/17/2021: NO major issues DM education will be provided NO pain 12/16/2021: No major issues Sugars reviewed DM education will be ordered 12/15/2021: Patient denies new issues No pain reported Checked meds 12/14/2021: Patient doing well Slept well Blood sugars reviewed Options of treatment will be reviewed 12/13/21: No major issues Bowels moved on 12/11 so will continue giving laxatives 12/12/2021: Pt is doing well No issues Bowels moving No pain 12/11/2021: Pt is about the same Cognitively she doesn't realize how much she can't really do effectively Unsure if she will be able to return back to her apartment and live on her own Overall feels like she is doing okay otherwise 12/10/21: Pt is doing a lot better Denies any pain Diclofenac gel for the knees is helping Increased vessel slag worker with the left arm 12/09/21: Patient sleeps most of the time Left hand is 3/4 back to baseline per patient report No pain reported BM+ Sugars are high so added hga1c and SSI/ACHS accuchecks 12/08/21: Patient doing well Sleeps a lot No pain reported 12/07/21: Patient doing really well No major concerns Eating and drinking well Regaining of left-sided weakness improved 12/06/21: Pt having a lot of knee pain so will initiate Diclofenac gel Overall moving around well Dramatic improvement since admission 12/05/2021: Pt doing really well Bowels moved today Tired Discontinuing telemetry Overall dramatic improvement 12/04/2021: Pt is doing really well Sleeping currently Left hand and left arm moving a lot better Overall much improved status 12/03/21: Patient improved Left hand improved No pain reported BM+ Eating well 12/02/2021: Patient doing well Left hand and arm moving well No pain reported Upbeat attitude 12/01/2021: Patient doing very well today Moving left arm and hand really well Family at bedside No pain 11/30/2021: Patient doing well Confusion noted Left sided weakness but can move her arm now Working with PT OT Reviewed labs Reviewed meds Review of Systems General: Fatigue, Malaise Neurological: Weakness Objective Exam Vital Signs Vital Signs Date Time Temp Pulse Resp B/P (MAP) Pulse Ox O2 Delivery O2 Flow Rate FiO2 12/17/21 20:40 Room Air 12/17/21 19:35 36.4 75 18 145/76 (99) 93 Capillary Refill : General Appearance: No Apparent Distress, WD/WN, Chronically ill HEENT: PERRL/EOMI, Normal ENT Inspection, Pharynx Normal Neck: Full Range of Motion, Normal Inspection, Non Tender, Supple, Carotid Bruit Respiratory: Chest Non Tender, Lungs Clear, Normal Breath Sounds, No Accessory Muscle Use, No Respiratory Distress Cardiovascular: Regular Rate, Rhythm, No Edema, No Gallop, No JVD, No Murmur, Normal Peripheral Pulses Gastrointestinal: Normal Bowel Sounds, No Organomegaly, No Pulsatile Mass, Non Tender, Soft Back: Normal Inspection, No CVA Tenderness, No Vertebral Tenderness Extremity: Normal Capillary Refill, Normal Inspection, Normal Range of Motion (except left side), Non Tender, No Calf Tenderness, No Pedal Edema Neurologic/Psychiatric: Alert, Oriented x3, Normal Mood/Affect, hospital plan administrator II-XII Norm as Tested, Motor Weakness (left sided 2/5) Skin: Normal Color, Warm/Dry Lymphatic: No Adenopathy Results/Procedures Lab Patient resulted labs reviewed. FIM Transfers Therapy Code Descriptions/Definitions Functional [place] Measure: 0=Not Assessed/NA 4=Minimal Assistance 1=Total Assistance 5=Supervision or Setup 2=Maximal Assistance 6=Modified [place] 3=Moderate Assistance 7=Complete IndependenceSCALE: Activities may be completed with or without assistive devices. 8-Grkfuhbvsr-ulohbxw completes the activity by him/herself with no assistance from a helper. 5-Set-up or Clean-up Assistance-helper sets up or cleans up; patient completes activity. [place] assists only prior to or following the activity. 4-Supervision or Touching Assistance-helper provides verbal cues and/or touching/steadying and/or contact guard assistance as patient completes activity. Assistance may be provided throughout the activity or intermittently. 3-Partial/Moderate Assistance-helper does LESS THAN HALF the effort. [place] lifts, holds or supports trunk or limbs, but provides less than half the effort. 2-Substantial/Maximal Assistance-helper does MORE THAN HALF the effort. [place] lifts or holds trunk or limbs and provides more than half the effort. 8-Gravweacc-zcknqb does ALL the effort. Patient does none of the effort to complete the activity. Or, the assistance of 2 or more helpers is required for the patient to complete the activity. If activity was not attempted, code reason: 7-Patient Refused. 9-Not Applicable-not attempted and the patient did not perform the activity before the current illness, exacerbation or injury. 10-Not Attempted due to Environmental Limitations-(lack of equipment, weather restraints, etc.). 88-Not Attempted due to Medical Conditions or Safety Concerns. Roll Left to Right (QC): 6 Sit to Lying (QC): 4 Sit to Stand (QC): 4 Chair/Ehj-xh-Lfqlb Xfer(QC): 4 Car Transfer (QC): 4 Gait Training Does the Patient Walk?: Yes Distance: 15' x2 Walk 10 feet (QC): 3 Walk 50 ft with 2 Turns(QC): 4 Walk 150 ft (QC): 4 Walking 10ft/uneven surface-QC: 1 Gait Persons Needed: 1 Gait Assistive Device: FWW Wheelchair Training Does the Pt Use a Wheelchair?: Yes Distance: 100' x 1/250' x 1 Wheel 50 ft with 2 turns (QC): 4 Wheel 150 ft (QC): 4 Type of Wheelchair: Manual Stair Training #of Steps: 1 1 Step (curb) (QC): 1 (placed right foot up on step and attempted to follow with left with PT assist) 4 Steps (QC): 9 12 Steps (QC): 9 Balance Picking up an Object (QC): 88 ADL-Treatment Eating (QC): 5 Oral Hygiene (QC): 6 Shower/Bathe Self (QC): 3 (min) Upper Body Dressing (QC): 4 Lower Body Dressing (QC): 3 (min a) On/Off Footwear (QC): 3 (min-mod a) Toileting Hygiene (QC): 3 (min a) Toilet Transfer (QC): 4 (sba) Assessment/Plan Assessment and Plan Assess & Plan/Chief Complaint Assessment: 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 Debility Fall risk Hypertension Hyperlipidemia Advanced age DM hemoglobin A1c 6.9 new diagnosis Plan: Monitor closely Fall risk Monitor BP OAC 11/30/21: Monitor closely Checked meds labs 12/01/2021: Monitor closely DOAC 12/02/21: Monitor closely 12/03/21: Monitor closely Fall risk Decrease Eliquis to 5mg PO BID 12/04/2021: Supportive care Improved status 12/05/2021: Supportive care Aggressive therapy 12/06/2021: Supportive care Monitor knee pain 12/07/2021: Supportive care Diclofenac gel on knees 12/08/21: Monitor closely Knee pain management 12/09/21: Glucose management 12/11/2021: Supportive care Continue aggressive rehab 12/12/2020: Continue aggressive therapy Monitor sugar 12/13/21: Monitor closely Sugar numbers reviewed 12/14/2021: Monitor closely 12/15/2021: Sugar managed 12/16/2021: DM education 12/17/2021: DM education today Monitor closely (1) CVA, LEFT SIDED WEAKENSS (2) HLD (hyperlipidemia) Status: Chronic (3) HTN (hypertension) Status: Chronic ZURDO MARINO DO Dec 17, 2021 05:57
[2021-12-17] MEDS: KCL 10 MEQ TAB (MICRO K) PO SCH (06:38)
[2021-12-17] MEDS: inSUlin ASPART (NovoLOG) 1 UNIT/0.01 ML (CHARGE PER UNIT) SC SCH ×4 (06:38→20:34)
[2021-12-17 07:48] VITALS: BP 144/65
--- NOTE | 2021-12-17 08:10 | Cardiology Progress Note ---
Subjective Date Seen by Provider: Dec 17, 2021 Time Seen by Provider: 08:09 Subjective/Events-last exam Patient with OT, no new complaints. Denies any chest pain. Objective-Cardiology Exam Last Set of Vital Signs Vital Signs 12/17/21 07:48 Temp 35.7 Pulse 71 Resp 18 B/P (MAP) 144/65 (91) Pulse Ox 94 O2 Delivery Room Air General: Alert, Oriented X3 HEENT: Atraumatic Neck: Supple Lungs: Clear to Auscultation, Normal Air Movement Heart: Regular Rate, Normal S1, Normal S2 Abdomen: Normal Bowel Sounds, Soft Extremities: No Clubbing, No Cyanosis, No Edema Skin: No Rashes, No Significant Lesion Neuro: Normal Gait, Normal Speech, Cranial Nerves 3-12 NL, Other (Left upper extremity strength is improving.) Psych/Mental Status: Mental Status NL, Mood NL A/P-Cardiology Admission Diagnosis Subacute CVA HTN Assessment/Plan Subacute CVA, CTA of the head showed 80 to 90% right ICA stenosis with possible thrombus with no identifiable source of thrombus. MRI of the head showed patchy region of acute to subacute infarction of the right parietal lobe extending to the posterior right frontal and occipital lobe. 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 No signs of mass- effect or hemorrhage. Recommendation was by [facility] stroke neurology to treat with aspirin and heparin and then progressed to aspirin and Eliquis.Currently maintained on ASA 81 mg and Eliquis 5mg BID. EKG showed sinus rhythm with premature atrial contractions. Asymptomatic. SUKHI done 11/29/21 showing trace mitral regurgitation with no shunt noted. Hypertension, controlled, continue to monitor blood pressure. Hyperlipidemia, started on Lipitor 80 mg daily. Continue to monitor Supervisory-Addendum Brief Supervisory Addendum Participated in pt care: history, MDM, physical Personally performed: exam, history, MDM Care discussed with: BROWN Results interpretation: Verified all documentation Notes: Patient was seen and evaluated with Mary, examination performed, management plan was discussed, agree with the current scribed note, I made few changes to the note using Italic font Patient was seen during physical therapy session She is feeling better, reporting improvement in her symptoms No chest pain was reported Blood pressure stable Continue to monitor MARY SLAUGHTER Dec 17, 2021 08:10 NICOLE DEJESUS MD Dec 17, 2021 08:57
[2021-12-17] MEDS: ACETAMINOPHEN 325 MG TABLET PO PRN (08:45)
[2021-12-17] MEDS: ASPIRIN E.C. 81 MG (ECOTRIN) TAB PO SCH (08:45)
[2021-12-17] MEDS: APIXABAN 5 MG (ELIQUIS) TABLET PO SCH ×2 (08:46→20:03)
[2021-12-17] MEDS: MICONAZOLE NITRATE 2% CRM 30 GM TP SCH ×2 (08:46→20:04)
[2021-12-17] MEDS: CYANOCOBALAMIN 1,000 MCG (VITAMIN B-12) TABLET PO SCH (08:46)
[2021-12-17] MEDS: PYRIDOXINE (VITAMIN B-6) 50 MG TABLET PO SCH (08:46)
[2021-12-17] MEDS: polyethylene glycoL POWDER 17 GM (MIRALAX) PACK PO SCH ×2 (08:46→19:16)
[2021-12-17] MEDS: DOCUSATE SODIUM 100 MG (COLACE) CAP PO SCH ×2 (08:46→19:16)
[2021-12-17] MEDS: SENNA W/DOCUSATE (SENOKOT S) TABLET PO SCH ×2 (08:46→20:08)
[2021-12-17] MEDS: MICONAZOLE 2% POWDER (DESENEX AF) 90 GM TOP SCH ×2 (08:47→20:04)
[2021-12-17] MEDS: DICLOFENAC 1% GEL 100 GM (VOLTAREN) TUBE TOP SCH ×4 (08:47→20:04)
--- NOTE | 2021-12-17 08:49 | Occupational Ther Daily Note ---
OT Current Status-Daily Note Subjective Pt denies pain, agreeable to treatment Appearance Pt returned to sitting in recliner, all needs within reach Mental Status/Objective Patient Orientation: Person, Place, Situation ADL-Treatment Therapy Code Descriptions/Definitions Functional [place] Measure: 0=Not Assessed/NA 4=Minimal Assistance 1=Total Assistance 5=Supervision or Setup 2=Maximal Assistance 6=Modified [place] 3=Moderate Assistance 7=Complete IndependenceSCALE: Activities may be completed with or without assistive devices. 6-Sotfqdgtyp-euoayzr completes the activity by him/herself with no assistance from a helper. 5-Set-up or Clean-up Assistance-helper sets up or cleans up; patient completes activity. [place] assists only prior to or following the activity. 4-Supervision or Touching Assistance-helper provides verbal cues and/or touching/steadying and/or contact guard assistance as patient completes activity. Assistance may be provided throughout the activity or intermittently. 3-Partial/Moderate Assistance-helper does LESS THAN HALF the effort. [place] lifts, holds or supports trunk or limbs, but provides less than half the effort. 2-Substantial/Maximal Assistance-helper does MORE THAN HALF the effort. [place] lifts or holds trunk or limbs and provides more than half the effort. 6-Zhmzjkspu-iyeuep does ALL the effort. Patient does none of the effort to complete the activity. Or, the assistance of 2 or more helpers is required for the patient to complete the activity. If activity was not attempted, code reason: 7-Patient Refused. 9-Not Applicable-not attempted and the patient did not perform the activity before the current illness, exacerbation or injury. 10-Not Attempted due to Environmental Limitations-(lack of equipment, weather restraints, etc.). 88-Not Attempted due to Medical Conditions or Safety Concerns. Oral Hygiene (QC): 6 Upper Body Dressing (QC): 4 Lower Body Dressing (QC): 3 (min) Toileting Hygiene (QC): 4 Toilet Transfer (QC): 4 Supine>sit: SBA. Pt continues to exhibit improved speed and safety with task. 1 verbal cue this session to initiate use of L hand during transfer as she continues to have tendency to hold in a guarded position. Good sequencing and awareness to LUE when donning UB clothing. Verbal Cue only to pull down over L side of trunk. While seated, pt was able to thread LLE into pants with use of cross over method. She continues to have difficulty threading RLE secondary to impaired flexibility and LE strength yet appears to be have some improvement in task. With 5 inch stool under pt's R foot, she was able to don pants over foot without any physical assistance. She stood with Supervision to pull clothing over waist. Extra time and minimal assist to pull completely over L hip due to tight fit and reduced pinch/fisher diver net strength on L hand. Grooming tasks performed independently at w/c level. Other Treatment Pt ambulated to/from therapy gym with CGA and use of walker. 1 seated rest break required before reaching destination, ~60 feet. Pt continues to need mod-max cues to lift L foot higher off floor, especially as fatigue increases. Cues also for object avoidance and walker management as pt has tendency to push walker too far out in front. 2 small LOB secondary to foot catching on floor. Min a needed to maintain upright position. While in gym, pt participated in several activities focusing on promoting increased LE strength, coordination, dexterity, pinch/fisher diver net strength, and overall endurance needed for functional tasks such as dressing. While seated, pt placed different resistance rubber bands over distal end of foot. # of bands determined by roll of . 5 inch step needed under foot to reduce reach. Pt also encouraged to perform cross over method and to bring foot onto side of mat. Min cues to incorporate L hand into task. Pt appears to have most difficulty with threading band "sock" over distal pinky side of foot. While standing, pt asked to lift foot and tap designated "color" on wall. Focus on improving 1 leg standing balance, hip flexion, and LE needed for adls. Pt needing significant balance assist when lifting RLE off floor and placing all weight onto Left foot. She fatigues very quickly and only able to perform 3 sets of 4. Task modified to seated position with 2# ankle weights added to BLE's. Pt able to follow up to 4-5 step sequence while lifting foot ~ 6-14 inches from ground. Education OT Patient Education: Correct positioning, Energy conservation, Modified ADL techniques, Progress toward Goal/Update tx plan, Purpose of tx/functional activities, Reviewed precautions, Rehab process, Safety issues, Transfer techniques Teaching Recipient: Patient Teaching Methods: Demonstration, Discussion Response to Teaching: Verbalize Understanding, Return Demonstration, Reinfo rcement Needed OT Short Term Goals Short Term Goals Time Frame: Dec 13, 2021 Eatin Oral hygiene: 5 Toileting hygiene: 2 Shower/bathe self: 3 Upper body dressin Lower body dressin Putting on/taking off footwear: 2 OT Property Underwriter Goals Alf Goals Time Frame: Dec 27, 2021 Eating (QC): 5 Oral Hygiene (QC): 6 Toileting Hygiene (QC): 6 Shower/Bathe Self (QC): 4 Upper Body Dressing (QC): 5 Lower Body Dressing (QC): 4 On/Off Footwear (QC): 4 1=Demonstrate adherence to instructed precautions during ADL tasks. 2=Patient will verbalize/demonstrate understanding of assistive devices/modifications for ADL. 3=Patient will improve strength/tolerance for activity to enable patient to perform ADL's. OT Education/Plan Problem List/Assessment Assessment: Decreased Activ Tolerance, Decreased Safety Aware, Decreased UE Strength, Impaired Cognition, Impaired Coordination, Impaired Funct Balance, Impaired I ADL's, Impaired Self-Care Skills, Restricted Funct UE ROM Discharge Recommendations Plan/Recommendations: Continue POC Treatment Plan/Plan of Care Treatment,Training & Education: Yes Patient would benefit from OT for education, treatment and training to promote independence in ADL's, mobility, safety and/or upper extremity function for ADL's. Plan of Care: ADL Retraining, Cognitive Retraining, Functional Mobility, Group Exercise/Act as Ind, UE Funct Exercise/Act, UE Neuromus Re-Ed/Coord, Visual/Perceptual Retrain, W/C Management Training Treatment Duration: Dec 27, 2021 Frequency: At least 5 of 7 days/Wk (IRF) Estimated Hrs Per Day: 1.5 hours per day Agreement: Yes Rehab Potential: Good Time/GCodes Start Time: 07:25 Stop Time: 08:40 Total Time Billed (hr/min): 75 Billed Treatment Time 1 visit ADL x2 (30 min) FA x3 (45 min) Kim Shannon OT Dec 17, 2021 08:49
--- NOTE | 2021-12-17 11:44 | Physical Therapy Daily Note ---
PT Daily Note-Current Subjective Pt sitting in recliner upon arrival. Pt agrees to PT. Pain Location: No Pain Reported Mental Status Patient Orientation: Person, Place, Situation Transfers SCALE: Activities may be completed with or without assistive devices. 9-Udcqthegow-gfgfcnk completes the activity by him/herself with no assistance from a helper. 5-Set-up or Clean-up Assistance-helper sets up or cleans up; patient completes activity. [place] assists only prior to or following the activity. 4-Supervision or Touching Assistance-helper provides verbal cues and/or touching/steadying and/or contact guard assistance as patient completes activity. Assistance may be provided throughout the activity or intermittently. 3-Partial/Moderate Assistance-helper does LESS THAN HALF the effort. [place] lifts, holds or supports trunk or limbs, but provides less than half the effort. 2-Substantial/Maximal Assistance-helper does MORE THAN HALF the effort. [place] lifts or holds trunk or limbs and provides more than half the effort. 6-Nmnrdfqob-xbbzsy does ALL the effort. Patient does none of the effort to complete the activity. Or, the assistance of 2 or more helpers is required for the patient to complete the activity. If activity was not attempted, code reason: 7-Patient Refused. 9-Not Applicable-not attempted and the patient did not perform the activity before the current illness, exacerbation or injury. 10-Not Attempted due to Environmental Limitations-(lack of equipment, weather restraints, etc.). 88-Not Attempted due to Medical Conditions or Safety Concerns. Sit to Lying (QC): 4 Sit to Stand (QC): 5 Weight Bearing Full Weight Bearing Full Weight Bearing Gait Training Does the Patient Walk?: Yes Distance: 150', 175' Walk 10 feet (QC): 4 Walk 50 ft with 2 Turns(QC): 4 Walk 150 ft (QC): 4 Gait Persons Needed: 1 Gait Assistive Device: FWW Drags L foot occasionally & needs VC to apple picking supervisor foot padmini. if fatigued. Exercises Supine Ex: Ankle pumps, Quad Set, Heel Slides Supine Reps: 15 Standing: Hip Abduction, Hamstring curls, Heel/toe raises, Marching Standing Reps: 15 NuStep Minutes: 15 NuStep Workload: 4 Treatments TF to standing and asks to use BR. After toileting, pt completes pericare. Pt amb. in hallway, taking RB as needed. Pt uses NuStep and after short RB completes Standing Ex at //bars. Pt amb. in hallway and returns to room. Pt TF back to bed to rest and completes few Supine EX at end of tx. All needs met, call light in hand. Assessment Current Status: Good Progress Pt needs occasional RB as she fatigues. VC to apple picking supervisor L foot as fatigued so it doesn't drag. PT Short Term Goals Short Term Goals Time Frame: Dec 14, 2021 Roll Left & Right: 4 Sit to lyin Lying to sitting on side of be: 4 Sit to stand: 3 Chair/xqx-il-gwyon transfer: 3 Toilet transfer: 3 Car transfer: 3 Walk 10 feet: 3 Walk 50 feet with two turns: 3 Does pt use a wc or scooter: Yes Wheel 50ft w/2 turns: 4 Wheel 150 feet: 4 Type: Manual PT Fci Goals Bow Making Machine Operator Goals PT Bow Making Machine Operator Goals Time Frame: Dec 28, 2021 Roll Left & Right (QC): 6 Sit to Lying (QC): 6 Lying-Sitting on Side/Bed(QC): 6 Sit to Stand (QC): 4 Chair/Uwm-hc-Pvepm Xfer(QC): 4 Toilet Transfer (QC): 4 Car Transfer (QC): 4 Does the Patient Walk: Yes Walk 10 feet (QC): 4 Walk 50ft with 2 Turns (QC): 4 Walk 150 ft (QC): 4 Walking 10ft on Uneven Surface: 4 1 Step (curb) (QC): 3 4 Steps (QC): 9 12 Steps (QC): 9 Picking up an Object (QC): 3 Wheel 50 feet with 2 turns (QC: 5 Wheel 150 feet: 5 Type: Manual PT Plan Problem List Problem List: Activity Tolerance, Safety Treatment/Plan Treatment Plan: Continue Plan of Care Treatment Plan: Bed Mobility, Concurrent Therapy, Education, Functional Activity Seema, Functional Strength, Group Therapy, Gait, Safety, Therapeutic Exercise, Transfers Treatment Duration: Dec 28, 2021 Frequency: At least 5 of 7 days/Wk (IRF) Estimated Hrs Per Day: 1.5 hours per day Patient and/or Family Agrees t: Yes Safety Risks/Education Patient Education: Gait Training, Correct Positioning, Safety Issues Teaching Recipient: Patient Teaching Methods: Discussion Response to Teaching: Verbalize Understanding Time/GCodes Time In: 900 Time Out: 1015 Total Billed Treatment Time: 75 Total Billed Treatment 1, GT x2 (30m) & EX x3 (45m) GHAZALA BARRAGAN ELECTRIC MOTOR CONTROLS ASSEMBLER Dec 17, 2021 11:44
--- NOTE | 2021-12-17 12:25 | Speech Therapy Daily Note ---
Speech Daily Progress Note Subjective Date Seen by Provider: Dec 17, 2021 Time Seen by Provider: 10:15 The patient was lying in bed, awake and alert upon entrance to her room by the clinician. The patient greeted the clinician appropriately and was agreeable to participation in the cognitive linguistic treatment session. Objective Orientation: The patient remained independently oriented to self, location, month, day of week, date, and year. Memory Exercise: The patient was read a paragraph aloud by the clinician. Following the reading, the clinician asked specific questions regarding the paragraph. The patient displayed 87 (13/15)% accuracy with mild clinician cueing. Assessment Assessment Current Status: Fair Progress Treatment Plan Continue Plan of Care Speech Short Term Goals Short Term Goals Short Term Goals The patient will demonstrate 90% accuracy with memory and functional problem solving with mild clinician verbal and visual cueing. Speech Varnisher Goals Varnisher Goals The patient will demonstrate improve cognitive linguistic skills for safe discharge to the least restricted environment. Speech-Plan Treatment Plan Speech Therapy Treatment Plan: Continue Plan of Care Treatment Duration: Dec 20, 2021 Frequency: Modified Program (IRF) Estimated Hrs Per Day: Other Rehab Potential: Good Safety Risks/Education Teaching Recipient: Patient Teaching Methods: Discussion Response to Teaching: Verbalize Understanding Education Topics Provided: Plans of Care Time Speech Therapy Time In: 10:15 Speech Therapy Time Out: 10:45 Total Billed Time: 30 Billed Treatment Time GreggRADHA ELIZABETH ST Dec 17, 2021 12:25
[2021-12-17 19:35] VITALS: BP 145/76
[2021-12-17] MEDS: lisINopril 10 MG (PRINIVIL) TABLET PO SCH (20:03)
[2021-12-17] MEDS: SIMvastatin 40 MG (ZOCOR) TAB PO SCH (20:03)
[2021-12-17] MEDS: meTOprolol SUCCINATE 100 MG (TOPROL XL) TAB PO SCH (20:03)
[2021-12-18] MEDS: KCL 10 MEQ TAB (MICRO K) PO SCH (05:38)
[2021-12-18] MEDS: inSUlin ASPART (NovoLOG) 1 UNIT/0.01 ML (CHARGE PER UNIT) SC SCH (05:38)
[2021-12-18] MEDS ORDERED: inSUlin ASPART (NovoLOG) 1 UNIT/0.01 ML (CHARGE PER UNIT) SC PRN (06:30)
--- NOTE | 2021-12-18 06:41 | PM&R Progress Note ---
Subjective HPI/CC On Admission Date Seen by Provider: Dec 18, 2021 Time Seen by Provider: 09:00 Subjective/Events-last exam 12/18/21: No major issues DC soon No pain 12/17/2021: NO major issues DM education will be provided NO pain 12/16/2021: No major issues Sugars reviewed DM education will be ordered 12/15/2021: Patient denies new issues No pain reported Checked meds 12/14/2021: Patient doing well Slept well Blood sugars reviewed Options of treatment will be reviewed 12/13/21: No major issues Bowels moved on 12/11 so will continue giving laxatives 12/12/2021: Pt is doing well No issues Bowels moving No pain 12/11/2021: Pt is about the same Cognitively she doesn't realize how much she can't really do effectively Unsure if she will be able to return back to her apartment and live on her own Overall feels like she is doing okay otherwise 12/10/21: Pt is doing a lot better Denies any pain Diclofenac gel for the knees is helping Increased art consultant with the left arm 12/09/21: Patient sleeps most of the time Left hand is 3/4 back to baseline per patient report No pain reported BM+ Sugars are high so added hga1c and SSI/ACHS accuchecks 12/08/21: Patient doing well Sleeps a lot No pain reported 12/07/21: Patient doing really well No major concerns Eating and drinking well Regaining of left-sided weakness improved 12/06/21: Pt having a lot of knee pain so will initiate Diclofenac gel Overall moving around well Dramatic improvement since admission 12/05/2021: Pt doing really well Bowels moved today Tired Discontinuing telemetry Overall dramatic improvement 12/04/2021: Pt is doing really well Sleeping currently Left hand and left arm moving a lot better Overall much improved status 12/03/21: Patient improved Left hand improved No pain reported BM+ Eating well 12/02/2021: Patient doing well Left hand and arm moving well No pain reported Upbeat attitude 12/01/2021: Patient doing very well today Moving left arm and hand really well Family at bedside No pain 11/30/2021: Patient doing well Confusion noted Left sided weakness but can move her arm now Working with PT OT Reviewed labs Reviewed meds Review of Systems General: Fatigue Objective Exam Vital Signs Vital Signs Date Time Temp Pulse Resp B/P (MAP) Pulse Ox O2 Delivery O2 Flow Rate FiO2 12/18/21 09:42 Room Air 12/18/21 07:30 35.7 69 22 157/71 (99) 93 Capillary Refill : General Appearance: No Apparent Distress, WD/WN, Chronically ill HEENT: PERRL/EOMI, Normal ENT Inspection, Pharynx Normal Neck: Full Range of Motion, Normal Inspection, Non Tender, Supple, Carotid Bruit Respiratory: Chest Non Tender, Lungs Clear, Normal Breath Sounds, No Accessory Muscle Use, No Respiratory Distress Cardiovascular: Regular Rate, Rhythm, No Edema, No Gallop, No JVD, No Murmur, Normal Peripheral Pulses Gastrointestinal: Normal Bowel Sounds, No Organomegaly, No Pulsatile Mass, Non Tender, Soft Back: Normal Inspection, No CVA Tenderness, No Vertebral Tenderness Extremity: Normal Capillary Refill, Normal Inspection, Normal Range of Motion (except left side), Non Tender, No Calf Tenderness, No Pedal Edema Neurologic/Psychiatric: Alert, Oriented x3, Normal Mood/Affect, tire stripper II-XII Norm as Tested, Motor Weakness (left sided 2/5) Skin: Normal Color, Warm/Dry Lymphatic: No Adenopathy Results/Procedures Lab Patient resulted labs reviewed. FIM Transfers Therapy Code Descriptions/Definitions Functional [place] Measure: 0=Not Assessed/NA 4=Minimal Assistance 1=Total Assistance 5=Supervision or Setup 2=Maximal Assistance 6=Modified [place] 3=Moderate Assistance 7=Complete IndependenceSCALE: Activities may be completed with or without assistive devices. 9-Moiwnsyngi-pdtdfwh completes the activity by him/herself with no assistance from a helper. 5-Set-up or Clean-up Assistance-helper sets up or cleans up; patient completes activity. [place] assists only prior to or following the activity. 4-Supervision or Touching Assistance-helper provides verbal cues and/or touching/steadying and/or contact guard assistance as patient completes activity. Assistance may be provided throughout the activity or intermittently. 3-Partial/Moderate Assistance-helper does LESS THAN HALF the effort. [place] lifts, holds or supports trunk or limbs, but provides less than half the effort. 2-Substantial/Maximal Assistance-helper does MORE THAN HALF the effort. [place] lifts or holds trunk or limbs and provides more than half the effort. 6-Llndvpyow-zavese does ALL the effort. Patient does none of the effort to complete the activity. Or, the assistance of 2 or more helpers is required for the patient to complete the activity. If activity was not attempted, code reason: 7-Patient Refused. 9-Not Applicable-not attempted and the patient did not perform the activity before the current illness, exacerbation or injury. 10-Not Attempted due to Environmental Limitations-(lack of equipment, weather restraints, etc.). 88-Not Attempted due to Medical Conditions or Safety Concerns. Roll Left to Right (QC): 6 Sit to Lying (QC): 4 Sit to Stand (QC): 5 Chair/Luc-zo-Gfaci Xfer(QC): 4 Car Transfer (QC): 4 Gait Training Does the Patient Walk?: Yes Distance: 150', 175' Walk 10 feet (QC): 4 Walk 50 ft with 2 Turns(QC): 4 Walk 150 ft (QC): 4 Walking 10ft/uneven surface-QC: 1 Gait Persons Needed: 1 Gait Assistive Device: FWW Wheelchair Training Does the Pt Use a Wheelchair?: Yes Distance: 100' x 1/250' x 1 Wheel 50 ft with 2 turns (QC): 4 Wheel 150 ft (QC): 4 Type of Wheelchair: Manual Stair Training #of Steps: 1 1 Step (curb) (QC): 1 (placed right foot up on step and attempted to follow wit h left with PT assist) 4 Steps (QC): 9 12 Steps (QC): 9 Balance Picking up an Object (QC): 88 ADL-Treatment Eating (QC): 5 Oral Hygiene (QC): 6 Shower/Bathe Self (QC): 3 (min) Upper Body Dressing (QC): 4 Lower Body Dressing (QC): 3 (min) On/Off Footwear (QC): 3 (min-mod a) Toileting Hygiene (QC): 4 Toilet Transfer (QC): 4 Assessment/Plan Assessment and Plan Assess & Plan/Chief Complaint Assessment: 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 Debility Fall risk Hypertension Hyperlipidemia Advanced age DM hemoglobin A1c 6.9 new diagnosis Plan: Monitor closely Fall risk Monitor BP OAC 11/30/21: Monitor closely Checked meds labs 12/01/2021: Monitor closely DOAC 12/02/21: Monitor closely 12/03/21: Monitor closely Fall risk Decrease Eliquis to 5mg PO BID 12/04/2021: Supportive care Improved status 12/05/2021: Supportive care Aggressive therapy 12/06/2021: Supportive care Monitor knee pain 12/07/2021: Supportive care Diclofenac gel on knees 12/08/21: Monitor closely Knee pain management 12/09/21: Glucose management 12/11/2021: Supportive care Continue aggressive rehab 12/12/2020: Continue aggressive therapy Monitor sugar 12/13/21: Monitor closely Sugar numbers reviewed 12/14/2021: Monitor closely 12/15/2021: Sugar managed 12/16/2021: DM education 12/17/2021: DM education today Monitor closely 12/18/21: DM education was helpful (1) CVA, LEFT SIDED WEAKENSS (2) HLD (hyperlipidemia) Status: Chronic (3) HTN (hypertension) Status: Chronic ZURDO MARINO DO Dec 18, 2021 06:41
[2021-12-18 07:30] VITALS: BP 157/71
[2021-12-18] MEDS: PYRIDOXINE (VITAMIN B-6) 50 MG TABLET PO SCH (07:42)
[2021-12-18] MEDS: ASPIRIN E.C. 81 MG (ECOTRIN) TAB PO SCH (07:42)
[2021-12-18] MEDS: CYANOCOBALAMIN 1,000 MCG (VITAMIN B-12) TABLET PO SCH (07:43)
[2021-12-18] MEDS: APIXABAN 5 MG (ELIQUIS) TABLET PO SCH ×2 (07:43→20:15)
[2021-12-18] MEDS: ACETAMINOPHEN 325 MG TABLET PO PRN (07:43)
[2021-12-18] MEDS: SENNA W/DOCUSATE (SENOKOT S) TABLET PO SCH ×2 (08:12→19:15)
[2021-12-18] MEDS: DOCUSATE SODIUM 100 MG (COLACE) CAP PO SCH ×2 (08:12→19:15)
[2021-12-18] MEDS: polyethylene glycoL POWDER 17 GM (MIRALAX) PACK PO SCH ×2 (08:12→19:15)
--- NOTE | 2021-12-18 08:37 | Occupational Ther Daily Note ---
OT Current Status-Daily Note Subjective Right as therapist was entering pt's room pt verbalizes "I cannot participate in therapy today." When asked why, she states "because I am having diarrhea." After significant amount of education and encouragement, pt agreeable to complete therapy in her room. Pt denies need to use toilet during entire session. Appearance Pt left sitting in recliner, all needs within reach at therapy departure. Mental Status/Objective Patient Orientation: Person, Place, Situation ADL-Treatment Therapy Code Descriptions/Definitions Functional [place] Measure: 0=Not Assessed/NA 4=Minimal Assistance 1=Total Assistance 5=Supervision or Setup 2=Maximal Assistance 6=Modified [place] 3=Moderate Assistance 7=Complete IndependenceSCALE: Activities may be completed with or without assistive devices. 8-Hhnpsaykex-cnnkqky completes the activity by him/herself with no assistance from a helper. 5-Set-up or Clean-up Assistance-helper sets up or cleans up; patient completes activity. [place] assists only prior to or following the activity. 4-Supervision or Touching Assistance-helper provides verbal cues and/or touching/steadying and/or contact guard assistance as patient completes activity. Assistance may be provided throughout the activity or intermittently. 3-Partial/Moderate Assistance-helper does LESS THAN HALF the effort. [place] lifts, holds or supports trunk or limbs, but provides less than half the effort. 2-Substantial/Maximal Assistance-helper does MORE THAN HALF the effort. [place] lifts or holds trunk or limbs and provides more than half the effort. 5-Gbvupfxdy-gijtag does ALL the effort. Patient does none of the effort to complete the activity. Or, the assistance of 2 or more helpers is required for the patient to complete the activity. If activity was not attempted, code reason: 7-Patient Refused. 9-Not Applicable-not attempted and the patient did not perform the activity before the current illness, exacerbation or injury. 10-Not Attempted due to Environmental Limitations-(lack of equipment, weather restraints, etc.). 88-Not Attempted due to Medical Conditions or Safety Concerns. Oral Hygiene (QC): 6 On/Off Footwear: 3 (min) Right as therapist was entering pt's room pt verbalizes "I cannot participate in therapy today." When asked why, she states "because I am having diarrhea." After significant amount of education and encouragement, pt agreeable to complete therapy in her room. Pt refuses shower and to change her clothes. Pt in agreement to shower and change clothes tomorrow. Grooming tasks performed independently at seated level. Other Treatment Pt participated in several FM coordination and bilateral integration tasks with focus on improving ui ux engineer/pinch strength and ROM needed for functional tasks. With L hand, pt participated in peg alexander game. Extra time and Intermittent use of R hand to help position clothespin between thumb and index finger but no assistance needed from therapist. No cues for correct sequence/color matching. Min verbal cues throughout task to reduce compensation as pt frequently abducted shoulder when placing clothespin. Post instruction on novel card game, pt needed min-mod verbal cues for strategic game play and recall of rules. Good bilateral integration with use of both hands during task. Pt attempted to shuffle cards, but had difficulty holding entire stack in her hands. With cues and modifications, pt was able to shuffle fairly. OT issued and instructed pt on red theraband exercises. Mod verbal and tactile cues for correct technique, especially with LUE. Cues throughout to maintain tension. Ongoing education/practice will be needed. Education OT Patient Education: Correct positioning, Modified ADL techniques, Progress toward Goal/Update tx plan, Purpose of tx/functional activities, Safety issues Teaching Recipient: Patient Teaching Methods: Demonstration, Discussion Response to Teaching: Verbalize Understanding, Return Demonstration, Gualberto nforcement Needed OT Short Term Goals Short Term Goals Time Frame: Dec 13, 2021 Eatin Oral hygiene: 5 Toileting hygiene: 2 Shower/bathe self: 3 Upper body dressin Lower body dressin Putting on/taking off footwear: 2 OT Pipe Setter Goals Pipe Setter Goals Time Frame: Dec 27, 2021 Eating (QC): 5 Oral Hygiene (QC): 6 Toileting Hygiene (QC): 6 Shower/Bathe Self (QC): 4 Upper Body Dressing (QC): 5 Lower Body Dressing (QC): 4 On/Off Footwear (QC): 4 1=Demonstrate adherence to instructed precautions during ADL tasks. 2=Patient will verbalize/demonstrate understanding of assistive devices/modifications for ADL. 3=Patient will improve strength/tolerance for activity to enable patient to perform ADL's. OT Education/Plan Problem List/Assessment Assessment: Decreased Activ Tolerance, Decreased Safety Aware, Decreased UE Strength, Impaired Cognition, Impaired Coordination, Impaired Funct Balance, Impaired I ADL's, Impaired Self-Care Skills, Restricted Funct UE ROM Discharge Recommendations Plan/Recommendations: Continue POC Treatment Plan/Plan of Care Treatment,Training & Education: Yes Patient would benefit from OT for education, treatment and training to promote independence in ADL's, mobility, safety and/or upper extremity function for ADL's. Plan of Care: ADL Retraining, Cognitive Retraining, Functional Mobility, Group Exercise/Act as Ind, UE Funct Exercise/Act, UE Neuromus Re-Ed/Coord, Visual/Perceptual Retrain, W/C Management Training Treatment Duration: Dec 27, 2021 Frequency: At least 5 of 7 days/Wk (IRF) Estimated Hrs Per Day: 1.5 hours per day Agreement: Yes Rehab Potential: Good Time/GCodes Start Time: 07:20 Stop Time: 08:35 Total Time Billed (hr/min): 75 Billed Treatment Time 1 visit ADL (10 min) FA x3 (50 min) EX (15 min) Kim Shannon OT Dec 18, 2021 08:37
[2021-12-18] MEDS: MICONAZOLE NITRATE 2% CRM 30 GM TP SCH ×2 (08:43→20:31)
[2021-12-18] MEDS: MICONAZOLE 2% POWDER (DESENEX AF) 90 GM TOP SCH ×2 (08:43→20:16)
[2021-12-18] MEDS: DICLOFENAC 1% GEL 100 GM (VOLTAREN) TUBE TOP SCH ×4 (08:43→20:16)
--- NOTE | 2021-12-18 09:16 | Cardiology Progress Note ---
Subjective Date Seen by Provider: Dec 18, 2021 Time Seen by Provider: 08:30 Subjective/Events-last exam Patient is sitting up in chair, no new complaints. Objective-Cardiology Exam Last Set of Vital Signs Vital Signs 12/18/21 12/18/21 07:30 09:42 Temp 35.7 Pulse 69 Resp 22 B/P (MAP) 157/71 (99) Pulse Ox 93 O2 Delivery Room Air General: Alert, Oriented X3 HEENT: Atraumatic Neck: Supple Lungs: Clear to Auscultation, Normal Air Movement Heart: Regular Rate, Normal S1, Normal S2 Abdomen: Normal Bowel Sounds, Soft Extremities: No Clubbing, No Cyanosis, No Edema Skin: No Rashes, No Significant Lesion Neuro: Normal Gait, Normal Speech, Cranial Nerves 3-12 NL, Other (Left upper extremity strength is improving.) Psych/Mental Status: Mental Status NL, Mood NL A/P-Cardiology Admission Diagnosis Subacute CVA HTN Assessment/Plan Subacute CVA, CTA of the head showed 80 to 90% right ICA stenosis with possible thrombus with no identifiable source of thrombus. MRI of the head showed patchy region of acute to subacute infarction of the right parietal lobe extending to the posterior right frontal and occipital lobe. 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 No signs of mass- effect or hemorrhage. Recommendation was by [facility] stroke neurology to treat with aspirin and heparin and then progressed to aspirin and Eliquis.Currently maintained on ASA 81 mg and Eliquis 5mg BID. EKG showed sinus rhythm with premature atrial contractions. Asymptomatic. SUKHI done 11/29/21 showing trace mitral regurgitation with no shunt noted. Hypertension, controlled, continue to monitor blood pressure. Hyperlipidemia, started on Lipitor 80 mg daily. Continue to monitor Supervisory-Addendum Brief Supervisory Addendum Participated in pt care: history, MDM, physical Personally performed: exam, history, MDM Care discussed with: BROWN Results interpretation: Verified all documentation Notes: Patient was seen and evaluated with Mary, examination performed, management plan was discussed, agree with the current scribed note, I made few changes to the note using Italic font Patient was seen at bedside, laying down comfortably Feeling better, improving steadily Continue on current medication monitor blood pressure and lipids MARY SLAUGHTER Dec 18, 2021 09:16 NICOLE DEJESUS MD Dec 18, 2021 16:54
--- NOTE | 2021-12-18 11:21 | Speech Therapy Daily Note ---
Speech Daily Progress Note Subjective Date Seen by Provider: Dec 18, 2021 Time Seen by Provider: 10:15 The patient was seated upright in her recliner, awake and alert upon entrance to her room by the clinician. The patient greeted the clinician and was agreeable to participation in the cognitive linguistic treatment session. Objective - Orientation: The patient remains oriented to self, location, month, day of the week, date, and year with the use of the in-room white board. - Check Writing/ Checkbook Balancing: The patient was able to write and record a check accurate with mild clinician cueing. Assessment Assessment Current Status: Good Progress Treatment Plan Continue Plan of Care Speech Short Term Goals Short Term Goals Short Term Goals The patient will demonstrate 90% accuracy with memory and functional problem solving with mild clinician verbal and visual cueing. Speech Group Home Goals Promotions Executive Producer Goals The patient will demonstrate improve cognitive linguistic skills for safe discharge to the least restricted environment. Speech-Plan Treatment Plan Speech Therapy Treatment Plan: Continue Plan of Care Treatment Duration: Dec 20, 2021 Frequency: Modified Program (IRF) Estimated Hrs Per Day: Other Rehab Potential: Good Safety Risks/Education Teaching Recipient: Patient Teaching Methods: Demonstration, Discussion Response to Teaching: Return Demonstration Education Topics Provided: Money Management Time Speech Therapy Time In: 10:15 Speech Therapy Time Out: 10:45 Total Billed Time: 30 Billed Treatment Time RADHA Escobedo [facility] Dec 18, 2021 11:21
--- NOTE | 2021-12-18 12:04 | Physical Therapy Daily Note ---
PT Daily Note-Current Subjective Pt sitting in recliner upon arrival. Pt agrees to PT but does reports having frequent BR visits for BM today. Pain Location: No Pain Reported Mental Status Patient Orientation: Person, Place, Situation Transfers SCALE: Activities may be completed with or without assistive devices. 2-Pxiaketyek-tbhpvlp completes the activity by him/herself with no assistance from a helper. 5-Set-up or Clean-up Assistance-helper sets up or cleans up; patient completes activity. [place] assists only prior to or following the activity. 4-Supervision or Touching Assistance-helper provides verbal cues and/or touching/steadying and/or contact guard assistance as patient completes activity. Assistance may be provided throughout the activity or intermittently. 3-Partial/Moderate Assistance-helper does LESS THAN HALF the effort. [place] lifts, holds or supports trunk or limbs, but provides less than half the effort. 2-Substantial/Maximal Assistance-helper does MORE THAN HALF the effort. [place] lifts or holds trunk or limbs and provides more than half the effort. 8-Unbaaaifw-dgtnta does ALL the effort. Patient does none of the effort to complete the activity. Or, the assistance of 2 or more helpers is required for the patient to complete the activity. If activity was not attempted, code reason: 7-Patient Refused. 9-Not Applicable-not attempted and the patient did not perform the activity before the current illness, exacerbation or injury. 10-Not Attempted due to Environmental Limitations-(lack of equipment, weather restraints, etc.). 88-Not Attempted due to Medical Conditions or Safety Concerns. Sit to Stand (QC): 5 Toilet Transfer (QC): 5 Weight Bearing Full Weight Bearing Full Weight Bearing Gait Training Does the Patient Walk?: Yes Distance: 150' x2 Walk 10 feet (QC): 4 Walk 50 ft with 2 Turns(QC): 4 Walk 150 ft (QC): 4 Gait Persons Needed: 1 Gait Assistive Device: FWW Exercises Standing: Hip Abduction, Hamstring curls, Marching Standing Reps: 15 NuStep Minutes: 15 NuStep Workload: 4 Treatments 900-1000: TF to standing and amb to BR. After toileting, pt completes pericare. Pt amb. in hallway then uses NuStep. Pt takes RB then completes Standing Ex at //bars. Pt amb back to room and rests in recliner. All needs met, call light in hand. [id number]: Repositioned to comfort after few Supine Ex. All needs met, call light in hand. Assessment Current Status: Good Progress Pt needs RB for fatigue. PT Short Term Goals Short Term Goals Time Frame: Dec 14, 2021 Roll Left & Right: 4 Sit to lyin Lying to sitting on side of be: 4 Sit to stand: 3 Chair/ylx-zz-nsjpp transfer: 3 Toilet transfer: 3 Car transfer: 3 Walk 10 feet: 3 Walk 50 feet with two turns: 3 Does pt use a wc or scooter: Yes Wheel 50ft w/2 turns: 4 Wheel 150 feet: 4 Type: Manual PT Diet Aide Goals Diet Aide Goals PT Diet Aide Goals Time Frame: Dec 28, 2021 Roll Left & Right (QC): 6 Sit to Lying (QC): 6 Lying-Sitting on Side/Bed(QC): 6 Sit to Stand (QC): 4 Chair/Lxn-qp-Amczr Xfer(QC): 4 Toilet Transfer (QC): 4 Car Transfer (QC): 4 Does the Patient Walk: Yes Walk 10 feet (QC): 4 Walk 50ft with 2 Turns (QC): 4 Walk 150 ft (QC): 4 Walking 10ft on Uneven Surface: 4 1 Step (curb) (QC): 3 4 Steps (QC): 9 12 Steps (QC): 9 Picking up an Object (QC): 3 Wheel 50 feet with 2 turns (QC: 5 Wheel 150 feet: 5 Type: Manual PT Plan Problem List Problem List: Activity Tolerance, Gait Treatment/Plan Treatment Plan: Continue Plan of Care Treatment Plan: Bed Mobility, Concurrent Therapy, Education, Functional Activity Seema, Functional Strength, Group Therapy, Gait, Safety, Therapeutic Exercise, Transfers Treatment Duration: Dec 28, 2021 Frequency: At least 5 of 7 days/Wk (IRF) Estimated Hrs Per Day: 1.5 hours per day Patient and/or Family Agrees t: Yes Safety Risks/Education Patient Education: Gait Training, Correct Positioning, Safety Issues Teaching Recipient: Patient Teaching Methods: Discussion Response to Teaching: Verbalize Understanding Time/GCodes Time In: 900 Time Out: 1000 Total Billed Treatment Time: 60 Total Billed Treatment 900-1000: 1, GT (15m), FA (15m) & EX x2 (30m) [id number]: 1, FA (15m) GHAZALA BARRAGAN FRIED CAKE MAKER Dec 18, 2021 12:04
[2021-12-18 20:00] VITALS: BP 166/79
[2021-12-18] MEDS: SIMvastatin 40 MG (ZOCOR) TAB PO SCH (20:15)
[2021-12-18] MEDS: lisINopril 10 MG (PRINIVIL) TABLET PO SCH (20:15)
[2021-12-18] MEDS: meTOprolol SUCCINATE 100 MG (TOPROL XL) TAB PO SCH (20:15)
[2021-12-19] MEDS: KCL 10 MEQ TAB (MICRO K) PO SCH (05:31)
--- NOTE | 2021-12-19 06:29 | PM&R Progress Note ---
Subjective HPI/CC On Admission Date Seen by Provider: Dec 19, 2021 Time Seen by Provider: 11:00 Subjective/Events-last exam 12/19/2021: Patient set for discharge tomorrow Patient has no problems No concerns at this point 12/18/21: No major issues DC soon No pain 12/17/2021: NO major issues DM education will be provided NO pain 12/16/2021: No major issues Sugars reviewed DM education will be ordered 12/15/2021: Patient denies new issues No pain reported Checked meds 12/14/2021: Patient doing well Slept well Blood sugars reviewed Options of treatment will be reviewed 12/13/21: No major issues Bowels moved on 12/11 so will continue giving laxatives 12/12/2021: Pt is doing well No issues Bowels moving No pain 12/11/2021: Pt is about the same Cognitively she doesn't realize how much she can't really do effectively Unsure if she will be able to return back to her apartment and live on her own Overall feels like she is doing okay otherwise 12/10/21: Pt is doing a lot better Denies any pain Diclofenac gel for the knees is helping Increased supervisor burling and joining with the left arm 12/09/21: Patient sleeps most of the time Left hand is 3/4 back to baseline per patient report No pain reported BM+ Sugars are high so added hga1c and SSI/ACHS accuchecks 12/08/21: Patient doing well Sleeps a lot No pain reported 12/07/21: Patient doing really well No major concerns Eating and drinking well Regaining of left-sided weakness improved 12/06/21: Pt having a lot of knee pain so will initiate Diclofenac gel Overall moving around well Dramatic improvement since admission 12/05/2021: Pt doing really well Bowels moved today Tired Discontinuing telemetry Overall dramatic improvement 12/04/2021: Pt is doing really well Sleeping currently Left hand and left arm moving a lot better Overall much improved status 12/03/21: Patient improved Left hand improved No pain reported BM+ Eating well 12/02/2021: Patient doing well Left hand and arm moving well No pain reported Upbeat attitude 12/01/2021: Patient doing very well today Moving left arm and hand really well Family at bedside No pain 11/30/2021: Patient doing well Confusion noted Left sided weakness but can move her arm now Working with PT OT Reviewed labs Reviewed meds Review of Systems Neurological: Weakness Objective Exam Vital Signs Vital Signs Date Time Temp Pulse Resp B/P (MAP) Pulse Ox O2 Delivery O2 Flow Rate FiO2 12/19/21 20:14 Room Air 12/19/21 19:44 36.6 78 16 132/76 (94) 100 Capillary Refill : General Appearance: No Apparent Distress, WD/WN, Chronically ill HEENT: PERRL/EOMI, Normal ENT Inspection, Pharynx Normal Neck: Full Range of Motion, Normal Inspection, Non Tender, Supple, Carotid Bruit Respiratory: Chest Non Tender, Lungs Clear, Normal Breath Sounds, No Accessory Muscle Use, No Respiratory Distress Cardiovascular: Regular Rate, Rhythm, No Edema, No Gallop, No JVD, No Murmur, Normal Peripheral Pulses Gastrointestinal: Normal Bowel Sounds, No Organomegaly, No Pulsatile Mass, Non Tender, Soft Back: Normal Inspection, No CVA Tenderness, No Vertebral Tenderness Extremity: Normal Capillary Refill, Normal Inspection, Normal Range of Motion (except left side), Non Tender, No Calf Tenderness, No Pedal Edema Neurologic/Psychiatric: Alert, Oriented x3, Normal Mood/Affect, statistical machine mechanic II-XII Norm as Tested, Motor Weakness (left sided 2/5) Skin: Normal Color, Warm/Dry Lymphatic: No Adenopathy Results/Procedures Lab Patient resulted labs reviewed. FIM Transfers Therapy Code Descriptions/Definitions Functional [place] Measure: 0=Not Assessed/NA 4=Minimal Assistance 1=Total Assistance 5=Supervision or Setup 2=Maximal Assistance 6=Modified [place] 3=Moderate Assistance 7=Complete IndependenceSCALE: Activities may be completed with or without assistive devices. 8-Gbwjqmkajn-fbturaj completes the activity by him/herself with no assistance from a helper. 5-Set-up or Clean-up Assistance-helper sets up or cleans up; patient completes activity. [place] assists only prior to or following the activity. 4-Supervision or Touching Assistance-helper provides verbal cues and/or touching/steadying and/or contact guard assistance as patient completes activ ity. Assistance may be provided throughout the activity or intermittently. 3-Partial/Moderate Assistance-helper does LESS THAN HALF the effort. [place] lifts, holds or supports trunk or limbs, but provides less than half the effort. 2-Substantial/Maximal Assistance-helper does MORE THAN HALF the effort. [place] lifts or holds trunk or limbs and provides more than half the effort. 4-Voywlygey-phcctj does ALL the effort. Patient does none of the effort to complete the activity. Or, the assistance of 2 or more helpers is required for the patient to complete the activity. If activity was not attempted, code reason: 7-Patient Refused. 9-Not Applicable-not attempted and the patient did not perform the activity before the current illness, exacerbation or injury. 10-Not Attempted due to Environmental Limitations-(lack of equipment, weather restraints, etc.). 88-Not Attempted due to Medical Conditions or Safety Concerns. Roll Left to Right (QC): 6 Sit to Lying (QC): 4 Sit to Stand (QC): 5 Chair/Rqk-mb-Lvzto Xfer(QC): 4 Car Transfer (QC): 4 Gait Training Does the Patient Walk?: Yes Distance: 150' x2 Walk 10 feet (QC): 4 Walk 50 ft with 2 Turns(QC): 4 Walk 150 ft (QC): 4 Walking 10ft/uneven surface-QC: 1 Gait Persons Needed: 1 Gait Assistive Device: FWW Wheelchair Training Does the Pt Use a Wheelchair?: Yes Distance: 100' x 1/250' x 1 Wheel 50 ft with 2 turns (QC): 4 Wheel 150 ft (QC): 4 Type of Wheelchair: Manual Stair Training #of Steps: 1 1 Step (curb) (QC): 1 (placed right foot up on step and attempted to follow with left with PT assist) 4 Steps (QC): 9 12 Steps (QC): 9 Balance Picking up an Object (QC): 88 ADL-Treatment Eating (QC): 5 Oral Hygiene (QC): 6 Shower/Bathe Self (QC): 3 (min) Upper Body Dressing (QC): 4 Lower Body Dressing (QC): 3 (min) On/Off Footwear (QC): 3 (min) Toileting Hygiene (QC): 4 Toilet Transfer (QC): 4 Assessment/Plan Assessment and Plan Assess & Plan/Chief Complaint Assessment: 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 Debility Fall risk Hypertension Hyperlipidemia Advanced age DM hemoglobin A1c 6.9 new diagnosis Plan: Monitor closely Fall risk Monitor BP OAC 11/30/21: Monitor closely Checked meds labs 12/01/2021: Monitor closely DOAC 12/02/21: Monitor closely 12/03/21: Monitor closely Fall risk Decrease Eliquis to 5mg PO BID 12/04/2021: Supportive care Improved status 12/05/2021: Supportive care Aggressive therapy 12/06/2021: Supportive care Monitor knee pain 12/07/2021: Supportive care Diclofenac gel on knees 12/08/21: Monitor closely Knee pain management 12/09/21: Glucose management 12/11/2021: Supportive care Continue aggressive rehab 12/12/2020: Continue aggressive therapy Monitor sugar 12/13/21: Monitor closely Sugar numbers reviewed 12/14/2021: Monitor closely 12/15/2021: Sugar managed 12/16/2021: DM education 12/17/2021: DM education today Monitor closely 12/18/21: DM education was helpful 12/19/2021: Discharge home tomorrow (1) CVA, LEFT SIDED WEAKENSS (2) HLD (hyperlipidemia) Status: Chronic (3) HTN (hypertension) Status: Chronic ZURDO MARINO DO Dec 19, 2021 06:29
[2021-12-19 07:25] VITALS: BP 153/70
[2021-12-19] MEDS: DOCUSATE SODIUM 100 MG (COLACE) CAP PO SCH ×2 (08:12→19:25)
[2021-12-19] MEDS: ASPIRIN E.C. 81 MG (ECOTRIN) TAB PO SCH (08:12)
[2021-12-19] MEDS: CYANOCOBALAMIN 1,000 MCG (VITAMIN B-12) TABLET PO SCH (08:12)
[2021-12-19] MEDS: APIXABAN 5 MG (ELIQUIS) TABLET PO SCH ×2 (08:12→20:11)
[2021-12-19] MEDS: polyethylene glycoL POWDER 17 GM (MIRALAX) PACK PO SCH ×2 (08:12→19:25)
[2021-12-19] MEDS: PYRIDOXINE (VITAMIN B-6) 50 MG TABLET PO SCH (08:12)
[2021-12-19] MEDS: DICLOFENAC 1% GEL 100 GM (VOLTAREN) TUBE TOP SCH ×4 (08:15→20:12)
[2021-12-19] MEDS: MICONAZOLE 2% POWDER (DESENEX AF) 90 GM TOP SCH ×2 (08:15→20:12)
[2021-12-19] MEDS: SENNA W/DOCUSATE (SENOKOT S) TABLET PO SCH ×2 (08:18→19:25)
[2021-12-19] MEDS: MICONAZOLE NITRATE 2% CRM 30 GM TP SCH ×2 (08:18→19:25)
--- NOTE | 2021-12-19 08:37 | Occupational Ther Daily Note ---
OT Current Status-Daily Note Subjective Pt in good spirits, agreeable to shower. Appearance Pt returned to sitting in recliner, all needs within reach, RN in room at OT departure. Mental Status/Objective Patient Orientation: Person, Place, Situation ADL-Treatment Therapy Code Descriptions/Definitions Functional [place] Measure: 0=Not Assessed/NA 4=Minimal Assistance 1=Total Assistance 5=Supervision or Setup 2=Maximal Assistance 6=Modified [place] 3=Moderate Assistance 7=Complete IndependenceSCALE: Activities may be completed with or without assistive devices. 3-Ciqegxlcnl-ufipcyg completes the activity by him/herself with no assistance from a helper. 5-Set-up or Clean-up Assistance-helper sets up or cleans up; patient completes activity. [place] assists only prior to or following the activity. 4-Supervision or Touching Assistance-helper provides verbal cues and/or touching/steadying and/or contact guard assistance as patient completes activity. Assistance may be provided throughout the activity or intermittently. 3-Partial/Moderate Assistance-helper does LESS THAN HALF the effort. [place] lifts, holds or supports trunk or limbs, but provides less than half the effort. 2-Substantial/Maximal Assistance-helper does MORE THAN HALF the effort. [place] lifts or holds trunk or limbs and provides more than half the effort. 5-Xtlrgvqqy-ppktqa does ALL the effort. Patient does none of the effort to complete the activity. Or, the assistance of 2 or more helpers is required for the patient to complete the activity. If activity was not attempted, code reason: 7-Patient Refused. 9-Not Applicable-not attempted and the patient did not perform the activity before the current illness, exacerbation or injury. 10-Not Attempted due to Environmental Limitations-(lack of equipment, weather restraints, etc.). 88-Not Attempted due to Medical Conditions or Safety Concerns. Eating (QC): 6 Oral Hygiene (QC): 6 Shower/Bathe Self (QC): 4 Upper Body Dressing (QC): 5 Lower Body Dressing (QC): 4 On/Off Footwear: 4 Toileting Hygiene (QC): 6 Toilet Transfer (QC): 4 Shower performed; majority completed in sitting. Pt able to reach all body parts without assist. Extra time to reach feet. Supervision needed for safety when standing to wash atul area/buttocks. No LOB, single UE support on grab bar when standing. Clothing donned seated in w/c. Extra time to process/initiate pulling shirt down around torso, but no cues needed this date. Post cue to thread RLE first, pt was able to don foot into brief/pants while bending at waist. Extra time and cue to incorporate L hand into task but no physical assistance required. She stood and managed clothing over her hips with close Supervision for balance safety. Again, with extra time she was able to pull up on R side. After several good attempts, pt still having difficulty threading sock over toes with use of cross over method. Post modification with step under feet, pt was then able to reach feet. When given enough time, she can perform task independently. Grooming tasks performed independently at seated level. Other Treatment Pt participated in BUE exercises with focus on improving ROM, strength and endurance needed for functional tasks. 1# hand held weight utilized with all RUE exercises, no resistance with left. Mod visual and tactile cues for correct technique as well as cues to slow pace. L shoulder AROM ~165 degrees, full PROM. Elbow-distally WNL. Extra time for finger opposition (thumb-pinky). 1x12 all planes. Education OT Patient Education: Correct positioning, Energy conservation, Exercise program, Modified ADL techniques, Progress toward Goal/Update tx plan, Purpose of tx/functional activities, Safety issues, Transfer techniques Teaching Recipient: Patient Teaching Methods: Demonstration, Discussion Response to Teaching: Verbalize Understanding, Return Demonstration, Reinforcement Needed OT Short Term Goals Short Term Goals Time Frame: Dec 13, 2021 Eatin Oral hygiene: 5 Toileting hygiene: 2 Shower/bathe self: 3 Upper body dressin Lower body dressin Putting on/taking off footwear: 2 OT Prison Goals Prison Goals Time Frame: Dec 27, 2021 Eating (QC): 5 (met) Oral Hygiene (QC): 6 (met) Toileting Hygiene (QC): 6 (met) Shower/Bathe Self (QC): 4 (met) Upper Body Dressing (QC): 5 (met) Lower Body Dressing (QC): 4 (met) On/Off Footwear (QC): 4 (met) 1=Demonstrate adherence to instructed precautions during ADL tasks. 2=Patient will verbalize/demonstrate understanding of assistive devices/modifications for ADL. 3=Patient will improve strength/tolerance for activity to enable patient to perform ADL's. OT Education/Plan Problem List/Assessment Assessment: Decreased Activ Tolerance, Decreased Safety Aware, Decreased UE Strength, Impaired Cognition, Impaired Funct Balance, Impaired I ADL's, Impaired Self-Care Skills, Restricted Funct UE ROM Discharge Recommendations Plan/Recommendations: Continue POC Therapy Discharge Recommendati: Intermittent Supervision, Homemaker Support, Post Acute OT Equpiment Recommendations-D/C: Velcro Shoes, Toilet Riser Target Placement Home with family, Home health OT and intermittent supervision. OT does not recommend home alone at this time. Treatment Plan/Plan of Care Treatment,Training & Education: Yes Patient would benefit from OT for education, treatment and training to promote independence in ADL's, mobility, safety and/or upper extremity function for ADL's. Plan of Care: ADL Retraining, Cognitive Retraining, Functional Mobility, Group Exercise/Act as Ind, UE Funct Exercise/Act, UE Neuromus Re-Ed/Coord, Visual/Perceptual Retrain, W/C Management Training Treatment Duration: Dec 27, 2021 Frequency: At least 5 of 7 days/Wk (IRF) Estimated Hrs Per Day: 1.5 hours per day Agreement: Yes Rehab Potential: Good Time/GCodes Start Time: 07:25 Stop Time: 08:40 Total Time Billed (hr/min): 75 Billed Treatment Time 1 visit ADL x4 (55 min) EX (20 min) Kim Shannon OT Dec 19, 2021 08:37
--- NOTE | 2021-12-19 09:19 | Cardiology Progress Note ---
Subjective Date Seen by Provider: Dec 19, 2021 Time Seen by Provider: 09:19 Subjective/Events-last exam Patient was seen at bedside, sitting comfortably. No new complaint. Objective-Cardiology Exam Last Set of Vital Signs Vital Signs 12/19/21 12/19/21 07:25 08:30 Temp 36.1 Pulse 82 Resp 16 B/P (MAP) 153/70 (97) Pulse Ox 94 O2 Delivery Room Air General: Alert, Oriented X3 HEENT: Atraumatic Neck: Supple Lungs: Clear to Auscultation, Normal Air Movement Heart: Regular Rate, Normal S1, Normal S2 Abdomen: Normal Bowel Sounds, Soft Extremities: No Clubbing, No Cyanosis, No Edema Skin: No Rashes, No Significant Lesion Neuro: Normal Gait, Normal Speech, Cranial Nerves 3-12 NL, Other (Left upper extremity strength is improving.) Psych/Mental Status: Mental Status NL, Mood NL A/P-Cardiology Admission Diagnosis Subacute CVA HTN Assessment/Plan Subacute CVA, CTA of the head showed 80 to 90% right ICA stenosis with possible thrombus with no identifiable source of thrombus. MRI of the head showed patchy region of acute to subacute infarction of the right parietal lobe extending to the posterior right frontal and occipital lobe. 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 No signs of mass- effect or hemorrhage. Recommendation was by [facility] stroke neurology to treat with aspirin and heparin and then progressed to aspirin and Eliquis.Currently maintained on ASA 81 mg and Eliquis 5mg BID. EKG showed sinus rhythm with premature atrial contractions. Asymptomatic. SUHKI done 11/29/21 showing trace mitral regurgitation with no shunt noted. Hypertension, controlled, continue to monitor blood pressure. Hyperlipidemia, started on Lipitor 80 mg daily. Continue to monitor NICOLE DEJESUS MD Dec 19, 2021 09:19
--- NOTE | 2021-12-19 09:59 | Physical Therapy Daily Note ---
PT Daily Note-Current Subjective Pt. agrees to Rx. States she feels comfortable to go home. No c/o pain Pain Location: No Pain Reported Mental Status Patient Orientation: Normal For Age Transfers SCALE: Activities may be completed with or without assistive devices. 5-Kfoylnqrms-dofzmyu completes the activity by him/herself with no assistance from a helper. 5-Set-up or Clean-up Assistance-helper sets up or cleans up; patient completes activity. [place] assists only prior to or following the activity. 4-Supervision or Touching Assistance-helper provides verbal cues and/or touching/steadying and/or contact guard assistance as patient completes activity. Assistance may be provided throughout the activity or intermittently. 3-Partial/Moderate Assistance-helper does LESS THAN HALF the effort. [place] lifts, holds or supports trunk or limbs, but provides less than half the effort. 2-Substantial/Maximal Assistance-helper does MORE THAN HALF the effort. [place] lifts or holds trunk or limbs and provides more than half the effort. 8-Byoxfvbgc-aqjtdv does ALL the effort. Patient does none of the effort to complete the activity. Or, the assistance of 2 or more helpers is required for the patient to complete the activity. If activity was not attempted, code reason: 7-Patient Refused. 9-Not Applicable-not attempted and the patient did not perform the activity b efore the current illness, exacerbation or injury. 10-Not Attempted due to Environmental Limitations-(lack of equipment, weather restraints, etc.). 88-Not Attempted due to Medical Conditions or Safety Concerns. Roll Left & Right (QC): 6 Sit to Lying (QC): 6 Lying to Sitting/Side of Bed(Q: 6 Sit to Stand (QC): 6 Chair/Uqr-pv-Fxqcs Xfer(QC): 6 Toilet Transfer (QC): 6 Car Transfer (QC): 6 Weight Bearing Full Weight Bearing Full Weight Bearing Gait Training Does the Patient Walk?: Yes Walk 10 feet (QC): 6 Walk 50 ft with 2 Turns(QC): 4 Walk 150 ft (QC): 4 Walking 10ft/uneven surface-QC: 4 Gait Persons Needed: 1 Gait Assistive Device: FWW pt. required occas reminder to slow her gait and even out the step length , L<R at at times Stair Training Stair Training: Handrails/: 2 handrails #of Steps: 4 1 Step (curb) (QC): 4 4 Steps (QC): 4 12 Steps (QC): 88 Stairs: Pattern: Step to pt. with c/o discomfort in R knee during steps and audible crepitus was noted with hesitance to load her RLE ascending and descending Balance Picking up an Object (QC): 6 Exercises Supine Ex: Bridging, Ankle pumps, Rolling, Straight leg raise Supine Reps: 15 NuStep Minutes: 8 NuStep Workload: 2 Treatments QC completed, gait, therex as above, in bed after Rx with call hagan and phone at hand Assessment Current Status: Good Progress reviewed with pt. that gait stability is important padmini advancement of LLE as this puts her at risk for falls PT Short Term Goals Short Term Goals Time Frame: Dec 14, 2021 Roll Left & Right: 4 Sit to lyin Lying to sitting on side of be: 4 Sit to stand: 3 Chair/uyi-mc-wsykd transfer: 3 Toilet transfer: 3 Car transfer: 3 Walk 10 feet: 3 Walk 50 feet with two turns: 3 Does pt use a wc or scooter: Yes Wheel 50ft w/2 turns: 4 Wheel 150 feet: 4 Type: Manual PT Corrections Sergeant Goals Corrections Sergeant Goals PT Corrections Sergeant Goals Time Frame: Dec 28, 2021 Roll Left & Right (QC): 6 Sit to Lying (QC): 6 Lying-Sitting on Side/Bed(QC): 6 Sit to Stand (QC): 4 Chair/Ejj-eb-Xtrmk Xfer(QC): 4 Toilet Transfer (QC): 4 Car Transfer (QC): 4 Does the Patient Walk: Yes Walk 10 feet (QC): 4 Walk 50ft with 2 Turns (QC): 4 Walk 150 ft (QC): 4 Walking 10ft on Uneven Surface: 4 1 Step (curb) (QC): 3 4 Steps (QC): 9 12 Steps (QC): 9 Picking up an Object (QC): 3 Wheel 50 feet with 2 turns (QC: 5 Wheel 150 feet: 5 Type: Manual PT Plan Treatment/Plan Treatment Plan: Continue Plan of Care Treatment Plan: Bed Mobility, Concurrent Therapy, Education, Functional Activity Seema, Functional Strength, Group Therapy, Gait, Safety, Therapeutic Exercise, Transfers Treatment Duration: Dec 28, 2021 Frequency: At least 5 of 7 days/Wk (IRF) Estimated Hrs Per Day: 1.5 hours per day Patient and/or Family Agrees t: Yes Safety Risks/Education Patient Education: Gait Training, Transfer Techniques, Steps, Correct Positioning, Disease Process, Safety Issues Teaching Recipient: Patient Teaching Methods: Demonstration, Discussion Response to Teaching: Verbalize Understanding, Return Demonstration, Reinforcement Needed Time/GCodes Time In: 900 Time Out: 1000 Total Billed Treatment Time: 60 Total Billed Treatment 1,FA25m,GT15m,EX20m ADRIANNA GRANT BIG DATA LEAD Dec 19, 2021 09:59
--- NOTE | 2021-12-19 10:34 | Speech Therapy Daily Note ---
Speech Daily Progress Note Subjective Date Seen by Provider: Dec 19, 2021 Time Seen by Provider: 10:15 The patient was seated upright in bed, awake and alert upon entrance to her room by the clinician. The patient greeted the clinician appropriately and was agreeable to participation in the cognitive linguistic treatment session. Objective The patient completed the SLUMS with a result of +27/30 correlating to a cognitive linguistic skills within normal limits. The patient completed the SLUMS upon admission on 11/27/21, displaying a result of +19/30. On this date, the patient displayed one error with simple subtraction and one error with word-finding. Assessment Assessment Current Status: Good Progress Treatment Plan Continue Plan of Care Speech Short Term Goals Short Term Goals Short Term Goals The patient will demonstrate 90% accuracy with memory and functional problem solving with mild clinician verbal and visual cueing. Speech Assisted Goals Head Irrigator Goals The patient will demonstrate improve cognitive linguistic skills for safe discharge to the least restricted environment. Speech-Plan Treatment Plan Speech Therapy Treatment Plan: Continue Plan of Care Treatment Duration: Dec 20, 2021 Frequency: Modified Program (IRF) Estimated Hrs Per Day: Other Rehab Potential: Good Safety Risks/Education Teaching Recipient: Patient Teaching Methods: Discussion Response to Teaching: Verbalize Understanding Education Topics Provided: SLUMS Results, Progression Time Speech Therapy Time In: 10:15 Speech Therapy Time Out: 10:45 Total Billed Time: 30 Billed Treatment Time GreggRADHA ELIZABETH ST Dec 19, 2021 10:34
--- NOTE | 2021-12-19 11:25 | Physical Therapy Daily Note ---
PT Daily Note-Current Subjective Patient in bed pre tx, agrees to PT, has no complaints of pain. Appearance Patient in bed post tx with nurse call, phone, tray, all needs met. Mental Status Patient Orientation: Person, Place, Situation Transfers SCALE: Activities may be completed with or without assistive devices. 0-Ltnahhdouu-pruayjy completes the activity by him/herself with no assistance from a helper. 5-Set-up or Clean-up Assistance-helper sets up or cleans up; patient completes activity. [place] assists only prior to or following the activity. 4-Supervision or Touching Assistance-helper provides verbal cues and/or touching/steadying and/or contact guard assistance as patient completes activity. Assistance may be provided throughout the activity or intermittently. 3-Partial/Moderate Assistance-helper does LESS THAN HALF the effort. [place] lifts, holds or supports trunk or limbs, but provides less than half the effort. 2-Substantial/Maximal Assistance-helper does MORE THAN HALF the effort. [place] lifts or holds trunk or limbs and provides more than half the effort. 0-Wlfbosmkf-ibqzet does ALL the effort. Patient does none of the effort to complete the activity. Or, the assistance of 2 or more helpers is required for the patient to complete the activity. If activity was not attempted, code reason: 7-Patient Refused. 9-Not Applicable-not attempted and the patient did not perform the activity before the current illness, exacerbation or injury. 10-Not Attempted due to Environmental Limitations-(lack of equipment, weather restraints, etc.). 88-Not Attempted due to Medical Conditions or Safety Concerns. Weight Bearing Full Weight Bearing Full Weight Bearing Exercises Supine Ex: Bridging, Ankle pumps, Quad Set, Glut sets, Heel Slides, Short Arc Quads, Straight leg raise, Hip abd/add Supine Reps: 20 Treatments LE strengthening Assessment Current Status: Fair Progress patient had a couple of short rest breaks PT Short Term Goals Short Term Goals Time Frame: Dec 14, 2021 Roll Left & Right: 4 Sit to lyin Lying to sitting on side of be: 4 Sit to stand: 3 Chair/dgq-ji-rppkc transfer: 3 Toilet transfer: 3 Car transfer: 3 Walk 10 feet: 3 Walk 50 feet with two turns: 3 Does pt use a wc or scooter: Yes Wheel 50ft w/2 turns: 4 Wheel 150 feet: 4 Type: Manual PT Primer Charging Tool Setter Goals Usp Goals PT Usp Goals Time Frame: Dec 28, 2021 Roll Left & Right (QC): 6 Sit to Lying (QC): 6 Lying-Sitting on Side/Bed(QC): 6 Sit to Stand (QC): 4 Chair/Gkv-zi-Zjbog Xfer(QC): 4 Toilet Transfer (QC): 4 Car Transfer (QC): 4 Does the Patient Walk: Yes Walk 10 feet (QC): 4 Walk 50ft with 2 Turns (QC): 4 Walk 150 ft (QC): 4 Walking 10ft on Uneven Surface: 4 1 Step (curb) (QC): 3 4 Steps (QC): 9 12 Steps (QC): 9 Picking up an Object (QC): 3 Wheel 50 feet with 2 turns (QC: 5 Wheel 150 feet: 5 Type: Manual PT Plan Problem List Problem List: Activity Tolerance, Functional Strength, Safety, Balance, Gait, Transfer, Bed Mobility, ROM Treatment/Plan Treatment Plan: Continue Plan of Care Treatment Plan: Bed Mobility, Concurrent Therapy, Education, Functional Activity Seema, Functional Strength, Group Therapy, Gait, Safety, Therapeutic Exercise, Transfers Treatment Duration: Dec 28, 2021 Frequency: At least 5 of 7 days/Wk (IRF) Estimated Hrs Per Day: 1.5 hours per day Patient and/or Family Agrees t: Yes Safety Risks/Education Patient Education: Correct Positioning, Safety Issues Teaching Recipient: Patient Teaching Methods: Demonstration, Discussion Response to Teaching: Reinforcement Needed Time/GCodes Time In: 1110 Time Out: 1125 Total Billed Treatment Time: 15 Total Billed Treatment 1 visit EX RYAN ROMERO PT Dec 19, 2021 11:25
--- NOTE | 2021-12-19 13:51 | Therapy Team Discharge Summary ---
Therapy Discharge Summary Discharge Recommendations Date of Discharge Physical Therapy Roll Left to Right (QC): 6 Sit to Lying (QC): 6 Lying to Sitting/Side of Bed(Q: 6 Sit to Stand (QC): 6 Chair/Mmo-sa-Gjebj Xfer(QC): 6 Toilet Transfer (QC): 6 Car Transfer (QC): 6 Does the Patient Walk: Yes Mode of Locomotion: Both Anticipated Mode of Locomotion: Both Walk 10 feet (QC): 6 Walk 50 ft with 2 Turns(QC): 4 Walk 150 ft (QC): 4 Walking 10ft on uneven surface: 4 Distance: 10' x 3 Gait Assistive Device: FWW Does the Pt Use a Wheelchair: Yes Wheelchair Distance: 100' x 1/250' x 1 Wheel 50 ft with 2 turns (QC): 4 Wheel 150 ft (QC): 4 Type of Wheelchair: Manual #of Steps: 4 1 Step (curb) (QC): 4 4 Steps (QC): 4 12 Steps (QC): 88 Balance Sitting Static: Normal Balance Sitting Dynamic: Fair Balance-Standing Static: Poor Picking up an Object (QC): 6 Occupational Therapy Decreased Activ Tolerance, Decreased Safety Aware, Decreased UE Strength, Imp aired Cognition, Impaired Funct Balance, Impaired I ADL's, Impaired Self-Care Skills, Restricted Funct UE ROM Eating (QC): 6 Oral Hygiene (QC): 6 Shower/Bathe Self (QC): 4 Upper Body Dressing (QC): 5 Lower Body Dressing (QC): 4 On/Off Footwear (QC): 4 Toileting Hygiene (QC): 6 Speech-Language Pathology Expression of Ideas/Wants: Expression (4) Understanding Verbal Content: Understands (4) Brief Interview-Mental Status: Yes Repetition of Three Words: Three (3) Temporal Orientation: Year: Correct (3) Temporal Orientation: Month: Accurate within 5 days(2) Temporal Orientation: Day: Correct (1) Recall : Wear to say "Sock": Yes, no cue required (2) Recall : Color: Yes, no cue required (2) Recall : Bed: Yes, no cue required (2) Memory/Recall Ability: Current season, Staff names and faces, That he or she is in a hsp/hsp unit The patient has displayed excellent progression through cognitive therapy, displaying an improvement in her SLUMS score from +19/30 to +27/30. PT Chcf Goals Chcf Goals PT Chcf Goals Time Frame: Dec 28, 2021 Roll Left to Right (QC): 6 Sit to Lying (QC): 6 Lying-Sitting on Side/Bed(QC): 6 Sit to Stand (QC): 4 Chair/Ndi-ke-Ishva Xfer(QC): 4 Car Transfer (QC): 4 Does the Patient Walk: Yes Walk 10 feet (QC): 4 Walk 10ft-Uneven Surface(QC): 4 Walk 50ft with 2 Turns (QC): 4 Walk 150 ft (QC): 4 Wheel 50 feet with 2 turns (QC: 5 1 Step (curb) (QC): 3 4 Steps (QC): 9 12 Steps (QC): 9 Picking up an Object (QC): 3 OT Brusher Hand Goals Brusher Hand Goals Time Frame: Dec 27, 2021 Eating (QC): 5 (met) Oral Hygiene (QC): 6 (met) Shower/Bathe Self (QC): 4 (met) Upper Body Dressing (QC): 5 (met) Lower Body Dressing (QC): 4 (met) On/Off Footwear (QC): 4 (met) Toileting Hygiene (QC): 6 (met) Toilet/Commode Transfer (QC): 4 1=Demonstrate adherence to instructed precautions during ADL tasks. 2=Patient will verbalize/demonstrate understanding of assistive devices/modifications for ADL. 3=Patient will improve strength/tolerance for activity to enable patient to perform ADL's. Speech Brusher Hand Goals Chcf Goals The patient will demonstrate improve cognitive linguistic skills for safe discharge to the least restricted environment. MET SOLA DOUGLAS Dec 19, 2021 13:51
[2021-12-19 19:44] VITALS: BP 132/76
[2021-12-19] MEDS: lisINopril 10 MG (PRINIVIL) TABLET PO SCH (20:11)
[2021-12-19] MEDS: meTOprolol SUCCINATE 100 MG (TOPROL XL) TAB PO SCH (20:11)
[2021-12-19] MEDS: SIMvastatin 40 MG (ZOCOR) TAB PO SCH (20:11)
[2021-12-20] MEDS: KCL 10 MEQ TAB (MICRO K) PO SCH (06:05)
[2021-12-20] MEDS ORDERED: POTA-160 PO (07:02)
[2021-12-20] MEDS ORDERED: MICO90PO TOP (07:02)
[2021-12-20] MEDS ORDERED: ATOR80TA76 PO (07:02)
[2021-12-20] MEDS ORDERED: ASPI-1238 PO (07:02)
[2021-12-20] MEDS ORDERED: DICL100G13 TOP (07:02)
[2021-12-20] MEDS ORDERED: APIX5TAB PO (07:02)
--- NOTE | 2021-12-20 07:04 | Discharge Summary ---
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 Debility Fall risk Hypertension Hyperlipidemia Advanced age DM hemoglobin A1c 6.9 new diagnosis Plan: Monitor closely Fall risk Monitor BP OAC 11/30/21: Monitor closely Checked meds labs 12/01/2021: Monitor closely DOAC 12/02/21: Monitor closely 12/03/21: Monitor closely Fall risk Decrease Eliquis to 5mg PO BID 12/04/2021: Supportive care Improved status 12/05/2021: Supportive care Aggressive therapy 12/06/2021: Supportive care Monitor knee pain 12/07/2021: Supportive care Diclofenac gel on knees 12/08/21: Monitor closely Knee pain management 12/09/21: Glucose management 12/11/2021: Supportive care Continue aggressive rehab 12/12/2020: Continue aggressive therapy Monitor sugar 12/13/21: Monitor closely Sugar numbers reviewed 12/14/2021: Monitor closely 12/15/2021: Sugar managed 12/16/2021: DM education 12/17/2021: DM education today Monitor closely 12/18/21: DM education was helpful 12/19/2021: Discharge home tomorrow (1) CVA, LEFT SIDED WEAKENSS (2) HLD (hyperlipidemia) Status: Chronic (3) HTN (hypertension) Status: Chronic Discharge Summary Discharge Physical Examination Allergies: Coded Allergies: No Known Drug Allergies (Unverified , 11/27/21) Vitals & I&Os Vital Signs Date Time Temp Pulse Resp B/P (MAP) Pulse Ox O2 Delivery O2 Flow Rate FiO2 12/20/21 13:00 36.8 82 18 148/88 94 Room Air General Appearance: Alert, Oriented X3, Cooperative Respiratory: Clear to Auscultation Cardiovascular: Regular Rate Psych/Mental Status: Mental Status NL Hospital Course Was the Problem List Reviewed?: Yes Pt had a lengthy hospital course for 22 days when she was admitted for CVA. Pt was found to have left sided weakness. She participated in all therapy and was able to regain most function back to baseline. She did very well. Had no concerns at time of discharge. I sent oral anticoagulation and all cardiology medication in. She was deemed stable for discharge on home health back to independent living apartment. Labs (last 24 hrs) Laboratory Tests 11/29/21 17:50: Hemoglobin 12.9, Hematocrit 40 11/30/21 05:22: Hemoglobin 14.5, Hematocrit 44, White Blood Count 7.8, Red Blood Count 4.87, Mean Corpuscular Volume 91, Mean Corpuscular Hemoglobin 30, Mean Corpuscular Hemoglobin Concent 33, Red Cell Distribution Width 14.3, Platelet Count 285, Mean Platelet Volume 10.3, Immature Granulocyte % (Auto) 0, Neutrophils (%) (Auto) 67, Lymphocytes (%) (Auto) 21, Monocytes (%) (Auto) 8, Eosinophils (%) (Auto) 3, Basophils (%) (Auto) 1, Neutrophils # (Auto) 5.3, Lymphocytes # (Auto) 1.6, Monocytes # (Auto) 0.6, Eosinophils # (Auto) 0.2, Basophils # (Auto) 0.1, Immature Granulocyte # (Auto) 0.0, Sodium Level 141, Potassium Level 3.7, Chloride Level 105, Carbon Dioxide Level 20L, Anion Gap 16H, Blood Urea Nitrogen 7, Creatinine 0.62, Estimat Glomerular Filtration Rate 88, BUN/Creatinine Ratio 11, Glucose Level 196H, Calcium Level 9.4, Corrected Calcium 9.6, Total Biliru bin 0.7, Aspartate Amino Transf (AST/SGOT) 20, Alanine Aminotransferase (ALT/SGPT) 17, Alkaline Phosphatase 77, Total Protein 6.7, Albumin 3.8 12/09/21 05:03: Hemoglobin 13.8, Hematocrit 41, White Blood Count 9.1, Red Blood Count 4.59, Mean Corpuscular Volume 90, Mean Corpuscular Hemoglobin 30, Mean Corpuscular Hemoglobin Concent 33, Red Cell Distribution Width 14.3, Platelet Count 311, Mean Platelet Volume 10.6, Immature Granulocyte % (Auto) 0, Neutrophils (%) (Auto) 73, Lymphocytes (%) (Auto) 18, Monocytes (%) (Auto) 7, Eosinophils (%) (Auto) 1, Basophils (%) (Auto) 1, Neutrophils # (Auto) 6.6, Lymphocytes # (Auto) 1.6, Monocytes # (Auto) 0.6, Eosinophils # (Auto) 0.1, Basophils # (Auto) 0.1, Immature Granulocyte # (Auto) 0.0, Sodium Level 140, Potassium Level 3.4L, Chloride Level 105, Carbon Dioxide Level 21, Anion Gap 14, Blood Urea Nitrogen 15, Creatinine 0.67, Estimat Glomerular Filtration Rate 87, BUN/Creatinine Ratio 22, Glucose Level 179H, Calcium Level 9.0, Corrected Calcium 9.2, Total Bilirubin 0.7, Aspartate Amino Transf (AST/SGOT) 18, Alanine Aminotransferase (ALT/SGPT) 27, Alkaline Phosphatase 87, Total Protein 6.1L, Albumin 3.7, Mean Blood Glucose 151H, Hemoglobin A1c 6.9H 12/09/21 11:43: Glucometer 315H 12/09/21 16:05: Glucometer 135H 12/09/21 20:14: Glucometer 181H 12/10/21 05:38: Glucometer 159H 12/10/21 10:52: Glucometer 151H 12/10/21 15:10: Glucometer 142H 12/10/21 20:01: Glucometer 178H 12/11/21 06:23: Glucometer 156H 12/11/21 10:58: Glucometer 166H 12/11/21 15:13: Glucometer 153H 12/11/21 20:38: Glucometer 158H 12/12/21 05:22: Glucometer 170H 12/12/21 11:40: Glucometer 130H 12/12/21 16:27: Glucometer 123H 12/12/21 20:08: Glucometer 237H 12/13/21 05:35: Glucometer 146H 12/13/21 11:10: Glucometer 182H 12/13/21 15:08: Glucometer 144H 12/13/21 20:22: Glucometer 209H 12/14/21 06:30: Glucometer 150H 12/14/21 11:29: Glucometer 139H 12/14/21 16:54: Glucometer 153H 12/14/21 20:10: Glucometer 143H 12/15/21 05:48: Glucometer 152H 12/15/21 11:54: Glucometer 143H 12/15/21 16:56: Glucometer 129H 12/15/21 20:30: Glucometer 152H 12/16/21 05:50: White Blood Count 8.4, Red Blood Count 4.48, Hemoglobin 13.6, Hematocrit 41, Mean Corpuscular Volume 92, Mean Corpuscular Hemoglobin 30, Mean Corpuscular Hemoglobin Concent 33, Red Cell Distribution Width 14.5, Platelet Count 297, Mean Platelet Volume 10.8, Immature Granulocyte % (Auto) 1, Neutrophils (%) (Auto) 72, Lymphocytes (%) (Auto) 19, Monocytes (%) (Auto) 7, Eosinophils (%) (Auto) 1, Basophils (%) (Auto) 1, Neutrophils # (Auto) 6.0, Lymphocytes # (Auto) 1.6, Monocytes # (Auto) 0.6, Eosinophils # (Auto) 0.1, Basophils # (Auto) 0.1, Immature Granulocyte # (Auto) 0.1, Sodium Level 140, Potassium Level 3.6, Chloride Level 106, Carbon Dioxide Level 25, Anion Gap 9, Blood Urea Nitrogen 9, Creatinine 0.65, Estimat Glomerular Filtration Rate 87, BUN/Creatinine Ratio 14, Glucose Level 149H, Calcium Level 8.9, Corrected Calcium 9.3, Total Bilirubin 0.7, Aspartate Amino Transf (AST/SGOT) 31, Alanine Aminotransferase (ALT/SGPT) 45, Alkaline Phosphatase 92, Total Protein 5.8L, Albumin 3.5 12/16/21 11:07: Glucometer 173H 12/16/21 16:35: Glucometer 121H 12/16/21 20:30: Glucometer 198H 12/17/21 05:25: Glucometer 155H 12/17/21 10:56: Glucometer 135H 12/17/21 15:27: Glucometer 179H 12/17/21 20:17: Glucometer 180H 12/18/21 05:34: Glucometer 182H 12/18/21 10:55: Glucometer 144H 12/19/21 05:31: Glucometer 147H 12/20/21 05:41: Glucometer 162H Pending Labs Laboratory Tests 11/29/21 17:50: Hemoglobin 12.9, Hematocrit 40 11/30/21 05:22: Hemoglobin 14.5, Hematocrit 44, White Blood Count 7.8, Red Blood Count 4.87, Mean Corpuscular Volume 91, Mean Corpuscular Hemoglobin 30, Mean Corpuscular Hemoglobin Concent 33, Red Cell Distribution Width 14.3, Platelet Count 285, Mean Platelet Volume 10.3, Immature Granulocyte % (Auto) 0, Neutrophils (%) (Auto) 67, Lymphocytes (%) (Auto) 21, Monocytes (%) (Auto) 8, Eosinophils (%) (Auto) 3, Basophils (%) (Auto) 1, Neutrophils # (Auto) 5.3, Lymphocytes # (Auto) 1.6, Monocytes # (Auto) 0.6, Eosinophils # (Auto) 0.2, Basophils # (Auto) 0.1, Immature Granulocyte # (Auto) 0.0, Sodium Level 141, Potassium Level 3.7, Chloride Level 105, Carbon Dioxide Level 20, Anion Gap 16, Blood Urea Nitrogen 7, Creatinine 0.62, Estimat Glomerular Filtration Rate 88, BUN/Creatinine Ratio 11, Glucose Level 196, Calcium Level 9.4, Corrected Calcium 9.6, Total Bilirubin 0.7, Aspartate Amino Transf (AST/SGOT) 20, Alanine Aminotransferase (ALT/SGPT) 17, Alkaline Phosphatase 77, Total Protein 6.7, Albumin 3.8 12/09/21 05:03: Hemoglobin 13.8, Hematocrit 41, White Blood Count 9.1, Red Blood Count 4.59, Mean Corpuscular Volume 90, Mean Corpuscular Hemoglobin 30, Mean Corpuscular Hemoglobin Concent 33, Red Cell Distribution Width 14.3, Platelet Count 311, Mean Platelet Volume 10.6, Immature Granulocyte % (Auto) 0, Neutrophils (%) (Auto) 73, Lymphocytes (%) (Auto) 18, Monocytes (%) (Auto) 7, Eosinophils (%) (Auto) 1, Basophils (%) (Auto) 1, Neutrophils # (Auto) 6.6, Lymphocytes # (Auto) 1.6, Monocytes # (Auto) 0.6, Eosinophils # (Auto) 0.1, Basophils # (Auto) 0.1, Immature Granulocyte # (Auto) 0.0, Sodium Level 140, Potassium Level 3.4, Chloride Level 105, Carbon Dioxide Level 21, Anion Gap 14, Blood Urea Nitrogen 15, Creatinine 0.67, Estimat Glomerular Filtration Rate 87, BUN/Creatinine Ratio 22, Glucose Level 179, Calcium Level 9.0, Corrected Calcium 9.2, Total Bilirubin 0.7, Aspartate Amino Transf (AST/SGOT) 18, Alanine Aminotransferase (ALT/SGPT) 27, Alkaline Phosphatase 87, Total Protein 6.1, Albumin 3.7, Mean Blood Glucose 151, Hemoglobin A1c 6.9 12/09/21 11:43: Glucometer 315 12/09/21 16:05: Glucometer 135 12/09/21 20:14: Glucometer 181 12/10/21 05:38: Glucometer 159 12/10/21 10:52: Glucometer 151 12/10/21 15:10: Glucometer 142 12/10/21 20:01: Glucometer 178 12/11/21 06:23: Glucometer 156 12/11/21 10:58: Glucometer 166 12/11/21 15:13: Glucometer 153 12/11/21 20:38: Glucometer 158 12/12/21 05:22: Glucometer 170 12/12/21 11:40: Glucometer 130 12/12/21 16:27: Glucometer 123 12/12/21 20:08: Glucometer 237 12/13/21 05:35: Glucometer 146 12/13/21 11:10: Glucometer 182 12/13/21 15:08: Glucometer 144 12/13/21 20:22: Glucometer 209 12/14/21 06:30: Glucometer 150 12/14/21 11:29: Glucometer 139 12/14/21 16:54: Glucometer 153 12/14/21 20:10: Glucometer 143 12/15/21 05:48: Glucometer 152 12/15/21 11:54: Glucometer 143 12/15/21 16:56: Glucometer 129 12/15/21 20:30: Glucometer 152 12/16/21 05:50: White Blood Count 8.4, Red Blood Count 4.48, Hemoglobin 13.6, Hematocrit 41, Mean Corpuscular Volume 92, Mean Corpuscular Hemoglobin 30, Mean Corpuscular Hemoglobin Concent 33, Red Cell Distribution Width 14.5, Platelet Count 297, Mean Platelet Volume 10.8, Immature Granulocyte % (Auto) 1, Neutrophils (%) (Auto) 72, Lymphocytes (%) (Auto) 19, Monocytes (%) (Auto) 7, Eosinophils (%) (Auto) 1, Basophils (%) (Auto) 1, Neutrophils # (Auto) 6.0, Lymphocytes # (Auto) 1.6, Monocytes # (Auto) 0.6, Eosinophils # (Auto) 0.1, Basophils # (Auto) 0.1, Immature Granulocyte # (Auto) 0.1, Sodium Level 140, Potassium Level 3.6, Chl oride Level 106, Carbon Dioxide Level 25, Anion Gap 9, Blood Urea Nitrogen 9, Creatinine 0.65, Estimat Glomerular Filtration Rate 87, BUN/Creatinine Ratio 14, Glucose Level 149, Calcium Level 8.9, Corrected Calcium 9.3, Total Bilirubin 0.7, Aspartate Amino Transf (AST/SGOT) 31, Alanine Aminotransferase (ALT/SGPT) 45, Alkaline Phosphatase 92, Total Protein 5.8, Albumin 3.5 12/16/21 11:07: Glucometer 173 12/16/21 16:35: Glucometer 121 12/16/21 20:30: Glucometer 198 12/17/21 05:25: Glucometer 155 12/17/21 10:56: Glucometer 135 12/17/21 15:27: Glucometer 179 12/17/21 20:17: Glucometer 180 12/18/21 05:34: Glucometer 182 12/18/21 10:55: Glucometer 144 12/19/21 05:31: Glucometer 147 12/20/21 05:41: Glucometer 162 Discharge Home Medications: Active Scripts Active Lotrimin AF (Miconazole Nitrate) 2 % Powder 0 Gm TOP BID Klor-Con 10 (Potassium Chloride) 10 Meq Tablet.er 10 Meq PO DAILY@0700 Diclofenac Sodium 1 % Gel..gram. 0 Gm TOP QID Aspirin EC (Aspirin) 81 Mg Tablet.dr 81 Mg PO DAILY Atorvastatin Calcium 80 Mg Tablet 80 Mg PO DAILY Eliquis (Apixaban) 5 Mg Tablet 5 Mg PO BID Reported Turmeric 500 mg Capsule (Turmeric/Turmeric Root Extract) 450 Mg-50 Mg Capsule 1 Each PO DAILY Centrum Chewables Adults Tab (Multivit-Min/Iron/Folic/Vit K1) 8 Mg Iron-400 Mcg- 10 Mcg Tab.chew 1 Each PO DAILY Vitamin B-12 (Cyanocobalamin (Vitamin B-12)) 1,000 Mcg Tablet 1,000 Mcg PO DAILY Vitamin B-6 (Pyridoxine HCl) 50 Mg Tablet 50 Mg PO DAILY Lisinopril 10 Mg Tablet 10 Mg PO HS Metoprolol Succinate 100 Mg Tab.er.24h 100 Mg PO HS Instructions to patient/family Please see electronic discharge instructions given to patient. Diagnosis/Problems Diagnosis/Problems (1) CVA, LEFT SIDED WEAKENSS (2) HLD (hyperlipidemia) Status: Chronic (3) HTN (hypertension) Status: Chronic ZURDO MARINO DO Dec 20, 2021 07:04
--- NOTE | 2021-12-20 07:04 | D/C HH Face to Face Order ---
D/C HH Face to Face Orders Reconcile Patient Problems Problems Reviewed?: Yes Instructions for Patient HH Patient Instructions/FollowUp: PCP 1 week Physician to follow Patient: Marshall Discharge Diet for Home: ADA Diet Patient Problems: CVA DM Patient Data-Allergies,Ht & Wt Patient Allergies: Coded Allergies: No Known Drug Allergies (Unverified , 11/27/21) Home Health Need/Face to Face Date of Face to Face: Dec 20, 2021 Clinical Findings: Generalized weakness and fatigue, Instability, Muscle weakness, Unsteady gait I have seen Pt hjuq-mk-tbuk: Yes Discharged To: Home Diagnosis/Conditions: CVA DM Patient is Homebound due to: Dean fall risk due to instabilty, Muscle weakness Homebound Status Due to the above stated illness, injury or surgical procedure (medical condition or diagnosis) and associated clinical findings, the patient is homebound because of his/her inability to leave home except with aid of a supportive device and/or person AND leaving the home requires a considerable and taxing effort or is medically contraindicated. Pt req the following assistanc: Walker Home Health Nursing Orders Home Health Services Order: Nursing Services, Pharmacy Scheduler-Evaluate & Treat, Physical Therapy-Evaluate & Treat Certify Stmt I certify that this patient is under my care and that I, a nurse practitioner or a physician; a assurance assistant working with me, had a face to face encounter that - meets the physician face to face encounter requirements with this patient as dated. ZURDO MARINO DO Dec 20, 2021 07:04
[2021-12-20 07:33] VITALS: BP 171/74
[2021-12-20] MEDS: PYRIDOXINE (VITAMIN B-6) 50 MG TABLET PO SCH (08:15)
[2021-12-20] MEDS: APIXABAN 5 MG (ELIQUIS) TABLET PO SCH (08:15)
[2021-12-20] MEDS: ASPIRIN E.C. 81 MG (ECOTRIN) TAB PO SCH (08:15)
[2021-12-20] MEDS: MICONAZOLE 2% POWDER (DESENEX AF) 90 GM TOP SCH (08:15)
[2021-12-20] MEDS: DICLOFENAC 1% GEL 100 GM (VOLTAREN) TUBE TOP SCH (08:15)
[2021-12-20] MEDS: CYANOCOBALAMIN 1,000 MCG (VITAMIN B-12) TABLET PO SCH (08:15)
--- NOTE | 2021-12-20 09:42 | Therapy Team Discharge Summary ---
Therapy Discharge Summary Discharge Recommendations Date of Discharge Therapy D/C Recommendations: Home w/ Family Support, Occupational Therapy Home Care, Homemaker Support, Other, See Comments (OT does not recommend home alone at this time. ) Physical Therapy Roll Left to Right (QC): 6 Sit to Lying (QC): 6 Lying to Sitting/Side of Bed(Q: 6 Sit to Stand (QC): 6 Chair/Gjv-uw-Slwbe Xfer(QC): 6 Toilet Transfer (QC): 5 Car Transfer (QC): 6 Does the Patient Walk: Yes Mode of Locomotion: Both Anticipated Mode of Locomotion: Both Walk 10 feet (QC): 6 Walk 50 ft with 2 Turns(QC): 4 Walk 150 ft (QC): 4 Walking 10ft on uneven surface: 4 Distance: 10' x 3 Gait Assistive Device: FWW Does the Pt Use a Wheelchair: Yes Wheelchair Distance: 100' x 1/250' x 1 Wheel 50 ft with 2 turns (QC): 4 Wheel 150 ft (QC): 4 Type of Wheelchair: Manual #of Steps: 4 1 Step (curb) (QC): 4 4 Steps (QC): 4 12 Steps (QC): 88 Balance Sitting Static: Normal Balance Sitting Dynamic: Fair Balance-Standing Static: Poor Picking up an Object (QC): 6 Occupational Therapy Pt presents to ARU following CVA. At time of evaluation, she was dependent for toileting, footwear, lower body dressing, and bathing, max a for upper body dressing, and SBA/CGA for oral care and eating. During her rehab stay, OT focused on balance, L side awareness, safety, proprioception, flexibility, UE ROM/strength, motor planning, FM coordination, pinch/card scraper strength, and overall endurance in order to improve performance and independence in adls and functional mobility. Pt made good progress and met all of her terminal supervisor goals. See below for current levels of assist. Pt will be discharging from this facility today and will be discharged from OT at this time. Decreased Activ Tolerance, Decreased Safety Aware, Decreased UE Strength, Impaired Cognition, Impaired Funct Balance, Impaired I ADL's, Impaired Self-Care Skills, Restricted Funct UE ROM Eating (QC): 6 Oral Hygiene (QC): 6 Shower/Bathe Self (QC): 4 Upper Body Dressing (QC): 5 Lower Body Dressing (QC): 4 On/Off Footwear (QC): 4 Toileting Hygiene (QC): 6 PT Facility Engineer Goals Facility Engineer Goals PT Snf Goals Time Frame: Dec 28, 2021 Roll Left to Right (QC): 6 Sit to Lying (QC): 6 Lying-Sitting on Side/Bed(QC): 6 Sit to Stand (QC): 4 Chair/Fnm-em-Tzybn Xfer(QC): 4 Car Transfer (QC): 4 Does the Patient Walk: Yes Walk 10 feet (QC): 4 Walk 10ft-Uneven Surface(QC): 4 Walk 50ft with 2 Turns (QC): 4 Walk 150 ft (QC): 4 Wheel 50 feet with 2 turns (QC: 5 1 Step (curb) (QC): 3 4 Steps (QC): 9 12 Steps (QC): 9 Picking up an Object (QC): 3 OT Facility Engineer Goals Snf Goals Time Frame: Dec 27, 2021 Eating (QC): 5 (met) Oral Hygiene (QC): 6 (met) Shower/Bathe Self (QC): 4 (met) Upper Body Dressing (QC): 5 (met) Lower Body Dressing (QC): 4 (met) On/Off Footwear (QC): 4 (met) Toileting Hygiene (QC): 6 (met) Toilet/Commode Transfer (QC): 4 1=Demonstrate adherence to instructed precautions during ADL tasks. 2=Patient will verbalize/demonstrate understanding of assistive devices/modifications for ADL. 3=Patient will improve strength/tolerance for activity to enable patient to per form ADL's. Speech Snf Goals Snf Goals The patient will demonstrate improve cognitive linguistic skills for safe discharge to the least restricted environment. MET Kim Shannon OT Dec 20, 2021 09:42
--- NOTE | 2021-12-20 10:38 | Therapy Team Discharge Summary ---
Therapy Discharge Summary Discharge Recommendations Date of Discharge Therapy D/C Recommendations: Home w/ Family Support, Occupational Therapy Home Care, Homemaker Support, Other, See Comments (OT does not recommend home alone at this time. ) Physical Therapy Patient was admitted to rehab following a CVA. Upon admission patient performed rolling and supine <-> sit with min/mod assist, sit <-> stand and transfers min/mod assist, car transfer dependent, ambulated 10' with a rolling walker with min/mod assist (dependent for 10' over an uneven surface), propelled a manual WC 250' with min/mod assist. Patient has been performing bed mobility and transfer training, balance and endurance training, functional strengthening, stair training, gait training, and education. 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 Now, patient performs rolling and supine <-> sit with independence, sit <-> stand and transfers independent, car transfer independent, ambulates 150' with a rolling walker with CGA/SBA (including 50' with at least 2 turns of 90 degrees and 10' over an uneven surface), can go up and down 4 steps using 2 handrails with CGA/SBA, and can warp picker an object from the floor with independence. Patient is being discharged from this facility today and will be discharged from PT at this time. Roll Left to Right (QC): 6 Sit to Lying (QC): 6 Lying to Sitting/Side of Bed(Q: 6 Sit to Stand (QC): 6 Chair/Dtt-ns-Twaid Xfer(QC): 6 Toilet Transfer (QC): 5 Car Transfer (QC): 6 Does the Patient Walk: Yes Mode of Locomotion: Both Anticipated Mode of Locomotion: Both Walk 10 feet (QC): 6 Walk 50 ft with 2 Turns(QC): 4 Walk 150 ft (QC): 4 Walking 10ft on uneven surface: 4 Distance: 10' x 3 Gait Assistive Device: FWW Does the Pt Use a Wheelchair: Yes Wheelchair Distance: 100' x 1/250' x 1 Wheel 50 ft with 2 turns (QC): 4 Wheel 150 ft (QC): 4 Type of Wheelchair: Manual #of Steps: 4 1 Step (curb) (QC): 4 4 Steps (QC): 4 12 Steps (QC): 88 Balance Sitting Static: Normal Balance Sitting Dynamic: Fair Balance-Standing Static: Poor Picking up an Object (QC): 6 Occupational Therapy Decreased Activ Tolerance, Decreased Safety Aware, Decreased UE Strength, Imp aired Cognition, Impaired Funct Balance, Impaired I ADL's, Impaired Self-Care Skills, Restricted Funct UE ROM Eating (QC): 6 Oral Hygiene (QC): 6 Shower/Bathe Self (QC): 4 Upper Body Dressing (QC): 5 Lower Body Dressing (QC): 4 On/Off Footwear (QC): 4 Toileting Hygiene (QC): 6 PT Half-Way Goals Half-Way Goals 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 Goals Time Frame: Dec 28, 2021 Roll Left to Right (QC): 6 Sit to Lying (QC): 6 Lying-Sitting on Side/Bed(QC): 6 Sit to Stand (QC): 4 Chair/Hdm-zn-Monyx Xfer(QC): 4 Car Transfer (QC): 4 Does the Patient Walk: Yes Walk 10 feet (QC): 4 Walk 10ft-Uneven Surface(QC): 4 Walk 50ft with 2 Turns (QC): 4 Walk 150 ft (QC): 4 Wheel 50 feet with 2 turns (QC: 5 1 Step (curb) (QC): 3 4 Steps (QC): 9 12 Steps (QC): 9 Picking up an Object (QC): 3 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 2=Patient will verbalize/demonstrate understanding of assistive devices/modifications for ADL. 3=Patient will improve strength/tolerance for activity to enable patient to perform ADL's. Speech Wind Turbine Electrical Engineer Goals Half-Way Goals The patient will demonstrate improve cognitive linguistic skills for safe discharge to the least restricted environment. MET RYAN NELSON PT Dec 20, 2021 10:38
[2021-12-20 13:00] VITALS: BP 148/88
== END 2021-12-20 13:00 | disposition home health service (06) | DRG 57 ==
PROVIDERS: ADMIT Internal Medicine; ATTEND Internal Medicine
DX: I69.354 Hemiplegia and hemiparesis following cerebral infarction affecting left non-dominant side (principal); I10 Essential (primary) hypertension; E78.5 Hyperlipidemia, unspecified; I34.0 Nonrheumatic mitral (valve) insufficiency; I49.1 Atrial premature depolarization; E11.42 Type 2 diabetes mellitus with diabetic polyneuropathy; B35.1 Tinea unguium; L85.9 Epidermal thickening, unspecified; Z91.81 History of falling; Z87.891 Personal history of nicotine dependence
CPT/HCPCS: 36415; 80053; 82947; 83036; 85014; 85018; 85025; 94664